=== PATIENT | male | born 1950 | race Caucasian/White ===

== ENCOUNTER 2018-08-08 18:09 | Inpatient (IN) | END 2018-08-13 16:00 | disposition home or self-care (01) | DRG 640 ==

== ENCOUNTER 2019-04-06 14:27 | Inpatient (IN) | payer MEDICAID, OTHER ==
[~2019-04-06] VITALS: Ht 162.6 cm; Wt 56.3 kg
[~2019-04-06 14:27] MED LIST: ALBU8.5H8 INH; AMLO-147 PO; ASPI-817 PO; ATOR-2 PO; BECL10.62 IH; OMEP20CA16 PO
--- NOTE | 2019-04-06 19:55 | ERD ---
ER Documentation Chief Complaint Chief Complaint sent alexys fr lab wk prior to resuming dialysis since out of country x2[place] HPI This is a 68-year-old man referred here by a dialysis center because he had not gone there for about 2 months, but patient states he was visiting [facility] and had his hemodialysis 5 days ago and [facility]. He states for the last few days he has been feeling weaker than usual and has had dyspnea on exertion. He denies fevers or chills, no cough, no calf or leg swelling, no complaints of chest pain. ROS All systems reviewed and are negative except as per history of present illness. Medications Home Meds Reported Medications Beclomethasone Dipropionate (Qvar Redihaler (80 MCG)) 10.6 Gm Hfa.aeroba, 10.6 GM IH BID, INH 08/08/18 Albuterol Sulfate* (Proair HFA*) 8.5 Gm Hfa.aer.ad, 2 PUFF INH Q4H PRN for WHEEZING AND SOB, #1 INHALER 08/08/18 Amlodipine Besylate* (Amlodipine Besylate*) 10 Mg Tablet, 10 MG PO DAILY, #30 TAB 08/08/18 Aspirin* (Aspirin* EC) 81 Mg Tablet.dr, 81 MG PO DAILY, TAB 08/08/18 Atorvastatin* (Atorvastatin*) 80 Mg Tablet, 80 MG PO QHS, #30 TAB 08/08/18 Omeprazole* (Omeprazole*) 20 Mg Capsule.dr, 20 MG PO DAILY, #30 CAP 08/08/18 Allergies Allergies: Coded Allergies: No Known Allergy (Unverified , 08/08/18) PMhx/Soc Hypertension, end-stage kidney disease, gastritis History of Surgery: Yes Anesthesia Reaction: No Hx Neurological Disorder: No Hx Respiratory Disorders: No Hx Cardiac Disorders: Yes Hx Psychiatric Problems: No Hx Miscellaneous Medical Probl: Yes (on HD) Hx Alcohol Use: Yes Hx Substance Use: No Hx Tobacco Use: No FmHx Family History: No diabetes Physical Exam Vitals Vital Signs Date Temp Pulse Resp B/P (MAP) Pulse Ox O2 O2 Flow FiO2 Time Delivery Rate 04/06/19 57 14 150/95 98 Room Air 21:19 (113) 04/06/19 57 20 161/78 99 Room Air 20:15 (105) 04/06/19 98.5 59 18 133/64 97 14:51 (87) Physical Exam GENERAL: Well-developed, well-nourished, well-hydrated, in no apparent distress, looks nontoxic in appearance HEENT: Moist mucous membranes, pale conjunctiva, no cervical spine tenderness or step-off deformities, no goiter, no jaundice or icterus, extraocular movements intact without pain. NEURO: Alert and oriented 3, cranial nerves II through XII intact bilaterally, pupils equal round reactive to light, no focal deficits or facial asymmetry, sensation intact distally Strength 5/5 in upper and lower extremities bilaterally CARDIAC: Regular rate and rhythm, no murmurs rubs or gallops LUNGS: Clear bilaterally no wheezing crackles or stridor ABDOMEN: Soft nontender, no guarding, no rigidity, no rebound, no psoas sign no obturator sign. SKIN: Warm and dry to touch, no abrasions, contusions, or hematomas, no lacerations, no ecchymosis, no target lesions, and without ulcers EXTREMITIES: No clubbing cyanosis or edema, calves are bilaterally symmetrical, no Homans sign, no popliteal cord sign. Distal pulses equal and bilateral PSYCH: Normal affect without agitation or irritability Result Diagram: 04/06/19200304/06/192003 Results 24 hrs Laboratory Tests Test 04/06/19 20:04 04/06/19 21:07 White Blood Count 7.2 10^3/ul Red Blood Count 2.22 10^6/ul Hemoglobin 7.0 g/dl Hematocrit 22.3 % Mean Corpuscular Volume 100.5 fl Mean Corpuscular Hemoglobin 31.5 pg Mean Corpuscular Hemoglobin Concent 31.4 g/dl Red Cell Distribution Width 14.8 % Platelet Count 149 10^3/UL Mean Platelet Volume 9.8 fl Immature Granulocytes % 0.600 % Neutrophils % 73.8 % Lymphocytes % 8.8 % Monocytes % 9.6 % Eosinophils % 6.6 % Basophils % 0.6 % Nucleated Red Blood Cells % 0.0 /100WBC Immature Granulocytes # 0.040 10^3/ul Neutrophils # 5.3 10^3/ul Lymphocytes # 0.6 10^3/ul Monocytes # 0.7 10^3/ul Eosinophils # 0.5 10^3/ul Basophils # 0.0 10^3/ul Nucleated Red Blood Cells # 0.0 10^3/ul Sodium Level 139 mmol/L Potassium Level 6.5 mmol/L Chloride Level 102 mmol/L Carbon Dioxide Level 17 mmol/L Anion Gap 20 Blood Urea Nitrogen 80 mg/dl Creatinine 15.40 mg/dl Est Glomerular Filtrat Rate mL/min 3 mL/min Glucose Level 100 mg/dl Calcium Level 8.5 mg/dl Total Bilirubin 0.1 mg/dl Direct Bilirubin 0.00 mg/dl Indirect Bilirubin 0.1 mg/dl Aspartate Amino Transf (AST/SGOT) 9 IU/L Alanine Aminotransferase (ALT/SGPT) 13 IU/L Alkaline Phosphatase 92 IU/L Troponin I < 0.012 ng/ml Total Protein 8.3 g/dl Albumin 4.5 g/dl Globulin 3.80 g/dl Albumin/Globulin Ratio 1.18 Lipase 384 U/L Bedside Glucose 96 mg/dL Current Medications Medications Dose Sig/Robin Start Time Status Last (Trade) Ordered Route PRN Stop Time Admin Dose Reason Admin Calcium 1,000 mg ONCE ONCE 04/06/19 04/06/19 Chloride IV 21:30 21:14 (Ca Chloride 04/06/19 21:31 10% Syg) Dextrose 50 ml ONCE STAT 04/06/19 DC 04/06/19 (D50w IV 21:04 21:14 Syringe) 04/06/19 21:08 Insulin 10 unit ONCE STAT 04/06/19 DC 04/06/19 Human IVP 21:04 21:15 Regular 04/06/19 21:08 (Humulin R) Dextrose ONCE PRN 04/06/19 (D50w IV DECREASED 21:30 Syringe) GLUCOSE 04/07/19 21:29 Albuterol 5 mg ONCE STAT 04/06/19 DC (Proventil INH 21:04 0.5% (Neb)) 04/06/19 21:08 IV Flush 3 ml PER 04/06/19 UNV (NS 3 ml) PROTOCOL IV 21:30 Ondansetron 4 mg Q6H PRN 04/06/19 UNV HCl (Zofran IV 21:30 Inj) NAUSEA/VOMITI NG 650 mg Q6H PRN 04/06/19 UNV Acetaminophen PO .PAIN 1-3 21:30 (Tylenol OR TEMP Tab) Docusate 100 mg Q12H PRN 04/06/19 UNV Sodium PO 21:30 (Colace) .CONSTIPATION Bisacodyl 5 mg DAILY PRN 04/06/19 UNV (Dulcolax) PO 21:30 .CONSTIPATION Heparin 5,000 unit Q8 SC 04/06/19 UNV Sodium 22:00 (Porcine) (Heparin (5000 Units/1ml)) Procedures/MDM IV line was established 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 Patient was afebrile 1 view chest x-ray performed, read by me reveals a large right pleural effusion, stable from prior chest x-ray, no acute infiltrates, no pneumothorax. EKG performed, read by me reveals a sinus bradycardia 56 bpm, normal axis, narrow QRS complex, peaked T waves in precordial leads, no concerning ST elevations or depressions CBC reveals anemia with a hemoglobin of 7, electrolytes revealed kidney failure with a BUN/creatinine 80/15, potassium elevated at 6.5, liver function tests normal I ordered transfusion 1 unit PRBC IV over 2 hours for symptomatic anemia. For acute hyperkalemia also administered IV dextrose and regular insulin, calcium gluconate 1 g IV, and albuterol 5 mg via nebulizer. Critical Care: Time: 39 minutes, this was time separate from other billable procedures. Treatments/Evaluations: Close monitoring and treatment of unstable vital signs, cardiorespiratory, and neurologic status, while maintaining tight balance of fluid, respiratory, and cardiac interventions. Patient admitted to telemetry setting. Departure Diagnosis: Primary Impression: End stage kidney disease Additional Impressions: Symptomatic anemia Acute hyperkalemia Pleural effusion Condition: Serious SANTOSH PLUMMER MD Apr 06, 2019 19:55
[2019-04-06] MEDS ORDERED: ALBUTEROL 0.5% (NEB) 2.5 MG/0.5 ML AMP INH STA (21:04)
[2019-04-06] MEDS ORDERED: DEXTROSE 50% 50 ML SYRINGE IV STA (21:04)
[2019-04-06] MEDS ORDERED: INSULIN REGULAR, HUMAN 100 UNIT/1 ML 3ML VIAL IVP STA (21:04)
--- NOTE | 2019-04-06 21:17 | HP ---
Date/Time of Note Date/Time of Note DATE: 04/06/19 TIME: 21:17 Assessment/Plan VTE Prophylaxis SCD applied (from Nsg): Yes Pharmacological prophylaxis: NA/contraindicated Pharm contraindication: low risk/ambulating Lines/Catheters IV Catheter Type (from Nrsg): Saline Lock Assessment/Plan Hospital Course This is a 68-year-old male being admitted to the telemetry floor for: 1 uremia: Secondary to missed dialysis. Patient presents with weakness and hyperkalemia. BUN of 80 with a creatinine of 15.8 which is significantly elevated from his previous renal function studies. Will obtain an urgent renal consultation for dialysis. Dr. Cardona has already been consulted. Patient did receive treatment for hyperkalemia in the emergency department, will repeat BMP twice in the a.m. 2. end-stage renal disease: Patient is on dialysis Saturday. Dr. Cardona is Camilo been consulted emergently for dialysis. Further treatment as per nephrology. 3. Right sided pleural effusion: similar to previous cxr in 07/2018. Will proceed with ct chest without contrast to further evaluate. 4. Hypertension. Continue Norvasc and hydralazine p.r.n. 5. Hyperkalemia. Received albuterol insulin dextrose in the emergency department, stat dialysis has been ordered. 6. Anemia, likely secondary to the end-stage renal disease. His hemoglobin is 7, he was ordered 1 units of PRBC in the emergency department. Further management as per nephro. 7. history of asthma. Continue home inhalers 8. DVT GI prophylaxis: SCDs, Protonix Further treatment strategy will be implemented as per the clinical course Result Diagram: 04/06/19200304/06/192003 Results 24hrs Laboratory Tests Test 04/06/19 20:04 04/06/19 21:07 White Blood Count 7.2 Red Blood Count 2.22 L Hemoglobin 7.0 L Hematocrit 22.3 L Mean Corpuscular Volume 100.5 Mean Corpuscular Hemoglobin 31.5 Mean Corpuscular Hemoglobin Concent 31.4 L Red Cell Distribution Width 14.8 H Platelet Count 149 # Mean Platelet Volume 9.8 Immature Granulocytes % 0.600 H Neutrophils % 73.8 Lymphocytes % 8.8 L Monocytes % 9.6 Eosinophils % 6.6 Basophils % 0.6 Nucleated Red Blood Cells % 0.0 Immature Granulocytes # 0.040 H Neutrophils # 5.3 Lymphocytes # 0.6 L Monocytes # 0.7 Eosinophils # 0.5 Basophils # 0.0 Nucleated Red Blood Cells # 0.0 Sodium Level 139 Potassium Level 6.5 *H Chloride Level 102 Carbon Dioxide Level 17 L Anion Gap 20 H Blood Urea Nitrogen 80 H Creatinine 15.40 H Est Glomerular Filtrat Rate mL/min 3 L Glucose Level 100 Calcium Level 8.5 Total Bilirubin 0.1 L Direct Bilirubin 0.00 Indirect Bilirubin 0.1 Aspartate Amino Transf (AST/SGOT) 9 L Alanine Aminotransferase (ALT/SGPT) 13 Alkaline Phosphatase 92 Troponin I < 0.012 Total Protein 8.3 H Albumin 4.5 Globulin 3.80 H Albumin/Globulin Ratio 1.18 Lipase 384 H Bedside Glucose 96 HPI/ROS Admit Date/Time Admit Date/Time Hx of Present Illness cc: missed dialysis, just returned from [facility]. Sob This is a 68-year-old man referred here by a dialysis center because he had not gone there for about 2 months, but patient states he was visiting [facility] and had his hemodialysis on April 01 in [facility]. He states for the last few days he has been feeling weaker than usual and has had dyspnea on exertion. He denies fevers or chills, no cough, no calf or leg swelling, no complaints of chest pain. He did present with a potassium of 6.5 in the emergency department which was treated with insulin and albuterol and dextrose in the emergency department. Allergies: NKDA Medications: See RAHEL RODRIGUEZ Const: As per HPI Eyes : No pain discharge or redness or change in visual acuity ENT: No pain, sore throat, congestion, congestion, dysphagia or discharge Respiratory: No shortness of breath, cough, sputum, wheezing, or pleuritic pain Cardiovascular: No chest pain, palpitation, PND, or edema GI : no change in appetite, abdominal pain, nausea, vomiting, diarrhea, constipation, or change in the color his stool Genitourinary: No dysuria, hematuria, flank pain , discharge or CVA tenderness Musculoskeletal: No joint pain, back pain, neck pain, restricted range of motion in neck or joints Skin: No rash, bruising or hives Neuro: No headache, dizziness, syncope, seizure, focal weakness Endocrine: No polyuria, polydipsia, temperature intolerance Psych: No hallucination, depression, anxiety or suicidal ideation PMH/Family/Social Past Medical History End-stage renal disease on HD Saturday, hypertension Medications Current Medications Calcium Chloride (Ca Chloride 10% Syg) 1,000 mg ONCE ONCE IV Last administered on 04/06/19at 21:14; Admin Dose 1,000 MG; Start 04/06/19 at 21:30; Stop 04/06/19 at 21:31 Dextrose (D50w Syringe) ONCE PRN IV DECREASED GLUCOSE; Start 04/06/19 at 21:30 ; Stop 04/07/19 at 21:29 Coded Allergies: No Known Allergy (Unverified , 08/08/18) Past Surgical History Left upper extremity AV fistula Past Surgical Hx: other Family History Significant Family History: no pertinent family hx Social History Alcohol Use: none Smoking Status: Never smoker Drug Use: none Exam/Review of Systems Vital Signs Vitals Vital Signs Date Temp Pulse Resp B/P (MAP) Pulse Ox O2 O2 Flow FiO2 Time Delivery Rate 04/06/19 57 20 161/78 99 Room Air 20:15 (105) 04/06/19 98.5 14:51 Exam Exam General: Patient is a pleasant male currently lying in bed in no acute distress HEENT: Atraumatic, normocephalic. The pupils are equal, round and reactive. E xtraocular motor are intact Neck: Supple with full range of motion. No rigidity or meningismus Chest: Nontender Lungs: Clear to auscultation bilaterally no crackles rales or wheezing Heart: Normal S1-S2, Regular rhythm and rate. No murmur, S3, or S4 Abdomen: Soft , nontender, nondistended , bowel sounds are present. No guarding no rebound tenderness , No masses or organomegaly. No costovertebral temporal angle mass Extremities: Left upper extremity AV fistula Neurologic: Normal mental status, speech normal, cranial nerves II through XII are intact, motor and sensory are intact, no focal weakness Additional Comments PROCEDURE: XR Chest. CLINICAL INDICATION: Abdominal Pain TECHNIQUE: Portable AP view of the chest was obtained. COMPARISON: DR ESTEBAN 08/08/2018 FINDINGS: Moderate size right pleural effusion with adjacent air space disease. Mild cardiomegaly. No pneumothorax. Calcified atherosclerosis of the thoracic aorta. No acute fractures. Prominent osteopenia. IMPRESSION: Moderate size right pleural effusion with adjacent air space disease. Correlate for aspiration or pneumonia. Findings appear similar from prior exam. Stable cardiomegaly. Calcified atherosclerosis of the thoracic aorta. RPTAT: HRGF Physician Es Date Time Electronically viewed and signed by Sravani Bui Physician on 04/06/2019 20:46 RF/ CC: SANTOSH PLUMMER MD [id number] DEVI ALFRED Apr 06, 2019 21:17
[2019-04-06] MEDS ORDERED: DOCUSATE SODIUM 100 MG CAP PO PRN (21:30)
[2019-04-06] MEDS ORDERED: CA CHLORIDE 10% 10 ML SYRINGE IV ONE (21:30)
[2019-04-06] MEDS ORDERED: BISACODYL (EC) 5 MG TAB PO PRN (21:30)
[2019-04-06] MEDS ORDERED: NACL 0.9% 3 ML SYG IV SCH (21:30)
[2019-04-06] MEDS ORDERED: DEXTROSE 50% 50 ML SYRINGE IV PRN (21:30)
[2019-04-06] MEDS ORDERED: ACETAMINOPHEN 325 MG TAB PO PRN (21:30)
[2019-04-06] MEDS ORDERED: ONDANSETRON 4 MG INJ IV PRN (21:30)
[2019-04-06] MEDS: HEPARIN 5,000 UNIT/1 ML VIAL SC SCH (22:00)
--- NOTE | 2019-04-06 22:00 | CONS ---
Assessment/Plan Assessment/Plan Assessment/Plan (Daily) 1. Acute fluid overload with acute Uremia due to missed HD 2. acute hyperkalemia due to Missed HD 3. Large Right sided pleural effusion due to fluid overload 4. ESRD on HD - has been stayed out of [place] for 3 months,was gettign HD once a week in [facility] 5. H/o HTN 6. H/o HL 7. H/o Hypothyroidism Plan: Seen iN ED< will paln for stat HD overnight, Conitnue Home BP meds Plan to keep pt on MWF schedule, Pt stayed out of [place] for more than 3 months, He lost his Dialysis chair time, will request New HD placement at renal [facility], renal [facility] continue current BP meds, IV hydralaine prn Thanks for consultation, I will continue to follow up Consultation Date/Type/Reason Admit Date/Time 04/06/19 Date of Consultation: Apr 06, 2019 Type of Consult NEPHROLOGY Reason for Consultation acute hyperkalemia, ESRD on HD missed HD, with severe uremia Requesting Provider: DEVI ALFRED Date/Time of Note DATE: 04/06/19 TIME: 22:00 Hx of Present Illness 68-year-old man referred here by a dialysis center because he had not gone there for about 2 months, but patient states he was visiting [facility] and had his hemodialysis on April 01 in [facility]. He states for the last few days he has been feeling weaker than usual and has had dyspnea on exertion. He denies fevers or chills, no cough, no calf or leg swelling, no complaints of chest pain. He did present with a potassium of 6.5 in the emergency department which was treated with insulin and albuterol and dextrose in the emergency department. pt is getting admitted to Tele floor for acute hyperkalemia, fluid overlaod and Renal has been consulted for emergent HD overnight Constitutional: poor po ENT: congestion Respiratory: pleuritic pain, shortness of breath Cardiovascular: no complaints Gastrointestinal: no complaints Genitourinary: no complaints Musculoskeletal: no complaints Skin: no complaints Neurologic: no complaints Endocrine: no complaints Lymphatic: no complaints Psychological: no complaints Immunologic: no complaints Past Medical History Medical History: high cholesterol, hypertension, other (ESRD on HD ) Home Meds Reported Medications Beclomethasone Dipropionate (Qvar Redihaler (80 MCG)) 10.6 Gm Hfa.aeroba, 10.6 GM IH BID, INH 08/08/18 Albuterol Sulfate* (Proair HFA*) 8.5 Gm Hfa.aer.ad, 2 PUFF INH Q4H PRN for WHEEZING AND SOB, #1 INHALER 08/08/18 Amlodipine Besylate* (Amlodipine Besylate*) 10 Mg Tablet, 10 MG PO DAILY, #30 TAB 08/08/18 Aspirin* (Aspirin* EC) 81 Mg Tablet.dr, 81 MG PO DAILY, TAB 08/08/18 Atorvastatin* (Atorvastatin*) 80 Mg Tablet, 80 MG PO QHS, #30 TAB 08/08/18 Omeprazole* (Omeprazole*) 20 Mg Capsule.dr, 20 MG PO DAILY, #30 CAP 08/08/18 Medications Current Medications Dextrose (D50w Syringe) ONCE PRN IV DECREASED GLUCOSE; Start 04/06/19 at 21:30; Stop 04/07/19 at 21:29 IV Flush (NS 3 ml) 3 ml PER PROTOCOL IV ; Start 04/06/19 at 21:30 Ondansetron HCl (Zofran Inj) 4 mg Q6H PRN IV NAUSEA/VOMITING; Start 04/06/19 at 21:30 Acetaminophen (Tylenol Tab) 650 mg Q6H PRN PO .PAIN 1-3 OR TEMP; Start 04/06/19 at 21:30 Docusate Sodium (Colace) 100 mg Q12H PRN PO .CONSTIPATION; Start 04/06/19 at 21:30 Bisacodyl (Dulcolax) 5 mg DAILY PRN PO .CONSTIPATION; Start 04/06/19 at 21:30 Heparin Sodium (Porcine) (Heparin (5000 Units/1ml)) 5,000 unit Q8 SC ; Start 04/06/19 at 22:00 Allergies: Coded Allergies: No Known Allergy (Unverified , 08/08/18) Past Surgical History Past Surgical Hx: no surgical history, other Family History Significant Family History: no pertinent family hx Social History Alcohol Use: none Smoking Status: Never smoker Drug Use: none Exam/Review of Systems Exam Vitals Vital Signs Date Temp Pulse Resp B/P (MAP) Pulse Ox O2 O2 Flow FiO2 Time Delivery Rate 04/06/19 57 14 150/95 98 Room Air 21:19 (113) 04/06/19 98.5 14:51 Constitutional: alert Psych: no complaints Head: normocephalic Eyes: nl conjunctiva ENMT: nl external ears & nose Neck: supple, non-tender Respiratory: clear to auscultation, normal air movement, congested cough Cardiovascular: regular rate and rhythm, nl pulses Gastrointestinal: soft, non-tender Musculoskeletal: nl extremities to inspection, nl gait and stance Neurological: EMERGENCY MEDCL EMT II-XII intact, nl mental status, nl speech, nl strength Lymph: nl lymph nodes Results Result Diagram: 04/06/19200304/06/192003 Results 24hrs Laboratory Tests Test 04/06/19 20:04 04/06/19 21:07 White Blood Count 7.2 Red Blood Count 2.22 L Hemoglobin 7.0 L Hematocrit 22.3 L Mean Corpuscular Volume 100.5 Mean Corpuscular Hemoglobin 31.5 Mean Corpuscular Hemoglobin Concent 31.4 L Red Cell Distribution Width 14.8 H Platelet Count 149 # Mean Platelet Volume 9.8 Immature Granulocytes % 0.600 H Neutrophils % 73.8 Lymphocytes % 8.8 L Monocytes % 9.6 Eosinophils % 6.6 Basophils % 0.6 Nucleated Red Blood Cells % 0.0 Immature Granulocytes # 0.040 H Neutrophils # 5.3 Lymphocytes # 0.6 L Monocytes # 0.7 Eosinophils # 0.5 Basophils # 0.0 Nucleated Red Blood Cells # 0.0 Sodium Level 139 Potassium Level 6.5 *H Chloride Level 102 Carbon Dioxide Level 17 L Anion Gap 20 H Blood Urea Nitrogen 80 H Creatinine 15.40 H Est Glomerular Filtrat Rate mL/min 3 L Glucose Level 100 Calcium Level 8.5 Total Bilirubin 0.1 L Direct Bilirubin 0.00 Indirect Bilirubin 0.1 Aspartate Amino Transf (AST/SGOT) 9 L Alanine Aminotransferase (ALT/SGPT) 13 Alkaline Phosphatase 92 Troponin I < 0.012 Total Protein 8.3 H Albumin 4.5 Globulin 3.80 H Albumin/Globulin Ratio 1.18 Lipase 384 H Bedside Glucose 96 Medications Medication Current Medications Dextrose (D50w Syringe) ONCE PRN IV DECREASED GLUCOSE; Start 04/06/19 at 21:30; Stop 04/07/19 at 21:29 IV Flush (NS 3 ml) 3 ml PER PROTOCOL IV ; Start 04/06/19 at 21:30 Ondansetron HCl (Zofran Inj) 4 mg Q6H PRN IV NAUSEA/VOMITING; Start 04/06/19 at 21:30 Acetaminophen (Tylenol Tab) 650 mg Q6H PRN PO .PAIN 1-3 OR TEMP; Start 04/06/19 at 21:30 Docusate Sodium (Colace) 100 mg Q12H PRN PO .CONSTIPATION; Start 04/06/19 at 21:30 Bisacodyl (Dulcolax) 5 mg DAILY PRN PO .CONSTIPATION; Start 04/06/19 at 21:30 Heparin Sodium (Porcine) (Heparin (5000 Units/1ml)) 5,000 unit Q8 SC ; Start 04/06/19 at 22:00 VAN DHALIWAL MD Apr 06, 2019 22:00
[2019-04-06] MEDS ORDERED: SODIUM CHLORIDE 0.9% 1L BAG IV PRN (22:30)
[2019-04-06] MEDS ORDERED: ALBUTEROL HFA 8 GM INHALER INH PRN (22:30)
[2019-04-06] MEDS ORDERED: ALBUMIN HUMAN 25% 100 ML IV PRN (22:30)
[2019-04-06 23:00] VITALS: Ht 162.6 cm; Wt 56.3 kg
[2019-04-06 23:56] VITALS: BP_SYST 142; BP_SYST 144; BP_DIAS 73; BP_DIAS 78; PULSE 56; PULSE 58; RESP 18
[2019-04-07] VITALS (26 sets, daily range): BP systolic 139–193; BP diastolic 60–90; PULSE 60–75; RESP 16–20
[2019-04-07] MEDS: HEPARIN 5,000 UNIT/1 ML VIAL SC SCH (06:00)
[2019-04-07] MEDS: PANTOPRAZOLE (EC) 40 MG TAB PO SCH (09:43)
[2019-04-07] MEDS: ASPIRIN (EC) 81 MG TAB PO SCH (09:43)
[2019-04-07] MEDS: AMLODIPINE 10 MG TAB PO SCH (09:43)
[2019-04-07] MEDS: hydrALAzine 20 MG INJ IV PRN (09:46)
--- NOTE | 2019-04-07 14:17 | PN ---
Date/Time of Note Date/Time of Note DATE: 04/07/19 TIME: 14:13 Assessment/Plan VTE Prophylaxis SCD applied (from Nsg): Yes Pharmacological prophylaxis: heparin Lines/Catheters IV Catheter Type (from Nrsg): Saline Lock Urinary Cath still in place: No Assessment/Plan Hospital Course S: states he feels better O : Constitutional: alert, oriented Head: atraumatic, normocephalic Neck: non-tender, supple Respiratory: clear to auscultation Cardiovascular: regular rate and rhythm Gastrointestinal: S/ NT / ND / +BS Extremities: no edema, AV fistula LUE assessment and plan: 68-year-old male sent from HD center for lethargy and COLON, had been visiting [facility] for the last 2 months and was getting dialysis there, regularity unclear. He's currently managed for the followin Uremia: Secondary to missed/ irregluar dialysis. -indices improving with HD, nephro following, planned for repeat HD tomorrow is my understanding . -Potassium improved 2. End-stage renal disease: -Patient's usual dialysis schedule is Saturday. -possible d/c tomorrow for continued HD o/p on ? 3. Hypertension. Continue Norvasc and hydralazine p.r.n. 4. Hyperkalemia. resolved 5. Anemia, likely secondary to the end-stage renal disease. -s/p 1 unit prbc 6. history of asthma. Continue home inhalers 7. SOB and COLON likely 2/2 Large right-sided pleural effusion with septations suggestive of loculation with compressive atelectasis in the right lower lobe -Patient had similar findings back in July 2018 and at that time had extensive infiltrates as well. Patient likely has chronic effusion due to end- stage renal disease -We will attempt thoracentesis [facility]ulate, PT Result Diagram: 04/07/19 0547 04/07/19 0547 Results 24hrs Laboratory Tests Test 04/06/19 20:04 04/06/19 21:07 04/06/19 22:26 04/07/19 05:39 White Blood Count 7.2 Red Blood Count 2.22 L Hemoglobin 7.0 L Hematocrit 22.3 L Mean Corpuscular 100.5 Volume Mean Corpuscular 31.5 Hemoglobin Mean Corpuscular 31.4 L Hemoglobin Concent Red Cell 14.8 H Distribution Width Platelet Count 149 # Mean Platelet Volume 9.8 Immature 0.600 H Granulocytes % Neutrophils % 73.8 Lymphocytes % 8.8 L Monocytes % 9.6 Eosinophils % 6.6 Basophils % 0.6 Nucleated Red Blood 0.0 Cells % Immature 0.040 H Granulocytes # Neutrophils # 5.3 Lymphocytes # 0.6 L Monocytes # 0.7 Eosinophils # 0.5 Basophils # 0.0 Nucleated Red Blood 0.0 Cells # Sodium Level 139 Potassium Level 6.5 *H Chloride Level 102 Carbon Dioxide Level 17 L Anion Gap 20 H Blood Urea Nitrogen 80 H Creatinine 15.40 H Est Glomerular 3 L Filtrat Rate mL/min Glucose Level 100 Calcium Level 8.5 Total Bilirubin 0.1 L Direct Bilirubin 0.00 Indirect Bilirubin 0.1 Aspartate Amino 9 L Transf (AST/SGOT) Alanine 13 Aminotransferase (AL T/SGPT) Alkaline Phosphatase 92 Troponin I < 0.012 Total Protein 8.3 H Albumin 4.5 Globulin 3.80 H Albumin/Globulin 1.18 Ratio Lipase 384 H Hepatitis B Surface NEGATIVE Antigen Bedside Glucose 96 127 Hemoglobin A1c 5.2 Test 04/07/19 05:47 White Blood Count 6.0 Red Blood Count 2.80 #L Hemoglobin 8.5 #L Hematocrit 26.1 L Mean Corpuscular 93.2 Volume Mean Corpuscular 30.4 Hemoglobin Mean Corpuscular 32.6 Hemoglobin Concent Red Cell 15.3 H Distribution Width Platelet Count 149 Mean Platelet Volume 10.8 H Immature 0.500 H Granulocytes % Neutrophils % 77.6 H Lymphocytes % 7.0 L Monocytes % 9.7 Eosinophils % 4.7 Basophils % 0.5 Nucleated Red Blood 0.0 Cells % Immature 0.030 Granulocytes # Neutrophils # 4.6 Lymphocytes # 0.4 L Monocytes # 0.6 Eosinophils # 0.3 Basophils # 0.0 Nucleated Red Blood 0.0 Cells # Absolute 0.058 Reticulocyte Count Percent Reticulocyte 2.2 H Count Sodium Level 141 Potassium Level 4.0 # Chloride Level 101 Carbon Dioxide Level 26 Anion Gap 14 H Blood Urea Nitrogen 28 #H Creatinine 7.25 #H Est Glomerular 8 L Filtrat Rate mL/min Glucose Level 73 Calcium Level 9.1 Magnesium Level 2.3 Iron Level 66 Total Iron Binding 232 L Capacity Percent Iron 28 Saturation Ferritin 942.0 H Total Bilirubin 0.9 Direct Bilirubin 0.00 Indirect Bilirubin 0.9 Aspartate Amino < 8 L Transf (AST/SGOT) Alanine 15 Aminotransferase (AL T/SGPT) Alkaline Phosphatase 89 Total Protein 7.2 # Albumin 4.0 Globulin 3.20 Albumin/Globulin 1.25 Ratio Triglycerides Level 83 Cholesterol Level 92 L LDL Cholesterol, 42 Calculated HDL Cholesterol 33 Cholesterol/HDL 2.7 Ratio Thyroid Stimulating 8.030 H Hormone (TSH) Exam/Review of Systems Exam Vitals Vital Signs Date Temp Pulse Resp B/P (MAP) Pulse Ox O2 O2 Flow FiO2 Time Delivery Rate 04/07/19 70 13:15 04/07/19 98.3 16 146/60 92 11:14 (88) 04/06/19 Room Air 23:56 04/06/19 21 21:28 Intake and Output 04/06/19 04/06/19 04/07/19 1515:00 23:00 07:00 IntakeIntake Total 0 ml OutputOutput Total 4300 ml BalanceBalance -4300 ml Results Results 24hrs Laboratory Tests Test 04/06/19 20:04 04/06/19 21:07 04/06/19 22:26 04/07/19 05:39 White Blood Count 7.2 Red Blood Count 2.22 L Hemoglobin 7.0 L Hematocrit 22.3 L Mean Corpuscular 100.5 Volume Mean Corpuscular 31.5 Hemoglobin Mean Corpuscular 31.4 L Hemoglobin Concent Red Cell 14.8 H Distribution Width Platelet Count 149 # Mean Platelet Volume 9.8 Immature 0.600 H Granulocytes % Neutrophils % 73.8 Lymphocytes % 8.8 L Monocytes % 9.6 Eosinophils % 6.6 Basophils % 0.6 Nucleated Red Blood 0.0 Cells % Immature 0.040 H Granulocytes # Neutrophils # 5.3 Lymphocytes # 0.6 L Monocytes # 0.7 Eosinophils # 0.5 Basophils # 0.0 Nucleated Red Blood 0.0 Cells # Sodium Level 139 Potassium Level 6.5 *H Chloride Level 102 Carbon Dioxide Level 17 L Anion Gap 20 H Blood Urea Nitrogen 80 H Creatinine 15.40 H Est Glomerular 3 L Filtrat Rate mL/min Glucose Level 100 Calcium Level 8.5 Total Bilirubin 0.1 L Direct Bilirubin 0.00 Indirect Bilirubin 0.1 Aspartate Amino 9 L Transf (AST/SGOT) Alanine 13 Aminotransferase (AL T/SGPT) Alkaline Phosphatase 92 Troponin I < 0.012 Total Protein 8.3 H Albumin 4.5 Globulin 3.80 H Albumin/Globulin 1.18 Ratio Lipase 384 H Hepatitis B Surface NEGATIVE Antigen Bedside Glucose 96 127 Hemoglobin A1c 5.2 Test 04/07/19 05:47 White Blood Count 6.0 Red Blood Count 2.80 #L Hemoglobin 8.5 #L Hematocrit 26.1 L Mean Corpuscular 93.2 Volume Mean Corpuscular 30.4 Hemoglobin Mean Corpuscular 32.6 Hemoglobin Concent Red Cell 15.3 H Distribution Width Platelet Count 149 Mean Platelet Volume 10.8 H Immature 0.500 H Granulocytes % Neutrophils % 77.6 H Lymphocytes % 7.0 L Monocytes % 9.7 Eosinophils % 4.7 Basophils % 0.5 Nucleated Red Blood 0.0 Cells % Immature 0.030 Granulocytes # Neutrophils # 4.6 Lymphocytes # 0.4 L Monocytes # 0.6 Eosinophils # 0.3 Basophils # 0.0 Nucleated Red Blood 0.0 Cells # Absolute 0.058 Reticulocyte Count Percent Reticulocyte 2.2 H Count Sodium Level 141 Potassium Level 4.0 # Chloride Level 101 Carbon Dioxide Level 26 Anion Gap 14 H Blood Urea Nitrogen 28 #H Creatinine 7.25 #H Est Glomerular 8 L Filtrat Rate mL/min Glucose Level 73 Calcium Level 9.1 Magnesium Level 2.3 Iron Level 66 Total Iron Binding 232 L Capacity Percent Iron 28 Saturation Ferritin 942.0 H Total Bilirubin 0.9 Direct Bilirubin 0.00 Indirect Bilirubin 0.9 Aspartate Amino < 8 L Transf (AST/SGOT) Alanine 15 Aminotransferase (AL T/SGPT) Alkaline Phosphatase 89 Total Protein 7.2 # Albumin 4.0 Globulin 3.20 Albumin/Globulin 1.25 Ratio Triglycerides Level 83 Cholesterol Level 92 L LDL Cholesterol, 42 Calculated HDL Cholesterol 33 Cholesterol/HDL 2.7 Ratio Thyroid Stimulating 8.030 H Hormone (TSH) Medications Medication Current Medications Dextrose (D50w Syringe) ONCE PRN IV DECREASED GLUCOSE; Start 04/06/19 at 21:30; Stop 04/07/19 at 21:29 IV Flush (NS 3 ml) 3 ml PER PROTOCOL IV ; Start 04/06/19 at 21:30 Ondansetron HCl (Zofran Inj) 4 mg Q6H PRN IV NAUSEA/VOMITING; Start 04/06/19 at 21:30 Acetaminophen (Tylenol Tab) 650 mg Q6H PRN PO .PAIN 1-3 OR TEMP; Start 04/06/19 at 21:30 Docusate Sodium (Colace) 100 mg Q12H PRN PO .CONSTIPATION; Start 04/06/19 at 21:30 Bisacodyl (Dulcolax) 5 mg DAILY PRN PO .CONSTIPATION; Start 04/06/19 at 21:30 Albumin Human 100 ml @ 100 mls/hr WITH DIALYSIS PRN IV SBP <90 DURING DIALYSIS ; Start 04/06/19 at 22:30 Sodium Chloride (NS) -To prime the dialy... DIRECTED FOR HD PRN IV HD; Start 04/06/19 at 22:30 Epoetin Andrew-epbx (Retacrit (Esrd)) 10,000 unit TuThSa@1700 SC ; Start 04/07/19 at 17:00 Hydralazine HCl (Apresoline) 10 mg Q4 PRN IV SBP more than 150 mm hg Last administered on 04/07/19at 09:46; Admin Dose 10 MG; Start 04/06/19 at 22:30 Albuterol (Ventolin Hfa) 2 puff Q4H RESP THERAPY PRN INH WHEEZING AND SOB; Start 04/06/19 at 22:30 Amlodipine Besylate (Norvasc) 10 mg DAILY PO Last administered on 04/07/19at 09:43; Admin Dose 10 MG; Start 04/07/19 at 09:00 Aspirin (Halfprin) 81 mg DAILY PO Last administered on 04/07/19at 09:43; Admin Dose 81 MG; Start 04/07/19 at 09:00 Atorvastatin Calcium (Lipitor) 80 mg QHS PO ; Start 04/07/19 at 21:00 Mometasone Furoate (Asmanex) 1 puff DAILY RESP THERAPY INH ; Start 04/07/19 at 12:00 Pantoprazole (Protonix Tab) 40 mg DAILY PO Last administered on 04/07/19at 09:43; Admin Dose 40 MG; Start 04/07/19 at 09:00 EMMY NAVA Apr 07, 2019 14:17
[2019-04-07] MEDS: MOMETASONE 0.24 GM INHALER INH SCH (14:48)
--- NOTE | 2019-04-07 18:10 | CONS ---
Assessment/Plan Assessment/Plan Assessment/Plan (Daily) 1. Acute fluid overload with acute Uremia due to missed HD 2. acute hyperkalemia due to Missed HD 3. Large Right sided pleural effusion due to fluid overload 4. ESRD on HD - [place] been stayed out of [place] for 3 [place],was gettign HD once a week in [facility] 5. H/o HTN 6. H/o HL 7. H/o Hypothyroidism Plan: s/p HD overnight, Now K normal today Plan to keep pt on MWF schedule, HD ordered for saturday Pt stayed out of [place] for more than 3 months, He lost his Dialysis chair time, will request New HD placement at renal [facility], renal [place] [facility] center - if requested to go back to same unit if they accept him back continue current BP meds amlodipine 10mg po daily , IV hydralaine prn HIV< hepatitis panel in AM labs to hel[p with HD placement will dorothea middleton Consultation Date/Type/Reason Admit Date/Time Apr 06, 2019 at 21:13 Initial Consult Date 04/06/19 Type of Consult NEPHROLOGY Reason for Consultation acute hyperkalemia, ESRD on HD, Missed HD Date/Time of Note DATE: 04/07/19 TIME: 18:10 24 HR Interval Summary Free Text/Dictation s/p HD overnight, Hb 8.7, BP stable Exam/Review of Systems Exam Vitals Vital Signs Date Temp Pulse Resp B/P (MAP) Pulse Ox O2 O2 Flow FiO2 Time Delivery Rate 04/07/19 64 17:04 04/07/19 98.8 16 150/70 92 15:34 (96) 04/06/19 Room Air 23:56 04/06/19 21 21:28 Intake and Output 04/06/19 04/06/19 04/07/19 1515:00 23:00 07:00 IntakeIntake Total 0 ml OutputOutput Total 4300 ml BalanceBalance -4300 ml Exam Constitutional: alert, awake, no acute distress Respiratory: clear to auscultation, normal air movement, congested cough Cardiovascular: regular rate and rhythm, nl pulses Gastrointestinal: soft, non-tender Musculoskeletal: nl extremities to inspection, nl gait and stance Neurological: FLOAT TENDER II-XII intact, nl mental status, nl speech, nl strength Lymph: nl lymph nodes Results Result Diagram: 04/07/19 0547 04/07/19 0547 Results 24hrs Laboratory Tests Test 04/06/19 20:04 04/06/19 21:07 04/06/19 22:26 04/07/19 05:39 White Blood Count 7.2 Red Blood Count 2.22 L Hemoglobin 7.0 L Hematocrit 22.3 L Mean Corpuscular 100.5 Volume Mean Corpuscular 31.5 Hemoglobin Mean Corpuscular 31.4 L Hemoglobin Concent Red Cell 14.8 H Distribution Width Platelet Count 149 # Mean Platelet Volume 9.8 Immature 0.600 H Granulocytes % Neutrophils % 73.8 Lymphocytes % 8.8 L Monocytes % 9.6 Eosinophils % 6.6 Basophils % 0.6 Nucleated Red Blood 0.0 Cells % Immature 0.040 H Granulocytes # Neutrophils # 5.3 Lymphocytes # 0.6 L Monocytes # 0.7 Eosinophils # 0.5 Basophils # 0.0 Nucleated Red Blood 0.0 Cells # Sodium Level 139 Potassium Level 6.5 *H Chloride Level 102 Carbon Dioxide Level 17 L Anion Gap 20 H Blood Urea Nitrogen 80 H Creatinine 15.40 H Est Glomerular 3 L Filtrat Rate mL/min Glucose Level 100 Calcium Level 8.5 Total Bilirubin 0.1 L Direct Bilirubin 0.00 Indirect Bilirubin 0.1 Aspartate Amino 9 L Transf (AST/SGOT) Alanine 13 Aminotransferase (AL T/SGPT) Alkaline Phosphatase 92 Troponin I < 0.012 Total Protein 8.3 H Albumin 4.5 Globulin 3.80 H Albumin/Globulin 1.18 Ratio Lipase 384 H Hepatitis B Surface NEGATIVE Antigen Bedside Glucose 96 127 Hemoglobin A1c 5.2 Test 04/07/19 05:47 White Blood Count 6.0 Red Blood Count 2.80 #L Hemoglobin 8.5 #L Hematocrit 26.1 L Mean Corpuscular 93.2 Volume Mean Corpuscular 30.4 Hemoglobin Mean Corpuscular 32.6 Hemoglobin Concent Red Cell 15.3 H Distribution Width Platelet Count 149 Mean Platelet Volume 10.8 H Immature 0.500 H Granulocytes % Neutrophils % 77.6 H Lymphocytes % 7.0 L Monocytes % 9.7 Eosinophils % 4.7 Basophils % 0.5 Nucleated Red Blood 0.0 Cells % Immature 0.030 Granulocytes # Neutrophils # 4.6 Lymphocytes # 0.4 L Monocytes # 0.6 Eosinophils # 0.3 Basophils # 0.0 Nucleated Red Blood 0.0 Cells # Absolute 0.058 Reticulocyte Count Percent Reticulocyte 2.2 H Count Sodium Level 141 Potassium Level 4.0 # Chloride Level 101 Carbon Dioxide Level 26 Anion Gap 14 H Blood Urea Nitrogen 28 #H Creatinine 7.25 #H Est Glomerular 8 L Filtrat Rate mL/min Glucose Level 73 Calcium Level 9.1 Magnesium Level 2.3 Iron Level 66 Total Iron Binding 232 L Capacity Percent Iron 28 Saturation Ferritin 942.0 H Total Bilirubin 0.9 Direct Bilirubin 0.00 Indirect Bilirubin 0.9 Aspartate Amino < 8 L Transf (AST/SGOT) Alanine 15 Aminotransferase (AL T/SGPT) Alkaline Phosphatase 89 Total Protein 7.2 # Albumin 4.0 Globulin 3.20 Albumin/Globulin 1.25 Ratio Triglycerides Level 83 Cholesterol Level 92 L LDL Cholesterol, 42 Calculated HDL Cholesterol 33 Cholesterol/HDL 2.7 Ratio Thyroid Stimulating 8.030 H Hormone (TSH) Medications Medication Current Medications Dextrose (D50w Syringe) ONCE PRN IV DECREASED GLUCOSE; Start 04/06/19 at 21:30; Stop 04/07/19 at 21:29 IV Flush (NS 3 ml) 3 ml PER PROTOCOL IV ; Start 04/06/19 at 21:30 Ondansetron HCl (Zofran Inj) 4 mg Q6H PRN IV NAUSEA/VOMITING; Start 04/06/19 at 21:30 Acetaminophen (Tylenol Tab) 650 mg Q6H PRN PO .PAIN 1-3 OR TEMP; Start 04/06/19 at 21:30 Docusate Sodium (Colace) 100 mg Q12H PRN PO .CONSTIPATION; Start 04/06/19 at 21:30 Bisacodyl (Dulcolax) 5 mg DAILY PRN PO .CONSTIPATION; Start 04/06/19 at 21:30 Albumin Human 100 ml @ 100 mls/hr WITH DIALYSIS PRN IV SBP <90 DURING DIALYSIS; Start 04/06/19 at 22:30 Sodium Chloride (NS) -To prime the dialy... DIRECTED FOR HD PRN IV HD; Start 04/06/19 at 22:30 Epoetin Andrew-epbx (Retacrit (Esrd)) 10,000 unit TuThSa@1700 SC ; Start 04/07/19 at 17:00 Hydralazine HCl (Apresoline) 10 mg Q4 PRN IV SBP more than 150 mm hg Last administered on 04/07/19 09:46; Admin Dose 10 MG; Start 04/06/19 at 22:30 Albuterol (Ventolin Hfa) 2 puff Q4H RESP THERAPY PRN INH WHEEZING AND SOB; Start 04/06/19 at 22:30 Amlodipine Besylate (Norvasc) 10 mg DAILY PO Last administered on 04/07/19 09:43; Admin Dose 10 MG; Start 04/07/19 at 09:00 Aspirin (Halfprin) 81 mg DAILY PO Last administered on 04/07/19 09:43; Admin Dose 81 MG; Start 04/07/19 at 09:00 Atorvastatin Calcium (Lipitor) 80 mg QHS PO ; Start 04/07/19 at 21:00 Mometasone Furoate (Asmanex) 1 puff DAILY RESP THERAPY INH Last administered on 04/07/19at 14:48; Admin Dose 1 PUFF; Start 04/07/19 at 12:00 Pantoprazole (Protonix Tab) 40 mg DAILY PO Last administered on 04/07/19 09:43; Admin Dose 40 MG; Start 04/07/19 at 09:00 VAN DHALIWAL MD Apr 07, 2019 18:10
[2019-04-07] MEDS: EPOETIN ALFA-EPBX (ESRD) 10,000 UNIT/ML VIAL SC SCH (18:21)
[2019-04-07] MEDS: ATORVASTATIN 80 MG TAB PO SCH (20:51)
[2019-04-08] VITALS (25 sets, daily range): BP systolic 125–161; BP diastolic 74–90; PULSE 57–91; RESP 16–20
[2019-04-08] MEDS: PANTOPRAZOLE (EC) 40 MG TAB PO SCH (08:42)
[2019-04-08] MEDS: ASPIRIN (EC) 81 MG TAB PO SCH (08:42)
[2019-04-08] MEDS: AMLODIPINE 10 MG TAB PO SCH (08:42)
--- NOTE | 2019-04-08 10:03 | CONS ---
Assessment/Plan Assessment/Plan Assessment/Plan (Daily) 1. Acute fluid overload with acute Uremia due to missed HD 2. acute hyperkalemia due to Missed HD 3. Large Right sided pleural effusion due to fluid overload 4. ESRD on HD - [place] been stayed out of [place] for [place],was gettign HD once a week in [facility] 5. H/o HTN 6. H/o HL 7. H/o Hypothyroidism Plan: s/p HD today 2.8 L removed, will keep pt on MWF schedule Pt stayed out of [place] for more than 3 months, He lost his Dialysis chair time, [facility] [place] [facility] - if requested to go back to same unit if they accept him back continue current BP meds amlodipine 10mg po daily , IV hydralaine prn HIV< hepatitis panel negative will follow up Consultation Date/Type/Reason Admit Date/Time Apr 06, 2019 at 21:13 Initial Consult Date 04/06/19 Type of Consult NEPHROLOGY Requesting Provider: DEIV ALFRED Date/Time of Note DATE: 04/08/19 TIME: 10:03 24 HR Interval Summary Free Text/Dictation plan for HD today , BP stable, Exam/Review of Systems Exam Vitals Vital Signs Date Temp Pulse Resp B/P (MAP) Pulse Ox O2 O2 Flow FiO2 Time Delivery Rate 04/08/19 98.4 59 17 155/81 93 08:26 (105) 04/08/19 Room Air 03:56 04/06/19 21 21:28 Intake and Output 04/07/19 04/07/19 04/08/19 1515:00 23:00 07:00 IntakeIntake Total 950 ml 420 ml OutputOutput Total 200 ml BalanceBalance 750 ml 420 ml Exam Constitutional: alert, awake, no acute distress Respiratory: clear to auscultation, normal air movement, congested cough Cardiovascular: regular rate and rhythm, nl pulses Gastrointestinal: soft, non-tender Musculoskeletal: nl extremities to inspection, nl gait and stance Neurological: COMPENSATION DIRECTOR II-XII intact, nl mental status, nl speech, nl strength Lymph: nl lymph nodes Results Result Diagram: 04/08/19 0753 04/08/19 0753 Results 24hrs Laboratory Tests Test 04/08/19 07:53 White Blood Count 5.9 Red Blood Count 2.80 L Hemoglobin 8.6 L Hematocrit 26.4 L Mean Corpuscular Volume 94.3 Mean Corpuscular Hemoglobin 30.7 Mean Corpuscular Hemoglobin Concent 32.6 Red Cell Distribution Width 15.2 H Platelet Count 142 Mean Platelet Volume 10.9 H Immature Granulocytes % 0.500 H Neutrophils % 72.6 Lymphocytes % 8.5 L Monocytes % 12.1 H Eosinophils % 6.0 Basophils % 0.3 Nucleated Red Blood Cells % 0.0 Immature Granulocytes # 0.030 Neutrophils # 4.3 Lymphocytes # 0.5 L Monocytes # 0.7 Eosinophils # 0.4 Basophils # 0.0 Nucleated Red Blood Cells # 0.0 Sodium Level 136 Potassium Level 4.9 Chloride Level 99 Carbon Dioxide Level 25 Anion Gap 12 Blood Urea Nitrogen 52 H Creatinine 10.18 #H Est Glomerular Filtrat Rate mL/min 5 L Glucose Level 83 Uric Acid 6.4 Calcium Level 8.5 Phosphorus Level 5.8 H Magnesium Level 2.4 Thyroid Stimulating Hormone (TSH) 11.200 H Free Thyroxine Index 2.33 Thyroxine (T4) 6.2 Triiodothyronine (T3) Uptake 37.6 Hepatitis B Surface Antigen NEGATIVE Hepatitis B Core Total Antibody NEGATIVE Hepatitis C Antibody NEGATIVE HIV (1&2) Antibody NEGATIVE Medications Medication Current Medications IV Flush (NS 3 ml) 3 ml PER PROTOCOL IV ; Start 04/06/19 at 21:30 Ondansetron HCl (Zofran Inj) 4 mg Q6H PRN IV NAUSEA/VOMITING; Start 04/06/19 at 21:30 Acetaminophen (Tylenol Tab) 650 mg Q6H PRN PO .PAIN 1-3 OR TEMP; Start 04/06/19 at 21:30 Docusate Sodium (Colace) 100 mg Q12H PRN PO .CONSTIPATION; Start 04/06/19 at 21:30 Bisacodyl (Dulcolax) 5 mg DAILY PRN PO .CONSTIPATION; Start 04/06/19 at 21:30 Albumin Human 100 ml @ 100 mls/hr WITH DIALYSIS PRN IV SBP <90 DURING DIALYSIS; Start 04/06/19 at 22:30 Sodium Chloride (NS) -To prime the dialy... DIRECTED FOR HD PRN IV HD; Start 04/06/19 at 22:30 Epoetin Andrew-epbx (Retacrit (Esrd)) 10,000 unit TuThSa@1700 SC Last administere d on 04/07/19 18:21; Admin Dose 10,000 UNIT; Start 04/07/19 at 17:00 Hydralazine HCl (Apresoline) 10 mg Q4 PRN IV SBP more than 150 mm hg Last administered on 04/07/19 09:46; Admin Dose 10 MG; Start 04/06/19 at 22:30 Albuterol (Ventolin Hfa) 2 puff Q4H RESP THERAPY PRN INH WHEEZING AND SOB; St art 04/06/19 at 22:30 Amlodipine Besylate (Norvasc) 10 mg DAILY PO Last administered on 04/08/19 08 :42; Admin Dose 10 MG; Start 04/07/19 at 09:00 Aspirin (Halfprin) 81 mg DAILY PO Last administered on 04/08/19 08:42; Admin Dose 81 MG; Start 04/07/19 at 09:00 Atorvastatin Calcium (Lipitor) 80 mg QHS PO Last administered on 04/07/19 20:51; Admin Dose 80 MG; Start 04/07/19 at 21:00 Mometasone Furoate (Asmanex) 1 puff DAILY RESP THERAPY INH Last administered on 04/07/19 14:48; Admin Dose 1 PUFF; Start 04/07/19 at 12:00 Pantoprazole (Protonix Tab) 40 mg DAILY PO Last administered on 04/08/19 08:42; Admin Dose 40 MG; Start 04/07/19 at 09:00 VAN DHALIWAL MD Apr 08, 2019 10:03
[2019-04-08] MEDS: MOMETASONE 0.24 GM INHALER INH SCH (12:45)
--- NOTE | 2019-04-08 12:58 | PN ---
Date/Time of Note Date/Time of Note DATE: 04/08/19 TIME: 12:57 Assessment/Plan VTE Prophylaxis Risk score (from Nsg)>0 risk: 4 SCD applied (from Nsg): Yes Pharmacological prophylaxis: heparin Lines/Catheters IV Catheter Type (from Nrsg): Saline Lock Urinary Cath still in place: No Assessment/Plan Hospital Course 68 yo male with ESRD who presents with COLON, found to have large R pleural effusion Pleural effusion: - Awaiting diagnostic and therapeutic thoracentesis ESRD: - Continue HD per renal Anemia of CKD - iron and EPO Hypertension: - Continue amlodipine Result Diagram: 04/08/19 0753 04/08/19 0753 Results 24hrs Laboratory Tests Test 04/08/19 07:53 04/08/19 11:24 White Blood Count 5.9 Red Blood Count 2.80 L Hemoglobin 8.6 L Hematocrit 26.4 L Mean Corpuscular Volume 94.3 Mean Corpuscular Hemoglobin 30.7 Mean Corpuscular Hemoglobin Concent 32.6 Red Cell Distribution Width 15.2 H Platelet Count 142 Mean Platelet Volume 10.9 H Immature Granulocytes % 0.500 H Neutrophils % 72.6 Lymphocytes % 8.5 L Monocytes % 12.1 H Eosinophils % 6.0 Basophils % 0.3 Nucleated Red Blood Cells % 0.0 Immature Granulocytes # 0.030 Neutrophils # 4.3 Lymphocytes # 0.5 L Monocytes # 0.7 Eosinophils # 0.4 Basophils # 0.0 Nucleated Red Blood Cells # 0.0 Sodium Level 136 Potassium Level 4.9 Chloride Level 99 Carbon Dioxide Level 25 Anion Gap 12 Blood Urea Nitrogen 52 H Creatinine 10.18 #H Est Glomerular Filtrat Rate mL/min 5 L Glucose Level 83 Uric Acid 6.4 Calcium Level 8.5 Phosphorus Level 5.8 H Magnesium Level 2.4 Thyroid Stimulating Hormone (TSH) 11.200 H Free Thyroxine Index 2.33 Thyroxine (T4) 6.2 Triiodothyronine (T3) Uptake 37.6 Hepatitis B Surface Antigen NEGATIVE Hepatitis B Core Total Antibody NEGATIVE Hepatitis C Antibody NEGATIVE HIV (1&2) Antibody NEGATIVE Prothrombin Time 14.0 Prothrombin Time Ratio 1.1 INR International Normalized Ratio 1.07 Activated Partial Thromboplast Time 42.7 H Subjective 24 Hr Interval Summary Free Text/Dictation HD received Feels a bit better but still gets winded when walking, awaiting thoracentesis Exam/Review of Systems Exam Vitals Vital Signs Date Temp Pulse Resp B/P (MAP) Pulse Ox O2 O2 Flow FiO2 Time Delivery Rate 04/08/19 98.2 57 16 141/75 97 11:44 (97) 04/08/19 Room Air 03:56 04/06/19 21 21:28 Intake and Output 04/07/19 04/07/19 04/08/19 1515:00 23:00 07:00 IntakeIntake Total 950 ml 420 ml OutputOutput Total 200 ml BalanceBalance 750 ml 420 ml Constitutional: alert, oriented, well developed Psych: no complaints, nl mood/affect Head: normocephalic, atraumatic Eyes: nl conjunctiva, EOMI, nl lids, nl sclera, PERRL ENMT: nl external ears & nose, nl lips & teeth, nl nasal mucosa & septum Neck: supple, non-tender Respiratory: clear to auscultation, normal air movement Cardiovascular: regular rate and rhythm, nl pulses Gastrointestinal: soft, nl liver, spleen, non-tender Musculoskeletal: nl extremities to inspection, nl gait and stance Extremities: normal pulses Neurological: [employer] II-XII intact, nl mental status, nl speech, nl strength Skin: nl turgor; No rash or lesions Lymph: nl lymph nodes Results Results 24hrs Laboratory Tests Test 04/08/19 07:53 04/08/19 11:24 White Blood Count 5.9 Red Blood Count 2.80 L Hemoglobin 8.6 L Hematocrit 26.4 L Mean Corpuscular Volume 94.3 Mean Corpuscular Hemoglobin 30.7 Mean Corpuscular Hemoglobin Concent 32.6 Red Cell Distribution Width 15.2 H Platelet Count 142 Mean Platelet Volume 10.9 H Immature Granulocytes % 0.500 H Neutrophils % 72.6 Lymphocytes % 8.5 L Monocytes % 12.1 H Eosinophils % 6.0 Basophils % 0.3 Nucleated Red Blood Cells % 0.0 Immature Granulocytes # 0.030 Neutrophils # 4.3 Lymphocytes # 0.5 L Monocytes # 0.7 Eosinophils # 0.4 Basophils # 0.0 Nucleated Red Blood Cells # 0.0 Sodium Level 136 Potassium Level 4.9 Chloride Level 99 Carbon Dioxide Level 25 Anion Gap 12 Blood Urea Nitrogen 52 H Creatinine 10.18 #H Est Glomerular Filtrat Rate mL/min 5 L Glucose Level 83 Uric Acid 6.4 Calcium Level 8.5 Phosphorus Level 5.8 H Magnesium Level 2.4 Thyroid Stimulating Hormone (TSH) 11.200 H Free Thyroxine Index 2.33 Thyroxine (T4) 6.2 Triiodothyronine (T3) Uptake 37.6 Hepatitis B Surface Antigen NEGATIVE Hepatitis B Core Total Antibody NEGATIVE Hepatitis C Antibody NEGATIVE HIV (1&2) Antibody NEGATIVE Prothrombin Time 14.0 Prothrombin Time Ratio 1.1 INR International Normalized Ratio 1.07 Activated Partial Thromboplast Time 42.7 H Medications Medication Current Medications IV Flush (NS 3 ml) 3 ml PER PROTOCOL IV ; Start 04/06/19 at 21:30 Ondansetron HCl (Zofran Inj) 4 mg Q6H PRN IV NAUSEA/VOMITING; Start 04/06/19 at 21:30 Acetaminophen (Tylenol Tab) 650 mg Q6H PRN PO .PAIN 1-3 OR TEMP; Start 04/06/19 at 21:30 Docusate Sodium (Colace) 100 mg Q12H PRN PO .CONSTIPATION; Start 04/06/19 at 21:30 Bisacodyl (Dulcolax) 5 mg DAILY PRN PO .CONSTIPATION; Start 04/06/19 at 21:30 Albumin Human 100 ml @ 100 mls/hr WITH DIALYSIS PRN IV SBP <90 DURING DIALYSIS; Start 04/06/19 at 22:30 Sodium Chloride (NS) -To prime the dialy... DIRECTED FOR HD PRN IV HD; Start 04/06/19 at 22:30 Epoetin Andrew-epbx (Retacrit (Esrd)) 10,000 unit TuThSa@1700 SC Last administered on 04/07/19at 18:21; Admin Dose 10,000 UNIT; Start 04/07/19 at 17:00 Hydralazine HCl (Apresoline) 10 mg Q4 PRN IV SBP more than 150 mm hg Last administered on 04/07/19at 09:46; Admin Dose 10 MG; Start 04/06/19 at 22:30 Albuterol (Ventolin Hfa) 2 puff Q4H RESP THERAPY PRN INH WHEEZING AND SOB; Start 04/06/19 at 22:30 Amlodipine Besylate (Norvasc) 10 mg DAILY PO Last administered on 04/08/19at 08:42; Admin Dose 10 MG; Start 04/07/19 at 09:00 Aspirin (Halfprin) 81 mg DAILY PO Last administered on 04/08/19 08:42; Admin Dose 81 MG; Start 04/07/19 at 09:00 Atorvastatin Calcium (Lipitor) 80 mg QHS PO Last administered on 04/07/19 20:51; Admin Dose 80 MG; Start 04/07/19 at 21:00 Mometasone Furoate (Asmanex) 1 puff DAILY RESP THERAPY INH Last administered on 04/08/19 12:45; Admin Dose 1 PUFF; Start 04/07/19 at 12:00 Pantoprazole (Protonix Tab) 40 mg DAILY PO Last administered on 04/08/19 08:42; Admin Dose 40 MG; Start 04/07/19 at 09:00 MARIE MCCLAIN MD Apr 08, 2019 12:58
[2019-04-08] MEDS: ATORVASTATIN 80 MG TAB PO SCH (20:13)
[2019-04-09] VITALS (16 sets, daily range): BP systolic 140–158; BP diastolic 73–84; PULSE 64–69; RESP 16–22
[2019-04-09] MEDS: hydrALAzine 20 MG INJ IV PRN ×2 (06:06→21:44)
[2019-04-09] MEDS: PANTOPRAZOLE (EC) 40 MG TAB PO SCH (09:03)
[2019-04-09] MEDS: ASPIRIN (EC) 81 MG TAB PO SCH (09:03)
[2019-04-09] MEDS: AMLODIPINE 10 MG TAB PO SCH (09:05)
[2019-04-09] MEDS ORDERED: LIDOCAINE 1% (MPF) 5 ML VIAL ONE (10:51)
--- NOTE | 2019-04-09 12:22 | PN ---
Date/Time of Note Date/Time of Note DATE: 04/09/19 TIME: 12:19 Assessment/Plan VTE Prophylaxis Risk score (from Nsg)>0 risk: 2 SCD applied (from Nsg): Yes Pharmacological prophylaxis: heparin Lines/Catheters IV Catheter Type (from Nrsg): Saline Lock Urinary Cath still in place: No Assessment/Plan Hospital Course 68 yo male with ESRD who presents with COLON, found to have large R pleural effusion Pleural effusion: - 600 cc drained by thoracentesis. Suggestive of exudative process - Consult pulmonary and CV surgery ESRD: - Continue HD per renal Anemia of CKD - iron and EPO Hypertension: - Continue amlodipine Result Diagram: 04/09/1952704/09/19527 Results 24hrs Laboratory Tests Test 04/09/19 05:28 04/09/19 10:22 White Blood Count 6.4 Red Blood Count 2.92 L Hemoglobin 8.9 L Hematocrit 27.7 L Mean Corpuscular Volume 94.9 Mean Corpuscular Hemoglobin 30.5 Mean Corpuscular Hemoglobin Concent 32.1 Red Cell Distribution Width 14.9 H Platelet Count 146 Mean Platelet Volume 10.6 H Immature Granulocytes % 0.500 H Neutrophils % 70.3 Lymphocytes % 8.5 L Monocytes % 13.8 H Eosinophils % 6.4 Basophils % 0.5 Nucleated Red Blood Cells % 0.0 Immature Granulocytes # 0.030 Neutrophils # 4.5 Lymphocytes # 0.5 L Monocytes # 0.9 Eosinophils # 0.4 Basophils # 0.0 Nucleated Red Blood Cells # 0.0 Sodium Level 139 Potassium Level 4.4 Chloride Level 101 Carbon Dioxide Level 28 Anion Gap 10 Blood Urea Nitrogen 34 #H Creatinine 6.57 #H Est Glomerular Filtrat Rate mL/min 8 L Glucose Level 82 Calcium Level 8.3 L Body Fluid Type PLEURAL FLUID Body Fluid Total Protein 4.7 Body Fluid Lactate Dehydrogenase 785 Subjective 24 Hr Interval Summary Free Text/Dictation Thoracentesis performed today, suggests exudative process Exam/Review of Systems Exam Vitals Vital Signs Date Temp Pulse Resp B/P (MAP) Pulse Ox O2 O2 Flow FiO2 Time Delivery Rate 04/09/19 97.6 67 18 149/80 98 11:44 (103) 04/09/19 Room Air 10:45 04/06/19 21 21:28 Intake and Output 04/08/19 04/08/19 04/09/19 1515:00 23:00 07:00 IntakeIntake Total 950 ml 120 ml OutputOutput Total 200 ml 3400 ml BalanceBalance -200 ml -2450 ml 120 ml Constitutional: alert, oriented, well developed Psych: no complaints, nl mood/affect Head: normocephalic, atraumatic Eyes: nl conjunctiva, EOMI, nl lids, nl sclera, PERRL ENMT: nl external ears & nose, nl lips & teeth, nl nasal mucosa & septum Neck: supple, non-tender Respiratory: clear to auscultation, normal air movement Cardiovascular: regular rate and rhythm, nl pulses Gastrointestinal: soft, nl liver, spleen, non-tender Musculoskeletal: nl extremities to inspection, nl gait and stance Extremities: normal pulses Neurological: [employer] II-XII intact, nl mental status, nl speech, nl strength Skin: nl turgor; No rash or lesions Lymph: nl lymph nodes Results Results 24hrs Laboratory Tests Test 04/09/19 05:28 04/09/19 10:22 White Blood Count 6.4 Red Blood Count 2.92 L Hemoglobin 8.9 L Hematocrit 27.7 L Mean Corpuscular Volume 94.9 Mean Corpuscular Hemoglobin 30.5 Mean Corpuscular Hemoglobin Concent 32.1 Red Cell Distribution Width 14.9 H Platelet Count 146 Mean Platelet Volume 10.6 H Immature Granulocytes % 0.500 H Neutrophils % 70.3 Lymphocytes % 8.5 L Monocytes % 13.8 H Eosinophils % 6.4 Basophils % 0.5 Nucleated Red Blood Cells % 0.0 Immature Granulocytes # 0.030 Neutrophils # 4.5 Lymphocytes # 0.5 L Monocytes # 0.9 Eosinophils # 0.4 Basophils # 0.0 Nucleated Red Blood Cells # 0.0 Sodium Level 139 Potassium Level 4.4 Chloride Level 101 Carbon Dioxide Level 28 Anion Gap 10 Blood Urea Nitrogen 34 #H Creatinine 6.57 #H Est Glomerular Filtrat Rate mL/min 8 L Glucose Level 82 Calcium Level 8.3 L Body Fluid Type PLEURAL FLUID Body Fluid Total Protein 4.7 Body Fluid Lactate Dehydrogenase 785 Medications Medication Current Medications IV Flush (NS 3 ml) 3 ml PER PROTOCOL IV ; Start 04/06/19 at 21:30 Ondansetron HCl (Zofran Inj) 4 mg Q6H PRN IV NAUSEA/VOMITING; Start 04/06/19 at 21:30 Acetaminophen (Tylenol Tab) 650 mg Q6H PRN PO .PAIN 1-3 OR TEMP; Start 04/06/19 at 21:30 Docusate Sodium (Colace) 100 mg Q12H PRN PO .CONSTIPATION; Start 04/06/19 at 21:30 Bisacodyl (Dulcolax) 5 mg DAILY PRN PO .CONSTIPATION; Start 04/06/19 at 21:30 Albumin Human 100 ml @ 100 mls/hr WITH DIALYSIS PRN IV SBP <90 DURING DIALYSIS; Start 04/06/19 at 22:30 Sodium Chloride (NS) -To prime the dialy... DIRECTED FOR HD PRN IV HD; Start 04/06/19 at 22:30 Epoetin Andrew-epbx (Retacrit (Esrd)) 10,000 unit TuThSa@1700 SC Last administered on 04/07/19at 18:21; Admin Dose 10,000 UNIT; Start 04/07/19 at 17:00 Hydralazine HCl (Apresoline) 10 mg Q4 PRN IV SBP more than 150 mm hg Last administered on 04/09/19at 06:06; Admin Dose 10 MG; Start 04/06/19 at 22:30 Albuterol (Ventolin Hfa) 2 puff Q4H RESP THERAPY PRN INH WHEEZING AND SOB; Start 04/06/19 at 22:30 Amlodipine Besylate (Norvasc) 10 mg DAILY PO Last administered on 04/09/19at 09:05; Admin Dose 10 MG; Start 04/07/19 at 09:00 Aspirin (Halfprin) 81 mg DAILY PO Last administered on 04/09/19 09:03; Admin Dose 81 MG; Start 04/07/19 at 09:00 Atorvastatin Calcium (Lipitor) 80 mg QHS PO Last administered on 04/08/19 20:13; Admin Dose 80 MG; Start 04/07/19 at 21:00 Mometasone Furoate (Asmanex) 1 puff DAILY RESP THERAPY INH Last administered on 04/08/19at 12:45; Admin Dose 1 PUFF; Start 04/07/19 at 12:00 Pantoprazole (Protonix Tab) 40 mg DAILY PO Last administered on 04/09/19 09:03; Admin Dose 40 MG; Start 04/07/19 at 09:00 MARIE MCCLAIN MD Apr 09, 2019 12:22
[2019-04-09] MEDS: MOMETASONE 0.24 GM INHALER INH SCH (13:50)
--- NOTE | 2019-04-09 14:02 | CONS ---
Assessment/Plan Assessment/Plan Assessment/Plan (Daily) 1. Acute fluid overload with acute Uremia due to missed HD 2. acute hyperkalemia due to Missed HD 3. Large Right sided pleural effusion due to fluid overload 4. ESRD on HD - [place] been stayed out of [place] for [place],was gettign HD once a week in [facility] 5. H/o HTN 6. H/o HL 7. H/o Hypothyroidism Plan: s/p HD today will keep pt on MWF schedule Pt stayed out of [place] for more than 3 months, He lost his Dialysis chair time, will request New HD placement at renal [facility], renal [place] [facility] - if requested to go back to same unit if they accept him back continue current BP meds amlodipine 10mg po daily , IV hydralaine prn HIV< hepatitis panel negative will follow up Patient seen in collaboration with Dr Celsa Cardona. dw staff Consultation Date/Type/Reason Admit Date/Time Apr 06, 2019 at 21:13 Initial Consult Date 04/06/19 Type of Consult NEPHROLOGY Reason for Consultation Fluid Overload Uremia Requesting Provider: DEVI ALFRED Date/Time of Note DATE: 04/09/19 TIME: 14:01 24 HR Interval Summary Free Text/Dictation NAD afebrile seems comfortable HD today dw staff Constitutional: improved Detailed Summary Eyes: no complaints ENT: no complaints Respiratory: no complaints Cardiovascular: no complaints Gastrointestinal: no complaints Genitourinary: no complaints Musculoskeletal: no complaints Skin: no complaints Neurologic: no complaints Endocrine: no complaints Lymphatic: no complaints Psychological: nl mood/affect Immunologic: no complaints Exam/Review of Systems Exam Vitals Vital Signs Date Temp Pulse Resp B/P (MAP) Pulse Ox O2 O2 Flow FiO2 Time Delivery Rate 04/09/19 67 12:01 04/09/19 97.6 18 149/80 98 11:44 (103) 04/09/19 Room Air 10:45 04/06/19 21 21:28 Intake and Output 04/08/19 04/08/19 04/09/19 1515:00 23:00 07:00 IntakeIntake Total 950 ml 120 ml OutputOutput Total 200 ml 3400 ml BalanceBalance -200 ml -2450 ml 120 ml Constitutional: alert, oriented, well developed Psych: nl mood/affect Head: normocephalic Eyes: nl lids, nl sclera ENMT: nl external ears & nose Neck: non-tender Respiratory: clear to auscultation Cardiovascular: nl pulses, other (S1S2) Gastrointestinal: soft, non-tender Musculoskeletal: nl extremities to inspection Extremities: normal pulses Neurological: nl mental status, nl speech Skin: nl turgor Lymph: nontender Results Result Diagram: 04/09/19 0528 04/09/19 0528 Results 24hrs Laboratory Tests Test 04/09/19 05:28 04/09/19 10:22 White Blood Count 6.4 Red Blood Count 2.92 L Hemoglobin 8.9 L Hematocrit 27.7 L Mean Corpuscular Volume 94.9 Mean Corpuscular Hemoglobin 30.5 Mean Corpuscular Hemoglobin Concent 32.1 Red Cell Distribution Width 14.9 H Platelet Count 146 Mean Platelet Volume 10.6 H Immature Granulocytes % 0.500 H Neutrophils % 70.3 Lymphocytes % 8.5 L Monocytes % 13.8 H Eosinophils % 6.4 Basophils % 0.5 Nucleated Red Blood Cells % 0.0 Immature Granulocytes # 0.030 Neutrophils # 4.5 Lymphocytes # 0.5 L Monocytes # 0.9 Eosinophils # 0.4 Basophils # 0.0 Nucleated Red Blood Cells # 0.0 Sodium Level 139 Potassium Level 4.4 Chloride Level 101 Carbon Dioxide Level 28 Anion Gap 10 Blood Urea Nitrogen 34 #H Creatinine 6.57 #H Est Glomerular Filtrat Rate mL/min 8 L Glucose Level 82 Calcium Level 8.3 L Pathologist Review (Hematology) YES Body Fluid Type PLEURAL FLUID Body Fluid Volume 600.0 Body Fluid Color BROWN Body Fluid Appearance CLOUDY Body Fluid WBC 160 Body Fluid RBC (Auto) 13922 Body Fluid Polynuclear WBCs (%) 39.3 Body Fluid Mononuclear Cells % Auto 60.7 Body Fluid Total Protein 4.7 Body Fluid Lactate Dehydrogenase 785 Medications Medication Current Medications IV Flush (NS 3 ml) 3 ml PER PROTOCOL IV ; Start 04/06/19 at 21:30 Ondansetron HCl (Zofran Inj) 4 mg Q6H PRN IV NAUSEA/VOMITING; Start 04/06/19 at 21:30 Acetaminophen (Tylenol Tab) 650 mg Q6H PRN PO .PAIN 1-3 OR TEMP; Start 04/06/19 at 21:30 Docusate Sodium (Colace) 100 mg Q12H PRN PO .CONSTIPATION; Start 04/06/19 at 21:30 Bisacodyl (Dulcolax) 5 mg DAILY PRN PO .CONSTIPATION; Start 04/06/19 at 21:30 Albumin Human 100 ml @ 100 mls/hr WITH DIALYSIS PRN IV SBP <90 DURING DIALYSIS; Start 04/06/19 at 22:30 Sodium Chloride (NS) -To prime the dialy... DIRECTED FOR HD PRN IV HD; Start 04/06/19 at 22:30 Epoetin Andrew-epbx (Retacrit (Esrd)) 10,000 unit TuThSa@1700 SC Last administered on 04/07/19 18:21; Admin Dose 10,000 UNIT; Start 04/07/19 at 17:00 Hydralazine HCl (Apresoline) 10 mg Q4 PRN IV SBP more than 150 mm hg Last a dministered on 04/09/19 06:06; Admin Dose 10 MG; Start 04/06/19 at 22:30 Albuterol (Ventolin Hfa) 2 puff Q4H RESP THERAPY PRN INH WHEEZING AND SOB; Start 04/06/19 at 22:30 Amlodipine Besylate (Norvasc) 10 mg DAILY PO Last administered on 04/09/19 09:05; Admin Dose 10 MG; Start 04/07/19 at 09:00 Aspirin (Halfprin) 81 mg DAILY PO Last administered on 04/09/19 09:03; Admin Dose 81 MG; Start 04/07/19 at 09:00 Atorvastatin Calcium (Lipitor) 80 mg QHS PO Last administered on 04/08/19 20:13; Admin Dose 80 MG; Start 04/07/19 at 21:00 Mometasone Furoate (Asmanex) 1 puff DAILY RESP THERAPY INH Last administered on 04/09/19 13:50; Admin Dose 1 PUFF; Start 04/07/19 at 12:00 Pantoprazole (Protonix Tab) 40 mg DAILY PO Last administered on 04/09/19 09:03; Admin Dose 40 MG; Start 04/07/19 at 09:00 PRADEEP MILNER Apr 09, 2019 14:02
[2019-04-09] MEDS: EPOETIN ALFA-EPBX (ESRD) 10,000 UNIT/ML VIAL SC SCH (17:04)
[2019-04-09] MEDS: ATORVASTATIN 80 MG TAB PO SCH (21:44)
[2019-04-10] VITALS (25 sets, daily range): BP systolic 126–166; BP diastolic 74–91; PULSE 61–88; RESP 18–19
--- NOTE | 2019-04-10 03:57 | CONS ---
Assessment/Plan Assessment/Plan Assessment/Plan (Daily) 1. Acute fluid overload with acute Uremia due to missed HD 2. acute hyperkalemia due to Missed HD 3. Large Right sided pleural effusion due to fluid overload 4. ESRD on HD - has been stayed out of [place] for [place],was gettign HD once a week in [facility] 5. H/o HTN 6. H/o HL 7. H/o Hypothyroidism Plan: HD will keep pt on MWF schedule Pt stayed out of [place] for more than 3 months, He lost his Dialysis chair time, will [facility] [place] [facility] - if requested to go back to same unit if they accept him back continue current BP meds amlodipine 10mg po daily , IV hydralaine prn HIV< hepatitis panel negative will follow up Patient seen in collaboration with Dr Cardona. Consultation Date/Type/Reason Admit Date/Time Apr 06, 2019 at 21:13 Initial Consult Date 04/06/19 Type of Consult NEPHROLOGY Reason for Consultation ESRD ON HD Requesting Provider: DEVI ALFRED Date/Time of Note DATE: 04/10/19 TIME: 03:57 24 HR Interval Summary Free Text/Dictation nad; stable; no events reported dw staff Constitutional: improved Detailed Summary Eyes: no complaints ENT: no complaints Respiratory: no complaints Cardiovascular: no complaints Gastrointestinal: no complaints Genitourinary: no complaints Musculoskeletal: no complaints Skin: no complaints Neurologic: no complaints Endocrine: no complaints Lymphatic: no complaints Psychological: no complaints Immunologic: no complaints Exam/Review of Systems Exam Vitals Vital Signs Date Temp Pulse Resp B/P (MAP) Pulse Ox O2 O2 Flow FiO2 Time Delivery Rate 04/10/19 98.9 69 18 150/76 96 03:48 (100) 04/09/19 Room Air 10:45 04/06/19 21 21:28 Intake and Output 04/09/19 04/09/19 04/10/19 1515:00 23:00 07:00 IntakeIntake Total 540 ml OutputOutput Total 600 ml BalanceBalance -60 ml Constitutional: alert, well developed Psych: nl mood/affect Head: atraumatic Eyes: nl lids, nl sclera ENMT: nl external ears & nose Neck: supple Respiratory: clear to auscultation Cardiovascular: nl pulses, other (S1S2) Gastrointestinal: soft, non-tender Musculoskeletal: nl extremities to inspection Extremities: normal pulses Neurological: nl speech, other (alert/reponsive) Results Result Diagram: 04/09/1952704/09/19527 Results 24hrs Laboratory Tests Test 04/09/19 05:28 04/09/19 10:22 White Blood Count 6.4 Red Blood Count 2.92 L Hemoglobin 8.9 L Hematocrit 27.7 L Mean Corpuscular Volume 94.9 Mean Corpuscular Hemoglobin 30.5 Mean Corpuscular Hemoglobin Concent 32.1 Red Cell Distribution Width 14.9 H Platelet Count 146 Mean Platelet Volume 10.6 H Immature Granulocytes % 0.500 H Neutrophils % 70.3 Lymphocytes % 8.5 L Monocytes % 13.8 H Eosinophils % 6.4 Basophils % 0.5 Nucleated Red Blood Cells % 0.0 Immature Granulocytes # 0.030 Neutrophils # 4.5 Lymphocytes # 0.5 L Monocytes # 0.9 Eosinophils # 0.4 Basophils # 0.0 Nucleated Red Blood Cells # 0.0 Sodium Level 139 Potassium Level 4.4 Chloride Level 101 Carbon Dioxide Level 28 Anion Gap 10 Blood Urea Nitrogen 34 #H Creatinine 6.57 #H Est Glomerular Filtrat Rate mL/min 8 L Glucose Level 82 Calcium Level 8.3 L Pathologist Review (Hematology) YES Body Fluid Type PLEURAL FLUID Body Fluid Volume 600.0 Body Fluid Color BROWN Body Fluid Appearance CLOUDY Body Fluid WBC 160 Body Fluid RBC (Auto) 88716 Body Fluid Polynuclear WBCs (%) 39.3 Body Fluid Mononuclear Cells % Auto 60.7 Body Fluid Total Protein 4.7 Body Fluid Lactate Dehydrogenase 785 Medications Medication Current Medications IV Flush (NS 3 ml) 3 ml PER PROTOCOL IV ; Start 04/06/19 at 21:30 Ondansetron HCl (Zofran Inj) 4 mg Q6H PRN IV NAUSEA/VOMITING; Start 04/06/19 at 21:30 Acetaminophen (Tylenol Tab) 650 mg Q6H PRN PO .PAIN 1-3 OR TEMP; Start 04/06/19 at 21:30 Docusate Sodium (Colace) 100 mg Q12H PRN PO .CONSTIPATION; Start 04/06/19 at 21:30 Bisacodyl (Dulcolax) 5 mg DAILY PRN PO .CONSTIPATION; Start 04/06/19 at 21:30 Albumin Human 100 ml @ 100 mls/hr WITH DIALYSIS PRN IV SBP <90 DURING DIALYSIS; Start 04/06/19 at 22:30 Epoetin Andrew-epbx (Retacrit (Esrd)) 10,000 unit TuThSa@1700 SC Last administered on 04/09/19 17:04; Admin Dose 10,000 UNIT; Start 04/07/19 at 17:00 Hydralazine HCl (Apresoline) 10 mg Q4 PRN IV SBP more than 150 mm hg Last administered on 04/09/19 21:44; Admin Dose 10 MG; Start 04/06/19 at 22:30 Albuterol (Ventolin Hfa) 2 puff Q4H RESP THERAPY PRN INH WHEEZING AND SOB; Start 04/06/19 at 22:30 Amlodipine Besylate (Norvasc) 10 mg DAILY PO Last administered on 04/09/19 09:05; Admin Dose 10 MG; Start 04/07/19 at 09:00 Aspirin (Halfprin) 81 mg DAILY PO Last administered on 04/09/19 09:03; Admin Dose 81 MG; Start 04/07/19 at 09:00 Atorvastatin Calcium (Lipitor) 80 mg QHS PO Last administered on 04/09/19 21:44; Admin Dose 80 MG; Start 04/07/19 at 21:00 Mometasone Furoate (Asmanex) 1 puff DAILY RESP THERAPY INH Last administered on 04/09/19 13:50; Admin Dose 1 PUFF; Start 04/07/19 at 12:00 Pantoprazole (Protonix Tab) 40 mg DAILY PO Last administered on 04/09/19 09:03; Admin Dose 40 MG; Start 04/07/19 at 09:00 PRADEEP MILNER Apr 10, 2019 03:57
[2019-04-10] MEDS: PANTOPRAZOLE (EC) 40 MG TAB PO SCH (08:40)
[2019-04-10] MEDS: AMLODIPINE 10 MG TAB PO SCH (08:41)
[2019-04-10] MEDS: ASPIRIN (EC) 81 MG TAB PO SCH (08:41)
--- NOTE | 2019-04-10 12:14 | CONS ---
Assessment/Plan Assessment/Plan Assessment/Plan (Daily) Assessment and recommendations; 1. Patient admitted with shortness of breath due to complicated left pleural effusion which is partly loculated. Possibly underlying endobronchial lesion. 2. End-stage renal disease, on hemodialysis. Patient had significant elevation in serum creatinine, possibly may have missed dialysis as outpatient. 3. Hypertension. 4. Anemia and thrombocytopenia. Continue current supportive care. Add Zosyn 2.25 g every 8 hours. Continue hemodialysis for couple of more sessions until serum creatinine has improved. Patient will need to have bronchoscopy performed which will be scheduled early next week. Consultation Date/Type/Reason Admit Date/Time Apr 06, 2019 at 21:13 Date of Consultation: Apr 10, 2019 Type of Consult Pulmonary Patient is a 68-year-old gentleman who came into the hospital on the of this month with a few days history of shortness of breath. Upon evaluation a chest x-ray was done which showed a large right pleural effusion, patient has undergone thoracentesis however only 600 mL of fluid was withdrawn. The fluid is exudative in character. Patient is feeling better. Denies any further shortness of breath, denies any chest pain, wheezing, sputum production or hemoptysis. Past medical history; 1. End-stage renal disease on hemodialysis. 2. Anemia and thrombocytopenia. 3. History of hypertension. Medications; reviewed. Allergies; none. Social history; noncontributory. Patient has never smoked. Occupational history; noncontributory. Family history; no show any malignancy in the family. Review of systems; denies any headache, seizures, chest pain, angina, wheezing, cough, sputum production or hemoptysis. Shortness of breath has improved. Denies any weight loss. Any abdominal pain, nausea vomiting. Any melena hematochezia. Any edema. Any arthritis symptoms. Any weight loss. Any fever or chills. General exam; elderly male, awake alert, getting hemodialysis at bedside. Currently in no distress. Date/Time of Note DATE: 04/10/19 TIME: 12:10 Past Medical History Medical History: high cholesterol, hypertension, other (ESRD on HD ) Home Meds Reported Medications Beclomethasone Dipropionate (Qvar Redihaler (80 MCG)) 10.6 Gm Hfa.aeroba, 10.6 GM IH BID, INH 08/08/18 Albuterol Sulfate* (Proair HFA*) 8.5 Gm Hfa.aer.ad, 2 PUFF INH Q4H PRN for WHEEZING AND SOB, #1 INHALER 08/08/18 Amlodipine Besylate* (Amlodipine Besylate*) 10 Mg Tablet, 10 MG PO DAILY, #30 TAB 08/08/18 Aspirin* (Aspirin* EC) 81 Mg Tablet.dr, 81 MG PO DAILY, TAB 08/08/18 Atorvastatin* (Atorvastatin*) 80 Mg Tablet, 80 MG PO QHS, #30 TAB 08/08/18 Omeprazole* (Omeprazole*) 20 Mg Capsule.dr, 20 MG PO DAILY, #30 CAP 08/08/18 Medications Current Medications IV Flush (NS 3 ml) 3 ml PER PROTOCOL IV ; Start 04/06/19 at 21:30 Ondansetron HCl (Zofran Inj) 4 mg Q6H PRN IV NAUSEA/VOMITING; Start 04/06/19 at 21:30 Acetaminophen (Tylenol Tab) 650 mg Q6H PRN PO .PAIN 1-3 OR TEMP; Start 04/06/19 at 21:30 Docusate Sodium (Colace) 100 mg Q12H PRN PO .CONSTIPATION; Start 04/06/19 at 21:30 Bisacodyl (Dulcolax) 5 mg DAILY PRN PO .CONSTIPATION; Start 04/06/19 at 21:30 Albumin Human 100 ml @ 100 mls/hr WITH DIALYSIS PRN IV SBP <90 DURING DIALYSIS; Start 04/06/19 at 22:30 Epoetin Andrew-epbx (Retacrit (Esrd)) 10,000 unit TuThSa@1700 SC Last administered on 04/09/19at 17:04; Admin Dose 10,000 UNIT; Start 04/07/19 at 17:00 Hydralazine HCl (Apresoline) 10 mg Q4 PRN IV SBP more than 150 mm hg Last administered on 04/09/19at 21:44; Admin Dose 10 MG; Start 04/06/19 at 22:30 Albuterol (Ventolin Hfa) 2 puff Q4H RESP THERAPY PRN INH WHEEZING AND SOB; Start 04/06/19 at 22:30 Amlodipine Besylate (Norvasc) 10 mg DAILY PO Last administered on 04/10/19at 08:41; Admin Dose 10 MG; Start 04/07/19 at 09:00 Aspirin (Halfprin) 81 mg DAILY PO Last administered on 04/10/19at 08:41; Admin Dose 81 MG; Start 04/07/19 at 09:00 Atorvastatin Calcium (Lipitor) 80 mg QHS PO Last administered on 04/09/19at 21:44; Admin Dose 80 MG; Start 04/07/19 at 21:00 Mometasone Furoate (Asmanex) 1 puff DAILY RESP THERAPY INH Last administered on 04/09/19at 13:50; Admin Dose 1 PUFF; Start 04/07/19 at 12:00 Pantoprazole (Protonix Tab) 40 mg DAILY PO Last administered on 04/10/19at 08:40; Admin Dose 40 MG; Start 04/07/19 at 09:00 Allergies: Coded Allergies: No Known Allergy (Unverified , 08/08/18) Past Surgical History Past Surgical Hx: no surgical history, other Social History Alcohol Use: none Smoking Status: Former smoker Drug Use: none Exam/Review of Systems Exam Vitals Vital Signs Date Temp Pulse Resp B/P (MAP) Pulse Ox O2 O2 Flow FiO2 Time Delivery Rate 04/10/19 64 12:03 04/10/19 97.9 19 146/83 96 11:34 (104) 04/10/19 Room Air 11:25 04/06/19 21 21:28 Intake and Output 04/09/19 04/09/19 04/10/19 1515:00 23:00 07:00 IntakeIntake Total 540 ml 120 ml OutputOutput Total 600 ml BalanceBalance -60 ml 120 ml Exam H EENT exam; supple neck, no JVD. No lymphadenopathy. Midline trachea. No thyromegaly. Patient has a multiple carious teeth. No neck masses. Chest exam; diminished breath sounds right lower lobe. Rest of the lung patrick are clear. S1-S2 audible, no murmurs. Regular rhythm. Abdomen exam; soft, no organomegaly. Bowel sounds audible. Nontender. Extremity exam; no peripheral edema. AV shunt in left arm. No clubbing. 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 Results Result Diagram: 04/10/19 0648 04/10/19 0648 Results 24hrs Laboratory Tests Test 04/10/19 06:48 White Blood Count 7.6 Red Blood Count 2.74 L Hemoglobin 8.4 L Hematocrit 26.0 L Mean Corpuscular Volume 94.9 Mean Corpuscular Hemoglobin 30.7 Mean Corpuscular Hemoglobin Concent 32.3 Red Cell Distribution Width 14.7 H Platelet Count 144 Mean Platelet Volume 9.7 Immature Granulocytes % 0.400 Neutrophils % 74.4 Lymphocytes % 6.5 L Monocytes % 12.6 H Eosinophils % 5.8 Basophils % 0.3 Nucleated Red Blood Cells % 0.0 Immature Granulocytes # 0.030 Neutrophils # 5.6 Lymphocytes # 0.5 L Monocytes # 1.0 H Eosinophils # 0.4 Basophils # 0.0 Nucleated Red Blood Cells # 0.0 Sodium Level 135 Potassium Level 4.7 Chloride Level 97 Carbon Dioxide Level 26 Anion Gap 12 Blood Urea Nitrogen 53 H Creatinine 9.25 #H Est Glomerular Filtrat Rate mL/min 6 L Glucose Level 90 Calcium Level 8.7 Medications Medication Current Medications IV Flush (NS 3 ml) 3 ml PER PROTOCOL IV ; Start 04/06/19 at 21:30 Ondansetron HCl (Zofran Inj) 4 mg Q6H PRN IV NAUSEA/VOMITING; Start 04/06/19 at 21:30 Acetaminophen (Tylenol Tab) 650 mg Q6H PRN PO .PAIN 1-3 OR TEMP; Start 04/06/19 at 21:30 Docusate Sodium (Colace) 100 mg Q12H PRN PO .CONSTIPATION; Start 04/06/19 at 21 :30 Bisacodyl (Dulcolax) 5 mg DAILY PRN PO .CONSTIPATION; Start 04/06/19 at 21:30 Albumin Human 100 ml @ 100 mls/hr WITH DIALYSIS PRN IV SBP <90 DURING DIALYSIS; Start 04/06/19 at 22:30 Epoetin Andrew-epbx (Retacrit (Esrd)) 10,000 unit TuThSa@1700 SC Last administered on 04/09/19at 17:04; Admin Dose 10,000 UNIT; Start 04/07/19 at 17:00 Hydralazine HCl (Apresoline) 10 mg Q4 PRN IV SBP more than 150 mm hg Last administered on 04/09/19at 21:44; Admin Dose 10 MG; Start 04/06/19 at 22:30 Albuterol (Ventolin Hfa) 2 puff Q4H RESP THERAPY PRN INH WHEEZING AND SOB; Start 04/06/19 at 22:30 Amlodipine Besylate (Norvasc) 10 mg DAILY PO Last administered on 04/10/19 08:41; Admin Dose 10 MG; Start 04/07/19 at 09:00 Aspirin (Halfprin) 81 mg DAILY PO Last administered on 04/10/19 08:41; Admin Dose 81 MG; Start 04/07/19 at 09:00 Atorvastatin Calcium (Lipitor) 80 mg QHS PO Last administered on 04/09/19 21:44; Admin Dose 80 MG; Start 04/07/19 at 21:00 Mometasone Furoate (Asmanex) 1 puff DAILY RESP THERAPY INH Last administered on 04/09/19 13:50; Admin Dose 1 PUFF; Start 04/07/19 at 12:00 Pantoprazole (Protonix Tab) 40 mg DAILY PO Last administered on 04/10/19 08:40; Admin Dose 40 MG; Start 04/07/19 at 09:00 SHAHANA LOPEZ Apr 10, 2019 12:14
[2019-04-10] MEDS: MOMETASONE 0.24 GM INHALER INH SCH (12:45)
--- NOTE | 2019-04-10 13:51 | PN ---
Date/Time of Note Date/Time of Note DATE: 04/10/19 TIME: 13:49 Assessment/Plan VTE Prophylaxis Risk score (from Nsg)>0 risk: 2 SCD applied (from Nsg): Yes Pharmacological prophylaxis: heparin Lines/Catheters IV Catheter Type (from Nrsg): Saline Lock Urinary Cath still in place: No Assessment/Plan Hospital Course 68 yo male with ESRD who presents with COLON, found to have large R pleural effusion Pleural effusion: - 600 cc drained by thoracentesis. Suggestive of exudative process. Have started him on empiric antibiotics - Concern for endobronchial lesion, plan to perform bronchoscopy next week - Consult pulmonary and CV surgery ESRD: - Continue HD per renal Anemia of CKD - iron and EPO Hypertension: - Continue amlodipine Result Diagram: 04/10/19 0648 04/10/19 0648 Results 24hrs Laboratory Tests Test 04/10/19 06:48 White Blood Count 7.6 Red Blood Count 2.74 L Hemoglobin 8.4 L Hematocrit 26.0 L Mean Corpuscular Volume 94.9 Mean Corpuscular Hemoglobin 30.7 Mean Corpuscular Hemoglobin Concent 32.3 Red Cell Distribution Width 14.7 H Platelet Count 144 Mean Platelet Volume 9.7 Immature Granulocytes % 0.400 Neutrophils % 74.4 Lymphocytes % 6.5 L Monocytes % 12.6 H Eosinophils % 5.8 Basophils % 0.3 Nucleated Red Blood Cells % 0.0 Immature Granulocytes # 0.030 Neutrophils # 5.6 Lymphocytes # 0.5 L Monocytes # 1.0 H Eosinophils # 0.4 Basophils # 0.0 Nucleated Red Blood Cells # 0.0 Sodium Level 135 Potassium Level 4.7 Chloride Level 97 Carbon Dioxide Level 26 Anion Gap 12 Blood Urea Nitrogen 53 H Creatinine 9.25 #H Est Glomerular Filtrat Rate mL/min 6 L Glucose Level 90 Calcium Level 8.7 Subjective 24 Hr Interval Summary Free Text/Dictation Breathing improved Started on zosyn for possible pneumoina Exam/Review of Systems Exam Vitals Vital Signs Date Temp Pulse Resp B/P (MAP) Pulse Ox O2 O2 Flow FiO2 Time Delivery Rate 04/10/19 68 13:25 04/10/19 97.9 19 146/83 96 11:34 (104) 04/10/19 Room Air 11:25 04/06/19 21 21:28 Intake and Output 04/09/19 04/09/19 04/10/19 1515:00 23:00 07:00 IntakeIntake Total 540 ml 120 ml OutputOutput Total 600 ml BalanceBalance -60 ml 120 ml Constitutional: alert, oriented, well developed Psych: no complaints, nl mood/affect Head: normocephalic, atraumatic Eyes: nl conjunctiva, EOMI, nl lids, nl sclera, PERRL ENMT: nl external ears & nose, nl lips & teeth, nl nasal mucosa & septum Neck: supple, non-tender Respiratory: clear to auscultation, normal air movement Cardiovascular: regular rate and rhythm, nl pulses Gastrointestinal: soft, nl liver, spleen, non-tender Musculoskeletal: nl extremities to inspection, nl gait and stance Extremities: normal pulses Neurological: 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 intact, nl mental status, nl speech, nl strength Skin: nl turgor; No rash or lesions Lymph: nl lymph nodes Results Results 24hrs Laboratory Tests Test 04/10/19 06:48 White Blood Count 7.6 Red Blood Count 2.74 L Hemoglobin 8.4 L Hematocrit 26.0 L Mean Corpuscular Volume 94.9 Mean Corpuscular Hemoglobin 30.7 Mean Corpuscular Hemoglobin Concent 32.3 Red Cell Distribution Width 14.7 H Platelet Count 144 Mean Platelet Volume 9.7 Immature Granulocytes % 0.400 Neutrophils % 74.4 Lymphocytes % 6.5 L Monocytes % 12.6 H Eosinophils % 5.8 Basophils % 0.3 Nucleated Red Blood Cells % 0.0 Immature Granulocytes # 0.030 Neutrophils # 5.6 Lymphocytes # 0.5 L Monocytes # 1.0 H Eosinophils # 0.4 Basophils # 0.0 Nucleated Red Blood Cells # 0.0 Sodium Level 135 Potassium Level 4.7 Chloride Level 97 Carbon Dioxide Level 26 Anion Gap 12 Blood Urea Nitrogen 53 H Creatinine 9.25 #H Est Glomerular Filtrat Rate mL/min 6 L Glucose Level 90 Calcium Level 8.7 Medications Medication Current Medications IV Flush (NS 3 ml) 3 ml PER PROTOCOL IV ; Start 04/06/19 at 21:30 Ondansetron HCl (Zofran Inj) 4 mg Q6H PRN IV NAUSEA/VOMITING; Start 04/06/19 at 21:30 Acetaminophen (Tylenol Tab) 650 mg Q6H PRN PO .PAIN 1-3 OR TEMP; Start 04/06/19 at 21:30 Docusate Sodium (Colace) 100 mg Q12H PRN PO .CONSTIPATION; Start 04/06/19 at 21:30 Bisacodyl (Dulcolax) 5 mg DAILY PRN PO .CONSTIPATION; Start 04/06/19 at 21:30 Albumin Human 100 ml @ 100 mls/hr WITH DIALYSIS PRN IV SBP <90 DURING DIALYSIS; Start 04/06/19 at 22:30 Epoetin Andrew-epbx (Retacrit (Esrd)) 10,000 unit TuThSa@1700 SC Last administered on 04/09/19 17:04; Admin Dose 10,000 UNIT; Start 04/07/19 at 17:00 Hydralazine HCl (Apresoline) 10 mg Q4 PRN IV SBP more than 150 mm hg Last administered on 04/09/19 21:44; Admin Dose 10 MG; Start 04/06/19 at 22:30 Albuterol (Ventolin Hfa) 2 puff Q4H RESP THERAPY PRN INH WHEEZING AND SOB; Start 04/06/19 at 22:30 Amlodipine Besylate (Norvasc) 10 mg DAILY PO Last administered on 04/10/19 08:41; Admin Dose 10 MG; Start 04/07/19 at 09:00 Aspirin (Halfprin) 81 mg DAILY PO Last administered on 04/10/19 08:41; Admin Dose 81 MG; Start 04/07/19 at 09:00 Atorvastatin Calcium (Lipitor) 80 mg QHS PO Last administered on 04/09/19 21:44; Admin Dose 80 MG; Start 04/07/19 at 21:00 Mometasone Furoate (Asmanex) 1 puff DAILY RESP THERAPY INH Last administered on 04/10/19 12:45; Admin Dose 1 PUFF; Start 04/07/19 at 12:00 Pantoprazole (Protonix Tab) 40 mg DAILY PO Last administered on 04/10/19 08:40; Admin Dose 40 MG; Start 04/07/19 at 09:00 Piperacillin Sod/ Tazobactam Sod 50 ml @ 100 mls/hr Q8 IVPB ; Start 04/10/19 at 14:00 MARIE MCCLAIN MD Apr 10, 2019 13:51
[2019-04-10] MEDS: PIPER-TAZO 2.25 GM (PMX) 50 ML IVPB SCH ×2 (14:54→22:59)
[2019-04-10] MEDS: hydrALAzine 20 MG INJ IV PRN (18:00)
[2019-04-10] MEDS: ATORVASTATIN 80 MG TAB PO SCH (21:48)
[2019-04-11 01:45] VITALS: BP 139/74; PULSE 68; RESP 18
[2019-04-11] MEDS: PIPER-TAZO 2.25 GM (PMX) 50 ML IVPB SCH ×3 (06:18→22:34)
[2019-04-11 07:59] VITALS: BP 160/82; PULSE 67; RESP 18
[2019-04-11] MEDS: ASPIRIN (EC) 81 MG TAB PO SCH (08:52)
[2019-04-11] MEDS: AMLODIPINE 10 MG TAB PO SCH (08:52)
[2019-04-11] MEDS: PANTOPRAZOLE (EC) 40 MG TAB PO SCH (08:52)
--- NOTE | 2019-04-11 09:24 | CONS ---
Assessment/Plan Assessment/Plan Assessment/Plan (Daily) 1. Acute fluid overload with acute Uremia due to missed HD 2. acute hyperkalemia due to Missed HD 3. Large Right sided pleural effusion due to fluid overload 4. ESRD on HD - has been stayed out of [place] for 3 months,was gettign HD once a week in [facility] 5. H/o HTN 6. H/o HL 7. H/o Hypothyroidism 8. Anemia Plan: HD will keep pt on MWF schedule Pt stayed out of [place] for more than 3 months, He lost his Dialysis chair time, [facility] [place] [facility] - if requested to go back to same unit if they accept him back continue current BP meds amlodipine 10mg po daily , IV hydralazine prn HIV< hepatitis panel negative will follow up Patient seen in collaboration with Dr Cardona Consultation Date/Type/Reason Admit Date/Time Apr 06, 2019 at 21:13 Initial Consult Date 04/06/19 Type of Consult NEPHROLOGY Reason for Consultation Fluid overload Uremia Requesting Provider: DEVI ALFRED Date/Time of Note DATE: 04/11/19 TIME: 09:24 24 HR Interval Summary Free Text/Dictation no events reported last night dw staff Constitutional: improved Detailed Summary Eyes: no complaints ENT: no complaints Respiratory: no complaints Cardiovascular: no complaints Gastrointestinal: no complaints Genitourinary: no complaints Musculoskeletal: no complaints Skin: no complaints Neurologic: no complaints Endocrine: no complaints Psychological: nl mood/affect Exam/Review of Systems Exam Vitals Vital Signs Date Temp Pulse Resp B/P (MAP) Pulse Ox O2 O2 Flow FiO2 Time Delivery Rate 04/11/19 97.9 67 18 160/82 97 Room Air 07:59 (108) Intake and Output 04/10/19 04/10/19 04/11/19 1515:00 23:00 07:00 IntakeIntake Total 480 ml 50 ml 100 ml OutputOutput Total 5500 ml BalanceBalance -5020 ml 50 ml 100 ml Constitutional: alert, well developed Psych: nl mood/affect Head: normocephalic Eyes: nl lids, nl sclera ENMT: nl external ears & nose Neck: non-tender Respiratory: clear to auscultation Cardiovascular: nl pulses, other (s1s2) Gastrointestinal: soft, non-tender Musculoskeletal: muscle weakness Extremities: normal pulses Neurological: nl speech Skin: nl turgor Lymph: nontender Results Result Diagram: 04/10/1964704/10/19647 Medications Medication Current Medications IV Flush (NS 3 ml) 3 ml PER PROTOCOL IV ; Start 04/06/19 at 21:30 Ondansetron HCl (Zofran Inj) 4 mg Q6H PRN IV NAUSEA/VOMITING; Start 04/06/19 at 21:30 Acetaminophen (Tylenol Tab) 650 mg Q6H PRN PO .PAIN 1-3 OR TEMP; Start 04/06/19 at 21:30 Docusate Sodium (Colace) 100 mg Q12H PRN PO .CONSTIPATION; Start 04/06/19 at 21:30 Bisacodyl (Dulcolax) 5 mg DAILY PRN PO .CONSTIPATION; Start 04/06/19 at 21:30 Albumin Human 100 ml @ 100 mls/hr WITH DIALYSIS PRN IV SBP <90 DURING DIALYSIS; Start 04/06/19 at 22:30 Epoetin Andrew-epbx (Retacrit (Esrd)) 10,000 unit TuThSa@1700 SC Last administered on 04/09/19at 17:04; Admin Dose 10,000 UNIT; Start 04/07/19 at 17:00 Hydralazine HCl (Apresoline) 10 mg Q4 PRN IV SBP more than 150 mm hg Last administered on 04/10/19at 18:00; Admin Dose 10 MG; Start 04/06/19 at 22:30 Albuterol (Ventolin Hfa) 2 puff Q4H RESP THERAPY PRN INH WHEEZING AND SOB; Start 04/06/19 at 22:30 Amlodipine Besylate (Norvasc) 10 mg DAILY PO Last administered on 04/11/19at 08:52; Admin Dose 10 MG; Start 04/07/19 at 09:00 Aspirin (Halfprin) 81 mg DAILY PO Last administered on 04/11/19at 08:52; Admin Dose 81 MG; Start 04/07/19 at 09:00 Atorvastatin Calcium (Lipitor) 80 mg QHS PO Last administered on 04/10/19at 21:48; Admin Dose 80 MG; Start 04/07/19 at 21:00 Mometasone Furoate (Asmanex) 1 puff DAILY RESP THERAPY INH Last administered on 04/10/19at 12:45; Admin Dose 1 PUFF; Start 04/07/19 at 12:00 Pantoprazole (Protonix Tab) 40 mg DAILY PO Last administered on 04/11/19 08:52; Admin Dose 40 MG; Start 04/07/19 at 09:00 Piperacillin Sod/ Tazobactam Sod 50 ml @ 100 mls/hr Q8 IVPB Last administered on 04/11/19 06:18; Admin Dose 100 MLS/HR; Start 04/10/19 at 14:00 PRADEEP MILNER Apr 11, 2019 09:24
[2019-04-11] MEDS: MOMETASONE 0.24 GM INHALER INH SCH (12:51)
[2019-04-11 14:00] VITALS: BP 130/71; PULSE 67; RESP 18
--- NOTE | 2019-04-11 15:06 | CONS ---
Consult Date/Type/Reason Admit Date/Time Apr 06, 2019 at 21:13 Initial Consult Date 04/10/19 Type of Consultation: Pulm Requesting Provider: DEVI ALFRED Date/Time of Note DATE: 04/11/19 TIME: 14:[address] chest reviewed in detail. Objective Vitals Vital Signs Date Temp Pulse Resp B/P (MAP) Pulse Ox O2 O2 Flow FiO2 Time Delivery Rate 04/11/19 98.0 67 18 130/71 100 Room Air 14:00 (90) Intake and Output 04/10/19 04/10/19 04/11/19 1515:00 23:00 07:00 IntakeIntake Total 480 ml 50 ml 100 ml OutputOutput Total 5500 ml BalanceBalance -5020 ml 50 ml 100 ml Exam HEENT: Neck supple; no JVD; no LAD CVS: RRR, S1 and S2 CHEST: Decreased BS right base ABD: Soft, NT, + BS EXT: No c/c/e Results/Medications Result Diagram: 04/10/1948 04/10/19 0648 Home Meds Reported Medications Beclomethasone Dipropionate (Qvar Redihaler (80 MCG)) 10.6 Gm Hfa.aeroba, 10.6 GM IH BID, INH 08/08/18 Albuterol Sulfate* (Proair HFA*) 8.5 Gm Hfa.aer.ad, 2 PUFF INH Q4H PRN for WHEEZING AND SOB, #1 INHALER 08/08/18 Amlodipine Besylate* (Amlodipine Besylate*) 10 Mg Tablet, 10 MG PO DAILY, #30 TAB 08/08/18 Aspirin* (Aspirin* EC) 81 Mg Tablet.dr, 81 MG PO DAILY, TAB 08/08/18 Atorvastatin* (Atorvastatin*) 80 Mg Tablet, 80 MG PO QHS, #30 TAB 08/08/18 Omeprazole* (Omeprazole*) 20 Mg Capsule.dr, 20 MG PO DAILY, #30 CAP 08/08/18 Medications Current Medications IV Flush (NS 3 ml) 3 ml PER PROTOCOL IV ; Start 04/06/19 at 21:30 Ondansetron HCl (Zofran Inj) 4 mg Q6H PRN IV NAUSEA/VOMITING; Start 04/06/19 at 21:30 Acetaminophen (Tylenol Tab) 650 mg Q6H PRN PO .PAIN 1-3 OR TEMP; Start 04/06/19 at 21:30 Docusate Sodium (Colace) 100 mg Q12H PRN PO .CONSTIPATION; Start 04/06/19 at 21:30 Bisacodyl (Dulcolax) 5 mg DAILY PRN PO .CONSTIPATION; Start 04/06/19 at 21:30 Albumin Human 100 ml @ 100 mls/hr WITH DIALYSIS PRN IV SBP <90 DURING DIALYSIS; Start 04/06/19 at 22:30 Epoetin Andrew-epbx (Retacrit (Esrd)) 10,000 unit TuThSa@1700 SC Last administered on 04/09/19 17:04; Admin Dose 10,000 UNIT; Start 04/07/19 at 17:00 Hydralazine HCl (Apresoline) 10 mg Q4 PRN IV SBP more than 150 mm hg Last administered on 04/10/19at 18:00; Admin Dose 10 MG; Start 04/06/19 at 22:30 Albuterol (Ventolin Hfa) 2 puff Q4H RESP THERAPY PRN INH WHEEZING AND SOB; Start 04/06/19 at 22:30 Amlodipine Besylate (Norvasc) 10 mg DAILY PO Last administered on 04/11/19 08:52; Admin Dose 10 MG; Start 04/07/19 at 09:00 Aspirin (Halfprin) 81 mg DAILY PO Last administered on 04/11/19 08:52; Admin Dose 81 MG; Start 04/07/19 at 09:00 Atorvastatin Calcium (Lipitor) 80 mg QHS PO Last administered on 04/10/19 21:48; Admin Dose 80 MG; Start 04/07/19 at 21:00 Mometasone Furoate (Asmanex) 1 puff DAILY RESP THERAPY INH Last administered on 04/11/19 12:51; Admin Dose 1 PUFF; Start 04/07/19 at 12:00 Pantoprazole (Protonix Tab) 40 mg DAILY PO Last administered on 04/11/19 08:52; Admin Dose 40 MG; Start 04/07/19 at 09:00 Piperacillin Sod/ Tazobactam Sod 50 ml @ 100 mls/hr Q8 IVPB Last administered on 04/11/19at 13:08; Admin Dose 100 MLS/HR; Start 04/10/19 at 14:00 Assessment/Plan Assessment/Plan (Daily) IMP: 1. Loculated right pleural effusion--with split pleura sign and pleural thickening. Etiology unclear and may have represented an old hemothorax admixed with a transudative etiology 2/2 renal failure. Would benefit from CTS eval for decortication. RECS: 1. CTS evaluation for decortication. OBED NICHOLSON MD Apr 11, 2019 15:06
--- NOTE | 2019-04-11 15:09 | PN ---
Date/Time of Note Date/Time of Note DATE: 04/11/19 TIME: 15:09 Assessment/Plan VTE Prophylaxis Risk score (from Nsg)>0 risk: 5 SCD applied (from Nsg): Yes Pharmacological prophylaxis: heparin Lines/Catheters IV Catheter Type (from Nrsg): Saline Lock Urinary Cath still in place: No Assessment/Plan Hospital Course 68 yo male with ESRD who presents with COLON, found to have large R pleural effusion Pleural effusion: - 600 cc drained by thoracentesis. Suggestive of exudative process. Have started him on empiric antibiotics - Concern for endobronchial lesion, plan to perform bronchoscopy next week - Consult pulmonary and CV surgery ESRD: - Continue HD per renal Anemia of CKD - iron and EPO Hypertension: - Continue amlodipine Result Diagram: 04/10/1948 04/10/19 0648 Subjective 24 Hr Interval Summary Free Text/Dictation Stable Comfortable at rest Exam/Review of Systems Exam Vitals Vital Signs Date Temp Pulse Resp B/P (MAP) Pulse Ox O2 O2 Flow FiO2 Time Delivery Rate 04/11/19 98.0 67 18 130/71 100 Room Air 14:00 (90) Intake and Output 04/10/19 04/10/19 04/11/19 1515:00 23:00 07:00 IntakeIntake Total 480 ml 50 ml 100 ml OutputOutput Total 5500 ml BalanceBalance -5020 ml 50 ml 100 ml Constitutional: alert, oriented, well developed Psych: no complaints, nl mood/affect Head: normocephalic, atraumatic Eyes: nl conjunctiva, EOMI, nl lids, nl sclera, PERRL ENMT: nl external ears & nose, nl lips & teeth, nl nasal mucosa & septum Neck: supple, non-tender Respiratory: clear to auscultation, normal air movement Cardiovascular: regular rate and rhythm, nl pulses Gastrointestinal: soft, nl liver, spleen, non-tender Musculoskeletal: nl extremities to inspection, nl gait and stance Extremities: normal pulses Neurological: SHIELD CLEANER II-XII intact, nl mental status, nl speech, nl strength Skin: nl turgor; No rash or lesions Lymph: nl lymph nodes Medications Medication Current Medications IV Flush (NS 3 ml) 3 ml PER PROTOCOL IV ; Start 04/06/19 at 21:30 Ondansetron HCl (Zofran Inj) 4 mg Q6H PRN IV NAUSEA/VOMITING; Start 04/06/19 at 21:30 Acetaminophen (Tylenol Tab) 650 mg Q6H PRN PO .PAIN 1-3 OR TEMP; Start 04/06/19 at 21:30 Docusate Sodium (Colace) 100 mg Q12H PRN PO .CONSTIPATION; Start 04/06/19 at 21:30 Bisacodyl (Dulcolax) 5 mg DAILY PRN PO .CONSTIPATION; Start 04/06/19 at 21:30 Albumin Human 100 ml @ 100 mls/hr WITH DIALYSIS PRN IV SBP <90 DURING DIALYSIS; Start 04/06/19 at 22:30 Epoetin Andrew-epbx (Retacrit (Esrd)) 10,000 unit TuThSa@1700 SC Last administered on 04/09/19at 17:04; Admin Dose 10,000 UNIT; Start 04/07/19 at 17:00 Hydralazine HCl (Apresoline) 10 mg Q4 PRN IV SBP more than 150 mm hg Last administered on 04/10/19at 18:00; Admin Dose 10 MG; Start 04/06/19 at 22:30 Albuterol (Ventolin Hfa) 2 puff Q4H RESP THERAPY PRN INH WHEEZING AND SOB; Start 04/06/19 at 22:30 Amlodipine Besylate (Norvasc) 10 mg DAILY PO Last administered on 04/11/19 08:52; Admin Dose 10 MG; Start 04/07/19 at 09:00 Aspirin (Halfprin) 81 mg DAILY PO Last administered on 04/11/19 08:52; Admin Dose 81 MG; Start 04/07/19 at 09:00 Atorvastatin Calcium (Lipitor) 80 mg QHS PO Last administered on 04/10/19 21:48; Admin Dose 80 MG; Start 04/07/19 at 21:00 Mometasone Furoate (Asmanex) 1 puff DAILY RESP THERAPY INH Last administered on 04/11/19 12:51; Admin Dose 1 PUFF; Start 04/07/19 at 12:00 Pantoprazole (Protonix Tab) 40 mg DAILY PO Last administered on 04/11/19 08:52; Admin Dose 40 MG; Start 04/07/19 at 09:00 Piperacillin Sod/ Tazobactam Sod 50 ml @ 100 mls/hr Q8 IVPB Last administered on 04/11/19at 13:08; Admin Dose 100 MLS/HR; Start 04/10/19 at 14:00 MARIE MCCLAIN MD Apr 11, 2019 15:09
[2019-04-11] MEDS: EPOETIN ALFA-EPBX (ESRD) 10,000 UNIT/ML VIAL SC SCH (17:21)
[2019-04-11] MEDS: ATORVASTATIN 80 MG TAB PO SCH (20:14)
[2019-04-11 20:19] VITALS: BP 140/72; PULSE 63; RESP 20
[2019-04-12 02:22] VITALS: BP 145/68; PULSE 66; RESP 17
[2019-04-12] MEDS: PIPER-TAZO 2.25 GM (PMX) 50 ML IVPB SCH ×3 (05:27→21:03)
[2019-04-12 07:52] VITALS: BP 151/80; PULSE 66; RESP 14
[2019-04-12] MEDS: AMLODIPINE 10 MG TAB PO SCH (08:23)
[2019-04-12] MEDS: PANTOPRAZOLE (EC) 40 MG TAB PO SCH (08:23)
[2019-04-12] MEDS: ASPIRIN (EC) 81 MG TAB PO SCH (08:23)
[2019-04-12] MEDS: MOMETASONE 0.24 GM INHALER INH SCH (12:46)
[2019-04-12 14:12] VITALS: BP 133/78; PULSE 14; RESP 14
--- NOTE | 2019-04-12 14:25 | CONS ---
Assessment/Plan Assessment/Plan Assessment/Plan (Daily) 1. Acute fluid overload with acute Uremia due to missed HD 2. acute hyperkalemia due to Missed HD 3. Large Right sided pleural effusion due to fluid overload 4. ESRD on HD - has been stayed out of [place] for 3 months,was gettign HD once a week in [facility] 5. H/o HTN 6. H/o HL 7. H/o Hypothyroidism 8. Anemia Plan: HD will keep pt on MWF schedule Pt stayed out of [place] for more than 3 months, He lost his Dialysis chair time, [facility] [place] [facility] - if requested to go back to same unit if they accept him back continue current BP meds amlodipine 10mg po daily , IV hydralaine prn HIV< hepatitis panel negative will follow up Patient seen in collaboration with Dr Cardona Consultation Date/Type/Reason Admit Date/Time Apr 06, 2019 at 21:13 Initial Consult Date 04/06/19 Type of Consult NEPHROLOGY Reason for Consultation fluid overload/ uremia Requesting Provider: DEVI ALFRED Date/Time of Note DATE: 04/12/19 TIME: 14:22 Detailed Summary Eyes: no complaints Respiratory: no complaints Cardiovascular: no complaints Gastrointestinal: no complaints Genitourinary: no complaints Musculoskeletal: no complaints, back pain Skin: no complaints Neurologic: no complaints Endocrine: no complaints Lymphatic: no complaints Psychological: nl mood/affect Exam/Review of Systems Exam Vitals Vital Signs Date Temp Pulse Resp B/P (MAP) Pulse Ox O2 O2 Flow FiO2 Time Delivery Rate 04/12/19 97.8 14 14 133/78 96 Room Air 14:12 (96) Intake and Output 04/11/19 04/11/19 04/12/19 1515:00 23:00 07:00 IntakeIntake Total 700 ml 300 ml 100 ml BalanceBalance 700 ml 300 ml 100 ml Constitutional: alert, well developed Psych: nl mood/affect Head: normocephalic Eyes: nl lids, nl sclera ENMT: nl external ears & nose Neck: non-tender Respiratory: clear to auscultation Cardiovascular: nl pulses Gastrointestinal: soft, non-tender Musculoskeletal: muscle weakness Extremities: normal pulses Neurological: nl speech, other (alert/reponsive) Results Result Diagram: 04/10/19 0648 04/10/19 0648 Medications Medication Current Medications IV Flush (NS 3 ml) 3 ml PER PROTOCOL IV ; Start 04/06/19 at 21:30 Ondansetron HCl (Zofran Inj) 4 mg Q6H PRN IV NAUSEA/VOMITING; Start 04/06/19 at 21:30 Acetaminophen (Tylenol Tab) 650 mg Q6H PRN PO .PAIN 1-3 OR TEMP; Start 04/06/19 at 21:30 Docusate Sodium (Colace) 100 mg Q12H PRN PO .CONSTIPATION; Start 04/06/19 at 21:30 Bisacodyl (Dulcolax) 5 mg DAILY PRN PO .CONSTIPATION; Start 04/06/19 at 21:30 Albumin Human 100 ml @ 100 mls/hr WITH DIALYSIS PRN IV SBP <90 DURING DIALYSIS; Start 04/06/19 at 22:30 Epoetin Andrew-epbx (Retacrit (Esrd)) 10,000 unit TuThSa@1700 SC Last administered on 04/11/19at 17:21; Admin Dose 10,000 UNIT; Start 04/07/19 at 17:00 Hydralazine HCl (Apresoline) 10 mg Q4 PRN IV SBP more than 150 mm hg Last administered on 04/10/19at 18:00; Admin Dose 10 MG; Start 04/06/19 at 22:30 Albuterol (Ventolin Hfa) 2 puff Q4H RESP THERAPY PRN INH WHEEZING AND SOB; Start 04/06/19 at 22:30 Amlodipine Besylate (Norvasc) 10 mg DAILY PO Last administered on 04/12/19at 08:23; Admin Dose 10 MG; Start 04/07/19 at 09:00 Aspirin (Halfprin) 81 mg DAILY PO Last administered on 04/12/19 08:23; Admin Dose 81 MG; Start 04/07/19 at 09:00 Atorvastatin Calcium (Lipitor) 80 mg QHS PO Last administered on 04/11/19at 20:14; Admin Dose 80 MG; Start 04/07/19 at 21:00 Mometasone Furoate (Asmanex) 1 puff DAILY RESP THERAPY INH Last administered on 04/12/19at 12:46; Admin Dose 1 PUFF; Start 04/07/19 at 12:00 Pantoprazole (Protonix Tab) 40 mg DAILY PO Last administered on 04/12/19at 08:23; Admin Dose 40 MG; Start 04/07/19 at 09:00 Piperacillin Sod/ Tazobactam Sod 50 ml @ 100 mls/hr Q8 IVPB Last administered on 04/12/19at 05:27; Admin Dose 100 MLS/HR; Start 04/10/19 at 14:00 PRADEEP MILNER Apr 12, 2019 14:25
--- NOTE | 2019-04-12 15:03 | PN ---
Date/Time of Note Date/Time of Note DATE: 04/12/19 TIME: 15:02 Assessment/Plan VTE Prophylaxis Risk score (from Nsg)>0 risk: 5 SCD applied (from Nsg): Yes Pharmacological prophylaxis: heparin Lines/Catheters IV Catheter Type (from Nrsg): Saline Lock Urinary Cath still in place: No Assessment/Plan Hospital Course 68 yo male with ESRD who presents with COLON, found to have large R pleural effusion Pleural effusion: - Will require decortication by CT surgeon. Dr Cates texted he may be able to operate Saturday or Saturday this week. Incoming hospitalist will need to f ollow up with him tomorrow - 600 cc drained by thoracentesis. Suggestive of exudative process. Have started him on empiric antibiotics - Concern for endobronchial lesion, possible plan to perform bronchoscopy this week - Consult pulmonary and CV surgery ESRD: - Continue HD per renal Anemia of CKD - iron and EPO Hypertension: - Continue amlodipine Result Diagram: 04/10/1948 04/10/19 0648 Subjective 24 Hr Interval Summary Free Text/Dictation No change to clinical status Exam/Review of Systems Exam Vitals Vital Signs Date Temp Pulse Resp B/P (MAP) Pulse Ox O2 O2 Flow FiO2 Time Delivery Rate 04/12/19 97.8 14 14 133/78 96 Room Air 14:12 (96) Intake and Output 04/11/19 04/11/19 04/12/19 1515:00 23:00 07:00 IntakeIntake Total 700 ml 300 ml 100 ml BalanceBalance 700 ml 300 ml 100 ml Medications Medication Current Medications IV Flush (NS 3 ml) 3 ml PER PROTOCOL IV ; Start 04/06/19 at 21:30 Ondansetron HCl (Zofran Inj) 4 mg Q6H PRN IV NAUSEA/VOMITING; Start 04/06/19 at 21:30 Acetaminophen (Tylenol Tab) 650 mg Q6H PRN PO .PAIN 1-3 OR TEMP; Start 04/06/19 at 21:30 Docusate Sodium (Colace) 100 mg Q12H PRN PO .CONSTIPATION; Start 04/06/19 at 21:30 Bisacodyl (Dulcolax) 5 mg DAILY PRN PO .CONSTIPATION; Start 04/06/19 at 21:30 Albumin Human 100 ml @ 100 mls/hr WITH DIALYSIS PRN IV SBP <90 DURING DIALYSIS; Start 04/06/19 at 22:30 Epoetin Andrew-epbx (Retacrit (Esrd)) 10,000 unit TuThSa@1700 SC Last administered on 04/11/19 17:21; Admin Dose 10,000 UNIT; Start 04/07/19 at 17:00 Hydralazine HCl (Apresoline) 10 mg Q4 PRN IV SBP more than 150 mm hg Last administered on 04/10/19 18:00; Admin Dose 10 MG; Start 04/06/19 at 22:30 Albuterol (Ventolin Hfa) 2 puff Q4H RESP THERAPY PRN INH WHEEZING AND SOB; Start 04/06/19 at 22:30 Amlodipine Besylate (Norvasc) 10 mg DAILY PO Last administered on 04/12/19 08:23; Admin Dose 10 MG; Start 04/07/19 at 09:00 Aspirin (Halfprin) 81 mg DAILY PO Last administered on 04/12/19 08:23; Admin Dose 81 MG; Start 04/07/19 at 09:00 Atorvastatin Calcium (Lipitor) 80 mg QHS PO Last administered on 04/11/19 20:14; Admin Dose 80 MG; Start 04/07/19 at 21:00 Mometasone Furoate (Asmanex) 1 puff DAILY RESP THERAPY INH Last administered on 04/12/19 12:46; Admin Dose 1 PUFF; Start 04/07/19 at 12:00 Pantoprazole (Protonix Tab) 40 mg DAILY PO Last administered on 04/12/19 08:23; Admin Dose 40 MG; Start 04/07/19 at 09:00 Piperacillin Sod/ Tazobactam Sod 50 ml @ 100 mls/hr Q8 IVPB Last administered on 04/12/19 14:26; Admin Dose 100 MLS/HR; Start 04/10/19 at 14:00 MARIE MCCLAIN MD Apr 12, 2019 15:03
--- NOTE | 2019-04-12 15:26 | CONS ---
Consult Date/Type/Reason Admit Date/Time Apr 06, 2019 at 21:13 Initial Consult Date 04/10/19 Type of Consultation: Pulm Requesting Provider: DEVI ALFRED Date/Time of Note DATE: 04/12/19 TIME: 15:25 Subjective No events. Objective Vitals Vital Signs Date Temp Pulse Resp B/P (MAP) Pulse Ox O2 O2 Flow FiO2 Time Delivery Rate 04/12/19 97.8 14 14 133/78 96 Room Air 14:12 (96) Intake and Output 04/11/19 04/11/19 04/12/19 1515:00 23:00 07:00 IntakeIntake Total 700 ml 300 ml 100 ml BalanceBalance 700 ml 300 ml 100 ml Exam HEENT: Neck supple; no JVD; no LAD CVS: RRR, S1 and S2 CHEST: Decreased BS right base ABD: Soft, NT, + BS EXT: No c/c/e Results/Medications Result Diagram: 04/10/1948 04/10/19 0648 Home Meds Reported Medications Beclomethasone Dipropionate (Qvar Redihaler (80 MCG)) 10.6 Gm Hfa.aeroba, 10.6 GM IH BID, INH 08/08/18 Albuterol Sulfate* (Proair HFA*) 8.5 Gm Hfa.aer.ad, 2 PUFF INH Q4H PRN for WHEEZING AND SOB, #1 INHALER 08/08/18 Amlodipine Besylate* (Amlodipine Besylate*) 10 Mg Tablet, 10 MG PO DAILY, #30 TAB 08/08/18 Aspirin* (Aspirin* EC) 81 Mg Tablet.dr, 81 MG PO DAILY, TAB 08/08/18 Atorvastatin* (Atorvastatin*) 80 Mg Tablet, 80 MG PO QHS, #30 TAB 08/08/18 Omeprazole* (Omeprazole*) 20 Mg Capsule.dr, 20 MG PO DAILY, #30 CAP 08/08/18 Medications Current Medications IV Flush (NS 3 ml) 3 ml PER PROTOCOL IV ; Start 04/06/19 at 21:30 Ondansetron HCl (Zofran Inj) 4 mg Q6H PRN IV NAUSEA/VOMITING; Start 04/06/19 at 21:30 Acetaminophen (Tylenol Tab) 650 mg Q6H PRN PO .PAIN 1-3 OR TEMP; Start 04/06/19 at 21:30 Docusate Sodium (Colace) 100 mg Q12H PRN PO .CONSTIPATION; Start 04/06/19 at 21:30 Bisacodyl (Dulcolax) 5 mg DAILY PRN PO .CONSTIPATION; Start 04/06/19 at 21:30 Albumin Human 100 ml @ 100 mls/hr WITH DIALYSIS PRN IV SBP <90 DURING DIALYSIS; Start 04/06/19 at 22:30 Epoetin Andrew-epbx (Retacrit (Esrd)) 10,000 unit TuThSa@1700 SC Last administered on 04/11/19 17:21; Admin Dose 10,000 UNIT; Start 04/07/19 at 17:00 Hydralazine HCl (Apresoline) 10 mg Q4 PRN IV SBP more than 150 mm hg Last administered on 04/10/19at 18:00; Admin Dose 10 MG; Start 04/06/19 at 22:30 Albuterol (Ventolin Hfa) 2 puff Q4H RESP THERAPY PRN INH WHEEZING AND SOB; Start 04/06/19 at 22:30 Amlodipine Besylate (Norvasc) 10 mg DAILY PO Last administered on 04/12/19 08:23; Admin Dose 10 MG; Start 04/07/19 at 09:00 Aspirin (Halfprin) 81 mg DAILY PO Last administered on 04/12/19 08:23; Admin Dose 81 MG; Start 04/07/19 at 09:00 Atorvastatin Calcium (Lipitor) 80 mg QHS PO Last administered on 04/11/19 20:14; Admin Dose 80 MG; Start 04/07/19 at 21:00 Mometasone Furoate (Asmanex) 1 puff DAILY RESP THERAPY INH Last administered on 04/12/19at 12:46; Admin Dose 1 PUFF; Start 04/07/19 at 12:00 Pantoprazole (Protonix Tab) 40 mg DAILY PO Last administered on 04/12/19 08:23; Admin Dose 40 MG; Start 04/07/19 at 09:00 Piperacillin Sod/ Tazobactam Sod 50 ml @ 100 mls/hr Q8 IVPB Last administered on 04/12/19 14:26; Admin Dose 100 MLS/HR; Start 04/10/19 at 14:00 Assessment/Plan Assessment/Plan (Daily) IMP: 1. Loculated right pleural effusion--with split pleura sign and pleural thickening. Etiology unclear and may have represented an old hemothorax admixed with a transudative etiology 2/2 renal failure. Would benefit from CTS evaluation for possible decortication. RECS: 1. CTS evaluation for decortication. OBED NICHOLSON MD Apr 12, 2019 15:26
[2019-04-12 20:25] VITALS: BP_SYST 149; BP_SYST 158; BP_DIAS 77; BP_DIAS 86; PULSE 68; PULSE 86; RESP 16
[2019-04-12] MEDS: ATORVASTATIN 80 MG TAB PO SCH (21:03)
[2019-04-13] VITALS (17 sets, daily range): BP systolic 136–159; BP diastolic 77–95; PULSE 66–84; RESP 16–18
[2019-04-13] MEDS: PIPER-TAZO 2.25 GM (PMX) 50 ML IVPB SCH ×3 (05:43→21:16)
[2019-04-13] MEDS: AMLODIPINE 10 MG TAB PO SCH (09:20)
[2019-04-13] MEDS: ASPIRIN (EC) 81 MG TAB PO SCH (09:20)
[2019-04-13] MEDS: PANTOPRAZOLE (EC) 40 MG TAB PO SCH (09:20)
--- NOTE | 2019-04-13 09:48 | CONS ---
Assessment/Plan Assessment/Plan Assessment/Plan (Daily) 1. Acute fluid overload with acute Uremia due to missed HD 2. acute hyperkalemia due to Missed HD 3. Large Right sided pleural effusion due to fluid overload 4. ESRD on HD - has been stayed out of [place] for [place],was gettign HD once a week in [facility] 5. H/o HTN 6. H/o HL 7. H/o Hypothyroidism 8. Anemia Plan: HD will keep pt on MWF schedule Pt stayed out of [place] for more than 3 months, He lost his Dialysis chair time, will request New HD placement at renal [facility], renal [place] [facility] - if requested to go back to same unit if they accept him back continue current BP meds amlodipine 10mg po daily , IV hydralaine prn HIV< hepatitis panel negative will follow up Patient seen in collaboration with Dr Cardona Consultation Date/Type/Reason Admit Date/Time Apr 06, 2019 at 21:13 Initial Consult Date 04/06/19 Type of Consult NEPHROLOGY Reason for Consultation Fluid overload/Uremia Requesting Provider: DEVI ALFRED Date/Time of Note DATE: 04/13/19 TIME: 09:47 24 HR Interval Summary Free Text/Dictation NAD Seems comfortable afebrile no events reported last night dw staff Detailed Summary Eyes: no complaints ENT: no complaints Respiratory: no complaints Gastrointestinal: no complaints Genitourinary: no complaints Musculoskeletal: no complaints Skin: no complaints Neurologic: no complaints Endocrine: no complaints Exam/Review of Systems Exam Vitals Vital Signs Date Temp Pulse Resp B/P (MAP) Pulse Ox O2 O2 Flow FiO2 Time Delivery Rate 04/13/19 98.0 71 18 159/80 94 07:24 (106) 04/12/19 Room Air 14:12 Intake and Output 04/12/19 04/12/19 04/13/19 1515:00 23:00 07:00 IntakeIntake Total 50 ml 510 ml 50 ml BalanceBalance 50 ml 510 ml 50 ml Constitutional: alert, well developed Psych: nl mood/affect Head: atraumatic Eyes: nl lids, nl sclera ENMT: nl external ears & nose Neck: non-tender Respiratory: clear to auscultation Cardiovascular: nl pulses, other (s1s2) Gastrointestinal: soft, non-tender Musculoskeletal: muscle weakness Extremities: normal pulses Neurological: nl speech, other (alert/reponsive) Lymph: nontender Results Result Diagram: 04/13/19 0532 04/13/19 0532 Results 24hrs Laboratory Tests Test 04/13/19 05:32 White Blood Count 6.0 # Red Blood Count 2.78 L Hemoglobin 8.6 L Hematocrit 26.2 L Mean Corpuscular Volume 94.2 Mean Corpuscular Hemoglobin 30.9 Mean Corpuscular Hemoglobin Concent 32.8 Red Cell Distribution Width 14.0 Platelet Count 186 # Mean Platelet Volume 10.0 Immature Granulocytes % 0.500 H Neutrophils % 67.1 Lymphocytes % 8.9 L Monocytes % 15.4 H Eosinophils % 7.6 H Basophils % 0.5 Nucleated Red Blood Cells % 0.0 Immature Granulocytes # 0.030 Neutrophils # 4.1 Lymphocytes # 0.5 L Monocytes # 0.9 Eosinophils # 0.5 Basophils # 0.0 Nucleated Red Blood Cells # 0.0 Sodium Level 133 L Potassium Level 5.2 H Chloride Level 95 L Carbon Dioxide Level 23 Anion Gap 15 H Blood Urea Nitrogen 63 H Creatinine 10.46 H Est Glomerular Filtrat Rate mL/min 5 L Glucose Level 84 Calcium Level 8.5 Medications Medication Current Medications IV Flush (NS 3 ml) 3 ml PER PROTOCOL IV ; Start 04/06/19 at 21:30 Ondansetron HCl (Zofran Inj) 4 mg Q6H PRN IV NAUSEA/VOMITING; Start 04/06/19 at 21:30 Acetaminophen (Tylenol Tab) 650 mg Q6H PRN PO .PAIN 1-3 OR TEMP; Start 04/06/19 at 21:30 Docusate Sodium (Colace) 100 mg Q12H PRN PO .CONSTIPATION; Start 04/06/19 at 21:30 Bisacodyl (Dulcolax) 5 mg DAILY PRN PO .CONSTIPATION; Start 04/06/19 at 21:30 Albumin Human 100 ml @ 100 mls/hr WITH DIALYSIS PRN IV SBP <90 DURING DIALYSIS; Start 04/06/19 at 22:30 Epoetin Andrew-epbx (Retacrit (Esrd)) 10,000 unit TuThSa@1700 SC Last administered on 04/11/19at 17:21; Admin Dose 10,000 UNIT; Start 04/07/19 at 17:00 Hydralazine HCl (Apresoline) 10 mg Q4 PRN IV SBP more than 150 mm hg Last administered on 04/10/19 18:00; Admin Dose 10 MG; Start 04/06/19 at 22:30 Albuterol (Ventolin Hfa) 2 puff Q4H RESP THERAPY PRN INH WHEEZING AND SOB; Start 04/06/19 at 22:30 Amlodipine Besylate (Norvasc) 10 mg DAILY PO Last administered on 04/13/19 09:20; Admin Dose 10 MG; Start 04/07/19 at 09:00 Aspirin (Halfprin) 81 mg DAILY PO Last administered on 04/13/19 09:20; Admin Dose 81 MG; Start 04/07/19 at 09:00 Atorvastatin Calcium (Lipitor) 80 mg QHS PO Last administered on 04/12/19 21:03; Admin Dose 80 MG; Start 04/07/19 at 21:00 Mometasone Furoate (Asmanex) 1 puff DAILY RESP THERAPY INH Last administered on 04/12/19 12:46; Admin Dose 1 PUFF; Start 04/07/19 at 12:00 Pantoprazole (Protonix Tab) 40 mg DAILY PO Last administered on 04/13/19 09:20; Admin Dose 40 MG; Start 04/07/19 at 09:00 Piperacillin Sod/ Tazobactam Sod 50 ml @ 100 mls/hr Q8 IVPB Last administered on 04/13/19 05:43; Admin Dose 100 MLS/HR; Start 04/10/19 at 14:00 PRADEEP MILNER Apr 13, 2019 09:48
--- NOTE | 2019-04-13 11:41 | CONS ---
Consultation Date/Type/Reason Admit Date/Time Apr 06, 2019 at 21:13 Initial Consult Date 04/10/19 Type of Consult Pulmonary Patient is a 68-year-old gentleman who came into the hospital on the of this month with a few days history of shortness of breath. Upon evaluation a chest x-ray was done which showed a large right pleural effusion, patient has undergone thoracentesis however only 600 mL of fluid was withdrawn. The fluid is exudative in character. Patient is feeling better. Denies any further shortness of breath, denies any chest pain, wheezing, sputum production or hemoptysis. Past medical history; 1. End-stage renal disease on hemodialysis. 2. Anemia and thrombocytopenia. 3. History of hypertension. Medications; reviewed. Allergies; none. Social history; noncontributory. Patient has never smoked. Occupational history; noncontributory. Family history; no show any malignancy in the family. Review of systems; denies any headache, seizures, chest pain, angina, wheezing, cough, sputum production or hemoptysis. Shortness of breath has improved. Denies any weight loss. Any abdominal pain, nausea vomiting. Any melena hematochezia. Any edema. Any arthritis symptoms. Any weight loss. Any fever or chills. General exam; elderly male, awake alert, getting hemodialysis at bedside. Currently in no distress. Requesting Provider: DEVI ALFRED Date/Time of Note DATE: 04/13/19 TIME: 11:40 24 HR Interval Summary Free Text/Dictation Patient's condition is stable. Remains awake and alert. Denies any shortness of breath, coughing, chest pain. Any fever or chills. General exam; elderly male, currently no distress. HEENT exam; supple neck, no JVD. No lymphadenopathy. Midline trachea. No thyromegaly. Pharynx is clear. No neck masses. Chest exam; diminished breath sounds right lower lobe. Rest of the lung patrick are clear. S1-S2 audible, no murmurs. Regular rhythm. Abdomen exam; soft, no organomegaly. Bowel sounds audible. Nontender. Extremity exam; no peripheral edema clubbing. METAPHYSICIAN exam; no focal deficit. Assessment and recommendations; 1. Patient with history of chronic renal failure on hemodialysis admitted for shortness of breath due to complicated right pleural effusion likely a sequela from prior pneumonia. 2. History of hypertension. Continue current supportive care. Patient will need VATS procedure with intraoperative bronchoscopy. Will consult cardiothoracic surgeon. Exam/Review of Systems Exam Vitals Vital Signs Date Temp Pulse Resp B/P (MAP) Pulse Ox O2 O2 Flow FiO2 Time Delivery Rate 04/13/19 98.0 71 18 159/80 94 07:24 (106) 04/12/19 Room Air 14:12 Intake and Output 04/12/19 04/12/19 04/13/19 1515:00 23:00 07:00 IntakeIntake Total 50 ml 510 ml 50 ml BalanceBalance 50 ml 510 ml 50 ml Results Result Diagram: 04/13/19 0532 04/13/19 0532 Results 24hrs Laboratory Tests Test 04/13/19 05:32 White Blood Count 6.0 # Red Blood Count 2.78 L Hemoglobin 8.6 L Hematocrit 26.2 L Mean Corpuscular Volume 94.2 Mean Corpuscular Hemoglobin 30.9 Mean Corpuscular Hemoglobin Concent 32.8 Red Cell Distribution Width 14.0 Platelet Count 186 # Mean Platelet Volume 10.0 Immature Granulocytes % 0.500 H Neutrophils % 67.1 Lymphocytes % 8.9 L Monocytes % 15.4 H Eosinophils % 7.6 H Basophils % 0.5 Nucleated Red Blood Cells % 0.0 Immature Granulocytes # 0.030 Neutrophils # 4.1 Lymphocytes # 0.5 L Monocytes # 0.9 Eosinophils # 0.5 Basophils # 0.0 Nucleated Red Blood Cells # 0.0 Sodium Level 133 L Potassium Level 5.2 H Chloride Level 95 L Carbon Dioxide Level 23 Anion Gap 15 H Blood Urea Nitrogen 63 H Creatinine 10.46 H Est Glomerular Filtrat Rate mL/min 5 L Glucose Level 84 Calcium Level 8.5 Medications Medication Current Medications IV Flush (NS 3 ml) 3 ml PER PROTOCOL IV ; Start 04/06/19 at 21:30 Ondansetron HCl (Zofran Inj) 4 mg Q6H PRN IV NAUSEA/VOMITING; Start 04/06/19 at 21:30 Acetaminophen (Tylenol Tab) 650 mg Q6H PRN PO .PAIN 1-3 OR TEMP; Start 04/06/19 at 21:30 Docusate Sodium (Colace) 100 mg Q12H PRN PO .CONSTIPATION; Start 04/06/19 at 21:30 Bisacodyl (Dulcolax) 5 mg DAILY PRN PO .CONSTIPATION; Start 04/06/19 at 21:30 Albumin Human 100 ml @ 100 mls/hr WITH DIALYSIS PRN IV SBP <90 DURING DIALYSIS; Start 04/06/19 at 22:30 Epoetin Andrew-epbx (Retacrit (Esrd)) 10,000 unit TuThSa@1700 SC Last administer ed on 04/11/19at 17:21; Admin Dose 10,000 UNIT; Start 04/07/19 at 17:00 Hydralazine HCl (Apresoline) 10 mg Q4 PRN IV SBP more than 150 mm hg Last administered on 04/10/19 18:00; Admin Dose 10 MG; Start 04/06/19 at 22:30 Albuterol (Ventolin Hfa) 2 puff Q4H RESP THERAPY PRN INH WHEEZING AND SOB; S tart 04/06/19 at 22:30 Amlodipine Besylate (Norvasc) 10 mg DAILY PO Last administered on 04/13/19at 0 9:20; Admin Dose 10 MG; Start 04/07/19 at 09:00 Aspirin (Halfprin) 81 mg DAILY PO Last administered on 04/13/19 09:20; Admin Dose 81 MG; Start 04/07/19 at 09:00 Atorvastatin Calcium (Lipitor) 80 mg QHS PO Last administered on 04/12/19at 21:03; Admin Dose 80 MG; Start 04/07/19 at 21:00 Mometasone Furoate (Asmanex) 1 puff DAILY RESP THERAPY INH Last administered on 04/12/19at 12:46; Admin Dose 1 PUFF; Start 04/07/19 at 12:00 Pantoprazole (Protonix Tab) 40 mg DAILY PO Last administered on 04/13/19 09:20; Admin Dose 40 MG; Start 04/07/19 at 09:00 Piperacillin Sod/ Tazobactam Sod 50 ml @ 100 mls/hr Q8 IVPB Last administered on 04/13/19at 05:43; Admin Dose 100 MLS/HR; Start 04/10/19 at 14:00 SHAHANA LOPEZ Apr 13, 2019 11:41
--- NOTE | 2019-04-13 15:28 | PN ---
Date/Time of Note Date/Time of Note DATE: 04/13/19 TIME: 15:26 Assessment/Plan VTE Prophylaxis Risk score (from Nsg)>0 risk: 2 Pharmacological prophylaxis: NA/contraindicated Pharm contraindication: surgical contra Lines/Catheters IV Catheter Type (from Nrsg): Saline Lock Urinary Cath still in place: No Assessment/Plan Hospital Course 68 yo male with ESRD who presents with COLON, found to have large R pleural effusion Pleural effusion: - Will require decortication by CT surgeon. Dr Cates likely to operate Saturday or Saturday - 600 cc drained by thoracentesis. Suggestive of exudative process. Have started him on empiric antibiotics - Concern for endobronchial lesion, possible plan to perform bronchoscopy this week ESRD: - Continue HD per renal Anemia of CKD - iron and EPO Hypertension: - Continue amlodipine Result Diagram: 04/13/19 0532 04/13/19 0532 Results 24hrs Laboratory Tests Test 04/13/19 05:32 White Blood Count 6.0 # Red Blood Count 2.78 L Hemoglobin 8.6 L Hematocrit 26.2 L Mean Corpuscular Volume 94.2 Mean Corpuscular Hemoglobin 30.9 Mean Corpuscular Hemoglobin Concent 32.8 Red Cell Distribution Width 14.0 Platelet Count 186 # Mean Platelet Volume 10.0 Immature Granulocytes % 0.500 H Neutrophils % 67.1 Lymphocytes % 8.9 L Monocytes % 15.4 H Eosinophils % 7.6 H Basophils % 0.5 Nucleated Red Blood Cells % 0.0 Immature Granulocytes # 0.030 Neutrophils # 4.1 Lymphocytes # 0.5 L Monocytes # 0.9 Eosinophils # 0.5 Basophils # 0.0 Nucleated Red Blood Cells # 0.0 Sodium Level 133 L Potassium Level 5.2 H Chloride Level 95 L Carbon Dioxide Level 23 Anion Gap 15 H Blood Urea Nitrogen 63 H Creatinine 10.46 H Est Glomerular Filtrat Rate mL/min 5 L Glucose Level 84 Calcium Level 8.5 Subjective 24 Hr Interval Summary Constitutional: no complaints Exam/Review of Systems Exam Vitals Vital Signs Date Temp Pulse Resp B/P (MAP) Pulse Ox O2 O2 Flow FiO2 Time Delivery Rate 04/13/19 98.1 69 18 146/77 99 13:41 (100) 04/12/19 Room Air 14:12 Intake and Output 04/12/19 04/12/19 04/13/19 1515:00 23:00 07:00 IntakeIntake Total 50 ml 510 ml 50 ml BalanceBalance 50 ml 510 ml 50 ml Constitutional: alert, oriented Respiratory: clear to auscultation Cardiovascular: regular rate and rhythm Gastrointestinal: soft; No distended Musculoskeletal: nl extremities to inspection Results Results 24hrs Laboratory Tests Test 04/13/19 05:32 White Blood Count 6.0 # Red Blood Count 2.78 L Hemoglobin 8.6 L Hematocrit 26.2 L Mean Corpuscular Volume 94.2 Mean Corpuscular Hemoglobin 30.9 Mean Corpuscular Hemoglobin Concent 32.8 Red Cell Distribution Width 14.0 Platelet Count 186 # Mean Platelet Volume 10.0 Immature Granulocytes % 0.500 H Neutrophils % 67.1 Lymphocytes % 8.9 L Monocytes % 15.4 H Eosinophils % 7.6 H Basophils % 0.5 Nucleated Red Blood Cells % 0.0 Immature Granulocytes # 0.030 Neutrophils # 4.1 Lymphocytes # 0.5 L Monocytes # 0.9 Eosinophils # 0.5 Basophils # 0.0 Nucleated Red Blood Cells # 0.0 Sodium Level 133 L Potassium Level 5.2 H Chloride Level 95 L Carbon Dioxide Level 23 Anion Gap 15 H Blood Urea Nitrogen 63 H Creatinine 10.46 H Est Glomerular Filtrat Rate mL/min 5 L Glucose Level 84 Calcium Level 8.5 Medications Medication Current Medications IV Flush (NS 3 ml) 3 ml PER PROTOCOL IV ; Start 04/06/19 at 21:30 Ondansetron HCl (Zofran Inj) 4 mg Q6H PRN IV NAUSEA/VOMITING; Start 04/06/19 at 21:30 Acetaminophen (Tylenol Tab) 650 mg Q6H PRN PO .PAIN 1-3 OR TEMP; Start 04/06/19 at 21:30 Docusate Sodium (Colace) 100 mg Q12H PRN PO .CONSTIPATION; Start 04/06/19 at 21:30 Bisacodyl (Dulcolax) 5 mg DAILY PRN PO .CONSTIPATION; Start 04/06/19 at 21:30 Albumin Human 100 ml @ 100 mls/hr WITH DIALYSIS PRN IV SBP <90 DURING DIALYSIS; Start 04/06/19 at 22:30 Epoetin Andrew-epbx (Retacrit (Esrd)) 10,000 unit TuThSa@1700 SC Last administered on 6/15/19at 17:21; Admin Dose 10,000 UNIT; Start 04/07/19 at 17:00 Hydralazine HCl (Apresoline) 10 mg Q4 PRN IV SBP more than 150 mm hg Last administered on 04/10/19 18:00; Admin Dose 10 MG; Start 04/06/19 at 22:30 Albuterol (Ventolin Hfa) 2 puff Q4H RESP THERAPY PRN INH WHEEZING AND SOB; Start 04/06/19 at 22:30 Amlodipine Besylate (Norvasc) 10 mg DAILY PO Last administered on 04/13/19 09:20; Admin Dose 10 MG; Start 04/07/19 at 09:00 Aspirin (Halfprin) 81 mg DAILY PO Last administered on 04/13/19 09:20; Admin Dose 81 MG; Start 04/07/19 at 09:00 Atorvastatin Calcium (Lipitor) 80 mg QHS PO Last administered on 04/12/19 21:03; Admin Dose 80 MG; Start 04/07/19 at 21:00 Mometasone Furoate (Asmanex) 1 puff DAILY RESP THERAPY INH Last administered on 04/12/19 12:46; Admin Dose 1 PUFF; Start 04/07/19 at 12:00 Pantoprazole (Protonix Tab) 40 mg DAILY PO Last administered on 04/13/19 09:20; Admin Dose 40 MG; Start 04/07/19 at 09:00 Piperacillin Sod/ Tazobactam Sod 50 ml @ 100 mls/hr Q8 IVPB Last administered on 04/13/19 14:52; Admin Dose 100 MLS/HR; Start 04/10/19 at 14:00 ELVIA HANLEY Apr 13, 2019 15:28
[2019-04-13] MEDS: ATORVASTATIN 80 MG TAB PO SCH (21:16)
[2019-04-14 02:30] VITALS: BP 135/70; PULSE 89; RESP 17
[2019-04-14 02:44] VITALS: BP 135/70; PULSE 89; RESP 18
[2019-04-14] MEDS: PIPER-TAZO 2.25 GM (PMX) 50 ML IVPB SCH ×3 (05:48→23:06)
[2019-04-14 07:44] VITALS: BP 174/92; PULSE 78; RESP 15
[2019-04-14] MEDS: ASPIRIN (EC) 81 MG TAB PO SCH (09:01)
[2019-04-14] MEDS: AMLODIPINE 10 MG TAB PO SCH (09:01)
[2019-04-14] MEDS: PANTOPRAZOLE (EC) 40 MG TAB PO SCH (09:01)
[2019-04-14] MEDS: hydrALAzine 20 MG INJ IV PRN (09:07)
[2019-04-14] MEDS: MOMETASONE 0.24 GM INHALER INH SCH (12:00)
--- NOTE | 2019-04-14 12:00 | CONS ---
Assessment/Plan Assessment/Plan Assessment/Plan (Daily) 1. Acute fluid overload with acute Uremia due to missed HD 2. acute hyperkalemia due to Missed HD 3. Large Right sided pleural effusion due to fluid overload - pulmonary follows 4. ESRD on HD - [place] been stayed out of [place] for 3 [place],was gettign HD once a week in [facility] 5. H/o HTN 6. H/o HL 7. H/o Hypothyroidism 8. Anemia Plan: HD on MWF schedule Pt stayed out of [place] for more than 3 months, He lost his Dialysis chair time, will request New HD placement at renal [facility], renal [place] [facility] - if requested to go back to same unit if they accept him back continue current BP meds amlodipine 10mg po daily , IV hydralaine prn HIV< hepatitis panel negative will follow up Patient seen in collaboration with Dr Cardona Consultation Date/Type/Reason Admit Date/Time Apr 06, 2019 at 21:13 Initial Consult Date 04/06/19 Type of Consult NEPHROLOGY Reason for Consultation ESRD Requesting Provider: DEVI ALFRED Date/Time of Note DATE: 04/14/19 TIME: 11:59 24 HR Interval Summary Free Text/Dictation Denies any complaints CXR showed right pleural effusion HD as scheduled dw staff Detailed Summary Eyes: no complaints ENT: no complaints Respiratory: pain (right chest ) Cardiovascular: no complaints Gastrointestinal: no complaints Genitourinary: no complaints Musculoskeletal: no complaints Skin: no complaints Neurologic: no complaints Endocrine: no complaints Lymphatic: no complaints Psychological: nl mood/affect Immunologic: no complaints Exam/Review of Systems Exam Vitals Vital Signs Date Temp Pulse Resp B/P (MAP) Pulse Ox O2 O2 Flow FiO2 Time Delivery Rate 04/14/19 98.8 78 15 174/92 97 Room Air 07:44 (119) Intake and Output 04/13/19 04/13/19 04/14/19 1515:00 23:00 07:00 IntakeIntake Total 320 ml 300 ml 50 ml OutputOutput Total 3400 ml BalanceBalance 320 ml -3100 ml 50 ml Constitutional: alert, well developed Psych: nl mood/affect Head: normocephalic Eyes: nl lids, nl sclera ENMT: nl external ears & nose Neck: non-tender Respiratory: diminished breath sounds (right sided ore diminshed than left side ) Cardiovascular: nl pulses, other (s1s2) Gastrointestinal: soft, non-tender Musculoskeletal: nl extremities to inspection Extremities: normal pulses Neurological: nl speech, other (alert/responsive ) Skin: nl turgor Results Result Diagram: 04/14/19 0705 04/14/19 0705 Results 24hrs Laboratory Tests Test 04/14/19 07:05 White Blood Count 6.2 Red Blood Count 2.83 L Hemoglobin 8.7 L Hematocrit 26.9 L Mean Corpuscular Volume 95.1 Mean Corpuscular Hemoglobin 30.7 Mean Corpuscular Hemoglobin Concent 32.3 Red Cell Distribution Width 14.4 Platelet Count 180 Mean Platelet Volume 9.7 Immature Granulocytes % 0.500 H Neutrophils % 69.5 Lymphocytes % 7.0 L Monocytes % 15.3 H Eosinophils % 7.0 Basophils % 0.7 Nucleated Red Blood Cells % 0.0 Immature Granulocytes # 0.030 Neutrophils # 4.3 Lymphocytes # 0.4 L Monocytes # 0.9 Eosinophils # 0.4 Basophils # 0.0 Nucleated Red Blood Cells # 0.0 Sodium Level 137 Potassium Level 4.6 Chloride Level 97 Carbon Dioxide Level 28 Anion Gap 12 Blood Urea Nitrogen 31 #H Creatinine 7.58 #H Est Glomerular Filtrat Rate mL/min 7 L Glucose Level 86 Calcium Level 8.7 Medications Medication Current Medications IV Flush (NS 3 ml) 3 ml PER PROTOCOL IV ; Start 04/06/19 at 21:30 Ondansetron HCl (Zofran Inj) 4 mg Q6H PRN IV NAUSEA/VOMITING; Start 04/06/19 at 21:30 Acetaminophen (Tylenol Tab) 650 mg Q6H PRN PO .PAIN 1-3 OR TEMP; Start 04/06/19 at 21:30 Docusate Sodium (Colace) 100 mg Q12H PRN PO .CONSTIPATION; Start 04/06/19 at 21:30 Bisacodyl (Dulcolax) 5 mg DAILY PRN PO .CONSTIPATION; Start 04/06/19 at 21:30 Albumin Human 100 ml @ 100 mls/hr WITH DIALYSIS PRN IV SBP <90 DURING DIALYSIS; Start 04/06/19 at 22:30 Epoetin Andrew-epbx (Retacrit (Esrd)) 10,000 unit TuThSa@1700 SC Last administered on 04/11/19at 17:21; Admin Dose 10,000 UNIT; Start 04/07/19 at 17:00 Hydralazine HCl (Apresoline) 10 mg Q4 PRN IV SBP more than 150 mm hg Last administered on 04/14/19 09:07; Admin Dose 10 MG; Start 04/06/19 at 22:30 Albuterol (Ventolin Hfa) 2 puff Q4H RESP THERAPY PRN INH WHEEZING AND SOB; Start 04/06/19 at 22:30 Amlodipine Besylate (Norvasc) 10 mg DAILY PO Last administered on 04/14/19 09:01; Admin Dose 10 MG; Start 04/07/19 at 09:00 Aspirin (Halfprin) 81 mg DAILY PO Last administered on 04/14/19 09:01; Admin Dose 81 MG; Start 04/07/19 at 09:00 Atorvastatin Calcium (Lipitor) 80 mg QHS PO Last administered on 04/13/19 21:16; Admin Dose 80 MG; Start 04/07/19 at 21:00 Mometasone Furoate (Asmanex) 1 puff DAILY RESP THERAPY INH Last administered on 04/12/19 12:46; Admin Dose 1 PUFF; Start 04/07/19 at 12:00 Pantoprazole (Protonix Tab) 40 mg DAILY PO Last administered on 04/14/19 09:01; Admin Dose 40 MG; Start 04/07/19 at 09:00 Piperacillin Sod/ Tazobactam Sod 50 ml @ 100 mls/hr Q8 IVPB Last administered on 04/14/19 05:48; Admin Dose 100 MLS/HR; Start 04/10/19 at 14:00 PRADEEP MILNER Apr 14, 2019 12:00
--- NOTE | 2019-04-14 12:00 | CONS ---
Consultation Date/Type/Reason Admit Date/Time Apr 06, 2019 at 21:13 Initial Consult Date 04/10/19 Type of Consult Pulmonary Patient is a 68-year-old gentleman who came into the hospital on the of this month with a few days history of shortness of breath. Upon evaluation a chest x-ray was done which showed a large right pleural effusion, patient has undergone thoracentesis however only 600 mL of fluid was withdrawn. The fluid is exudative in character. Patient is feeling better. Denies any further shortness of breath, denies any chest pain, wheezing, sputum production or hemoptysis. Past medical history; 1. End-stage renal disease on hemodialysis. 2. Anemia and thrombocytopenia. 3. History of hypertension. Medications; reviewed. Allergies; none. Social history; noncontributory. Patient has never smoked. Occupational history; noncontributory. Family history; no show any malignancy in the family. Review of systems; denies any headache, seizures, chest pain, angina, wheezing, cough, sputum production or hemoptysis. Shortness of breath has improved. Denies any weight loss. Any abdominal pain, nausea vomiting. Any melena hematochezia. Any edema. Any arthritis symptoms. Any weight loss. Any fever or chills. General exam; elderly male, awake alert, getting hemodialysis at bedside. Currently in no distress. Requesting Provider: DEVI ALFRED Date/Time of Note DATE: 04/14/19 TIME: 11:58 24 HR Interval Summary Free Text/Dictation Patient's condition is stable. Remains awake and alert. Denies any shortness of breath, coughing, wheezing, any sputum production. General exam; elderly male, currently no distress. Laying comfortably in bed. H EENT exam; supple neck, no JVD. No lymphadenopathy. Midline trachea. No thyromegaly. Patient has a multiple carious teeth. Chest exam; diminished breath sounds right lower lobe. Rest of the lung patrick are clear. S1-S2 audible, no murmurs. Regular rhythm. Abdomen exam; soft, nontender. No organomegaly. Bowel sounds audible. Extremity exam; no peripheral edema clubbing. DOOR CLOSER exam; no focal deficit. Assessment and recommendations; 1. Patient with history of chronic renal failure on hemodialysis admitted with shortness of breath, chest x-ray and CT chest showing complex right pleural effusion likely chronic in etiology. 2. History of hypertension. Continue with supportive care. Patient will need to have a VATS decortication performed. Will consult cardiothoracic surgeon. Exam/Review of Systems Exam Vitals Vital Signs Date Temp Pulse Resp B/P (MAP) Pulse Ox O2 O2 Flow FiO2 Time Delivery Rate 04/14/19 98.8 78 15 174/92 97 Room Air 07:44 (119) Intake and Output 04/13/19 04/13/19 04/14/19 1515:00 23:00 07:00 IntakeIntake Total 320 ml 300 ml 50 ml OutputOutput Total 3400 ml BalanceBalance 320 ml -3100 ml 50 ml Results Result Diagram: 04/14/19 0704/14/19 0705 Results 24hrs Laboratory Tests Test 04/14/19 07:05 White Blood Count 6.2 Red Blood Count 2.83 L Hemoglobin 8.7 L Hematocrit 26.9 L Mean Corpuscular Volume 95.1 Mean Corpuscular Hemoglobin 30.7 Mean Corpuscular Hemoglobin Concent 32.3 Red Cell Distribution Width 14.4 Platelet Count 180 Mean Platelet Volume 9.7 Immature Granulocytes % 0.500 H Neutrophils % 69.5 Lymphocytes % 7.0 L Monocytes % 15.3 H Eosinophils % 7.0 Basophils % 0.7 Nucleated Red Blood Cells % 0.0 Immature Granulocytes # 0.030 Neutrophils # 4.3 Lymphocytes # 0.4 L Monocytes # 0.9 Eosinophils # 0.4 Basophils # 0.0 Nucleated Red Blood Cells # 0.0 Sodium Level 137 Potassium Level 4.6 Chloride Level 97 Carbon Dioxide Level 28 Anion Gap 12 Blood Urea Nitrogen 31 #H Creatinine 7.58 #H Est Glomerular Filtrat Rate mL/min 7 L Glucose Level 86 Calcium Level 8.7 Medications Medication Current Medications IV Flush (NS 3 ml) 3 ml PER PROTOCOL IV ; Start 04/06/19 at 21:30 Ondansetron HCl (Zofran Inj) 4 mg Q6H PRN IV NAUSEA/VOMITING; Start 04/06/19 at 21:30 Acetaminophen (Tylenol Tab) 650 mg Q6H PRN PO .PAIN 1-3 OR TEMP; Start 04/06/19 at 21:30 Docusate Sodium (Colace) 100 mg Q12H PRN PO .CONSTIPATION; Start 04/06/19 at 21:30 Bisacodyl (Dulcolax) 5 mg DAILY PRN PO .CONSTIPATION; Start 04/06/19 at 21:30 Albumin Human 100 ml @ 100 mls/hr WITH DIALYSIS PRN IV SBP <90 DURING DIALYSIS; Start 04/06/19 at 22:30 Epoetin Andrew-epbx (Retacrit (Esrd)) 10,000 unit TuThSa@1700 SC Last administered on 04/11/19 17:21; Admin Dose 10,000 UNIT; Start 04/07/19 at 17:00 Hydralazine HCl (Apresoline) 10 mg Q4 PRN IV SBP more than 150 mm hg Last administered on 04/14/19 09:07; Admin Dose 10 MG; Start 04/06/19 at 22:30 Albuterol (Ventolin Hfa) 2 puff Q4H RESP THERAPY PRN INH WHEEZING AND SOB; Start 04/06/19 at 22:30 Amlodipine Besylate (Norvasc) 10 mg DAILY PO Last administered on 04/14/19 09:01; Admin Dose 10 MG; Start 04/07/19 at 09:00 Aspirin (Halfprin) 81 mg DAILY PO Last administered on 04/14/19 09:01; Admin Dose 81 MG; Start 04/07/19 at 09:00 Atorvastatin Calcium (Lipitor) 80 mg QHS PO Last administered on 04/13/19 21:16; Admin Dose 80 MG; Start 04/07/19 at 21:00 Mometasone Furoate (Asmanex) 1 puff DAILY RESP THERAPY INH Last administered on 04/12/19 12:46; Admin Dose 1 PUFF; Start 04/07/19 at 12:00 Pantoprazole (Protonix Tab) 40 mg DAILY PO Last administered on 04/14/19 09:01; Admin Dose 40 MG; Start 04/07/19 at 09:00 Piperacillin Sod/ Tazobactam Sod 50 ml @ 100 mls/hr Q8 IVPB Last administered on 04/14/19 05:48; Admin Dose 100 MLS/HR; Start 04/10/19 at 14:00 SHAHANA LOPEZ 18, 2019 12:00
[2019-04-14 14:11] VITALS: BP 142/81; PULSE 68; RESP 15
[2019-04-14] MEDS: EPOETIN ALFA-EPBX (ESRD) 10,000 UNIT/ML VIAL SC SCH (16:13)
--- NOTE | 2019-04-14 16:44 | PN ---
Date/Time of Note Date/Time of Note DATE: 04/14/19 TIME: 16:43 Assessment/Plan VTE Prophylaxis Risk score (from Nsg)>0 risk: 2 Pharmacological prophylaxis: NA/contraindicated Pharm contraindication: low risk/ambulating Lines/Catheters IV Catheter Type (from Nrsg): Saline Lock Urinary Cath still in place: No Assessment/Plan Hospital Course 68 yo male with ESRD who presents with COLON, found to have large R pleural effusion Pleural effusion: - Will require decortication by CT surgeon. Dr Cates likely to operate Saturday or Saturday - 600 cc drained by thoracentesis. Suggestive of exudative process. Have started him on empiric antibiotics - Concern for endobronchial lesion, possible plan to perform bronchoscopy this week ESRD: - Continue HD per renal Anemia of CKD - iron and EPO Hypertension: - Continue amlodipine Result Diagram: 04/14/1970404/14/1905 Results 24hrs Laboratory Tests Test 04/14/19 07:05 White Blood Count 6.2 Red Blood Count 2.83 L Hemoglobin 8.7 L Hematocrit 26.9 L Mean Corpuscular Volume 95.1 Mean Corpuscular Hemoglobin 30.7 Mean Corpuscular Hemoglobin Concent 32.3 Red Cell Distribution Width 14.4 Platelet Count 180 Mean Platelet Volume 9.7 Immature Granulocytes % 0.500 H Neutrophils % 69.5 Lymphocytes % 7.0 L Monocytes % 15.3 H Eosinophils % 7.0 Basophils % 0.7 Nucleated Red Blood Cells % 0.0 Immature Granulocytes # 0.030 Neutrophils # 4.3 Lymphocytes # 0.4 L Monocytes # 0.9 Eosinophils # 0.4 Basophils # 0.0 Nucleated Red Blood Cells # 0.0 Sodium Level 137 Potassium Level 4.6 Chloride Level 97 Carbon Dioxide Level 28 Anion Gap 12 Blood Urea Nitrogen 31 #H Creatinine 7.58 #H Est Glomerular Filtrat Rate mL/min 7 L Glucose Level 86 Calcium Level 8.7 Subjective 24 Hr Interval Summary Constitutional: no complaints Exam/Review of Systems Exam Vitals Vital Signs Date Temp Pulse Resp B/P (MAP) Pulse Ox O2 O2 Flow FiO2 Time Delivery Rate 04/14/19 98.3 68 15 142/81 99 Room Air 14:11 (101) Intake and Output 04/13/19 04/13/19 04/14/19 1515:00 23:00 07:00 IntakeIntake Total 320 ml 300 ml 50 ml OutputOutput Total 3400 ml BalanceBalance 320 ml -3100 ml 50 ml Constitutional: alert, oriented Respiratory: clear to auscultation Cardiovascular: regular rate and rhythm Gastrointestinal: soft; No distended Musculoskeletal: nl extremities to inspection Results Results 24hrs Laboratory Tests Test 04/14/19 07:05 White Blood Count 6.2 Red Blood Count 2.83 L Hemoglobin 8.7 L Hematocrit 26.9 L Mean Corpuscular Volume 95.1 Mean Corpuscular Hemoglobin 30.7 Mean Corpuscular Hemoglobin Concent 32.3 Red Cell Distribution Width 14.4 Platelet Count 180 Mean Platelet Volume 9.7 Immature Granulocytes % 0.500 H Neutrophils % 69.5 Lymphocytes % 7.0 L Monocytes % 15.3 H Eosinophils % 7.0 Basophils % 0.7 Nucleated Red Blood Cells % 0.0 Immature Granulocytes # 0.030 Neutrophils # 4.3 Lymphocytes # 0.4 L Monocytes # 0.9 Eosinophils # 0.4 Basophils # 0.0 Nucleated Red Blood Cells # 0.0 Sodium Level 137 Potassium Level 4.6 Chloride Level 97 Carbon Dioxide Level 28 Anion Gap 12 Blood Urea Nitrogen 31 #H Creatinine 7.58 #H Est Glomerular Filtrat Rate mL/min 7 L Glucose Level 86 Calcium Level 8.7 Medications Medication Current Medications IV Flush (NS 3 ml) 3 ml PER PROTOCOL IV ; Start 04/06/19 at 21:30 Ondansetron HCl (Zofran Inj) 4 mg Q6H PRN IV NAUSEA/VOMITING; Start 04/06/19 at 21:30 Acetaminophen (Tylenol Tab) 650 mg Q6H PRN PO .PAIN 1-3 OR TEMP; Start 04/06/19 at 21:30 Docusate Sodium (Colace) 100 mg Q12H PRN PO .CONSTIPATION; Start 04/06/19 at 21:30 Bisacodyl (Dulcolax) 5 mg DAILY PRN PO .CONSTIPATION; Start 04/06/19 at 21:30 Albumin Human 100 ml @ 100 mls/hr WITH DIALYSIS PRN IV SBP <90 DURING DIALYSIS; Start 04/06/19 at 22:30 Epoetin Andrew-epbx (Retacrit (Esrd)) 10,000 unit TuThSa@1700 SC Last administered on 04/14/19at 16:13; Admin Dose 10,000 UNIT; Start 04/07/19 at 17:00 Hydralazine HCl (Apresoline) 10 mg Q4 PRN IV SBP more than 150 mm hg Last administered on 04/14/19 09:07; Admin Dose 10 MG; Start 04/06/19 at 22:30 Albuterol (Ventolin Hfa) 2 puff Q4H RESP THERAPY PRN INH WHEEZING AND SOB; Start 04/06/19 at 22:30 Amlodipine Besylate (Norvasc) 10 mg DAILY PO Last administered on 04/14/19 09:01; Admin Dose 10 MG; Start 04/07/19 at 09:00 Aspirin (Halfprin) 81 mg DAILY PO Last administered on 04/14/19 09:01; Admin Dose 81 MG; Start 04/07/19 at 09:00 Atorvastatin Calcium (Lipitor) 80 mg QHS PO Last administered on 04/13/19 21:16; Admin Dose 80 MG; Start 04/07/19 at 21:00 Mometasone Furoate (Asmanex) 1 puff DAILY RESP THERAPY INH Last administered on 04/12/19 12:46; Admin Dose 1 PUFF; Start 04/07/19 at 12:00 Pantoprazole (Protonix Tab) 40 mg DAILY PO Last administered on 04/14/19 09:01; Admin Dose 40 MG; Start 04/07/19 at 09:00 Piperacillin Sod/ Tazobactam Sod 50 ml @ 100 mls/hr Q8 IVPB Last administered on 04/14/19 16:12; Admin Dose 100 MLS/HR; Start 04/10/19 at 14:00 ELVIA HANLEY Apr 14, 2019 16:44
[2019-04-14 19:44] VITALS: BP 142/80; PULSE 79; RESP 18
[2019-04-14] MEDS: ATORVASTATIN 80 MG TAB PO SCH (20:29)
[2019-04-15] VITALS (19 sets, daily range): BP systolic 133–169; BP diastolic 77–99; PULSE 70–87; RESP 16–18
[2019-04-15] MEDS: PIPER-TAZO 2.25 GM (PMX) 50 ML IVPB SCH ×3 (05:41→21:38)
[2019-04-15] MEDS: ASPIRIN (EC) 81 MG TAB PO SCH (08:42)
[2019-04-15] MEDS: PANTOPRAZOLE (EC) 40 MG TAB PO SCH (08:42)
[2019-04-15] MEDS: AMLODIPINE 10 MG TAB PO SCH (08:46)
--- NOTE | 2019-04-15 11:04 | CONS ---
Assessment/Plan Assessment/Plan Assessment/Plan (Daily) Assessment and recommendations; next 1. Patient with history of chronic renal failure, dialysis dependent admitted with shortness of breath due to right upper lobe complicated pleural effusion. 2. History of right lower lobe pneumonia 3. History of hypertension. 4. Mild anemia and thrombocytopenia. Continue with supportive care. Patient will be evaluated by cardiothoracic surgeon for possible right VATS procedure, because of scheduling issues, surgery likely will not be done until next week. Meanwhile will obtain a follow-up chest x-ray to see if there is any resolution in the right pleural effusion. Consultation Date/Type/Reason Admit Date/Time Apr 06, 2019 at 21:13 Initial Consult Date 04/10/19 Type of Consult Pulmonary Patient is a 68-year-old gentleman who came into the hospital on the of this month with a few days history of shortness of breath. Upon evaluation a chest x-ray was done which showed a large right pleural effusion, patient has undergone thoracentesis however only 600 mL of fluid was withdrawn. The fluid is exudative in character. Patient is feeling better. Denies any further shortness of breath, denies any chest pain, wheezing, sputum production or hemoptysis. Past medical history; 1. End-stage renal disease on hemodialysis. 2. Anemia and thrombocytopenia. 3. History of hypertension. Medications; reviewed. Allergies; none. Social history; noncontributory. Patient has never smoked. Occupational history; noncontributory. Family history; no show any malignancy in the family. Review of systems; denies any headache, seizures, chest pain, angina, wheezing, cough, sputum production or hemoptysis. Shortness of breath has improved. Denies any weight loss. Any abdominal pain, nausea vomiting. Any melena hematochezia. Any edema. Any arthritis symptoms. Any weight loss. Any fever or chills. General exam; elderly male, awake alert, getting hemodialysis at bedside. Currently in no distress. Requesting Provider: DEVI ALFRED Date/Time of Note DATE: 04/15/19 TIME: 10:57 24 HR Interval Summary Free Text/Dictation Patient's condition is stable. Denies any shortness of breath, chest pain, coughing or wheezing. General exam; elderly male, currently in no distress. H EENT exam; supple neck, no JVD. No lymphadenopathy. Midline trachea. No thyromegaly. Pharynx is clear. Patient has carious teeth. Chest exam; diminished breath sounds left lower lobe. S1-S2 audible, no murmurs. Abdomen exam; soft, no organomegaly. Bowel sounds audible. Extremity exam; no peripheral edema clubbing. [employer] exam; no focal deficit. Exam/Review of Systems Exam Vitals Vital Signs Date Temp Pulse Resp B/P (MAP) Pulse Ox O2 O2 Flow FiO2 Time Delivery Rate 04/15/19 98.0 76 18 160/89 98 07:38 (112) 04/14/19 Room Air 14:11 Intake and Output 04/14/19 04/14/19 04/15/19 1515:00 23:00 07:00 IntakeIntake Total 390 ml 100 ml BalanceBalance 390 ml 100 ml Results Result Diagram: 04/14/1970404/14/19704 Medications Medication Current Medications IV Flush (NS 3 ml) 3 ml PER PROTOCOL IV ; Start 04/06/19 at 21:30 Ondansetron HCl (Zofran Inj) 4 mg Q6H PRN IV NAUSEA/VOMITING; Start 04/06/19 at 21:30 Acetaminophen (Tylenol Tab) 650 mg Q6H PRN PO .PAIN 1-3 OR TEMP; Start 04/06/19 at 21:30 Docusate Sodium (Colace) 100 mg Q12H PRN PO .CONSTIPATION; Start 04/06/19 at 21:30 Bisacodyl (Dulcolax) 5 mg DAILY PRN PO .CONSTIPATION; Start 04/06/19 at 21:30 Albumin Human 100 ml @ 100 mls/hr WITH DIALYSIS PRN IV SBP <90 DURING DIALYSIS; Start 04/06/19 at 22:30 Epoetin Andrew-epbx (Retacrit (Esrd)) 10,000 unit TuThSa@1700 SC Last administered on 04/14/19at 16:13; Admin Dose 10,000 UNIT; Start 04/07/19 at 17:00 Hydralazine HCl (Apresoline) 10 mg Q4 PRN IV SBP more than 150 mm hg Last administered on 04/14/19at 09:07; Admin Dose 10 MG; Start 04/06/19 at 22:30 Albuterol (Ventolin Hfa) 2 puff Q4H RESP THERAPY PRN INH WHEEZING AND SOB; Start 04/06/19 at 22:30 Amlodipine Besylate (Norvasc) 10 mg DAILY PO Last administered on 04/15/19 08:46; Admin Dose 10 MG; Start 04/07/19 at 09:00 Aspirin (Halfprin) 81 mg DAILY PO Last administered on 04/15/19 08:42; Admin Dose 81 MG; Start 04/07/19 at 09:00 Atorvastatin Calcium (Lipitor) 80 mg QHS PO Last administered on 04/14/19 20:29; Admin Dose 80 MG; Start 04/07/19 at 21:00 Mometasone Furoate (Asmanex) 1 puff DAILY RESP THERAPY INH Last administered on 04/12/19 12:46; Admin Dose 1 PUFF; Start 04/07/19 at 12:00 Pantoprazole (Protonix Tab) 40 mg DAILY PO Last administered on 04/15/19 08:42; Admin Dose 40 MG; Start 04/07/19 at 09:00 Piperacillin Sod/ Tazobactam Sod 50 ml @ 100 mls/hr Q8 IVPB Last administered on 04/15/19 05:41; Admin Dose 100 MLS/HR; Start 04/10/19 at 14:00 SHAHANA LOPEZ Apr 15, 2019 11:04
--- NOTE | 2019-04-15 14:29 | PN ---
Date/Time of Note Date/Time of Note DATE: 04/15/19 TIME: 14:27 Assessment/Plan VTE Prophylaxis Risk score (from Nsg)>0 risk: 2 Pharmacological prophylaxis: NA/contraindicated Pharm contraindication: low risk/ambulating Lines/Catheters IV Catheter Type (from Nrsg): Saline Lock Urinary Cath still in place: No Assessment/Plan Hospital Course 68 yo male with ESRD who presents with COLON, found to have large R pleural effusion Pleural effusion: - Will require VATS with CT surgeon. Dr Cates to operate next week due to scheduling issues - 600 cc drained by thoracentesis. Suggestive of exudative process. Continue empiric antibiotics - Concern for endobronchial lesion, possible plan to perform bronchoscopy this week -Follow-up on repeat chest x-ray ESRD: - Continue HD per renal Anemia of CKD - iron and EPO Hypertension: - Continue amlodipine Result Diagram: 04/14/1970404/14/19704 Subjective 24 Hr Interval Summary Constitutional: no complaints Exam/Review of Systems Exam Vitals Vital Signs Date Temp Pulse Resp B/P (MAP) Pulse Ox O2 O2 Flow FiO2 Time Delivery Rate 04/15/19 98.0 76 18 160/89 98 07:38 (112) 04/14/19 Room Air 14:11 Intake and Output 04/14/19 04/14/19 04/15/19 1515:00 23:00 07:00 IntakeIntake Total 390 ml 100 ml BalanceBalance 390 ml 100 ml Constitutional: alert, oriented Respiratory: clear to auscultation Cardiovascular: regular rate and rhythm Gastrointestinal: soft; No distended Musculoskeletal: nl extremities to inspection Medications Medication Current Medications IV Flush (NS 3 ml) 3 ml PER PROTOCOL IV ; Start 04/06/19 at 21:30 Ondansetron HCl (Zofran Inj) 4 mg Q6H PRN IV NAUSEA/VOMITING; Start 04/06/19 at 21:30 Acetaminophen (Tylenol Tab) 650 mg Q6H PRN PO .PAIN 1-3 OR TEMP; Start 04/06/19 at 21:30 Docusate Sodium (Colace) 100 mg Q12H PRN PO .CONSTIPATION; Start 04/06/19 at 21:30 Bisacodyl (Dulcolax) 5 mg DAILY PRN PO .CONSTIPATION; Start 04/06/19 at 21:30 Albumin Human 100 ml @ 100 mls/hr WITH DIALYSIS PRN IV SBP <90 DURING DIALYSIS; Start 04/06/19 at 22:30 Epoetin Andrew-epbx (Retacrit (Esrd)) 10,000 unit TuThSa@1700 SC Last administered on 04/14/19 16:13; Admin Dose 10,000 UNIT; Start 04/07/19 at 17:00 Hydralazine HCl (Apresoline) 10 mg Q4 PRN IV SBP more than 150 mm hg Last administered on 04/14/19 09:07; Admin Dose 10 MG; Start 04/06/19 at 22:30 Albuterol (Ventolin Hfa) 2 puff Q4H RESP THERAPY PRN INH WHEEZING AND SOB; Start 04/06/19 at 22:30 Amlodipine Besylate (Norvasc) 10 mg DAILY PO Last administered on 04/15/19 08:46; Admin Dose 10 MG; Start 04/07/19 at 09:00 Aspirin (Halfprin) 81 mg DAILY PO Last administered on 04/15/19 08:42; Admin Dose 81 MG; Start 04/07/19 at 09:00 Atorvastatin Calcium (Lipitor) 80 mg QHS PO Last administered on 04/14/19 20:29; Admin Dose 80 MG; Start 04/07/19 at 21:00 Mometasone Furoate (Asmanex) 1 puff DAILY RESP THERAPY INH Last administered on 04/12/19 12:46; Admin Dose 1 PUFF; Start 04/07/19 at 12:00 Pantoprazole (Protonix Tab) 40 mg DAILY PO Last administered on 04/15/19 08:42; Admin Dose 40 MG; Start 04/07/19 at 09:00 Piperacillin Sod/ Tazobactam Sod 50 ml @ 100 mls/hr Q8 IVPB Last administered on 04/15/19 14:18; Admin Dose 100 MLS/HR; Start 04/10/19 at 14:00 ELVIA HANLEY Apr 15, 2019 14:29
--- NOTE | 2019-04-15 15:30 | CONS ---
Assessment/Plan Assessment/Plan Assessment/Plan (Daily) 1. Acute fluid overload with acute Uremia due to missed HD 2. acute hyperkalemia due to Missed HD 3. Large Right sided pleural effusion due to fluid overload - plan for VATS with CT surgeon- Dr Cates , possibly next week - 600 cc drained by thoracentesis. Suggestive of exudative process. On empiric antibiotics - Concern for endobronchial lesion, possible plan to perform bronchoscopy t his week 4. ESRD on HD - has been stayed out of [place] for [place],was gettign HD once a week in [facility] 5. H/o HTN 6. H/o HL 7. H/o Hypothyroidism 8. Anemia Plan: HD on MWF schedule Pt stayed out of for more than 3 months, He lost his Dialysis chair time, will request New HD placement at renal [facility], renal [facility] - if requested to go back to same unit if they accept him back continue current BP meds amlodipine 10mg po daily , IV hydralaine prn HIV< hepatitis panel negative will follow up Patient seen in collaboration with Dr Cardona Consultation Date/Type/Reason Admit Date/Time Apr 06, 2019 at 21:13 Initial Consult Date 04/06/19 Type of Consult NEPHROLOGY Reason for Consultation ESRD/MISSED HD Requesting Provider: DEVI ALFRED Date/Time of Note DATE: 04/15/19 TIME: 15:28 24 HR Interval Summary Free Text/Dictation - nad -afebrile - Right Pleural effusion: plan for VATS with Dr Cates - possibly next week - SP thoracentesis- 600 cc drained Suggestive of exudative process. On empiric antibiotics - Concern for endobronchial lesion, possible plan to perform bronchoscopy this week - staff Detailed Summary Eyes: no complaints ENT: no complaints Respiratory: no complaints Cardiovascular: no complaints Gastrointestinal: no complaints Genitourinary: no complaints Skin: no complaints Neurologic: no complaints Endocrine: no complaints Lymphatic: no complaints Psychological: nl mood/affect Immunologic: no complaints Exam/Review of Systems Exam Vitals Vital Signs Date Temp Pulse Resp B/P (MAP) Pulse Ox O2 O2 Flow FiO2 Time Delivery Rate 04/15/19 98.2 76 18 154/81 99 14:00 (105) 04/14/19 Room Air 14:11 Intake and Output 604/14/19 04/15/19 1515:00 23:00 07:00 IntakeIntake Total 390 ml 100 ml BalanceBalance 390 ml 100 ml Constitutional: alert, well developed Psych: nl mood/affect Head: normocephalic Eyes: nl lids, nl sclera ENMT: nl external ears & nose Neck: non-tender Respiratory: diminished breath sounds (Right >left ) Cardiovascular: nl pulses, other (s1s2) Gastrointestinal: soft, non-tender Musculoskeletal: nl extremities to inspection Extremities: normal pulses Neurological: nl speech, other (alert/reponsive) Skin: nl turgor Lymph: nontender Results Result Diagram: 04/14/1970404/14/19704 Medications Medication Current Medications IV Flush (NS 3 ml) 3 ml PER PROTOCOL IV ; Start 04/06/19 at 21:30 Ondansetron HCl (Zofran Inj) 4 mg Q6H PRN IV NAUSEA/VOMITING; Start 04/06/19 at 21:30 Acetaminophen (Tylenol Tab) 650 mg Q6H PRN PO .PAIN 1-3 OR TEMP; Start 04/06/19 at 21:30 Docusate Sodium (Colace) 100 mg Q12H PRN PO .CONSTIPATION; Start 04/06/19 at 21:30 Bisacodyl (Dulcolax) 5 mg DAILY PRN PO .CONSTIPATION; Start 04/06/19 at 21:30 Albumin Human 100 ml @ 100 mls/hr WITH DIALYSIS PRN IV SBP <90 DURING DIALYSIS; Start 04/06/19 at 22:30 Epoetin Andrew-epbx (Retacrit (Esrd)) 10,000 unit TuThSa@1700 SC Last administered on 04/14/19at 16:13; Admin Dose 10,000 UNIT; Start 04/07/19 at 17:00 Hydralazine HCl (Apresoline) 10 mg Q4 PRN IV SBP more than 150 mm hg Last administered on 04/14/19at 09:07; Admin Dose 10 MG; Start 04/06/19 at 22:30 Albuterol (Ventolin Hfa) 2 puff Q4H RESP THERAPY PRN INH WHEEZING AND SOB; Start 04/06/19 at 22:30 Amlodipine Besylate (Norvasc) 10 mg DAILY PO Last administered on 6/19/19at 08:46; Admin Dose 10 MG; Start 04/07/19 at 09:00 Aspirin (Halfprin) 81 mg DAILY PO Last administered on 04/15/19 08:42; Admin Dose 81 MG; Start 04/07/19 at 09:00 Atorvastatin Calcium (Lipitor) 80 mg QHS PO Last administered on 04/14/19 20:2 9; Admin Dose 80 MG; Start 04/07/19 at 21:00 Mometasone Furoate (Asmanex) 1 puff DAILY RESP THERAPY INH Last administered on 04/12/19 12:46; Admin Dose 1 PUFF; Start 04/07/19 at 12:00 Pantoprazole (Protonix Tab) 40 mg DAILY PO Last administered on 04/15/19 08:42; Admin Dose 40 MG; Start 04/07/19 at 09:00 Piperacillin Sod/ Tazobactam Sod 50 ml @ 100 mls/hr Q8 IVPB Last administered on 04/15/19 14:18; Admin Dose 100 MLS/HR; Start 04/10/19 at 14:00 PRADEEP MILNER Apr 15, 2019 15:30
[2019-04-15] MEDS: hydrALAzine 20 MG INJ IV PRN (20:06)
[2019-04-15] MEDS: ATORVASTATIN 80 MG TAB PO SCH (20:06)
[2019-04-16 02:00] VITALS: BP 153/84; PULSE 79; RESP 17
[2019-04-16] MEDS: hydrALAzine 20 MG INJ IV PRN (02:22)
[2019-04-16 03:04] VITALS: BP 149/76; PULSE 83
[2019-04-16] MEDS: PIPER-TAZO 2.25 GM (PMX) 50 ML IVPB SCH (05:47)
[2019-04-16 07:25] VITALS: BP 156/88; PULSE 82; RESP 18
[2019-04-16] MEDS: AMLODIPINE 10 MG TAB PO SCH (07:55)
[2019-04-16] MEDS: ASPIRIN (EC) 81 MG TAB PO SCH (07:55)
[2019-04-16] MEDS: PANTOPRAZOLE (EC) 40 MG TAB PO SCH (07:55)
--- NOTE | 2019-04-16 10:41 | CONS ---
Assessment/Plan Assessment/Plan Assessment/Plan (Daily) 1. Acute fluid overload with acute Uremia due to missed HD 2. acute hyperkalemia due to Missed HD 3. Large Right sided pleural effusion due to fluid overload - plan for VATS with CT surgeon- Dr Cates , possibly next week - 600 cc drained by thoracentesis. Suggestive of exudative process. On empiric antibiotics - Concern for endobronchial lesion, possible plan to perform bronchoscopy t his week 4. ESRD on HD - [place] been stayed out of [place] for [place],was gettign HD once a week in [facility] 5. H/o HTN 6. H/o HL 7. H/o Hypothyroidism 8. Anemia Plan: HD on MWF schedule Pt stayed out of [place] for more than 3 months, He lost his Dialysis chair time, will request New HD placement at renal [facility], renal [place] [facility] - if requested to go back to same unit if they accept him back continue current BP meds amlodipine 10mg po daily , IV hydralaine prn HIV< hepatitis panel negative will follow up Patient seen in collaboration with Dr Cardona Consultation Date/Type/Reason Admit Date/Time Apr 06, 2019 at 21:13 Initial Consult Date 04/06/19 Type of Consult NEPHROLOGY Reason for Consultation ESRD Requesting Provider: DEVI ALFRED Date/Time of Note DATE: 04/16/19 TIME: 10:40 24 HR Interval Summary Free Text/Dictation no new events reported last night Denies any acute complaints dw staff Detailed Summary Eyes: no complaints ENT: no complaints Respiratory: no complaints Cardiovascular: no complaints Gastrointestinal: no complaints Genitourinary: no complaints Musculoskeletal: no complaints Skin: no complaints Neurologic: no complaints Endocrine: no complaints Psychological: nl mood/affect Exam/Review of Systems Exam Vitals Vital Signs Date Temp Pulse Resp B/P (MAP) Pulse Ox O2 O2 Flow FiO2 Time Delivery Rate 04/16/19 98.4 82 18 156/88 98 07:25 (110) 04/15/19 Room Air 22:10 Intake and Output 04/15/19 04/15/19 04/16/19 1515:00 23:00 07:00 IntakeIntake Total 690 ml 370 ml 50 ml BalanceBalance 690 ml 370 ml 50 ml Constitutional: alert, well developed Psych: nl mood/affect Head: atraumatic Eyes: nl lids, nl sclera ENMT: nl external ears & nose Neck: non-tender Respiratory: diminished breath sounds (at bases bilaterallyy) Cardiovascular: nl pulses, other (s1s2) Gastrointestinal: soft, non-tender Musculoskeletal: nl extremities to inspection Extremities: normal pulses Neurological: nl speech, other (alert/responsive) Lymph: nontender Results Result Diagram: 04/14/1970404/14/19704 Medications Medication Current Medications IV Flush (NS 3 ml) 3 ml PER PROTOCOL IV ; Start 04/06/19 at 21:30 Ondansetron HCl (Zofran Inj) 4 mg Q6H PRN IV NAUSEA/VOMITING; Start 04/06/19 at 21:30 Acetaminophen (Tylenol Tab) 650 mg Q6H PRN PO .PAIN 1-3 OR TEMP; Start 04/06/19 at 21:30 Docusate Sodium (Colace) 100 mg Q12H PRN PO .CONSTIPATION; Start 04/06/19 at 21:30 Bisacodyl (Dulcolax) 5 mg DAILY PRN PO .CONSTIPATION; Start 04/06/19 at 21:30 Albumin Human 100 ml @ 100 mls/hr WITH DIALYSIS PRN IV SBP <90 DURING DIALYSIS; Start 04/06/19 at 22:30 Epoetin Andrew-epbx (Retacrit (Esrd)) 10,000 unit TuThSa@1700 SC Last administered on 04/14/19at 16:13; Admin Dose 10,000 UNIT; Start 04/07/19 at 17:00 Hydralazine HCl (Apresoline) 10 mg Q4 PRN IV SBP more than 150 mm hg Last administered on 04/16/19at 02:22; Admin Dose 10 MG; Start 04/06/19 at 22:30 Albuterol (Ventolin Hfa) 2 puff Q4H RESP THERAPY PRN INH WHEEZING AND SOB; Start 04/06/19 at 22:30 Amlodipine Besylate (Norvasc) 10 mg DAILY PO Last administered on 04/16/19at 07:55; Admin Dose 10 MG; Start 04/07/19 at 09:00 Aspirin (Halfprin) 81 mg DAILY PO Last administered on 04/16/19at 07:55; Admin Dose 81 MG; Start 04/07/19 at 09:00 Atorvastatin Calcium (Lipitor) 80 mg QHS PO Last administered on 04/15/19at 20:06; Admin Dose 80 MG; Start 04/07/19 at 21:00 Mometasone Furoate (Asmanex) 1 puff DAILY RESP THERAPY INH Last administered on 04/12/19at 12:46; Admin Dose 1 PUFF; Start 04/07/19 at 12:00 Pantoprazole (Protonix Tab) 40 mg DAILY PO Last administered on 04/16/19at 07:55; Admin Dose 40 MG; Start 04/07/19 at 09:00 Piperacillin Sod/ Tazobactam Sod 50 ml @ 100 mls/hr Q8 IVPB Last administered on 04/16/19at 05:47; Admin Dose 100 MLS/HR; Start 04/10/19 at 14:00 PRADEEP MILENR Apr 16, 2019 10:41
--- NOTE | 2019-04-16 12:53 | CONS ---
Consultation Date/Type/Reason Admit Date/Time Apr 06, 2019 at 21:13 Initial Consult Date 04/10/19 Type of Consult Pulmonary Patient is a 68-year-old gentleman who came into the hospital on the of this month with a few days history of shortness of breath. Upon evaluation a chest x-ray was done which showed a large right pleural effusion, patient has undergone thoracentesis however only 600 mL of fluid was withdrawn. The fluid is exudative in character. Patient is feeling better. Denies any further shortness of breath, denies any chest pain, wheezing, sputum production or hemoptysis. Past medical history; 1. End-stage renal disease on hemodialysis. 2. Anemia and thrombocytopenia. 3. History of hypertension. Medications; reviewed. Allergies; none. Social history; noncontributory. Patient has never smoked. Occupational history; noncontributory. Family history; no show any malignancy in the family. Review of systems; denies any headache, seizures, chest pain, angina, wheezing, cough, sputum production or hemoptysis. Shortness of breath has improved. Denies any weight loss. Any abdominal pain, nausea vomiting. Any melena hematochezia. Any edema. Any arthritis symptoms. Any weight loss. Any fever or chills. General exam; elderly male, awake alert, getting hemodialysis at bedside. Currently in no distress. Requesting Provider: DEVI ALFRED Date/Time of Note DATE: 04/16/19 TIME: 12:50 24 HR Interval Summary Free Text/Dictation Patient's condition is stable. Denies any chest pain, shortness breath, coughi ng, wheezing, sputum production. General exam; elderly male, awake, currently no distress. H EENT exam; supple neck, no JVD. No lymphadenopathy. Midline trachea. No thyromegaly. No neck masses. Patient has fair dentition. Chest exam; diminished breath sounds right lower lobe. Rest of the lung patrick are clear. S1-S2 audible, no murmurs. Regular rhythm. Abdomen exam; soft, no organomegaly. Bowel sounds audible. Extremity exam; no peripheral edema clubbing. BIOMEDICAL INSTRUMENT TECHNICIAN exam; no focal deficit. Chest x-ray was reviewed from yesterday which is again showing complicated right pleural effusion. Assessment and recommendations; 1. Patient admitted with shortness of breath due to right upper lobe pneumonia which likely is chronic with complicated right parapneumonic effusion. 2. Chronic renal failure, on hemodialysis. 3. History of pneumonia several months ago, findings likely are sequela of that. 4. Mild anemia and thrombocytopenia. 5. History of hypertension. Continue current supportive care. Patient awaiting right VATS procedure which will be performed sometime next week. Exam/Review of Systems Exam Vitals Vital Signs Date Temp Pulse Resp B/P (MAP) Pulse Ox O2 O2 Flow FiO2 Time Delivery Rate 04/16/19 98.4 82 18 156/88 98 07:25 (110) 04/15/19 Room Air 22:10 Intake and Output 04/15/19 04/15/19 04/16/19 1515:00 23:00 07:00 IntakeIntake Total 690 ml 370 ml 50 ml BalanceBalance 690 ml 370 ml 50 ml Results Result Diagram: 04/14/1970404/14/19704 Medications Medication Current Medications IV Flush (NS 3 ml) 3 ml PER PROTOCOL IV ; Start 04/06/19 at 21:30 Ondansetron HCl (Zofran Inj) 4 mg Q6H PRN IV NAUSEA/VOMITING; Start 04/06/19 at 21:30 Acetaminophen (Tylenol Tab) 650 mg Q6H PRN PO .PAIN 1-3 OR TEMP; Start 04/06/19 at 21:30 Docusate Sodium (Colace) 100 mg Q12H PRN PO .CONSTIPATION; Start 04/06/19 at 21:30 Bisacodyl (Dulcolax) 5 mg DAILY PRN PO .CONSTIPATION; Start 04/06/19 at 21:30 Albumin Human 100 ml @ 100 mls/hr WITH DIALYSIS PRN IV SBP <90 DURING DIALYSIS; Start 04/06/19 at 22:30 Epoetin Andrew-epbx (Retacrit (Esrd)) 10,000 unit TuThSa@1700 SC Last administered on 04/14/19at 16:13; Admin Dose 10,000 UNIT; Start 04/07/19 at 17:00 Hydralazine HCl (Apresoline) 10 mg Q4 PRN IV SBP more than 150 mm hg Last administered on 04/16/19at 02:22; Admin Dose 10 MG; Start 04/06/19 at 22:30 Albuterol (Ventolin Hfa) 2 puff Q4H RESP THERAPY PRN INH WHEEZING AND SOB; Start 04/06/19 at 22:30 Amlodipine Besylate (Norvasc) 10 mg DAILY PO Last administered on 04/16/19 07:55; Admin Dose 10 MG; Start 04/07/19 at 09:00 Aspirin (Halfprin) 81 mg DAILY PO Last administered on 04/16/19 07:55; Admin Dose 81 MG; Start 04/07/19 at 09:00 Atorvastatin Calcium (Lipitor) 80 mg QHS PO Last administered on 04/15/19 20:06; Admin Dose 80 MG; Start 04/07/19 at 21:00 Mometasone Furoate (Asmanex) 1 puff DAILY RESP THERAPY INH Last administered on 04/12/19 12:46; Admin Dose 1 PUFF; Start 04/07/19 at 12:00 Pantoprazole (Protonix Tab) 40 mg DAILY PO Last administered on 04/16/19at 07:55; Admin Dose 40 MG; Start 04/07/19 at 09:00 Piperacillin Sod/ Tazobactam Sod 50 ml @ 100 mls/hr Q8 IVPB Last administered on 04/16/19 05:47; Admin Dose 100 MLS/HR; Start 04/10/19 at 14:00 SHAHANA LOPEZ Apr 16, 2019 12:53
[2019-04-16] MEDS: MOMETASONE 0.24 GM INHALER INH SCH (13:55)
[2019-04-16 14:00] VITALS: BP 148/79; PULSE 76; RESP 18
--- NOTE | 2019-04-16 14:08 | PN ---
Date/Time of Note Date/Time of Note DATE: 04/16/19 TIME: 14:08 Assessment/Plan VTE Prophylaxis Risk score (from Nsg)>0 risk: 2 Pharmacological prophylaxis: NA/contraindicated Pharm contraindication: low risk/ambulating Lines/Catheters IV Catheter Type (from Nrsg): Saline Lock Urinary Cath still in place: No Assessment/Plan Hospital Course 68 yo male with ESRD who presents with COLON, found to have large R pleural effusion Pleural effusion: - Will require VATS with CT surgeon. Dr Cates to operate next week due to scheduling issues - 600 cc drained by thoracentesis. Suggestive of exudative process. Continue empiric antibiotics - Concern for endobronchial lesion, possible plan to perform bronchoscopy this week -Follow-up on repeat chest x-ray ESRD: - Continue HD per renal Anemia of CKD - iron and EPO Hypertension: - Continue amlodipine Result Diagram: 04/14/1970404/14/19704 Subjective 24 Hr Interval Summary Constitutional: no complaints Exam/Review of Systems Exam Vitals Vital Signs Date Temp Pulse Resp B/P (MAP) Pulse Ox O2 O2 Flow FiO2 Time Delivery Rate 04/16/19 98.2 76 18 148/79 99 14:00 (102) 04/15/19 Room Air 22:10 Intake and Output 04/15/19 04/15/19 04/16/19 1515:00 23:00 07:00 IntakeIntake Total 690 ml 370 ml 50 ml BalanceBalance 690 ml 370 ml 50 ml Constitutional: alert, oriented Respiratory: clear to auscultation Cardiovascular: regular rate and rhythm Gastrointestinal: soft; No distended Musculoskeletal: nl extremities to inspection Medications Medication Current Medications IV Flush (NS 3 ml) 3 ml PER PROTOCOL IV ; Start 04/06/19 at 21:30 Ondansetron HCl (Zofran Inj) 4 mg Q6H PRN IV NAUSEA/VOMITING; Start 04/06/19 at 21:30 Acetaminophen (Tylenol Tab) 650 mg Q6H PRN PO .PAIN 1-3 OR TEMP; Start 04/06/19 at 21:30 Docusate Sodium (Colace) 100 mg Q12H PRN PO .CONSTIPATION; Start 04/06/19 at 21:30 Bisacodyl (Dulcolax) 5 mg DAILY PRN PO .CONSTIPATION; Start 04/06/19 at 21:30 Albumin Human 100 ml @ 100 mls/hr WITH DIALYSIS PRN IV SBP <90 DURING DIALYSIS; Start 04/06/19 at 22:30 Epoetin Andrew-epbx (Retacrit (Esrd)) 10,000 unit TuThSa@1700 SC Last administered on 04/14/19at 16:13; Admin Dose 10,000 UNIT; Start 04/07/19 at 17:00 Hydralazine HCl (Apresoline) 10 mg Q4 PRN IV SBP more than 150 mm hg Last administered on 04/16/19at 02:22; Admin Dose 10 MG; Start 04/06/19 at 22:30 Albuterol (Ventolin Hfa) 2 puff Q4H RESP THERAPY PRN INH WHEEZING AND SOB; Start 04/06/19 at 22:30 Amlodipine Besylate (Norvasc) 10 mg DAILY PO Last administered on 04/16/19at 07:55; Admin Dose 10 MG; Start 04/07/19 at 09:00 Aspirin (Halfprin) 81 mg DAILY PO Last administered on 04/16/19 07:55; Admin Dose 81 MG; Start 04/07/19 at 09:00 Atorvastatin Calcium (Lipitor) 80 mg QHS PO Last administered on 04/15/19 20:06; Admin Dose 80 MG; Start 04/07/19 at 21:00 Mometasone Furoate (Asmanex) 1 puff DAILY RESP THERAPY INH Last administered on 04/16/19at 13:55; Admin Dose 1 PUFF; Start 04/07/19 at 12:00 Pantoprazole (Protonix Tab) 40 mg DAILY PO Last administered on 04/16/19 07:55; Admin Dose 40 MG; Start 04/07/19 at 09:00 ELVAI HANLEY Apr 16, 2019 14:08
[2019-04-16 16:44] VITALS: BP 167/89; PULSE 82; RESP 18
[2019-04-16 20:00] VITALS: BP 145/82; PULSE 77; RESP 18
--- NOTE | 2019-04-16 20:18 | CONS ---
DATE OF ADMISSION: 04/06/2019 DATE OF CONSULTATION: 04/16/2019 TYPE OF CONSULTATION: Infectious disease. REASON FOR CONSULTATION: Antibiotic management. HISTORY OF PRESENT ILLNESS: Rafa Barber is a 68-year-old male with numerous problems who co mes into resume dialysis since [place]. The patient states he was visi ting [facility] and had his hemodialysis 5 days ago in [facility]. For the last few days, he has b een feeling weaker than usual, has had dyspnea on exertion. He denies fever or chills. He has no ca lf or leg swelling. No complaints of chest pain. His past problems include hypertension, end-stage renal disease and gastritis. FAMILY HISTORY: Noncontributory. SOCIAL HISTORY: He does not smoke. He does drink alcohol. He does not abuse drugs. ALLERGIES: NONE TO PENICILLIN, SULFA OR FOODS. MEDICATIONS: Per chart. REVIEW OF SYSTEMS: As per HPI. HOSPITAL COURSE: The patient comes in as well nourished, well hydrated male. His white count was 7. 2, H and H of 7.0 and 22.3, platelet count 149,000. BUN and creatinine is 80/15.4. The patient felt to have end-stage renal disease, symptomatic anemia, hyperkalemia and pleural effusion. The patient is uremic, right-sided pleural effusion. He was seen by numerous consultants. He was seen by Dr. Ricardo cannon for pulmonary, admitted with shortness of breath due to complicated left pleural effusion which is partially loculated, possibly underlying endobronchial lesion, end-stage renal disease on hemodial ysis. The patient with significant elevated creatinine as noted. He was placed on Zosyn on 04/10/20. He was seen by Dr. Lopez. CT scan was reviewed in detail. He had a thoracentesis on 019, uncomplicated ultrasound-guided thoracentesis with 600 mL of maroon-colored fluid drained at the end of the procedure. Chest x-ray on 04/15/2019 shows no change from 04/09/2019 that shows moderate size loculated right pleural effusion with adjacent pulmonary airspace disease. Left lung is clear. There is no left pleural effusion. Heart is enlarged. There is calcification of the aorta consist ent with atherosclerosis. There is no pneumothorax. The patient is afebrile. White count is 6.2. There is a history of right lower lobe pneumonia, hypertension, mild anemia and thrombocytopenia. Th e patient will be evaluated by cardiothoracic surgery for possible right VATS procedure. Dr. Carlos brandon will schedule this. PAST MEDICAL HISTORY: As outlined. PHYSICAL EXAMINATION: GENERAL: The patient is a well-developed, well-nourished male. VITAL SIGNS: Stable. He is afebrile. SKIN: Without generalized rash. HEENT: Within normal limits. NECK: Supple. LYMPH NODES: None palpable. CHEST: Decreased breath sounds at the bases, right greater than left. HEART: Without murmur or gallop. ABDOMEN: Soft, nontender without organosplenomegaly or masses. EXTREMITIES: Without cyanosis, clubbing or edema. RECTAL AND GENITAL: Deferred. NEUROLOGIC: No focal neurological abnormalities. At this point, it is unclear whether there is pneumonia behind the loculated effusion. The cultures are negative. I think we will do a procalcitonin level and if that is low, we will stop the antibiot ics. I will dictate my findings to the hospitalist and to the aforementioned physicians. Dictated By: WANDER COE MD, JD/NTS Conf#: [id number] DID#: [id number] CC: DEVI ALFRED MD; VAN DHALIWAL MD; ELVIA HANLEY MD;*End*
[2019-04-16] MEDS: ATORVASTATIN 80 MG TAB PO SCH (21:41)
[2019-04-17] VITALS (17 sets, daily range): BP systolic 152–174; BP diastolic 78–108; PULSE 73–88; RESP 17–19
--- NOTE | 2019-04-17 06:38 | CONS ---
Assessment/Plan Assessment/Plan Assessment/Plan (Daily) 1. Acute fluid overload with acute Uremia due to missed HD 2. acute hyperkalemia due to Missed HD 3. Large Right sided pleural effusion due to fluid overload - plan for VATS with CT surgeon- Dr Cates , possibly next week - 600 cc drained by thoracentesis. Suggestive of exudative process. On empiric antibiotics - Concern for endobronchial lesion, possible plan to perform bronchoscopy t his week 4. ESRD on HD - has been stayed out of [place] for 3 [place],was gettign HD once a week in [facility] 5. H/o HTN 6. H/o HL 7. H/o Hypothyroidism 8. Anemia Plan: HD on MWF schedule Pt stayed out of [place] for more than 3 months, He lost his Dialysis chair time, will request New HD placement at renal [facility], renal [facility] - if requested to go back to same unit if they accept him back continue current BP meds amlodipine 10mg po daily , IV hydralaine prn HIV< hepatitis panel negative will follow up Patient seen in collaboration with Dr Cardona Consultation Date/Type/Reason Admit Date/Time Apr 06, 2019 at 21:13 Initial Consult Date 04/06/19 Type of Consult NEPHROLOGY Requesting Provider: DEVI ALFRED Date/Time of Note DATE: 04/17/19 TIME: 06:38 Exam/Review of Systems Exam Vitals Vital Signs Date Temp Pulse Resp B/P (MAP) Pulse Ox O2 O2 Flow FiO2 Time Delivery Rate 04/17/19 98.1 83 18 153/85 98 Room Air 02:00 (107) Intake and Output 04/16/19 04/16/19 04/17/19 1515:00 23:00 07:00 IntakeIntake Total 1240 ml 840 ml 240 ml BalanceBalance 1240 ml 840 ml 240 ml Constitutional: alert, well developed Psych: nl mood/affect Eyes: nl lids, nl sclera ENMT: nl external ears & nose Neck: non-tender Respiratory: diminished breath sounds Cardiovascular: nl pulses, other (s1s2) Gastrointestinal: soft, non-tender Musculoskeletal: nl extremities to inspection Extremities: normal pulses Results Result Diagram: 04/14/19 0705 04/14/19 0705 Results 24hrs Laboratory Tests Test 04/16/19 18:44 04/17/19 06:12 Procalcitonin 0.38 H Lab Scanned Report BLOOD TRANSFUSION Medications Medication Current Medications IV Flush (NS 3 ml) 3 ml PER PROTOCOL IV ; Start 04/06/19 at 21:30 Ondansetron HCl (Zofran Inj) 4 mg Q6H PRN IV NAUSEA/VOMITING; Start 04/06/19 at 21:30 Acetaminophen (Tylenol Tab) 650 mg Q6H PRN PO .PAIN 1-3 OR TEMP; Start 04/06/19 at 21:30 Docusate Sodium (Colace) 100 mg Q12H PRN PO .CONSTIPATION; Start 04/06/19 at 21:30 Bisacodyl (Dulcolax) 5 mg DAILY PRN PO .CONSTIPATION; Start 04/06/19 at 21:30 Albumin Human 100 ml @ 100 mls/hr WITH DIALYSIS PRN IV SBP <90 DURING DIALYSIS; Start 04/06/19 at 22:30 Hydralazine HCl (Apresoline) 10 mg Q4 PRN IV SBP more than 150 mm hg Last administered on 04/16/19at 02:22; Admin Dose 10 MG; Start 04/06/19 at 22:30 Albuterol (Ventolin Hfa) 2 puff Q4H RESP THERAPY PRN INH WHEEZING AND SOB; Start 04/06/19 at 22:30 Amlodipine Besylate (Norvasc) 10 mg DAILY PO Last administered on 04/16/19at 07:55; Admin Dose 10 MG; Start 04/07/19 at 09:00 Aspirin (Halfprin) 81 mg DAILY PO Last administered on 04/16/19at 07:55; Admin Dose 81 MG; Start 04/07/19 at 09:00 Atorvastatin Calcium (Lipitor) 80 mg QHS PO Last administered on 04/16/19at 21:41; Admin Dose 80 MG; Start 04/07/19 at 21:00 Mometasone Furoate (Asmanex) 1 puff DAILY RESP THERAPY INH Last administered on 04/16/19at 13:55; Admin Dose 1 PUFF; Start 04/07/19 at 12:00 Pantoprazole (Protonix Tab) 40 mg DAILY PO Last administered on 04/16/19at 07:55; Admin Dose 40 MG; Start 04/07/19 at 09:00 Epoetin Andrew-epbx (Retacrit (Esrd)) 10,000 unit CAROLA@1700 SD ; Start 04/17/19 at 17:00 PRADEEP MILNER Apr 17, 2019 06:38
[2019-04-17] MEDS: AMLODIPINE 10 MG TAB PO SCH (08:44)
[2019-04-17] MEDS: PANTOPRAZOLE (EC) 40 MG TAB PO SCH (08:44)
[2019-04-17] MEDS: ASPIRIN (EC) 81 MG TAB PO SCH (08:44)
--- NOTE | 2019-04-17 11:52 | CONS ---
Consultation Date/Type/Reason Admit Date/Time Apr 06, 2019 at 21:13 Initial Consult Date 04/10/19 Type of Consult Pulmonary Patient is a 68-year-old gentleman who came into the hospital on the of this month with a few days history of shortness of breath. Upon evaluation a chest x-ray was done which showed a large right pleural effusion, patient has undergone thoracentesis however only 600 mL of fluid was withdrawn. The fluid is exudative in character. Patient is feeling better. Denies any further shortness of breath, denies any chest pain, wheezing, sputum production or hemoptysis. Past medical history; 1. End-stage renal disease on hemodialysis. 2. Anemia and thrombocytopenia. 3. History of hypertension. Medications; reviewed. Allergies; none. Social history; noncontributory. Patient has never smoked. Occupational history; noncontributory. Family history; no show any malignancy in the family. Review of systems; denies any headache, seizures, chest pain, angina, wheezing, cough, sputum production or hemoptysis. Shortness of breath has improved. Denies any weight loss. Any abdominal pain, nausea vomiting. Any melena hematochezia. Any edema. Any arthritis symptoms. Any weight loss. Any fever or chills. General exam; elderly male, awake alert, getting hemodialysis at bedside. Currently in no distress. Requesting Provider: DEVI ALFRED Date/Time of Note DATE: 04/17/19 TIME: 11:50 24 HR Interval Summary Free Text/Dictation Patient's condition is stable. Denies any shortness of breath, chest pain, cou ghing, wheezing. General exam; elderly male, currently in no distress. H EENT exam; supple neck, no JVD. No lymphadenopathy. Midline trachea. No thyromegaly. Patient has fair dentition. Chest exam; diminished breath sounds like regular. Rest of the lung patrick are clear. S1-S2 audible, no murmurs. Regular rhythm. Abdomen exam; soft, nondistended. No organomegaly. Bowel sounds are audible. Extremity exam; peripheral edema. REGIONAL TRUCK DRIVER exam; no focal deficit. Assessment and recommendations; 1. Patient admitted with shortness of breath due to complicated right parapneumonic effusion. Because of septations, thoracentesis could not be performed. Follow-up chest x-ray has not shown any interval improvement whatsoever. 2. History of end-stage renal disease, dialysis dependent. 3. History of hypertension. 4. Mild anemia and thrombocytopenia. Continue current supportive care. Patient awaiting VATS procedure early next week. Exam/Review of Systems Exam Vitals Vital Signs Date Temp Pulse Resp B/P (MAP) Pulse Ox O2 O2 Flow FiO2 Time Delivery Rate 04/17/19 97.9 79 17 155/88 99 08:11 (110) 04/17/19 Room Air 02:00 Intake and Output 04/16/19 04/16/19 04/17/19 1515:00 23:00 07:00 IntakeIntake Total 1240 ml 840 ml 240 ml BalanceBalance 1240 ml 840 ml 240 ml Results Result Diagram: 04/14/19 0705 04/14/19 0705 Results 24hrs Laboratory Tests Test 04/16/19 18:44 04/17/19 06:12 Procalcitonin 0.38 H Lab Scanned Report BLOOD TRANSFUSION Medications Medication Current Medications IV Flush (NS 3 ml) 3 ml PER PROTOCOL IV ; Start 04/06/19 at 21:30 Ondansetron HCl (Zofran Inj) 4 mg Q6H PRN IV NAUSEA/VOMITING; Start 04/06/19 at 21:30 Acetaminophen (Tylenol Tab) 650 mg Q6H PRN PO .PAIN 1-3 OR TEMP; Start 04/06/19 at 21:30 Docusate Sodium (Colace) 100 mg Q12H PRN PO .CONSTIPATION; Start 04/06/19 at 21:30 Bisacodyl (Dulcolax) 5 mg DAILY PRN PO .CONSTIPATION; Start 04/06/19 at 21:30 Albumin Human 100 ml @ 100 mls/hr WITH DIALYSIS PRN IV SBP <90 DURING DIALYSIS; Start 04/06/19 at 22:30 Hydralazine HCl (Apresoline) 10 mg Q4 PRN IV SBP more than 150 mm hg Last administered on 04/16/19at 02:22; Admin Dose 10 MG; Start 04/06/19 at 22:30 Albuterol (Ventolin Hfa) 2 puff Q4H RESP THERAPY PRN INH WHEEZING AND SOB; Start 04/06/19 at 22:30 Amlodipine Besylate (Norvasc) 10 mg DAILY PO Last administered on 04/16/19at 07:55; Admin Dose 10 MG; Start 04/07/19 at 09:00 Aspirin (Halfprin) 81 mg DAILY PO Last administered on 04/17/19 08:44; Admin Dose 81 MG; Start 04/07/19 at 09:00 Atorvastatin Calcium (Lipitor) 80 mg QHS PO Last administered on 04/16/19 21:41; Admin Dose 80 MG; Start 04/07/19 at 21:00 Mometasone Furoate (Asmanex) 1 puff DAILY RESP THERAPY INH Last administered on 04/16/19at 13:55; Admin Dose 1 PUFF; Start 04/07/19 at 12:00 Pantoprazole (Protonix Tab) 40 mg DAILY PO Last administered on 04/17/19 08:44; Admin Dose 40 MG; Start 04/07/19 at 09:00 Epoetin Andrew-epbx (Retacrit (Esrd)) 10,000 unit CAROLA@1700 SC ; Start at 17:00 SHAHANA LOPEZ Apr 17, 2019 11:52
[2019-04-17] MEDS: MOMETASONE 0.24 GM INHALER INH SCH (12:59)
--- NOTE | 2019-04-17 13:52 | CONS ---
Assessment/Plan Assessment/Plan Hospital Course (Demo Recall) No acute changes overnight patient is in HD, alert, looks comfortable no fevers. Procalcitonin level 0.38 Microbiology: Cultures have been negative Antimicrobials: PHYSICAL EXAMINATION: GENERAL: The patient is a well-developed, well-nourished male. VITAL SIGNS: Stable. He is afebrile. SKIN: Without generalized rash. HEENT: Within normal limits. NECK: Supple. LYMPH NODES: None palpable. CHEST: Decreased breath sounds at the bases, right greater than left. HEART: Without murmur or gallop. ABDOMEN: Soft, nontender without organosplenomegaly or masses. EXTREMITIES: Without cyanosis, clubbing or edema. RECTAL AND GENITAL: Deferred. NEUROLOGIC: No focal neurological abnormalities. Assessment: 1. Large loculated pleural effusion 2. End-stage renal disease 3. LUE AVF Plan: We are going to restart Zosyn given elevated procalcitonin level, await for VATS Discussed with Dr. Graham Consultation Date/Type/Reason Admit Date/Time Apr 06, 2019 at 21:13 Initial Consult Date 04/10/19 Type of Consult id Requesting Provider: DEVI ALFRED Date/Time of Note DATE: 04/17/19 TIME: 13:52 Exam/Review of Systems Exam Vitals Vital Signs Date Temp Pulse Resp B/P (MAP) Pulse Ox O2 O2 Flow FiO2 Time Delivery Rate 04/17/19 97.9 79 17 155/88 99 08:11 (110) 04/17/19 Room Air 02:00 Intake and Output 04/16/19 04/16/19 04/17/19 1515:00 23:00 07:00 IntakeIntake Total 1240 ml 840 ml 240 ml BalanceBalance 1240 ml 840 ml 240 ml Results Result Diagram: 04/14/19 0705 04/14/19 0705 Results 24hrs Laboratory Tests Test 04/16/19 18:44 04/17/19 06:12 Procalcitonin 0.38 H Lab Scanned Report BLOOD TRANSFUSION Medications Medication Current Medications IV Flush (NS 3 ml) 3 ml PER PROTOCOL IV ; Start 04/06/19 at 21:30 Ondansetron HCl (Zofran Inj) 4 mg Q6H PRN IV NAUSEA/VOMITING; Start 04/06/19 at 21:30 Acetaminophen (Tylenol Tab) 650 mg Q6H PRN PO .PAIN 1-3 OR TEMP; Start 04/06/19 at 21:30 Docusate Sodium (Colace) 100 mg Q12H PRN PO .CONSTIPATION; Start 04/06/19 at 21:30 Bisacodyl (Dulcolax) 5 mg DAILY PRN PO .CONSTIPATION; Start 04/06/19 at 21:30 Albumin Human 100 ml @ 100 mls/hr WITH DIALYSIS PRN IV SBP <90 DURING DIALYSIS; Start 04/06/19 at 22:30 Hydralazine HCl (Apresoline) 10 mg Q4 PRN IV SBP more than 150 mm hg Last administered on 04/16/19at 02:22; Admin Dose 10 MG; Start 04/06/19 at 22:30 Albuterol (Ventolin Hfa) 2 puff Q4H RESP THERAPY PRN INH WHEEZING AND SOB; Start 04/06/19 at 22:30 Amlodipine Besylate (Norvasc) 10 mg DAILY PO Last administered on 04/16/19at 07:55; Admin Dose 10 MG; Start 04/07/19 at 09:00 Aspirin (Halfprin) 81 mg DAILY PO Last administered on 04/17/19at 08:44; Admin Dose 81 MG; Start 04/07/19 at 09:00 Atorvastatin Calcium (Lipitor) 80 mg QHS PO Last administered on 04/16/19at 21:41; Admin Dose 80 MG; Start 04/07/19 at 21:00 Mometasone Furoate (Asmanex) 1 puff DAILY RESP THERAPY INH Last administered on 04/17/19at 12:59; Admin Dose 1 PUFF; Start 04/07/19 at 12:00 Pantoprazole (Protonix Tab) 40 mg DAILY PO Last administered on 04/17/19at 08:44; Admin Dose 40 MG; Start 04/07/19 at 09:00 Epoetin Andrew-epbx (Retacrit (Esrd)) 10,000 unit MONWEDFRI@1700 SC ; Start 04/17/19 at 17:00 DAT BENOIT NP Apr 17, 2019 13:52
[2019-04-17] MEDS: PIPER-TAZO 2.25 GM (PMX) 50 ML IVPB SCH ×2 (14:00→21:57)
--- NOTE | 2019-04-17 14:37 | PN ---
Date/Time of Note Date/Time of Note DATE: 04/17/19 TIME: 14:36 Assessment/Plan VTE Prophylaxis Risk score (from Nsg)>0 risk: 2 Pharmacological prophylaxis: NA/contraindicated Pharm contraindication: low risk/ambulating Lines/Catheters IV Catheter Type (from Nrsg): Saline Lock Urinary Cath still in place: No Assessment/Plan Hospital Course 68 yo male with ESRD who presents with COLON, found to have large R pleural effusion Pleural effusion: - Will require VATS with CT surgeon. Dr Cates to operate next week due to scheduling issues - 600 cc drained by thoracentesis. Suggestive of exudative process. Continue empiric antibiotics - Concern for endobronchial lesion, possible plan to perform bronchoscopy this week -Repeat chest x-ray is unchanged ESRD: - Continue HD per renal Anemia of CKD - iron and EPO Hypertension: - Continue amlodipine Result Diagram: 04/14/1970404/14/19 0705 Results 24hrs Laboratory Tests Test 04/16/19 18:44 04/17/19 06:12 Procalcitonin 0.38 H Lab Scanned Report BLOOD TRANSFUSION Subjective 24 Hr Interval Summary Constitutional: no complaints Exam/Review of Systems Exam Vitals Vital Signs Date Temp Pulse Resp B/P (MAP) Pulse Ox O2 O2 Flow FiO2 Time Delivery Rate 04/17/19 97.9 79 17 155/88 99 08:11 (110) 04/17/19 Room Air 02:00 Intake and Output 04/16/19 04/16/19 04/17/19 1515:00 23:00 07:00 IntakeIntake Total 1240 ml 840 ml 240 ml BalanceBalance 1240 ml 840 ml 240 ml Constitutional: alert, oriented Respiratory: clear to auscultation Cardiovascular: regular rate and rhythm Gastrointestinal: soft; No distended Musculoskeletal: nl extremities to inspection Results Results 24hrs Laboratory Tests Test 04/16/19 18:44 04/17/19 06:12 Procalcitonin 0.38 H Lab Scanned Report BLOOD TRANSFUSION Medications Medication Current Medications IV Flush (NS 3 ml) 3 ml PER PROTOCOL IV ; Start 04/06/19 at 21:30 Ondansetron HCl (Zofran Inj) 4 mg Q6H PRN IV NAUSEA/VOMITING; Start 04/06/19 at 21:30 Acetaminophen (Tylenol Tab) 650 mg Q6H PRN PO .PAIN 1-3 OR TEMP; Start 04/06/19 at 21:30 Docusate Sodium (Colace) 100 mg Q12H PRN PO .CONSTIPATION; Start 04/06/19 at 21:30 Bisacodyl (Dulcolax) 5 mg DAILY PRN PO .CONSTIPATION; Start 04/06/19 at 21:30 Albumin Human 100 ml @ 100 mls/hr WITH DIALYSIS PRN IV SBP <90 DURING DIALYSIS; Start 04/06/19 at 22:30 Hydralazine HCl (Apresoline) 10 mg Q4 PRN IV SBP more than 150 mm hg Last administered on 04/16/19at 02:22; Admin Dose 10 MG; Start 04/06/19 at 22:30 Albuterol (Ventolin Hfa) 2 puff Q4H RESP THERAPY PRN INH WHEEZING AND SOB; Start 04/06/19 at 22:30 Amlodipine Besylate (Norvasc) 10 mg DAILY PO Last administered on 04/16/19at 07:55; Admin Dose 10 MG; Start 04/07/19 at 09:00 Aspirin (Halfprin) 81 mg DAILY PO Last administered on 04/17/19at 08:44; Admin Dose 81 MG; Start 04/07/19 at 09:00 Atorvastatin Calcium (Lipitor) 80 mg QHS PO Last administered on 04/16/19at 21:41; Admin Dose 80 MG; Start 04/07/19 at 21:00 Mometasone Furoate (Asmanex) 1 puff DAILY RESP THERAPY INH Last administered on 04/17/19at 12:59; Admin Dose 1 PUFF; Start 04/07/19 at 12:00 Pantoprazole (Protonix Tab) 40 mg DAILY PO Last administered on 04/17/19at 08:44; Admin Dose 40 MG; Start 04/07/19 at 09:00 Epoetin Andrew-epbx (Retacrit (Esrd)) 10,000 unit MONWEDFRI@1700 SC ; Start 04/17/19 at 17:00 Piperacillin Sod/ Tazobactam Sod 50 ml @ 100 mls/hr Q8 IVPB ; Start 04/17/19 at 14:00 ELVIA HANLEY Apr 17, 2019 14:37
--- NOTE | 2019-04-17 16:29 | CONS ---
Assessment/Plan Assessment/Plan Assessment/Plan (Daily) 1. Acute fluid overload with acute Uremia due to missed HD 2. acute hyperkalemia due to Missed HD 3. Large Loculated Right sided pleural effusion s/p R thoracentesis on 04/09/19- 600 cc drained - s/p CT surgery consult, awaiting VATS surgery 4. ESRD on HD - [place] of [place]- [place]. 5. H/o HTN 6. H/o HL 7. H/o Hypothyroidism 8. Anemia of ESRD Plan: Large Loculated Right sided pleural effusion s/p R thoracentesis on 04/09/19- 600 cc drained - s/p CT surgery consult, awaiting VATS surgery continue current BP meds amlodipine 10mg po daily , IV hydralaine prn HIV< hepatitis panel negative will conitnue pt on MWF schedule for his hemodialysis- Epogen 44283 units SQ MWF for Anemia awaiting HD placement confirmation Will follow up Consultation Date/Type/Reason Admit Date/Time Apr 06, 2019 at 21:13 Initial Consult Date 04/06/19 Type of Consult NEPHROLOGY Requesting Provider: DEVI ALFRED Date/Time of Note DATE: 04/17/19 TIME: 16:29 Exam/Review of Systems Exam Vitals Vital Signs Date Temp Pulse Resp B/P (MAP) Pulse Ox O2 O2 Flow FiO2 Time Delivery Rate 04/17/19 80 16:10 04/17/19 98.6 19 152/78 99 15:35 (102) 04/17/19 Room Air 14:40 Intake and Output 04/16/19 04/16/19 04/17/19 1515:00 23:00 07:00 IntakeIntake Total 1240 ml 840 ml 240 ml BalanceBalance 1240 ml 840 ml 240 ml Results Result Diagram: 04/14/19 0705 04/14/19 0705 Results 24hrs Laboratory Tests Test 04/16/19 18:44 04/17/19 06:12 Procalcitonin 0.38 H Lab Scanned Report BLOOD TRANSFUSION Medications Medication Current Medications IV Flush (NS 3 ml) 3 ml PER PROTOCOL IV ; Start 04/06/19 at 21:30 Ondansetron HCl (Zofran Inj) 4 mg Q6H PRN IV NAUSEA/VOMITING; Start 04/06/19 at 21:30 Acetaminophen (Tylenol Tab) 650 mg Q6H PRN PO .PAIN 1-3 OR TEMP; Start 04/06/19 at 21:30 Docusate Sodium (Colace) 100 mg Q12H PRN PO .CONSTIPATION; Start 04/06/19 at 21:30 Bisacodyl (Dulcolax) 5 mg DAILY PRN PO .CONSTIPATION; Start 04/06/19 at 21:30 Albumin Human 100 ml @ 100 mls/hr WITH DIALYSIS PRN IV SBP <90 DURING DIALYSIS; Start 04/06/19 at 22:30 Hydralazine HCl (Apresoline) 10 mg Q4 PRN IV SBP more than 150 mm hg Last administered on 04/16/19at 02:22; Admin Dose 10 MG; Start 04/06/19 at 22:30 Albuterol (Ventolin Hfa) 2 puff Q4H RESP THERAPY PRN INH WHEEZING AND SOB; Start 04/06/19 at 22:30 Amlodipine Besylate (Norvasc) 10 mg DAILY PO Last administered on 04/16/19at 07:55; Admin Dose 10 MG; Start 04/07/19 at 09:00 Aspirin (Halfprin) 81 mg DAILY PO Last administered on 04/17/19at 08:44; Admin Dose 81 MG; Start 04/07/19 at 09:00 Atorvastatin Calcium (Lipitor) 80 mg QHS PO Last administered on 04/16/19at 21:41; Admin Dose 80 MG; Start 04/07/19 at 21:00 Mometasone Furoate (Asmanex) 1 puff DAILY RESP THERAPY INH Last administered on 04/17/19at 12:59; Admin Dose 1 PUFF; Start 04/07/19 at 12:00 Pantoprazole (Protonix Tab) 40 mg DAILY PO Last administered on 04/17/19at 08:44; Admin Dose 40 MG; Start 04/07/19 at 09:00 Epoetin Andrew-epbx (Retacrit (Esrd)) 10,000 unit MONWEDFRI@1700 SC ; Start 04/17/19 at 17:00 Piperacillin Sod/ Tazobactam Sod 50 ml @ 100 mls/hr Q8 IVPB ; Start 04/17/19 at 14:00 VAN DHALIWAL MD Apr 17, 2019 16:29
[2019-04-17] MEDS: EPOETIN ALFA-EPBX (ESRD) 10,000 UNIT/ML VIAL SC SCH (18:01)
[2019-04-17] MEDS: ATORVASTATIN 80 MG TAB PO SCH (20:36)
[2019-04-18 01:43] VITALS: BP 166/93; PULSE 73; RESP 17
[2019-04-18] MEDS: PIPER-TAZO 2.25 GM (PMX) 50 ML IVPB SCH ×2 (06:27→14:14)
[2019-04-18 08:40] VITALS: BP 157/93; PULSE 75; RESP 20
[2019-04-18] MEDS: ASPIRIN (EC) 81 MG TAB PO SCH (09:00)
[2019-04-18] MEDS: AMLODIPINE 10 MG TAB PO SCH (09:00)
[2019-04-18] MEDS: PANTOPRAZOLE (EC) 40 MG TAB PO SCH (09:00)
--- NOTE | 2019-04-18 14:06 | CONS ---
Assessment/Plan Assessment/Plan Hospital Course (Demo Recall) ID PROGRESS NOTE CURRENT ABX: DAY # =>OFF ABX s/p Zosyn 24H INTERVAL SUMMARY * VSS, NAD, no fevers * CHART REVIEWED * 04/08/19 Pleural Fluid micro (-) * ->Zosyn restarted for elevated Procalcitonin --> DC'd today PHYSICAL EXAMINATION: GENERAL: VSS, NAD HEENT: AT, NC, NECK: Supple, CHEST: Rise symmetrical HEART: Pulse RRR ABDOMEN: Benign EXTREMITIES: Warm, dry SKIN: No rash, no diaphoresis ID ASSESSMENT 68 yo M admit with: 1. Large loculated pleural effusion => pending VATS 2. End-stage renal disease 3. LUE AVF ABX ALLERGIES: KNDA INVASIVES: PIV CURRENT ABX: DAY # OFF ABX s/p Zosyn ID RECOMMENDATIONS/PLAN: 1. Continue to monitor off ABX 2. Pending VATS . Consultation Date/Type/Reason Admit Date/Time Apr 06, 2019 at 21:13 Initial Consult Date 04/10/19 Requesting Provider: DEVI ALFRED Date/Time of Note DATE: 04/18/19 TIME: 14:06 Exam/Review of Systems Exam Vitals Vital Signs Date Temp Pulse Resp B/P (MAP) Pulse Ox O2 O2 Flow FiO2 Time Delivery Rate 04/18/19 98.4 75 20 157/93 100 08:40 (114) 04/17/19 Room Air 14:40 Intake and Output 04/17/19 04/17/19 04/18/19 1515:00 23:00 07:00 IntakeIntake Total 1040 ml 340 ml OutputOutput Total 3600 ml BalanceBalance 1040 ml -3600 ml 340 ml Results Result Diagram: 04/14/19 0704/14/19 0705 Medications Medication Current Medications IV Flush (NS 3 ml) 3 ml PER PROTOCOL IV ; Start 04/06/19 at 21:30 Ondansetron HCl (Zofran Inj) 4 mg Q6H PRN IV NAUSEA/VOMITING; Start 04/06/19 at 21:30 Acetaminophen (Tylenol Tab) 650 mg Q6H PRN PO .PAIN 1-3 OR TEMP; Start 04/06/19 at 21:30 Docusate Sodium (Colace) 100 mg Q12H PRN PO .CONSTIPATION; Start 04/06/19 at 21:30 Bisacodyl (Dulcolax) 5 mg DAILY PRN PO .CONSTIPATION; Start 04/06/19 at 21:30 Albumin Human 100 ml @ 100 mls/hr WITH DIALYSIS PRN IV SBP <90 DURING DIALYSIS; Start 04/06/19 at 22:30 Hydralazine HCl (Apresoline) 10 mg Q4 PRN IV SBP more than 150 mm hg Last administered on 04/16/19 02:22; Admin Dose 10 MG; Start 04/06/19 at 22:30 Albuterol (Ventolin Hfa) 2 puff Q4H RESP THERAPY PRN INH WHEEZING AND SOB; Start 04/06/19 at 22:30 Amlodipine Besylate (Norvasc) 10 mg DAILY PO Last administered on 04/18/19 09:00; Admin Dose 10 MG; Start 04/07/19 at 09:00 Aspirin (Halfprin) 81 mg DAILY PO Last administered on 04/18/19 09:00; Admin Dose 81 MG; Start 04/07/19 at 09:00 Atorvastatin Calcium (Lipitor) 80 mg QHS PO Last administered on 04/17/19 20:36; Admin Dose 80 MG; Start 04/07/19 at 21:00 Mometasone Furoate (Asmanex) 1 puff DAILY RESP THERAPY INH Last administered on 04/17/19at 12:59; Admin Dose 1 PUFF; Start 04/07/19 at 12:00 Pantoprazole (Protonix Tab) 40 mg DAILY PO Last administered on 04/18/19 09:00; Admin Dose 40 MG; Start 04/07/19 at 09:00 Epoetin Andrew-epbx (Retacrit (Esrd)) 10,000 unit MONWEDFRI@1700 SC Last administered on 04/17/19 18:01; Admin Dose 10,000 UNIT; Start 04/17/19 at 17:00 Piperacillin Sod/ Tazobactam Sod 50 ml @ 100 mls/hr Q8 IVPB Last administered on 04/18/19 06:27; Admin Dose 100 MLS/HR; Start 04/17/19 at 14:00 FABIOLA FUNES NP Apr 18, 2019 14:06
[2019-04-18 14:25] VITALS: BP 169/90; PULSE 77; RESP 18
[2019-04-18] MEDS: hydrALAzine 20 MG INJ IV PRN (14:52)
--- NOTE | 2019-04-18 15:04 | CONS ---
Assessment/Plan Assessment/Plan Assessment/Plan (Daily) 1. Acute fluid overload with acute Uremia due to missed HD 2. acute hyperkalemia due to Missed HD 3. Large Loculated Right sided pleural effusion s/p R thoracentesis on 04/09/19- 600 cc drained - s/p CT surgery consult, awaiting VATS surgery 4. [place]D on HD - [place]- [place]. 5. H/o HTN 6. H/o HL 7. H/o Hypothyroidism 8. Anemia of ESRD Plan: Large Loculated Right sided pleural effusion s/p R thoracentesis on 04/09/19- 600 cc drained - s/p CT surgery consult, awaiting VATS surgery continue current BP meds amlodipine 10mg po daily , IV hydralaine prn HIV< hepatitis panel negative will conitnue pt on MWF schedule for his hemodialysis- Epogen 71633 units SQ MWF for Anemia awaiting HD placement confirmation Will follow up Consultation Date/Type/Reason Admit Date/Time Apr 06, 2019 at 21:13 Initial Consult Date 04/06/19 Type of Consult NEPHROLOGY Requesting Provider: DEVI ALFRED Date/Time of Note DATE: 04/18/19 TIME: 15:04 Exam/Review of Systems Exam Vitals Vital Signs Date Temp Pulse Resp B/P (MAP) Pulse Ox O2 O2 Flow FiO2 Time Delivery Rate 04/18/19 98.6 77 18 169/90 99 14:25 (116) 04/17/19 Room Air 14:40 Intake and Output 04/17/19 04/17/19 04/18/19 1515:00 23:00 07:00 IntakeIntake Total 1040 ml 340 ml OutputOutput Total 3600 ml BalanceBalance 1040 ml -3600 ml 340 ml Results Result Diagram: 04/14/19 0705 04/14/19 07 Medications Medication Current Medications IV Flush (NS 3 ml) 3 ml PER PROTOCOL IV ; Start 04/06/19 at 21:30 Ondansetron HCl (Zofran Inj) 4 mg Q6H PRN IV NAUSEA/VOMITING; Start 04/06/19 at 21:30 Acetaminophen (Tylenol Tab) 650 mg Q6H PRN PO .PAIN 1-3 OR TEMP; Start 04/06/19 at 21:30 Docusate Sodium (Colace) 100 mg Q12H PRN PO .CONSTIPATION; Start 04/06/19 at 21:30 Bisacodyl (Dulcolax) 5 mg DAILY PRN PO .CONSTIPATION; Start 04/06/19 at 21:30 Albumin Human 100 ml @ 100 mls/hr WITH DIALYSIS PRN IV SBP <90 DURING DIALYSIS; Start 04/06/19 at 22:30 Hydralazine HCl (Apresoline) 10 mg Q4 PRN IV SBP more than 150 mm hg Last administered on 04/18/19 14:52; Admin Dose 10 MG; Start 04/06/19 at 22:30 Albuterol (Ventolin Hfa) 2 puff Q4H RESP THERAPY PRN INH WHEEZING AND SOB; Start 04/06/19 at 22:30 Amlodipine Besylate (Norvasc) 10 mg DAILY PO Last administered on 04/18/19 09:00; Admin Dose 10 MG; Start 04/07/19 at 09:00 Aspirin (Halfprin) 81 mg DAILY PO Last administered on 04/18/19 09:00; Admin Dose 81 MG; Start 04/07/19 at 09:00 Atorvastatin Calcium (Lipitor) 80 mg QHS PO Last administered on 04/17/19 20:36; Admin Dose 80 MG; Start 04/07/19 at 21:00 Mometasone Furoate (Asmanex) 1 puff DAILY RESP THERAPY INH Last administered on 04/17/19 12:59; Admin Dose 1 PUFF; Start 04/07/19 at 12:00 Pantoprazole (Protonix Tab) 40 mg DAILY PO Last administered on 04/18/19 09:00; Admin Dose 40 MG; Start 04/07/19 at 09:00 Epoetin Andrew-epbx (Retacrit (Esrd)) 10,000 unit MONWEDFRI@1700 SC Last administered on 04/17/19 18:01; Admin Dose 10,000 UNIT; Start 04/17/19 at 17:00 Piperacillin Sod/ Tazobactam Sod 50 ml @ 100 mls/hr Q8 IVPB Last administered on 04/18/19 14:14; Admin Dose 100 MLS/HR; Start 04/17/19 at 14:00 VAN DHALIWAL MD Apr 18, 2019 15:04
--- NOTE | 2019-04-18 15:43 | PN ---
Date/Time of Note Date/Time of Note DATE: 04/18/19 TIME: 15:42 Assessment/Plan VTE Prophylaxis Risk score (from Nsg)>0 risk: 2 SCD applied (from Nsg): Yes Pharmacological prophylaxis: heparin Lines/Catheters IV Catheter Type (from Nrsg): Saline Lock Urinary Cath still in place: No Assessment/Plan Hospital Course 68 yo male with ESRD who presents with COLON, found to have large R pleural effusion Pleural effusion: - Will require decortication by CT surgeon. Dr Cates to operate next week - 600 cc drained by thoracentesis. Suggestive of exudative process. S/p empiric antibiotic - Consult pulmonary and CV surgery ESRD: - Continue HD per renal Anemia of CKD - iron and EPO Hypertension: - Continue amlodipine Result Diagram: 04/14/1970404/14/19704 Subjective 24 Hr Interval Summary Free Text/Dictation Breathing comfortably Awaiting VATS next week Exam/Review of Systems Exam Vitals Vital Signs Date Temp Pulse Resp B/P (MAP) Pulse Ox O2 O2 Flow FiO2 Time Delivery Rate 04/18/19 98.6 77 18 169/90 99 14:25 (116) 04/17/19 Room Air 14:40 Intake and Output 04/17/19 04/17/19 04/18/19 1515:00 23:00 07:00 IntakeIntake Total 1040 ml 340 ml OutputOutput Total 3600 ml BalanceBalance 1040 ml -3600 ml 340 ml Medications Medication Current Medications IV Flush (NS 3 ml) 3 ml PER PROTOCOL IV ; Start 04/06/19 at 21:30 Ondansetron HCl (Zofran Inj) 4 mg Q6H PRN IV NAUSEA/VOMITING; Start 04/06/19 at 21:30 Acetaminophen (Tylenol Tab) 650 mg Q6H PRN PO .PAIN 1-3 OR TEMP; Start 04/06/19 at 21:30 Docusate Sodium (Colace) 100 mg Q12H PRN PO .CONSTIPATION; Start 04/06/19 at 21:30 Bisacodyl (Dulcolax) 5 mg DAILY PRN PO .CONSTIPATION; Start 04/06/19 at 21:30 Albumin Human 100 ml @ 100 mls/hr WITH DIALYSIS PRN IV SBP <90 DURING DIALYSIS; Start 04/06/19 at 22:30 Hydralazine HCl (Apresoline) 10 mg Q4 PRN IV SBP more than 150 mm hg Last administered on 04/18/19 14:52; Admin Dose 10 MG; Start 04/06/19 at 22:30 Albuterol (Ventolin Hfa) 2 puff Q4H RESP THERAPY PRN INH WHEEZING AND SOB; Start 04/06/19 at 22:30 Amlodipine Besylate (Norvasc) 10 mg DAILY PO Last administered on 04/18/19 09:00; Admin Dose 10 MG; Start 04/07/19 at 09:00 Aspirin (Halfprin) 81 mg DAILY PO Last administered on 04/18/19 09:00; Admin Dose 81 MG; Start 04/07/19 at 09:00 Atorvastatin Calcium (Lipitor) 80 mg QHS PO Last administered on 04/17/19 20:36; Admin Dose 80 MG; Start 04/07/19 at 21:00 Mometasone Furoate (Asmanex) 1 puff DAILY RESP THERAPY INH Last administered on 04/17/19 12:59; Admin Dose 1 PUFF; Start 04/07/19 at 12:00 Pantoprazole (Protonix Tab) 40 mg DAILY PO Last administered on 04/18/19 09:00; Admin Dose 40 MG; Start 04/07/19 at 09:00 Epoetin Andrew-epbx (Retacrit (Esrd)) 10,000 unit MONWEDFRI@1700 SC Last administered on 04/17/19 18:01; Admin Dose 10,000 UNIT; Start 04/17/19 at 17:00 Piperacillin Sod/ Tazobactam Sod 50 ml @ 100 mls/hr Q8 IVPB Last administered on 04/18/19 14:14; Admin Dose 100 MLS/HR; Start 04/17/19 at 14:00 MARIE MCCLAIN MD Apr 18, 2019 15:43
[2019-04-18] MEDS: MOMETASONE 0.24 GM INHALER INH SCH (16:38)
[2019-04-18 20:15] VITALS: BP 135/83; PULSE 84; RESP 18
[2019-04-18] MEDS: ATORVASTATIN 80 MG TAB PO SCH (20:58)
[2019-04-19 01:56] VITALS: BP 159/85; PULSE 83; RESP 18
--- NOTE | 2019-04-19 05:01 | PN ---
DATE: 04/18/2019 SUBJECTIVE: Chart reviewed. The patient is saturating 100% and does not appear in acute distress. PHYSICAL EXAMINATION: VITAL SIGNS: Blood pressure 157/93, pulse 75, respirations 20, temperature 98.4. HEENT: Pupils are equal and react to light. NECK: Supple. No JVD noted, no cervical adenopathy noted. LUNGS: Decreased breath sounds on right. CARDIOVASCULAR: S1 and S2 normal. ABDOMEN: Soft, nontender. No organomegaly or masses noted. EXTREMITIES: No clubbing or cyanosis noted. NEUROLOGIC: No changes. IMPRESSION: 1. Complicated right parapneumonic effusion. 2. End-stage renal disease on hemodialysis. 3. History of hypertension. 4. Anemia. RECOMMENDATIONS: 1. The patient awaits VATS procedure. 2. Continue antibiotics. Dictated By: ERIKA MENDES MD, MA/KEKE Conf#: [id number] DID#: [id number] CC: DEVI ALFRED MD;*EndCC*
[2019-04-19 07:36] VITALS: BP 163/91; PULSE 83; RESP 18
[2019-04-19] MEDS: ASPIRIN (EC) 81 MG TAB PO SCH (08:28)
[2019-04-19] MEDS: hydrALAzine 20 MG INJ IV PRN ×3 (08:29→20:56)
[2019-04-19] MEDS: PANTOPRAZOLE (EC) 40 MG TAB PO SCH (08:29)
[2019-04-19] MEDS: AMLODIPINE 10 MG TAB PO SCH (08:29)
--- NOTE | 2019-04-19 09:57 | CONS ---
Assessment/Plan Assessment/Plan Assessment/Plan (Daily) 1. Acute fluid overload with acute Uremia due to missed HD 2. acute hyperkalemia due to Missed HD 3. Large Right sided pleural effusion due to fluid overload - decortication by CT surgeon,Dr Cates to operate Saturday - 600 cc drained by thoracentesis. Suggestive of exudative process. sp e mpiric antibiotics - Concern for endobronchial lesion, possible plan to perform bronchoscopy 4. ESRD on HD - [place] stayed out of [place] for [place],was gettign HD once a week in [facility] 5. H/o HTN 6. H/o HL 7. H/o Hypothyroidism 8. Anemia Plan: HD on MWF schedule Pt stayed out of [place] for more than 3 months, He lost his Dialysis chair time, will request New HD placement at renal [facility], renal [facility] - if requested to go back to same unit if they accept him back continue current BP meds amlodipine 10mg po daily , IV hydralaine prn HIV< hepatitis panel negative will follow up Patient seen in collaboration with Dr Cardona Consultation Date/Type/Reason Admit Date/Time Apr 06, 2019 at 21:13 Initial Consult Date 04/06/19 Type of Consult NEPHROLOGY Requesting Provider: DEVI ALFRED Date/Time of Note DATE: 04/19/19 TIME: 09:57 Exam/Review of Systems Exam Vitals Vital Signs Date Temp Pulse Resp B/P (MAP) Pulse Ox O2 O2 Flow FiO2 Time Delivery Rate 04/19/19 97.7 83 18 163/91 100 Room Air 07:36 (115) Intake and Output 04/18/19 04/18/19 04/19/19 1515:00 23:00 07:00 IntakeIntake Total 530 ml 1080 ml 100 ml BalanceBalance 530 ml 1080 ml 100 ml Results Result Diagram: 04/19/19 0553 04/19/19 0553 Results 24hrs Laboratory Tests Test 04/19/19 05:53 White Blood Count 7.0 Red Blood Count 3.36 L Hemoglobin 10.2 L Hematocrit 31.9 L Mean Corpuscular Volume 94.9 Mean Corpuscular Hemoglobin 30.4 Mean Corpuscular Hemoglobin Concent 32.0 Red Cell Distribution Width 14.4 Platelet Count 228 # Mean Platelet Volume 9.7 Immature Granulocytes % 0.600 H Neutrophils % 65.4 Lymphocytes % 10.4 L Monocytes % 14.5 H Eosinophils % 8.1 H Basophils % 1.0 Nucleated Red Blood Cells % 0.0 Immature Granulocytes # 0.040 H Neutrophils # 4.6 Lymphocytes # 0.7 L Monocytes # 1.0 H Eosinophils # 0.6 H Basophils # 0.1 Nucleated Red Blood Cells # 0.0 Sodium Level 137 Potassium Level 4.8 Chloride Level 94 L Carbon Dioxide Level 23 Anion Gap 20 H Blood Urea Nitrogen 59 H Creatinine 9.00 H Est Glomerular Filtrat Rate mL/min 6 L Glucose Level 88 Calcium Level 9.4 Medications Medication Current Medications IV Flush (NS 3 ml) 3 ml PER PROTOCOL IV ; Start 04/06/19 at 21:30 Ondansetron HCl (Zofran Inj) 4 mg Q6H PRN IV NAUSEA/VOMITING; Start 04/06/19 at 21:30 Acetaminophen (Tylenol Tab) 650 mg Q6H PRN PO .PAIN 1-3 OR TEMP; Start 04/06/19 at 21:30 Docusate Sodium (Colace) 100 mg Q12H PRN PO .CONSTIPATION; Start 04/06/19 at 21:30 Bisacodyl (Dulcolax) 5 mg DAILY PRN PO .CONSTIPATION; Start 04/06/19 at 21:30 Albumin Human 100 ml @ 100 mls/hr WITH DIALYSIS PRN IV SBP <90 DURING DIALYSIS; Start 04/06/19 at 22:30 Hydralazine HCl (Apresoline) 10 mg Q4 PRN IV SBP more than 150 mm hg Last administered on 04/19/19at 08:29; Admin Dose 10 MG; Start 04/06/19 at 22:30 Albuterol (Ventolin Hfa) 2 puff Q4H RESP THERAPY PRN INH WHEEZING AND SOB; Start 04/06/19 at 22:30 Amlodipine Besylate (Norvasc) 10 mg DAILY PO Last administered on 04/19/19at 08:29; Admin Dose 10 MG; Start 04/07/19 at 09:00 Aspirin (Halfprin) 81 mg DAILY PO Last administered on 04/19/19at 08:28; Admin Dose 81 MG; Start 04/07/19 at 09:00 Atorvastatin Calcium (Lipitor) 80 mg QHS PO Last administered on 04/18/19at 20:58; Admin Dose 80 MG; Start 04/07/19 at 21:00 Mometasone Furoate (Asmanex) 1 puff DAILY RESP THERAPY INH Last administered on 04/18/19at 16:38; Admin Dose 1 PUFF; Start 04/07/19 at 12:00 Pantoprazole (Protonix Tab) 40 mg DAILY PO Last administered on 04/19/19at 08:29; Admin Dose 40 MG; Start 04/07/19 at 09:00 Epoetin Andrew-epbx (Retacrit (Esrd)) 10,000 unit MONWEDFRI@1700 SC Last administered on 04/17/19at 18:01; Admin Dose 10,000 UNIT; Start 04/17/19 at 17:00 PRADEEP MILNER Apr 19, 2019 09:57
[2019-04-19] MEDS: MOMETASONE 0.24 GM INHALER INH SCH (12:01)
--- NOTE | 2019-04-19 13:25 | CONS ---
Assessment/Plan Assessment/Plan Hospital Course (Demo Recall) ID PROGRESS NOTE CURRENT ABX: DAY # =>OFF ABX s/p Zosyn-- DC'd yesterday 24H INTERVAL SUMMARY * Stable on room air with 100% SPO2% --VSS, NAD, no fevers-- no new issues, no complaints * Clinically does not appear septic despite elevated procalcitonin * CHART REVIEWED * 04/08/19 Pleural Fluid micro (-) * ->Zosyn restarted for elevated Procalcitonin --> DC'd yesterday by hospitalist PHYSICAL EXAMINATION: GENERAL: VSS, NAD HEENT: AT, NC, NECK: Supple, CHEST: Rise symmetrical HEART: Pulse RRR ABDOMEN: Benign EXTREMITIES: Warm, dry SKIN: No rash, no diaphoresis ID ASSESSMENT 68 yo M admit with: 1. Large loculated pleural effusion => pending VATS 2. End-stage renal disease 3. LUE AVF ABX ALLERGIES: KNDA INVASIVES: PIV CURRENT ABX: DAY # OFF ABX s/p Zosyn ID RECOMMENDATIONS/PLAN: 1. Continue to monitor off ABX 2. Pending VATS . Consultation Date/Type/Reason Admit Date/Time Apr 06, 2019 at 21:13 Initial Consult Date 04/10/19 Requesting Provider: DEVI ALFRED Date/Time of Note DATE: 04/19/19 TIME: 13:23 Exam/Review of Systems Exam Vitals Vital Signs Date Temp Pulse Resp B/P (MAP) Pulse Ox O2 O2 Flow FiO2 Time Delivery Rate 04/19/19 97.7 83 18 163/91 100 Room Air 07:36 (115) Intake and Output 04/18/19 04/18/19 04/19/19 1515:00 23:00 07:00 IntakeIntake Total 530 ml 1080 ml 100 ml BalanceBalance 530 ml 1080 ml 100 ml Results Result Diagram: 04/19/19 0553 04/19/19 0553 Results 24hrs Laboratory Tests Test 04/19/19 05:53 White Blood Count 7.0 Red Blood Count 3.36 L Hemoglobin 10.2 L Hematocrit 31.9 L Mean Corpuscular Volume 94.9 Mean Corpuscular Hemoglobin 30.4 Mean Corpuscular Hemoglobin Concent 32.0 Red Cell Distribution Width 14.4 Platelet Count 228 # Mean Platelet Volume 9.7 Immature Granulocytes % 0.600 H Neutrophils % 65.4 Lymphocytes % 10.4 L Monocytes % 14.5 H Eosinophils % 8.1 H Basophils % 1.0 Nucleated Red Blood Cells % 0.0 Immature Granulocytes # 0.040 H Neutrophils # 4.6 Lymphocytes # 0.7 L Monocytes # 1.0 H Eosinophils # 0.6 H Basophils # 0.1 Nucleated Red Blood Cells # 0.0 Sodium Level 137 Potassium Level 4.8 Chloride Level 94 L Carbon Dioxide Level 23 Anion Gap 20 H Blood Urea Nitrogen 59 H Creatinine 9.00 H Est Glomerular Filtrat Rate mL/min 6 L Glucose Level 88 Calcium Level 9.4 Medications Medication Current Medications IV Flush (NS 3 ml) 3 ml PER PROTOCOL IV ; Start 04/06/19 at 21:30 Ondansetron HCl (Zofran Inj) 4 mg Q6H PRN IV NAUSEA/VOMITING; Start 04/06/19 at 21:30 Acetaminophen (Tylenol Tab) 650 mg Q6H PRN PO .PAIN 1-3 OR TEMP; Start 04/06/19 at 21:30 Docusate Sodium (Colace) 100 mg Q12H PRN PO .CONSTIPATION; Start 04/06/19 at 21:30 Bisacodyl (Dulcolax) 5 mg DAILY PRN PO .CONSTIPATION; Start 04/06/19 at 21:30 Albumin Human 100 ml @ 100 mls/hr WITH DIALYSIS PRN IV SBP <90 DURING D IALYSIS; Start 04/06/19 at 22:30 Hydralazine HCl (Apresoline) 10 mg Q4 PRN IV SBP more than 150 mm hg Last administered on 04/19/19at 08:29; Admin Dose 10 MG; Start 04/06/19 at 22:30 Albuterol (Ventolin Hfa) 2 puff Q4H RESP THERAPY PRN INH WHEEZING AND SOB; Start 04/06/19 at 22:30 Amlodipine Besylate (Norvasc) 10 mg DAILY PO Last administered on 04/19/19at 08:29; Admin Dose 10 MG; Start 04/07/19 at 09:00 Aspirin (Halfprin) 81 mg DAILY PO Last administered on 04/19/19 08:28; Admin Dose 81 MG; Start 04/07/19 at 09:00 Atorvastatin Calcium (Lipitor) 80 mg QHS PO Last administered on 04/18/19at 20:58; Admin Dose 80 MG; Start 04/07/19 at 21:00 Mometasone Furoate (Asmanex) 1 puff DAILY RESP THERAPY INH Last administered on 04/19/19 12:01; Admin Dose 1 PUFF; Start 04/07/19 at 12:00 Pantoprazole (Protonix Tab) 40 mg DAILY PO Last administered on 04/19/19 08:29; Admin Dose 40 MG; Start 04/07/19 at 09:00 Epoetin Andrew-epbx (Retacrit (Esrd)) 10,000 unit MONSWAPNILRI@1700 SC Last administered on 04/17/19 18:01; Admin Dose 10,000 UNIT; Start 04/17/19 at 17:00 FABIOLA FUNES NP Apr 19, 2019 13:25
--- NOTE | 2019-04-19 15:12 | PN ---
Date/Time of Note Date/Time of Note DATE: 04/19/19 TIME: 15:11 Assessment/Plan VTE Prophylaxis Risk score (from Nsg)>0 risk: 2 SCD applied (from Nsg): Yes Pharmacological prophylaxis: heparin Lines/Catheters IV Catheter Type (from Nrsg): Saline Lock Urinary Cath still in place: No Assessment/Plan Hospital Course 68 yo male with ESRD who presents with COLON, found to have large R pleural effusion Pleural effusion: - Will require decortication by CT surgeon. Dr Cates to operate Saturday - 600 cc drained by thoracentesis. Suggestive of exudative process. S/p empiric antibiotic - Consult pulmonary and CV surgery ESRD: - Continue HD per renal Anemia of CKD - iron and EPO Hypertension: - Continue amlodipine Result Diagram: 04/19/1955204/19/19 0553 Results 24hrs Laboratory Tests Test 04/19/19 05:53 White Blood Count 7.0 Red Blood Count 3.36 L Hemoglobin 10.2 L Hematocrit 31.9 L Mean Corpuscular Volume 94.9 Mean Corpuscular Hemoglobin 30.4 Mean Corpuscular Hemoglobin Concent 32.0 Red Cell Distribution Width 14.4 Platelet Count 228 # Mean Platelet Volume 9.7 Immature Granulocytes % 0.600 H Neutrophils % 65.4 Lymphocytes % 10.4 L Monocytes % 14.5 H Eosinophils % 8.1 H Basophils % 1.0 Nucleated Red Blood Cells % 0.0 Immature Granulocytes # 0.040 H Neutrophils # 4.6 Lymphocytes # 0.7 L Monocytes # 1.0 H Eosinophils # 0.6 H Basophils # 0.1 Nucleated Red Blood Cells # 0.0 Sodium Level 137 Potassium Level 4.8 Chloride Level 94 L Carbon Dioxide Level 23 Anion Gap 20 H Blood Urea Nitrogen 59 H Creatinine 9.00 H Est Glomerular Filtrat Rate mL/min 6 L Glucose Level 88 Calcium Level 9.4 Subjective 24 Hr Interval Summary Free Text/Dictation No change to status Awiating VATS saturday Exam/Review of Systems Exam Vitals Vital Signs Date Temp Pulse Resp B/P (MAP) Pulse Ox O2 O2 Flow FiO2 Time Delivery Rate 04/19/19 97.7 83 18 163/91 100 Room Air 07:36 (115) Intake and Output 04/18/19 04/18/19 04/19/19 1515:00 23:00 07:00 IntakeIntake Total 530 ml 1080 ml 100 ml BalanceBalance 530 ml 1080 ml 100 ml Constitutional: alert, oriented, well developed Psych: no complaints, nl mood/affect Head: normocephalic, atraumatic Eyes: nl conjunctiva, EOMI, nl lids, nl sclera, PERRL ENMT: nl external ears & nose, nl lips & teeth, nl nasal mucosa & septum Neck: supple, non-tender Respiratory: clear to auscultation, normal air movement Cardiovascular: regular rate and rhythm, nl pulses Gastrointestinal: soft, nl liver, spleen, non-tender Musculoskeletal: nl extremities to inspection, nl gait and stance Extremities: normal pulses Neurological: STRAWHAT BLOCKING 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 II-XII intact, nl mental status, nl speech, nl strength Skin: nl turgor; No rash or lesions Lymph: nl lymph nodes Results Results 24hrs Laboratory Tests Test 04/19/19 05:53 White Blood Count 7.0 Red Blood Count 3.36 L Hemoglobin 10.2 L Hematocrit 31.9 L Mean Corpuscular Volume 94.9 Mean Corpuscular Hemoglobin 30.4 Mean Corpuscular Hemoglobin Concent 32.0 Red Cell Distribution Width 14.4 Platelet Count 228 # Mean Platelet Volume 9.7 Immature Granulocytes % 0.600 H Neutrophils % 65.4 Lymphocytes % 10.4 L Monocytes % 14.5 H Eosinophils % 8.1 H Basophils % 1.0 Nucleated Red Blood Cells % 0.0 Immature Granulocytes # 0.040 H Neutrophils # 4.6 Lymphocytes # 0.7 L Monocytes # 1.0 H Eosinophils # 0.6 H Basophils # 0.1 Nucleated Red Blood Cells # 0.0 Sodium Level 137 Potassium Level 4.8 Chloride Level 94 L Carbon Dioxide Level 23 Anion Gap 20 H Blood Urea Nitrogen 59 H Creatinine 9.00 H Est Glomerular Filtrat Rate mL/min 6 L Glucose Level 88 Calcium Level 9.4 Medications Medication Current Medications IV Flush (NS 3 ml) 3 ml PER PROTOCOL IV ; Start 04/06/19 at 21:30 Ondansetron HCl (Zofran Inj) 4 mg Q6H PRN IV NAUSEA/VOMITING; Start 04/06/19 at 21:30 Acetaminophen (Tylenol Tab) 650 mg Q6H PRN PO .PAIN 1-3 OR TEMP; Start 04/06/19 at 21:30 Docusate Sodium (Colace) 100 mg Q12H PRN PO .CONSTIPATION; Start 04/06/19 at 21:30 Bisacodyl (Dulcolax) 5 mg DAILY PRN PO .CONSTIPATION; Start 04/06/19 at 21:30 Albumin Human 100 ml @ 100 mls/hr WITH DIALYSIS PRN IV SBP <90 DURING DIALYSIS; Start 04/06/19 at 22:30 Hydralazine HCl (Apresoline) 10 mg Q4 PRN IV SBP more than 150 mm hg Last administered on 04/19/19 08:29; Admin Dose 10 MG; Start 04/06/19 at 22:30 Albuterol (Ventolin Hfa) 2 puff Q4H RESP THERAPY PRN INH WHEEZING AND SOB; Start 04/06/19 at 22:30 Amlodipine Besylate (Norvasc) 10 mg DAILY PO Last administered on 04/19/19 08:29; Admin Dose 10 MG; Start 04/07/19 at 09:00 Aspirin (Halfprin) 81 mg DAILY PO Last administered on 04/19/19 08:28; Admin Dose 81 MG; Start 04/07/19 at 09:00 Atorvastatin Calcium (Lipitor) 80 mg QHS PO Last administered on 04/18/19 20:58; Admin Dose 80 MG; Start 04/07/19 at 21:00 Mometasone Furoate (Asmanex) 1 puff DAILY RESP THERAPY INH Last administered on 04/19/19 12:01; Admin Dose 1 PUFF; Start 04/07/19 at 12:00 Pantoprazole (Protonix Tab) 40 mg DAILY PO Last administered on 04/19/19 08:29; Admin Dose 40 MG; Start 04/07/19 at 09:00 Epoetin Andrew-epbx (Retacrit (Esrd)) 10,000 unit MONWEDFRI@1700 SC Last administered on 04/17/19 18:01; Admin Dose 10,000 UNIT; Start 04/17/19 at 17:00 MARIE MCCLAIN MD Apr 19, 2019 15:11
[2019-04-19 15:24] VITALS: BP 154/89; PULSE 87; RESP 18
[2019-04-19 16:22] VITALS: BP 154/81; PULSE 89
--- NOTE | 2019-04-19 18:30 | PN ---
DATE: 04/19/2019 SUBJECTIVE: Chart reviewed. The patient on room air saturating 100% and does not appear in acute di stress. PHYSICAL EXAMINATION: VITAL SIGNS: Blood pressure 163/91, pulse 83, respirations 18, temperature 97.7. HEENT: Pupils are equal and reactive to light. NECK: Supple, no JVD noted. LUNGS: Decreased breath sounds at the right. CARDIOVASCULAR: S1, S2 normal. ABDOMEN: Soft, nontender. No organomegaly or masses noted. EXTREMITIES: No clubbing or cyanosis noted. NEUROLOGIC: No changes. IMPRESSION: 1. Complicated right parapneumonic effusion. 2. End-stage renal disease on hemodialysis. 3. History of hypertension. 4. Anemia. PLAN: 1. Continue antibiotics. 2. Continue oxygen as necessary. 3. The patient is scheduled for VATS as per thoracic surgery. Dictated By: ERIKA MENDES MD MA/KEKE Conf#: [id number] DID#: [id number] CC: MARIE MCCLAIN MD; DEVI ALFRED MD; VAN DHALIWAL MD;*EndCC*
[2019-04-19 19:13] VITALS: BP 154/88; PULSE 74; RESP 18
[2019-04-19] MEDS: ATORVASTATIN 80 MG TAB PO SCH (20:55)
[2019-04-20] VITALS (17 sets, daily range): BP systolic 145–169; BP diastolic 83–90; PULSE 78–99; RESP 18
[2019-04-20] MEDS: PANTOPRAZOLE (EC) 40 MG TAB PO SCH (08:28)
[2019-04-20] MEDS: ASPIRIN (EC) 81 MG TAB PO SCH (08:28)
[2019-04-20] MEDS: AMLODIPINE 10 MG TAB PO SCH (08:28)
[2019-04-20] MEDS: MOMETASONE 0.24 GM INHALER INH SCH (11:46)
--- NOTE | 2019-04-20 12:55 | CONS ---
Assessment/Plan Assessment/Plan Assessment/Plan (Daily) 1. Acute fluid overload with acute Uremia due to missed HD 2. acute hyperkalemia due to Missed HD 3. Large Right sided pleural effusion due to fluid overload - decortication by CT surgeon,Dr Cates to operate Saturday - 600 cc drained by thoracentesis. Suggestive of exudative process. sp e mpiric antibiotics - Concern for endobronchial lesion, possible plan to perform bronchoscopy 4. ESRD on HD - has been stayed out of [place] for 3 months,was gettign HD once a week in [facility] 5. H/o HTN 6. H/o HL 7. H/o Hypothyroidism 8. Anemia Plan: HD on MWF schedule Pt stayed out of [place] for more than 3 months, He lost his Dialysis chair time, will request New HD placement at renal [facility], renal [facility] - if requested to go back to same unit if they accept him back continue current BP meds amlodipine 10mg po daily , IV hydralaine prn HIV< hepatitis panel negative will follow up Patient seen in collaboration with Dr Cardona Consultation Date/Type/Reason Admit Date/Time Apr 06, 2019 at 21:13 Initial Consult Date 04/06/19 Type of Consult NEPHROLOGY Reason for Consultation Uremia Requesting Provider: DEVI ALFRED Date/Time of Note DATE: 04/20/19 TIME: 12:54 24 HR Interval Summary Free Text/Dictation NAD resting no acute issues reported last night Labs pending decortication by CT surgeon,Dr Cates to operate Saturday dw staff Detailed Summary Eyes: no complaints ENT: no complaints Respiratory: no complaints Cardiovascular: no complaints Gastrointestinal: no complaints Genitourinary: no complaints Musculoskeletal: no complaints Skin: no complaints Neurologic: no complaints Endocrine: no complaints Lymphatic: no complaints Psychological: nl mood/affect Exam/Review of Systems Exam Vitals Vital Signs Date Temp Pulse Resp B/P (MAP) Pulse Ox O2 O2 Flow FiO2 Time Delivery Rate 04/20/19 98.0 78 18 160/90 98 07:56 (113) 04/19/19 Room Air 15:24 Intake and Output 04/19/19 04/19/19 04/20/19 1515:00 23:00 07:00 IntakeIntake Total 720 ml 360 ml BalanceBalance 720 ml 360 ml Constitutional: alert, well developed Psych: nl mood/affect Head: normocephalic Eyes: nl lids, nl sclera ENMT: nl external ears & nose Neck: non-tender Respiratory: diminished breath sounds Cardiovascular: nl pulses, other (s1s2) Gastrointestinal: soft, non-tender Musculoskeletal: nl extremities to inspection Extremities: normal pulses Neurological: nl speech, other (alert/repsonsive) Skin: nl turgor Lymph: nontender Results Result Diagram: 04/19/1955204/19/19552 Medications Medication Current Medications IV Flush (NS 3 ml) 3 ml PER PROTOCOL IV ; Start 04/06/19 at 21:30 Ondansetron HCl (Zofran Inj) 4 mg Q6H PRN IV NAUSEA/VOMITING; Start 04/06/19 at 21:30 Acetaminophen (Tylenol Tab) 650 mg Q6H PRN PO .PAIN 1-3 OR TEMP; Start 04/06/19 at 21:30 Docusate Sodium (Colace) 100 mg Q12H PRN PO .CONSTIPATION; Start 04/06/19 at 21:30 Bisacodyl (Dulcolax) 5 mg DAILY PRN PO .CONSTIPATION; Start 04/06/19 at 21:30 Albumin Human 100 ml @ 100 mls/hr WITH DIALYSIS PRN IV SBP <90 DURING DIALYSIS; Start 04/06/19 at 22:30 Hydralazine HCl (Apresoline) 10 mg Q4 PRN IV SBP more than 150 mm hg Last administered on 04/19/19at 20:56; Admin Dose 10 MG; Start 04/06/19 at 22:30 Albuterol (Ventolin Hfa) 2 puff Q4H RESP THERAPY PRN INH WHEEZING AND SOB; Start 04/06/19 at 22:30 Amlodipine Besylate (Norvasc) 10 mg DAILY PO Last administered on 04/20/19at 08:28; Admin Dose 10 MG; Start 04/07/19 at 09:00 Aspirin (Halfprin) 81 mg DAILY PO Last administered on 04/20/19at 08:28; Admin Dose 81 MG; Start 04/07/19 at 09:00 Atorvastatin Calcium (Lipitor) 80 mg QHS PO Last administered on 04/19/19at 20:55; Admin Dose 80 MG; Start 04/07/19 at 21:00 Mometasone Furoate (Asmanex) 1 puff DAILY RESP THERAPY INH Last administered on 04/20/19at 11:46; Admin Dose 1 PUFF; Start 04/07/19 at 12:00 Pantoprazole (Protonix Tab) 40 mg DAILY PO Last administered on 04/20/19at 08:28; Admin Dose 40 MG; Start 04/07/19 at 09:00 Epoetin Andrew-epbx (Retacrit (Esrd)) 10,000 unit MONROMERO@1700 SC Last administered on 04/17/19at 18:01; Admin Dose 10,000 UNIT; Start 04/17/19 at 17:00 PRADEEP MILNER Apr 20, 2019 12:55
--- NOTE | 2019-04-20 13:48 | CONS ---
Assessment/Plan Assessment/Plan Hospital Course (Demo Recall) No acute changes overnight patient is alert, feels ok, no SOB, no fevers Microbiology: Fluid cx neg Antimicrobials: PHYSICAL EXAMINATION: GENERAL: The patient is a well-developed, well-nourished male. VITAL SIGNS: Stable. He is afebrile. SKIN: Without generalized rash. HEENT: Within normal limits. NECK: Supple. LYMPH NODES: None palpable. CHEST: Decreased breath sounds at the bases, right greater than left. HEART: Without murmur or gallop. ABDOMEN: Soft, nontender without organosplenomegaly or masses. EXTREMITIES: Without cyanosis, clubbing or edema. RECTAL AND GENITAL: Deferred. NEUROLOGIC: No focal neurological abnormalities. Assessment: 1. Large loculated pleural effusion 2. End-stage renal disease 3. LUE AVF Plan: Stable, pending VATS Consultation Date/Type/Reason Admit Date/Time Apr 06, 2019 at 21:13 Initial Consult Date 04/10/19 Type of Consult id Requesting Provider: DEVI ALFRED Date/Time of Note DATE: 04/20/19 TIME: 13:47 Exam/Review of Systems Exam Vitals Vital Signs Date Temp Pulse Resp B/P (MAP) Pulse Ox O2 O2 Flow FiO2 Time Delivery Rate 04/20/19 98.0 78 18 160/90 98 07:56 (113) 04/19/19 Room Air 15:24 Intake and Output 04/19/19 04/19/19 04/20/19 1515:00 23:00 07:00 IntakeIntake Total 720 ml 360 ml BalanceBalance 720 ml 360 ml Results Result Diagram: 04/19/19 0553 04/19/19 0553 Medications Medication Current Medications IV Flush (NS 3 ml) 3 ml PER PROTOCOL IV ; Start 04/06/19 at 21:30 Ondansetron HCl (Zofran Inj) 4 mg Q6H PRN IV NAUSEA/VOMITING; Start 04/06/19 at 21:30 Acetaminophen (Tylenol Tab) 650 mg Q6H PRN PO .PAIN 1-3 OR TEMP; Start 04/06/19 at 21:30 Docusate Sodium (Colace) 100 mg Q12H PRN PO .CONSTIPATION; Start 04/06/19 at 21:30 Bisacodyl (Dulcolax) 5 mg DAILY PRN PO .CONSTIPATION; Start 04/06/19 at 21:30 Albumin Human 100 ml @ 100 mls/hr WITH DIALYSIS PRN IV SBP <90 DURING DIALYSIS; Start 04/06/19 at 22:30 Hydralazine HCl (Apresoline) 10 mg Q4 PRN IV SBP more than 150 mm hg Last administered on 04/19/19 20:56; Admin Dose 10 MG; Start 04/06/19 at 22:30 Albuterol (Ventolin Hfa) 2 puff Q4H RESP THERAPY PRN INH WHEEZING AND SOB; Start 04/06/19 at 22:30 Amlodipine Besylate (Norvasc) 10 mg DAILY PO Last administered on 04/20/19 08:28; Admin Dose 10 MG; Start 04/07/19 at 09:00 Aspirin (Halfprin) 81 mg DAILY PO Last administered on 04/20/19 08:28; Admin Dose 81 MG; Start 04/07/19 at 09:00 Atorvastatin Calcium (Lipitor) 80 mg QHS PO Last administered on 04/19/19 20:55; Admin Dose 80 MG; Start 04/07/19 at 21:00 Mometasone Furoate (Asmanex) 1 puff DAILY RESP THERAPY INH Last administered on 04/20/19 11:46; Admin Dose 1 PUFF; Start 04/07/19 at 12:00 Pantoprazole (Protonix Tab) 40 mg DAILY PO Last administered on 04/20/19 08:28; Admin Dose 40 MG; Start 04/07/19 at 09:00 Epoetin Andrew-epbx (Retacrit (Esrd)) 10,000 unit MONWEDFRI@1700 SC Last administered on 04/17/19 18:01; Admin Dose 10,000 UNIT; Start 04/17/19 at 17:00 DAT BENOIT NP Apr 20, 2019 13:48
--- NOTE | 2019-04-20 15:49 | CONS ---
Consult Date/Type/Reason Admit Date/Time Apr 06, 2019 at 21:13 Initial Consult Date 04/10/19 Type of Consult Pulmonary Requesting Provider: DEVI ALFRED Date/Time of Note DATE: 04/20/19 TIME: 15:48 Subjective Patient is comfortable this morning no respiratory distress Objective Vital Signs Date Temp Pulse Resp B/P (MAP) Pulse Ox O2 O2 Flow FiO2 Time Delivery Rate 04/20/19 98.0 83 18 165/85 98 14:56 (111) 04/19/19 Room Air 15:24 Intake and Output 04/19/19 04/19/19 04/20/19 1515:00 23:00 07:00 IntakeIntake Total 720 ml 360 ml BalanceBalance 720 ml 360 ml Exam PHYSICAL EXAMINATION: VITAL SIGNS: HEENT: Pupils are equal and reactive to light. NECK: Supple, no JVD noted. LUNGS: Decreased breath sounds at the right. CARDIOVASCULAR: S1, S2 normal. ABDOMEN: Soft, nontender. No organomegaly or masses noted. EXTREMITIES: No clubbing or cyanosis noted. NEUROLOGIC: No changes. Vent Setting Fraction of Inspired Oxygen pe: 21 Results/Medications Result Diagram: 04/19/19 0553 04/19/19 0553 Medications Current Medications IV Flush (NS 3 ml) 3 ml PER PROTOCOL IV ; Start 04/06/19 at 21:30 Ondansetron HCl (Zofran Inj) 4 mg Q6H PRN IV NAUSEA/VOMITING; Start 04/06/19 at 21:30 Acetaminophen (Tylenol Tab) 650 mg Q6H PRN PO .PAIN 1-3 OR TEMP; Start 04/06/19 at 21:30 Docusate Sodium (Colace) 100 mg Q12H PRN PO .CONSTIPATION; Start 04/06/19 at 21:30 Bisacodyl (Dulcolax) 5 mg DAILY PRN PO .CONSTIPATION; Start 04/06/19 at 21:30 Albumin Human 100 ml @ 100 mls/hr WITH DIALYSIS PRN IV SBP <90 DURING DIALYSIS; Start 04/06/19 at 22:30 Hydralazine HCl (Apresoline) 10 mg Q4 PRN IV SBP more than 150 mm hg Last administered on 04/19/19at 20:56; Admin Dose 10 MG; Start 04/06/19 at 22:30 Albuterol (Ventolin Hfa) 2 puff Q4H RESP THERAPY PRN INH WHEEZING AND SOB; Start 04/06/19 at 22:30 Amlodipine Besylate (Norvasc) 10 mg DAILY PO Last administered on 04/20/19 08:28; Admin Dose 10 MG; Start 04/07/19 at 09:00 Aspirin (Halfprin) 81 mg DAILY PO Last administered on 04/20/19 08:28; Admin Dose 81 MG; Start 04/07/19 at 09:00 Atorvastatin Calcium (Lipitor) 80 mg QHS PO Last administered on 04/19/19at 20:55; Admin Dose 80 MG; Start 04/07/19 at 21:00 Mometasone Furoate (Asmanex) 1 puff DAILY RESP THERAPY INH Last administered on 04/20/19 11:46; Admin Dose 1 PUFF; Start 04/07/19 at 12:00 Pantoprazole (Protonix Tab) 40 mg DAILY PO Last administered on 04/20/19 08:28; Admin Dose 40 MG; Start 04/07/19 at 09:00 Epoetin Andrew-epbx (Retacrit (Esrd)) 10,000 unit MONWEDFRI@1700 SC Last administered on 04/17/19 18:01; Admin Dose 10,000 UNIT; Start 04/17/19 at 17:00 Assessment/Plan Hospital Course (Demo Recall) IMPRESSION: 1. Complicated right parapneumonic effusion. 2. End-stage renal disease on hemodialysis. 3. History of hypertension. 4. Anemia. PLAN: 1. Continue antibiotics. 2. Continue oxygen as necessary. 3. The patient is scheduled for VATS as per thoracic surgery. Tentatively scheduled for tomorrow. DAHLIA ROMERO MD, [facility] Apr 20, 2019 15:49
--- NOTE | 2019-04-20 16:20 | PN ---
Date/Time of Note Date/Time of Note DATE: 04/20/19 TIME: 16:19 Assessment/Plan VTE Prophylaxis Risk score (from Nsg)>0 risk: 2 SCD applied (from Nsg): Yes Pharmacological prophylaxis: heparin Lines/Catheters IV Catheter Type (from Nrsg): Saline Lock Urinary Cath still in place: No Assessment/Plan Hospital Course 68 yo male with ESRD who presents with COLON, found to have large R pleural effusion Pleural effusion: - Will require decortication by CT surgeon. Dr Cates to operate Saturday - 600 cc drained by thoracentesis. Suggestive of exudative process. S/p empiric antibiotic - Consult pulmonary and CV surgery ESRD: - Continue HD per renal Anemia of CKD - iron and EPO Hypertension: - Continue amlodipine Result Diagram: 04/19/19 0553 04/19/19 05 Subjective 24 Hr Interval Summary Free Text/Dictation comfortable no change to status Plan for VATS tomorrow Exam/Review of Systems Exam Vitals Vital Signs Date Temp Pulse Resp B/P (MAP) Pulse Ox O2 O2 Flow FiO2 Time Delivery Rate 04/20/19 78 18 148/86 99 Room Air 15:40 (106) 04/20/19 98.0 14:56 Intake and Output 04/19/19 04/19/19 04/20/19 1515:00 23:00 07:00 IntakeIntake Total 720 ml 360 ml BalanceBalance 720 ml 360 ml Constitutional: alert, oriented, well developed Psych: no complaints, nl mood/affect Head: normocephalic, atraumatic Eyes: nl conjunctiva, EOMI, nl lids, nl sclera, PERRL ENMT: nl external ears & nose, nl lips & teeth, nl nasal mucosa & septum Neck: supple, non-tender Respiratory: clear to auscultation, normal air movement Cardiovascular: regular rate and rhythm, nl pulses Gastrointestinal: soft, nl liver, spleen, non-tender Musculoskeletal: nl extremities to inspection, nl gait and stance Extremities: normal pulses Neurological: 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 ASSISTANT II-XII intact, nl mental status, nl speech, nl strength Skin: nl turgor; No rash or lesions Lymph: nl lymph nodes Medications Medication Current Medications IV Flush (NS 3 ml) 3 ml PER PROTOCOL IV ; Start 04/06/19 at 21:30 Ondansetron HCl (Zofran Inj) 4 mg Q6H PRN IV NAUSEA/VOMITING; Start 04/06/19 at 21:30 Acetaminophen (Tylenol Tab) 650 mg Q6H PRN PO .PAIN 1-3 OR TEMP; Start 04/06/19 at 21:30 Docusate Sodium (Colace) 100 mg Q12H PRN PO .CONSTIPATION; Start 04/06/19 at 21:30 Bisacodyl (Dulcolax) 5 mg DAILY PRN PO .CONSTIPATION; Start 04/06/19 at 21:30 Albumin Human 100 ml @ 100 mls/hr WITH DIALYSIS PRN IV SBP <90 DURING DIALYSIS; Start 04/06/19 at 22:30 Hydralazine HCl (Apresoline) 10 mg Q4 PRN IV SBP more than 150 mm hg Last administered on 04/19/19 20:56; Admin Dose 10 MG; Start 04/06/19 at 22:30 Albuterol (Ventolin Hfa) 2 puff Q4H RESP THERAPY PRN INH WHEEZING AND SOB; Start 04/06/19 at 22:30 Amlodipine Besylate (Norvasc) 10 mg DAILY PO Last administered on 04/20/19 08:28; Admin Dose 10 MG; Start 04/07/19 at 09:00 Aspirin (Halfprin) 81 mg DAILY PO Last administered on 04/20/19 08:28; Admin Dose 81 MG; Start 04/07/19 at 09:00 Atorvastatin Calcium (Lipitor) 80 mg QHS PO Last administered on 04/19/19 20:55; Admin Dose 80 MG; Start 04/07/19 at 21:00 Mometasone Furoate (Asmanex) 1 puff DAILY RESP THERAPY INH Last administered on 04/20/19 11:46; Admin Dose 1 PUFF; Start 04/07/19 at 12:00 Pantoprazole (Protonix Tab) 40 mg DAILY PO Last administered on 04/20/19 08:28; Admin Dose 40 MG; Start 04/07/19 at 09:00 Epoetin Andrew-epbx (Retacrit (Esrd)) 10,000 unit MONWEDFRI@1700 SC Last administered on 04/17/19 18:01; Admin Dose 10,000 UNIT; Start 04/17/19 at 17:00 MARIE MCCLAIN MD Apr 20, 2019 16:20
[2019-04-20] MEDS: ATORVASTATIN 80 MG TAB PO SCH (21:04)
[2019-04-20] MEDS: EPOETIN ALFA-EPBX (ESRD) 10,000 UNIT/ML VIAL SC SCH (21:05)
[2019-04-21 02:00] VITALS: BP_SYST 152; BP_SYST 163; BP_DIAS 85; BP_DIAS 86; PULSE 79; PULSE 81; RESP 18
[2019-04-21] MEDS: hydrALAzine 20 MG INJ IV PRN (06:11)
[2019-04-21 08:07] VITALS: BP 152/83; PULSE 84; RESP 18
[2019-04-21] MEDS: PANTOPRAZOLE (EC) 40 MG TAB PO SCH (09:00)
[2019-04-21] MEDS: AMLODIPINE 10 MG TAB PO SCH (09:00)
[2019-04-21] MEDS: ASPIRIN (EC) 81 MG TAB PO SCH (09:00)
[2019-04-21] MEDS ORDERED: GENTAMICIN IV PER PHARMACY XX SCH (11:00)
[2019-04-21] MEDS ORDERED: GENTAMICIN 120 MG/NS (PMX) 100 ML IVPB SCH (12:30)
[2019-04-21] MEDS: MOMETASONE 0.24 GM INHALER INH SCH (12:37)
--- NOTE | 2019-04-21 14:13 | CONS ---
Assessment/Plan Assessment/Plan Assessment/Plan (Daily) 1. Acute fluid overload with acute Uremia due to missed HD- Improved, pt stable on 2 L NC 2. acute hyperkalemia due to Missed HD- now resolved 3. Large Loculated Right sided pleural effusion s/p R thoracentesis on 04/09/19- 600 cc drained - s/p CT surgery consult, awaiting VATS surgery 4. ESRD on HD - [place] been stayed out of [place] for 3 [place]- lost [place]. 5. H/o HTN 6. H/o HL 7. H/o Hypothyroidism 8. Anemia of ESRD Plan: Large Loculated Right sided pleural effusion s/p R thoracentesis on 04/09/19- 600 cc drained - s/p CT surgery consult, awaiting VATS surgery continue current BP meds amlodipine 10mg po daily , IV hydralaine prn HIV< hepatitis panel negative- awaiting Outpatient HD placement confirmation will conitnue pt on MWF schedule for his hemodialysis- Epogen 24330 units SQ MWF for Anemia Will follow up Consultation Date/Type/Reason Admit Date/Time Apr 06, 2019 at 21:13 Initial Consult Date 04/06/19 Type of Consult NEPHROLOGY Requesting Provider: DEIV ALFRED Date/Time of Note DATE: 04/21/19 TIME: 14:13 24 HR Interval Summary Free Text/Dictation pt remained stable on 2 L NC, no SOB, on chest pain, Hb improved to 10.2, BP stable Exam/Review of Systems Exam Vitals Vital Signs Date Temp Pulse Resp B/P (MAP) Pulse Ox O2 O2 Flow FiO2 Time Delivery Rate 04/21/19 98.6 84 18 152/83 97 08:07 (106) 04/20/19 Room Air 15:40 Intake and Output 04/20/19 04/20/19 04/21/19 1515:00 23:00 07:00 IntakeIntake Total 480 ml 1030 ml OutputOutput Total 2900 ml BalanceBalance 480 ml -1870 ml Exam Constitutional: alert, awake, no acute distress Respiratory: decreased BS on Left lung, no wheezing, no crackles, Cardiovascular: regular rate and rhythm, nl pulses Gastrointestinal: soft, non-tender Musculoskeletal: LUE AVF in place, no Edema, on cyanosis 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, nl mental status, Non focal Results Result Diagram: 04/19/1953 04/19/19552 Medications Medication Current Medications IV Flush (NS 3 ml) 3 ml PER PROTOCOL IV ; Start 04/06/19 at 21:30 Ondansetron HCl (Zofran Inj) 4 mg Q6H PRN IV NAUSEA/VOMITING; Start 04/06/19 at 21:30 Acetaminophen (Tylenol Tab) 650 mg Q6H PRN PO .PAIN 1-3 OR TEMP; Start 04/06/19 at 21:30 Docusate Sodium (Colace) 100 mg Q12H PRN PO .CONSTIPATION; Start 04/06/19 at 21:30 Bisacodyl (Dulcolax) 5 mg DAILY PRN PO .CONSTIPATION; Start 04/06/19 at 21:30 Albumin Human 100 ml @ 100 mls/hr WITH DIALYSIS PRN IV SBP <90 DURING DIALYSIS; Start 04/06/19 at 22:30 Hydralazine HCl (Apresoline) 10 mg Q4 PRN IV SBP more than 150 mm hg Last administered on 04/21/19 06:11; Admin Dose 10 MG; Start 04/06/19 at 22:30 Albuterol (Ventolin Hfa) 2 puff Q4H RESP THERAPY PRN INH WHEEZING AND SOB; Start 04/06/19 at 22:30 Amlodipine Besylate (Norvasc) 10 mg DAILY PO Last administered on 04/20/19at 08:28; Admin Dose 10 MG; Start 04/07/19 at 09:00 Aspirin (Halfprin) 81 mg DAILY PO Last administered on 04/20/19 08:28; Admin Dose 81 MG; Start 04/07/19 at 09:00 Atorvastatin Calcium (Lipitor) 80 mg QHS PO Last administered on 04/20/19 21:04; Admin Dose 80 MG; Start 04/07/19 at 21:00 Mometasone Furoate (Asmanex) 1 puff DAILY RESP THERAPY INH Last administered on 04/21/19at 12:37; Admin Dose 1 PUFF; Start 04/07/19 at 12:00 Pantoprazole (Protonix Tab) 40 mg DAILY PO Last administered on 04/20/19 08:28; Admin Dose 40 MG; Start 04/07/19 at 09:00 Epoetin Andrew-epbx (Retacrit (Esrd)) 10,000 unit MONWEDFRI@1700 SC Last administered on 04/20/19at 21:05; Admin Dose 10,000 UNIT; Start 04/17/19 at 17:00 Gentamicin Sulfate (Gentamicin Iv Per Pharmacy) GENTAMICIN PER PHARMACY NOTE XX ; Start 04/21/19 at 11:00 Gentamicin Sulfate 100 ml @ 200 mls/hr ONCE IVPB Last administered on 04/21/19at 14:05; Admin Dose 200 MLS/HR; Start 04/21/19 at 12:30; Stop 04/21/19 at 19:00 Gentamicin Sulfate 50 ml @ 100 mls/hr AFTER DIALYSIS IVPB ; Start 04/22/19 at 06:00 VAN DHALIWAL MD Apr 21, 2019 14:13
[2019-04-21 14:27] VITALS: BP 167/85; PULSE 83; RESP 18
--- NOTE | 2019-04-21 15:02 | CONS ---
Consult Date/Type/Reason Admit Date/Time Apr 06, 2019 at 21:13 Initial Consult Date 04/10/19 Type of Consult Pulmonary Requesting Provider: DEVI ALFRED Date/Time of Note DATE: 04/21/19 TIME: 15:01 Subjective Patient stable this morning. Pending thoracic surgery. Objective Vital Signs Date Temp Pulse Resp B/P (MAP) Pulse Ox O2 O2 Flow FiO2 Time Delivery Rate 04/21/19 98.0 83 18 167/85 99 14:27 (112) 04/20/19 Room Air 15:40 Intake and Output 04/20/19 04/20/19 04/21/19 1515:00 23:00 07:00 IntakeIntake Total 480 ml 1030 ml OutputOutput Total 2900 ml BalanceBalance 480 ml -1870 ml Exam PHYSICAL EXAMINATION: VITAL SIGNS: HEENT: Pupils are equal and reactive to light. NECK: Supple, no JVD noted. LUNGS: Decreased breath sounds at the right. CARDIOVASCULAR: S1, S2 normal. ABDOMEN: Soft, nontender. No organomegaly or masses noted. EXTREMITIES: No clubbing or cyanosis noted. NEUROLOGIC: No changes. Vent Setting Fraction of Inspired Oxygen pe: 21 Results/Medications Result Diagram: 04/19/19 0553 04/19/19 0553 Medications Current Medications IV Flush (NS 3 ml) 3 ml PER PROTOCOL IV ; Start 04/06/19 at 21:30 Ondansetron HCl (Zofran Inj) 4 mg Q6H PRN IV NAUSEA/VOMITING; Start 04/06/19 at 21:30 Acetaminophen (Tylenol Tab) 650 mg Q6H PRN PO .PAIN 1-3 OR TEMP; Start 04/06/19 at 21:30 Docusate Sodium (Colace) 100 mg Q12H PRN PO .CONSTIPATION; Start 04/06/19 at 21:30 Bisacodyl (Dulcolax) 5 mg DAILY PRN PO .CONSTIPATION; Start 04/06/19 at 21:30 Albumin Human 100 ml @ 100 mls/hr WITH DIALYSIS PRN IV SBP <90 DURING DIALYSIS; Start 04/06/19 at 22:30 Hydralazine HCl (Apresoline) 10 mg Q4 PRN IV SBP more than 150 mm hg Last administered on 04/21/19at 06:11; Admin Dose 10 MG; Start 04/06/19 at 22:30 Albuterol (Ventolin Hfa) 2 puff Q4H RESP THERAPY PRN INH WHEEZING AND SOB; Start 04/06/19 at 22:30 Amlodipine Besylate (Norvasc) 10 mg DAILY PO Last administered on 04/20/19 08:28; Admin Dose 10 MG; Start 04/07/19 at 09:00 Aspirin (Halfprin) 81 mg DAILY PO Last administered on 04/20/19 08:28; Admin Dose 81 MG; Start 04/07/19 at 09:00 Atorvastatin Calcium (Lipitor) 80 mg QHS PO Last administered on 04/20/19 21:04; Admin Dose 80 MG; Start 04/07/19 at 21:00 Mometasone Furoate (Asmanex) 1 puff DAILY RESP THERAPY INH Last administered on 04/21/19 12:37; Admin Dose 1 PUFF; Start 04/07/19 at 12:00 Pantoprazole (Protonix Tab) 40 mg DAILY PO Last administered on 04/20/19 08:28; Admin Dose 40 MG; Start 04/07/19 at 09:00 Epoetin Andrew-epbx (Retacrit (Esrd)) 10,000 unit MONWEDFRI@1700 SC Last administered on 04/20/19 21:05; Admin Dose 10,000 UNIT; Start 04/17/19 at 17:00 Gentamicin Sulfate (Gentamicin Iv Per Pharmacy) GENTAMICIN PER PHARMACY NOTE XX ; Start 04/21/19 at 11:00 Gentamicin Sulfate 100 ml @ 200 mls/hr ONCE IVPB Last administered on 04/21/19at 14:05; Admin Dose 200 MLS/HR; Start 04/21/19 at 12:30; Stop 04/21/19 at 19:00 Gentamicin Sulfate 50 ml @ 100 mls/hr AFTER DIALYSIS IVPB ; Start 04/22/19 at 06:00 Assessment/Plan Hospital Course (Demo Recall) IMPRESSION: 1. Complicated right parapneumonic effusion. 2. End-stage renal disease on hemodialysis. 3. History of hypertension. 4. Anemia. PLAN: 1. Continue antibiotics. 2. Continue oxygen as necessary. Case was discussed with thoracic surgery has been tentatively rescheduled for Saturday. DAHLIA ROMERO MD, [facility] Apr 21, 2019 15:02
--- NOTE | 2019-04-21 16:17 | CONS ---
Assessment/Plan Assessment/Plan Hospital Course (Demo Recall) Awake, looks comfortable Microbiology: Fluid cx neg Abx: Gentamicin Antimicrobials: PHYSICAL EXAMINATION: GENERAL: The patient is a well-developed, well-nourished male. VITAL SIGNS: Stable. He is afebrile. SKIN: Without generalized rash. HEENT: Within normal limits. NECK: Supple. LYMPH NODES: None palpable. CHEST: Decreased breath sounds at the bases, right greater than left. HEART: Without murmur or gallop. ABDOMEN: Soft, nontender without organosplenomegaly or masses. EXTREMITIES: Without cyanosis, clubbing or edema. RECTAL AND GENITAL: Deferred. NEUROLOGIC: No focal neurological abnormalities. Assessment: 1. Large loculated pleural effusion 2. End-stage renal disease 3. LUE AVF Plan: Stable, pending VATS Consultation Date/Type/Reason Admit Date/Time Apr 06, 2019 at 21:13 Initial Consult Date 04/10/19 Type of Consult id Requesting Provider: DEVI ALFRED Date/Time of Note DATE: 04/21/19 TIME: 16:16 Exam/Review of Systems Exam Vitals Vital Signs Date Temp Pulse Resp B/P (MAP) Pulse Ox O2 O2 Flow FiO2 Time Delivery Rate 04/21/19 98.0 83 18 167/85 99 14:27 (112) 04/20/19 Room Air 15:40 Intake and Output 04/20/19 04/20/19 04/21/19 1515:00 23:00 07:00 IntakeIntake Total 480 ml 1030 ml OutputOutput Total 2900 ml BalanceBalance 480 ml -1870 ml Results Result Diagram: 04/19/19 0553 04/19/19 0553 Medications Medication Current Medications IV Flush (NS 3 ml) 3 ml PER PROTOCOL IV ; Start 04/06/19 at 21:30 Ondansetron HCl (Zofran Inj) 4 mg Q6H PRN IV NAUSEA/VOMITING; Start 04/06/19 at 21:30 Acetaminophen (Tylenol Tab) 650 mg Q6H PRN PO .PAIN 1-3 OR TEMP; Start 04/06/19 at 21:30 Docusate Sodium (Colace) 100 mg Q12H PRN PO .CONSTIPATION; Start 04/06/19 at 21:30 Bisacodyl (Dulcolax) 5 mg DAILY PRN PO .CONSTIPATION; Start 04/06/19 at 21:30 Albumin Human 100 ml @ 100 mls/hr WITH DIALYSIS PRN IV SBP <90 DURING DIALYSIS; Start 04/06/19 at 22:30 Hydralazine HCl (Apresoline) 10 mg Q4 PRN IV SBP more than 150 mm hg Last administered on 04/21/19 06:11; Admin Dose 10 MG; Start 04/06/19 at 22:30 Albuterol (Ventolin Hfa) 2 puff Q4H RESP THERAPY PRN INH WHEEZING AND SOB; Start 04/06/19 at 22:30 Amlodipine Besylate (Norvasc) 10 mg DAILY PO Last administered on 04/20/19 08:28; Admin Dose 10 MG; Start 04/07/19 at 09:00 Aspirin (Halfprin) 81 mg DAILY PO Last administered on 04/20/19 08:28; Admin Dose 81 MG; Start 04/07/19 at 09:00 Atorvastatin Calcium (Lipitor) 80 mg QHS PO Last administered on 04/20/19 21:04; Admin Dose 80 MG; Start 04/07/19 at 21:00 Mometasone Furoate (Asmanex) 1 puff DAILY RESP THERAPY INH Last administered on 04/21/19 12:37; Admin Dose 1 PUFF; Start 04/07/19 at 12:00 Pantoprazole (Protonix Tab) 40 mg DAILY PO Last administered on 04/20/19 08:28; Admin Dose 40 MG; Start 04/07/19 at 09:00 Epoetin Andrew-epbx (Retacrit (Esrd)) 10,000 unit MONWEDFRI@1700 SC Last administered on 04/20/19at 21:05; Admin Dose 10,000 UNIT; Start 04/17/19 at 17:00 Gentamicin Sulfate (Gentamicin Iv Per Pharmacy) GENTAMICIN PER PHARMACY NOTE XX ; Start 04/21/19 at 11:00 Gentamicin Sulfate 100 ml @ 200 mls/hr ONCE IVPB Last administered on 04/21/19at 14:05; Admin Dose 200 MLS/HR; Start 04/21/19 at 12:30; Stop 04/21/19 at 19:00 Gentamicin Sulfate 50 ml @ 100 mls/hr AFTER DIALYSIS IVPB ; Start 04/22/19 at 06:00 DAT BENOIT NP Apr 21, 2019 16:17
--- NOTE | 2019-04-21 18:06 | PN ---
Date/Time of Note Date/Time of Note DATE: 04/21/19 TIME: 18:05 Assessment/Plan VTE Prophylaxis Risk score (from Nsg)>0 risk: 2 SCD applied (from Nsg): Yes Pharmacological prophylaxis: heparin Lines/Catheters IV Catheter Type (from Nrsg): Saline Lock Urinary Cath still in place: No Assessment/Plan Hospital Course 68 yo male with ESRD who presents with COLON, found to have large R pleural effusion Pleural effusion: - Will require decortication by CT surgeon. Dr Cates to operate Saturday - 600 cc drained by thoracentesis. Suggestive of exudative process. S/p empiric antibiotic - Consult pulmonary and CV surgery ESRD: - Continue HD per renal Anemia of CKD - iron and EPO Hypertension: - Continue amlodipine Result Diagram: 04/19/1955204/19/19552 Subjective 24 Hr Interval Summary Free Text/Dictation Surgery postponed until Saturday Stable, no complaints Exam/Review of Systems Exam Vitals Vital Signs Date Temp Pulse Resp B/P (MAP) Pulse Ox O2 O2 Flow FiO2 Time Delivery Rate 04/21/19 98.0 83 18 167/85 99 14:27 (112) 04/20/19 Room Air 15:40 Intake and Output 04/20/19 04/20/19 04/21/19 1515:00 23:00 07:00 IntakeIntake Total 480 ml 1030 ml OutputOutput Total 2900 ml BalanceBalance 480 ml -1870 ml Constitutional: alert, oriented, well developed Psych: no complaints, nl mood/affect Head: normocephalic, atraumatic Eyes: nl conjunctiva, EOMI, nl lids, nl sclera, PERRL ENMT: nl external ears & nose, nl lips & teeth, nl nasal mucosa & septum Neck: supple, non-tender Respiratory: clear to auscultation, normal air movement Cardiovascular: regular rate and rhythm, nl pulses Gastrointestinal: soft, nl liver, spleen, non-tender Musculoskeletal: nl extremities to inspection, nl gait and stance Extremities: normal pulses 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, nl mental status, nl speech, nl strength Skin: nl turgor; No rash or lesions Lymph: nl lymph nodes Medications Medication Current Medications IV Flush (NS 3 ml) 3 ml PER PROTOCOL IV ; Start 04/06/19 at 21:30 Ondansetron HCl (Zofran Inj) 4 mg Q6H PRN IV NAUSEA/VOMITING; Start 04/06/19 at 21:30 Acetaminophen (Tylenol Tab) 650 mg Q6H PRN PO .PAIN 1-3 OR TEMP; Start 04/06/19 at 21:30 Docusate Sodium (Colace) 100 mg Q12H PRN PO .CONSTIPATION; Start 04/06/19 at 21:30 Bisacodyl (Dulcolax) 5 mg DAILY PRN PO .CONSTIPATION; Start 04/06/19 at 21:30 Albumin Human 100 ml @ 100 mls/hr WITH DIALYSIS PRN IV SBP <90 DURING DIALYSIS; Start 04/06/19 at 22:30 Hydralazine HCl (Apresoline) 10 mg Q4 PRN IV SBP more than 150 mm hg Last administered on 04/21/19 06:11; Admin Dose 10 MG; Start 04/06/19 at 22:30 Albuterol (Ventolin Hfa) 2 puff Q4H RESP THERAPY PRN INH WHEEZING AND SOB; Start 04/06/19 at 22:30 Amlodipine Besylate (Norvasc) 10 mg DAILY PO Last administered on 04/20/19 08:28; Admin Dose 10 MG; Start 04/07/19 at 09:00 Aspirin (Halfprin) 81 mg DAILY PO Last administered on 04/20/19 08:28; Admin Dose 81 MG; Start 04/07/19 at 09:00 Atorvastatin Calcium (Lipitor) 80 mg QHS PO Last administered on 04/20/19 21:04; Admin Dose 80 MG; Start 04/07/19 at 21:00 Mometasone Furoate (Asmanex) 1 puff DAILY RESP THERAPY INH Last administered on 04/21/19 12:37; Admin Dose 1 PUFF; Start 04/07/19 at 12:00 Pantoprazole (Protonix Tab) 40 mg DAILY PO Last administered on 04/20/19 08:28 ; Admin Dose 40 MG; Start 04/07/19 at 09:00 Epoetin Andrew-epbx (Retacrit (Esrd)) 10,000 unit MONWEDFRI@1700 SC Last administered on 04/20/19 21:05; Admin Dose 10,000 UNIT; Start 04/17/19 at 17:00 Gentamicin Sulfate (Gentamicin Iv Per Pharmacy) GENTAMICIN PER PHARMACY NOTE XX ; Start 04/21/19 at 11:00 Gentamicin Sulfate 100 ml @ 200 mls/hr ONCE IVPB Last administered on 04/21/19at 14:05; Admin Dose 200 MLS/HR; Start 04/21/19 at 12:30; Stop 04/21/19 at 19:00 Gentamicin Sulfate 50 ml @ 100 mls/hr AFTER DIALYSIS IVPB ; Start 04/22/19 at 06:00 MARIE MCCLAIN MD Apr 21, 2019 18:06
[2019-04-21 19:55] VITALS: BP 161/90; PULSE 84; RESP 18
[2019-04-21] MEDS: ATORVASTATIN 80 MG TAB PO SCH (20:26)
[2019-04-22] VITALS (18 sets, daily range): BP systolic 146–176; BP diastolic 83–108; PULSE 83–97; RESP 16–18
[2019-04-22] MEDS ORDERED: GENTAMICIN 80 MG/NS (PMX) 50 ML IVPB SCH (06:00)
[2019-04-22] MEDS: PANTOPRAZOLE (EC) 40 MG TAB PO SCH (09:23)
[2019-04-22] MEDS: ASPIRIN (EC) 81 MG TAB PO SCH (09:23)
[2019-04-22] MEDS: AMLODIPINE 10 MG TAB PO SCH (09:23)
--- NOTE | 2019-04-22 11:41 | CONS ---
Consult Date/Type/Reason Admit Date/Time Apr 06, 2019 at 21:13 Initial Consult Date 04/10/19 Type of Consult Pulmonary Requesting Provider: DEVI ALFRED Date/Time of Note DATE: 04/22/19 TIME: 11:40 Subjective No significant changes. Decortication rescheduled till . Objective Vital Signs Date Temp Pulse Resp B/P (MAP) Pulse Ox O2 O2 Flow FiO2 Time Delivery Rate 04/22/19 97.9 86 16 176/96 98 08:31 (122) 04/20/19 Room Air 15:40 Intake and Output 04/21/19 04/21/19 04/22/19 1515:00 23:00 07:00 IntakeIntake Total 600 ml BalanceBalance 600 ml Exam PHYSICAL EXAMINATION: VITAL SIGNS: HEENT: Pupils are equal and reactive to light. NECK: Supple, no JVD noted. LUNGS: Decreased breath sounds at the right. CARDIOVASCULAR: S1, S2 normal. ABDOMEN: Soft, nontender. No organomegaly or masses noted. EXTREMITIES: No clubbing or cyanosis noted. NEUROLOGIC: No changes. Vent Setting Fraction of Inspired Oxygen pe: 21 Results/Medications Result Diagram: 04/19/19 0553 04/19/19 0553 Medications Current Medications IV Flush (NS 3 ml) 3 ml PER PROTOCOL IV ; Start 04/06/19 at 21:30 Ondansetron HCl (Zofran Inj) 4 mg Q6H PRN IV NAUSEA/VOMITING; Start 04/06/19 at 21:30 Acetaminophen (Tylenol Tab) 650 mg Q6H PRN PO .PAIN 1-3 OR TEMP; Start 04/06/19 at 21:30 Docusate Sodium (Colace) 100 mg Q12H PRN PO .CONSTIPATION; Start 04/06/19 at 21:30 Bisacodyl (Dulcolax) 5 mg DAILY PRN PO .CONSTIPATION; Start 04/06/19 at 21:30 Albumin Human 100 ml @ 100 mls/hr WITH DIALYSIS PRN IV SBP <90 DURING DIALYSIS; Start 04/06/19 at 22:30 Hydralazine HCl (Apresoline) 10 mg Q4 PRN IV SBP more than 150 mm hg Last administered on 04/21/19at 06:11; Admin Dose 10 MG; Start 04/06/19 at 22:30 Albuterol (Ventolin Hfa) 2 puff Q4H RESP THERAPY PRN INH WHEEZING AND SOB; Start 04/06/19 at 22:30 Amlodipine Besylate (Norvasc) 10 mg DAILY PO Last administered on 04/22/19 09:23; Admin Dose 10 MG; Start 04/07/19 at 09:00 Aspirin (Halfprin) 81 mg DAILY PO Last administered on 04/22/19 09:23; Admin Dose 81 MG; Start 04/07/19 at 09:00 Atorvastatin Calcium (Lipitor) 80 mg QHS PO Last administered on 04/21/19 20:26; Admin Dose 80 MG; Start 04/07/19 at 21:00 Mometasone Furoate (Asmanex) 1 puff DAILY RESP THERAPY INH Last administered on 04/21/19at 12:37; Admin Dose 1 PUFF; Start 04/07/19 at 12:00 Pantoprazole (Protonix Tab) 40 mg DAILY PO Last administered on 04/22/19 09:23; Admin Dose 40 MG; Start 04/07/19 at 09:00 Epoetin Andrew-epbx (Retacrit (Esrd)) 10,000 unit MONWEDFRI@1700 SC Last administered on 04/20/19 21:05; Admin Dose 10,000 UNIT; Start 04/17/19 at 17:00 Gentamicin Sulfate (Gentamicin Iv Per Pharmacy) GENTAMICIN PER PHARMACY NOTE XX ; Start 04/21/19 at 11:00 Gentamicin Sulfate 50 ml @ 100 mls/hr AFTER DIALYSIS IVPB ; Start 04/22/19 at 06:00 Assessment/Plan Hospital Course (Demo Recall) IMPRESSION: 1. Complicated right parapneumonic effusion. 2. End-stage renal disease on hemodialysis. 3. History of hypertension. 4. Anemia. PLAN: 1. Continue antibiotics. 2. Continue oxygen as necessary. Case was discussed with thoracic surgery has been tentatively rescheduled for Saturday. DAHLIA ROMERO MD, [facility] Apr 22, 2019 11:41
--- NOTE | 2019-04-22 13:49 | CONS ---
Assessment/Plan Assessment/Plan Assessment/Plan (Daily) 1. Acute fluid overload with acute Uremia due to missed HD- Improved, pt stable on 2 L NC 2. acute hyperkalemia due to Missed HD- now resolved 3. Large Loculated Right sided pleural effusion s/p R thoracentesis on 04/09/19- 600 cc drained - s/p CT surgery consult, awaiting VATS surgery 4. ESRD on HD - [place] been stayed [place] of [place] for 3 [place]- lost [place]. 5. H/o HTN 6. H/o HL 7. H/o Hypothyroidism 8. Anemia of ESRD on Epogen Plan: Large Loculated Right sided pleural effusion s/p R thoracentesis on 04/09/19- 600 cc drained - s/p CT surgery consult, awaiting VATS surgery continue current BP meds amlodipine 10mg po daily , IV hydralaine prn HIV< hepatitis panel negative- awaiting Outpatient HD placement confirmation will conitnue pt on MWF schedule for his hemodialysis- Plan for HD today Epogen 42337 units SQ MWF for Anemia Will follow up Consultation Date/Type/Reason Admit Date/Time Apr 06, 2019 at 21:13 Initial Consult Date 04/06/19 Type of Consult NEPHROLOGY Requesting Provider: DEVI ALFRED Date/Time of Note DATE: 04/22/19 TIME: 13:49 24 HR Interval Summary Free Text/Dictation plan for HD today, pt is awaiting VATS for Loculated pleural effusion Exam/Review of Systems Exam Vitals Vital Signs Date Temp Pulse Resp B/P (MAP) Pulse Ox O2 O2 Flow FiO2 Time Delivery Rate 04/22/19 97.9 86 16 176/96 98 08:31 (122) 04/20/19 Room Air 15:40 Intake and Output 04/21/19 04/21/19 04/22/19 1515:00 23:00 07:00 IntakeIntake Total 600 ml BalanceBalance 600 ml Exam Constitutional: alert, awake, no acute distress Respiratory: decreased BS on Left lung, no wheezing, no crackles, Cardiovascular: regular rate and rhythm, nl pulses Gastrointestinal: soft, non-tender Musculoskeletal: LUE AVF in place, no Edema, on cyanosis 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, nl mental status, Non focal Results Result Diagram: 04/19/19 0553 04/19/19 0553 Medications Medication Current Medications IV Flush (NS 3 ml) 3 ml PER PROTOCOL IV ; Start 04/06/19 at 21:30 Ondansetron HCl (Zofran Inj) 4 mg Q6H PRN IV NAUSEA/VOMITING; Start 04/06/19 at 21:30 Acetaminophen (Tylenol Tab) 650 mg Q6H PRN PO .PAIN 1-3 OR TEMP; Start 04/06/19 at 21:30 Docusate Sodium (Colace) 100 mg Q12H PRN PO .CONSTIPATION; Start 04/06/19 at 21:30 Bisacodyl (Dulcolax) 5 mg DAILY PRN PO .CONSTIPATION; Start 04/06/19 at 21:30 Albumin Human 100 ml @ 100 mls/hr WITH DIALYSIS PRN IV SBP <90 DURING DIALYSIS; Start 04/06/19 at 22:30 Hydralazine HCl (Apresoline) 10 mg Q4 PRN IV SBP more than 150 mm hg Last a dministered on 04/21/19 06:11; Admin Dose 10 MG; Start 04/06/19 at 22:30 Albuterol (Ventolin Hfa) 2 puff Q4H RESP THERAPY PRN INH WHEEZING AND SOB; Start 04/06/19 at 22:30 Amlodipine Besylate (Norvasc) 10 mg DAILY PO Last administered on 04/22/19 09:23; Admin Dose 10 MG; Start 04/07/19 at 09:00 Aspirin (Halfprin) 81 mg DAILY PO Last administered on 04/22/19 09:23; Admin Dose 81 MG; Start 04/07/19 at 09:00 Atorvastatin Calcium (Lipitor) 80 mg QHS PO Last administered on 04/21/19 20:26; Admin Dose 80 MG; Start 04/07/19 at 21:00 Mometasone Furoate (Asmanex) 1 puff DAILY RESP THERAPY INH Last administered on 04/21/19 12:37; Admin Dose 1 PUFF; Start 04/07/19 at 12:00 Pantoprazole (Protonix Tab) 40 mg DAILY PO Last administered on 04/22/19 09:23; Admin Dose 40 MG; Start 04/07/19 at 09:00 Epoetin Andrew-epbx (Retacrit (Esrd)) 10,000 unit MONWEDFRI@1700 SC Last administered on 04/20/19at 21:05; Admin Dose 10,000 UNIT; Start 04/17/19 at 17:00 Gentamicin Sulfate (Gentamicin Iv Per Pharmacy) GENTAMICIN PER PHARMACY NOTE XX ; Start 04/21/19 at 11:00 Gentamicin Sulfate 50 ml @ 100 mls/hr AFTER DIALYSIS IVPB ; Start 04/22/19 at 06:00 VAN DHALIWAL MD Apr 22, 2019 13:49
--- NOTE | 2019-04-22 14:23 | CONS ---
Assessment/Plan Assessment/Plan Hospital Course (Demo Recall) Awake, looks comfortable no SOB Microbiology: Fluid cx neg Abx: s/p Gentamicin Antimicrobials: PHYSICAL EXAMINATION: GENERAL: The patient is a well-developed, well-nourished male. VITAL SIGNS: Stable. He is afebrile. SKIN: Without generalized rash. HEENT: Within normal limits. NECK: Supple. LYMPH NODES: None palpable. CHEST: Decreased breath sounds at the bases, right greater than left. HEART: Without murmur or gallop. ABDOMEN: Soft, nontender without organosplenomegaly or masses. EXTREMITIES: Without cyanosis, clubbing or edema. RECTAL AND GENITAL: Deferred. NEUROLOGIC: No focal neurological abnormalities. Assessment: 1. Large loculated pleural effusion 2. End-stage renal disease 3. LUE AVF Plan: Stable, pending VATS, will keep off abx DW Dr Milligan Consultation Date/Type/Reason Admit Date/Time Apr 06, 2019 at 21:13 Initial Consult Date 04/10/19 Type of Consult id Requesting Provider: DEVI ALFRED Date/Time of Note DATE: 04/22/19 TIME: 14:22 Exam/Review of Systems Exam Vitals Vital Signs Date Temp Pulse Resp B/P (MAP) Pulse Ox O2 O2 Flow FiO2 Time Delivery Rate 04/22/19 97.9 86 16 176/96 98 08:31 (122) 04/20/19 Room Air 15:40 Intake and Output 04/21/19 04/21/19 04/22/19 1515:00 23:00 07:00 IntakeIntake Total 600 ml BalanceBalance 600 ml Results Result Diagram: 04/19/19 0553 04/19/19 0553 Medications Medication Current Medications IV Flush (NS 3 ml) 3 ml PER PROTOCOL IV ; Start 04/06/19 at 21:30 Ondansetron HCl (Zofran Inj) 4 mg Q6H PRN IV NAUSEA/VOMITING; Start 04/06/19 at 21:30 Acetaminophen (Tylenol Tab) 650 mg Q6H PRN PO .PAIN 1-3 OR TEMP; Start 04/06/19 at 21:30 Docusate Sodium (Colace) 100 mg Q12H PRN PO .CONSTIPATION; Start 04/06/19 at 21:30 Bisacodyl (Dulcolax) 5 mg DAILY PRN PO .CONSTIPATION; Start 04/06/19 at 21:30 Albumin Human 100 ml @ 100 mls/hr WITH DIALYSIS PRN IV SBP <90 DURING DIALYSIS; Start 04/06/19 at 22:30 Hydralazine HCl (Apresoline) 10 mg Q4 PRN IV SBP more than 150 mm hg Last administered on 04/21/19 06:11; Admin Dose 10 MG; Start 04/06/19 at 22:30 Albuterol (Ventolin Hfa) 2 puff Q4H RESP THERAPY PRN INH WHEEZING AND SOB; Start 04/06/19 at 22:30 Amlodipine Besylate (Norvasc) 10 mg DAILY PO Last administered on 04/22/19 09:23; Admin Dose 10 MG; Start 04/07/19 at 09:00 Aspirin (Halfprin) 81 mg DAILY PO Last administered on 04/22/19 09:23; Admin Dose 81 MG; Start 04/07/19 at 09:00 Atorvastatin Calcium (Lipitor) 80 mg QHS PO Last administered on 04/21/19 20:26; Admin Dose 80 MG; Start 04/07/19 at 21:00 Mometasone Furoate (Asmanex) 1 puff DAILY RESP THERAPY INH Last administered on 04/21/19 12:37; Admin Dose 1 PUFF; Start 04/07/19 at 12:00 Pantoprazole (Protonix Tab) 40 mg DAILY PO Last administered on 04/22/19 09:23; Admin Dose 40 MG; Start 04/07/19 at 09:00 Epoetin Andrew-epbx (Retacrit (Esrd)) 10,000 unit MONWEDFRI@1700 SC Last administered on 04/20/19at 21:05; Admin Dose 10,000 UNIT; Start 04/17/19 at 17:00 Gentamicin Sulfate (Gentamicin Iv Per Pharmacy) GENTAMICIN PER PHARMACY NOTE XX ; Start 04/21/19 at 11:00 Gentamicin Sulfate 50 ml @ 100 mls/hr AFTER DIALYSIS IVPB ; Start 04/22/19 at 06:00 DAT BENOIT NP Apr 22, 2019 14:23
--- NOTE | 2019-04-22 15:04 | PN ---
Date/Time of Note Date/Time of Note DATE: 04/22/19 TIME: 14:55 Assessment/Plan VTE Prophylaxis Risk score (from Nsg)>0 risk: 2 SCD applied (from Nsg): Yes Pharmacological prophylaxis: heparin Lines/Catheters IV Catheter Type (from Nrsg): Saline Lock Urinary Cath still in place: No Assessment/Plan Hospital Course 68 yo male with ESRD who presents with COLON, found to have large R pleural effusion Pleural effusion: - Will require decortication by CT surgeon. Dr Cates to operate Saturday - 600 cc drained by thoracentesis. Suggestive of exudative process. S/p empiric antibiotic - Consult pulmonary and CV surgery ESRD: - Continue HD per renal Anemia of CKD - iron and EPO Hypertension: - Continue amlodipine Result Diagram: 04/19/19 0553 04/19/19 05 Subjective 24 Hr Interval Summary Free Text/Dictation No change to clinical status Awaiting surgery Exam/Review of Systems Exam Vitals Vital Signs Date Temp Pulse Resp B/P (MAP) Pulse Ox O2 O2 Flow FiO2 Time Delivery Rate 04/22/19 97.5 86 18 156/83 98 14:26 (107) 04/20/19 Room Air 15:40 Intake and Output 04/21/19 04/21/19 04/22/19 1515:00 23:00 07:00 IntakeIntake Total 600 ml BalanceBalance 600 ml Constitutional: alert, oriented, well developed Psych: no complaints, nl mood/affect Head: normocephalic, atraumatic Eyes: nl conjunctiva, EOMI, nl lids, nl sclera, PERRL ENMT: nl external ears & nose, nl lips & teeth, nl nasal mucosa & septum Neck: supple, non-tender Respiratory: clear to auscultation, normal air movement Cardiovascular: regular rate and rhythm, nl pulses Gastrointestinal: soft, nl liver, spleen, non-tender Musculoskeletal: nl extremities to inspection, nl gait and stance Extremities: normal pulses Neurological: RESEARCH MICROBIOLOGIST II-XII intact, nl mental status, nl speech, nl strength Skin: nl turgor; No rash or lesions Lymph: nl lymph nodes Medications Medication Current Medications IV Flush (NS 3 ml) 3 ml PER PROTOCOL IV ; Start 04/06/19 at 21:30 Ondansetron HCl (Zofran Inj) 4 mg Q6H PRN IV NAUSEA/VOMITING; Start 04/06/19 at 21:30 Acetaminophen (Tylenol Tab) 650 mg Q6H PRN PO .PAIN 1-3 OR TEMP; Start 04/06/19 at 21:30 Docusate Sodium (Colace) 100 mg Q12H PRN PO .CONSTIPATION; Start 04/06/19 at 21:30 Bisacodyl (Dulcolax) 5 mg DAILY PRN PO .CONSTIPATION; Start 04/06/19 at 21:30 Albumin Human 100 ml @ 100 mls/hr WITH DIALYSIS PRN IV SBP <90 DURING DIALYSIS; Start 04/06/19 at 22:30 Hydralazine HCl (Apresoline) 10 mg Q4 PRN IV SBP more than 150 mm hg Last administered on 04/21/19at 06:11; Admin Dose 10 MG; Start 04/06/19 at 22:30 Albuterol (Ventolin Hfa) 2 puff Q4H RESP THERAPY PRN INH WHEEZING AND SOB; Start 04/06/19 at 22:30 Amlodipine Besylate (Norvasc) 10 mg DAILY PO Last administered on 04/22/19 09:23; Admin Dose 10 MG; Start 04/07/19 at 09:00 Aspirin (Halfprin) 81 mg DAILY PO Last administered on 04/22/19 09:23; Admin Dose 81 MG; Start 04/07/19 at 09:00 Atorvastatin Calcium (Lipitor) 80 mg QHS PO Last administered on 04/21/19 20:26; Admin Dose 80 MG; Start 04/07/19 at 21:00 Mometasone Furoate (Asmanex) 1 puff DAILY RESP THERAPY INH Last administered on 04/21/19at 12:37; Admin Dose 1 PUFF; Start 04/07/19 at 12:00 Pantoprazole (Protonix Tab) 40 mg DAILY PO Last administered on 04/22/19 09:23; Admin Dose 40 MG; Start 04/07/19 at 09:00 Epoetin Andrew-epbx (Retacrit (Esrd)) 10,000 unit MONWEDFRI@1700 SC Last administered on 04/20/19 21:05; Admin Dose 10,000 UNIT; Start 04/17/19 at 17:00 Gentamicin Sulfate (Gentamicin Iv Per Pharmacy) GENTAMICIN PER PHARMACY NOTE XX ; Start 04/21/19 at 11:00 MARIE MCCLAIN MD Apr 22, 2019 15:04
[2019-04-22] MEDS: MOMETASONE 0.24 GM INHALER INH SCH (15:17)
[2019-04-22] MEDS: EPOETIN ALFA-EPBX (ESRD) 10,000 UNIT/ML VIAL SC SCH (21:10)
[2019-04-22] MEDS: ATORVASTATIN 80 MG TAB PO SCH (21:11)
[2019-04-23] VITALS (7 sets, daily range): BP systolic 140–156; BP diastolic 82–94; PULSE 79–86; RESP 17–19
[2019-04-23] MEDS: hydrALAzine 20 MG INJ IV PRN ×3 (03:23→21:37)
[2019-04-23] MEDS: ASPIRIN (EC) 81 MG TAB PO SCH (08:51)
[2019-04-23] MEDS: PANTOPRAZOLE (EC) 40 MG TAB PO SCH (08:51)
[2019-04-23] MEDS: AMLODIPINE 10 MG TAB PO SCH (08:51)
[2019-04-23] MEDS: MOMETASONE 0.24 GM INHALER INH SCH (11:20)
--- NOTE | 2019-04-23 11:24 | CONS ---
Consult Date/Type/Reason Admit Date/Time Apr 06, 2019 at 21:13 Initial Consult Date 04/10/19 Type of Consult Pulmonary Requesting Provider: DEVI ALFRED Date/Time of Note DATE: 04/23/19 TIME: 11:23 Subjective Patient comfortable this morning no respiratory distress. Objective Vital Signs Date Temp Pulse Resp B/P (MAP) Pulse Ox O2 O2 Flow FiO2 Time Delivery Rate 04/23/19 98.5 85 19 149/84 97 08:17 (105) 04/22/19 Room Air 17:04 Intake and Output 04/22/19 04/22/19 04/23/19 1515:00 23:00 07:00 IntakeIntake Total 1000 ml 480 ml OutputOutput Total 3400 ml BalanceBalance 1000 ml -2920 ml Exam PHYSICAL EXAMINATION: VITAL SIGNS: HEENT: Pupils are equal and reactive to light. NECK: Supple, no JVD noted. LUNGS: Decreased breath sounds at the right. CARDIOVASCULAR: S1, S2 normal. ABDOMEN: Soft, nontender. No organomegaly or masses noted. EXTREMITIES: No clubbing or cyanosis noted. NEUROLOGIC: No changes Vent Setting Fraction of Inspired Oxygen pe: 21 Results/Medications Result Diagram: 04/19/19 0553 04/19/19 0553 Medications Current Medications IV Flush (NS 3 ml) 3 ml PER PROTOCOL IV ; Start 04/06/19 at 21:30 Ondansetron HCl (Zofran Inj) 4 mg Q6H PRN IV NAUSEA/VOMITING; Start 04/06/19 at 21:30 Acetaminophen (Tylenol Tab) 650 mg Q6H PRN PO .PAIN 1-3 OR TEMP; Start 04/06/19 at 21:30 Docusate Sodium (Colace) 100 mg Q12H PRN PO .CONSTIPATION; Start 04/06/19 at 21:30 Bisacodyl (Dulcolax) 5 mg DAILY PRN PO .CONSTIPATION; Start 04/06/19 at 21:30 Albumin Human 100 ml @ 100 mls/hr WITH DIALYSIS PRN IV SBP <90 DURING DIALYSIS; Start 04/06/19 at 22:30 Hydralazine HCl (Apresoline) 10 mg Q4 PRN IV SBP more than 150 mm hg Last administered on 04/23/19at 03:23; Admin Dose 10 MG; Start 04/06/19 at 22:30 Albuterol (Ventolin Hfa) 2 puff Q4H RESP THERAPY PRN INH WHEEZING AND SOB; Start 04/06/19 at 22:30 Amlodipine Besylate (Norvasc) 10 mg DAILY PO Last administered on 04/23/19 08:51; Admin Dose 10 MG; Start 04/07/19 at 09:00 Aspirin (Halfprin) 81 mg DAILY PO Last administered on 04/23/19 08:51; Admin Dose 81 MG; Start 04/07/19 at 09:00 Atorvastatin Calcium (Lipitor) 80 mg QHS PO Last administered on 04/22/19 21:11; Admin Dose 80 MG; Start 04/07/19 at 21:00 Mometasone Furoate (Asmanex) 1 puff DAILY RESP THERAPY INH Last administered on 04/23/19 11:20; Admin Dose 1 PUFF; Start 04/07/19 at 12:00 Pantoprazole (Protonix Tab) 40 mg DAILY PO Last administered on 04/23/19 08:51; Admin Dose 40 MG; Start 04/07/19 at 09:00 Epoetin Andrew-epbx (Retacrit (Esrd)) 10,000 unit MONWEDFRI@1700 SC Last administered on 04/22/19 21:10; Admin Dose 10,000 UNIT; Start 04/17/19 at 17:00 Assessment/Plan Hospital Course (Demo Recall) IMPRESSION: 1. Complicated right parapneumonic effusion. 2. End-stage renal disease on hemodialysis. 3. History of hypertension. 4. Anemia. PLAN: 1. Continue antibiotics. 2. Continue oxygen as necessary. Case was discussed with thoracic surgery has been tentatively rescheduled for Saturday. DAHLIA ROMERO MD, [facility] Apr 23, 2019 11:23
--- NOTE | 2019-04-23 12:40 | CONS ---
Assessment/Plan Assessment/Plan Hospital Course (Demo Recall) No events over night, looks comfortable, no SOB Microbiology: Fluid cx neg Antimicrobials: PHYSICAL EXAMINATION: GENERAL: The patient is a well-developed, well-nourished male. VITAL SIGNS: Stable. He is afebrile. SKIN: Without generalized rash. HEENT: Within normal limits. NECK: Supple. LYMPH NODES: None palpable. CHEST: Decreased breath sounds at the bases, right greater than left. HEART: Without murmur or gallop. ABDOMEN: Soft, nontender without organosplenomegaly or masses. EXTREMITIES: Without cyanosis, clubbing or edema. RECTAL AND GENITAL: Deferred. NEUROLOGIC: No focal neurological abnormalities. Assessment: 1. Large loculated pleural effusion 2. End-stage renal disease 3. LUE AVF Plan: Stable, pending VATS Consultation Date/Type/Reason Admit Date/Time Apr 06, 2019 at 21:13 Initial Consult Date 04/10/19 Type of Consult id Requesting Provider: DEVI ALFRED Date/Time of Note DATE: 04/23/19 TIME: 12:39 Exam/Review of Systems Exam Vitals Vital Signs Date Temp Pulse Resp B/P (MAP) Pulse Ox O2 O2 Flow FiO2 Time Delivery Rate 04/23/19 98.5 85 19 149/84 97 08:17 (105) 04/22/19 Room Air 17:04 Intake and Output 04/22/19 04/22/19 04/23/19 1515:00 23:00 07:00 IntakeIntake Total 1000 ml 480 ml OutputOutput Total 3400 ml BalanceBalance 1000 ml -2920 ml Results Result Diagram: 04/19/19 0553 04/19/19 0553 Medications Medication Current Medications IV Flush (NS 3 ml) 3 ml PER PROTOCOL IV ; Start 04/06/19 at 21:30 Ondansetron HCl (Zofran Inj) 4 mg Q6H PRN IV NAUSEA/VOMITING; Start 04/06/19 at 21:30 Acetaminophen (Tylenol Tab) 650 mg Q6H PRN PO .PAIN 1-3 OR TEMP; Start 04/06/19 at 21:30 Docusate Sodium (Colace) 100 mg Q12H PRN PO .CONSTIPATION; Start 04/06/19 at 21:30 Bisacodyl (Dulcolax) 5 mg DAILY PRN PO .CONSTIPATION; Start 04/06/19 at 21:30 Albumin Human 100 ml @ 100 mls/hr WITH DIALYSIS PRN IV SBP <90 DURING DIALYSIS; Start 04/06/19 at 22:30 Hydralazine HCl (Apresoline) 10 mg Q4 PRN IV SBP more than 150 mm hg Last administered on 04/23/19 03:23; Admin Dose 10 MG; Start 04/06/19 at 22:30 Albuterol (Ventolin Hfa) 2 puff Q4H RESP THERAPY PRN INH WHEEZING AND SOB; Start 04/06/19 at 22:30 Amlodipine Besylate (Norvasc) 10 mg DAILY PO Last administered on 04/23/19 08:51; Admin Dose 10 MG; Start 04/07/19 at 09:00 Aspirin (Halfprin) 81 mg DAILY PO Last administered on 04/23/19 08:51; Admin Dose 81 MG; Start 04/07/19 at 09:00 Atorvastatin Calcium (Lipitor) 80 mg QHS PO Last administered on 04/22/19 21:11; Admin Dose 80 MG; Start 04/07/19 at 21:00 Mometasone Furoate (Asmanex) 1 puff DAILY RESP THERAPY INH Last administered on 04/23/19 11:20; Admin Dose 1 PUFF; Start 04/07/19 at 12:00 Pantoprazole (Protonix Tab) 40 mg DAILY PO Last administered on 04/23/19 08:51; Admin Dose 40 MG; Start 04/07/19 at 09:00 Epoetin Andrew-epbx (Retacrit (Esrd)) 10,000 unit MONWEDFRI@1700 SC Last administered on 04/22/19 21:10; Admin Dose 10,000 UNIT; Start 04/17/19 at 17:00 DAT BENOIT NP Apr 23, 2019 12:40
--- NOTE | 2019-04-23 15:37 | PN ---
Date/Time of Note Date/Time of Note DATE: 04/23/19 TIME: 15:37 Assessment/Plan VTE Prophylaxis Risk score (from Nsg)>0 risk: 2 SCD applied (from Nsg): Yes Pharmacological prophylaxis: heparin Lines/Catheters IV Catheter Type (from Nrsg): Peripheral IV Urinary Cath still in place: No Assessment/Plan Hospital Course 68 yo male with ESRD who presents with COLON, found to have large R pleural effusion Pleural effusion: - Will require decortication by CT surgeon. Dr Cates to operate Saturday - 600 cc drained by thoracentesis. Suggestive of exudative process. S/p empiric antibiotic - Consult pulmonary and CV surgery ESRD: - Continue HD per renal Anemia of CKD - iron and EPO Hypertension: - Continue amlodipine Result Diagram: 04/19/19 0553 04/19/19 05 Subjective 24 Hr Interval Summary Free Text/Dictation No change to clinical status Awaiting VATS Exam/Review of Systems Exam Vitals Vital Signs Date Temp Pulse Resp B/P (MAP) Pulse Ox O2 O2 Flow FiO2 Time Delivery Rate 04/23/19 98.1 84 17 153/90 98 15:29 (111) 04/22/19 Room Air 17:04 Intake and Output 04/22/19 04/22/19 04/23/19 1515:00 23:00 07:00 IntakeIntake Total 1000 ml 480 ml OutputOutput Total 3400 ml BalanceBalance 1000 ml -2920 ml Constitutional: alert, oriented, well developed Psych: no complaints, nl mood/affect Head: normocephalic, atraumatic Eyes: nl conjunctiva, EOMI, nl lids, nl sclera, PERRL ENMT: nl external ears & nose, nl lips & teeth, nl nasal mucosa & septum Neck: supple, non-tender Respiratory: clear to auscultation, normal air movement Cardiovascular: regular rate and rhythm, nl pulses Gastrointestinal: soft, nl liver, spleen, non-tender Musculoskeletal: nl extremities to inspection, nl gait and stance Extremities: normal pulses Neurological: PSYCHIATRIC CNS II-XII intact, nl mental status, nl speech, nl strength Skin: nl turgor; No rash or lesions Lymph: nl lymph nodes Medications Medication Current Medications IV Flush (NS 3 ml) 3 ml PER PROTOCOL IV ; Start 04/06/19 at 21:30 Ondansetron HCl (Zofran Inj) 4 mg Q6H PRN IV NAUSEA/VOMITING; Start 04/06/19 at 21:30 Acetaminophen (Tylenol Tab) 650 mg Q6H PRN PO .PAIN 1-3 OR TEMP; Start 04/06/19 at 21:30 Docusate Sodium (Colace) 100 mg Q12H PRN PO .CONSTIPATION; Start 04/06/19 at 21:30 Bisacodyl (Dulcolax) 5 mg DAILY PRN PO .CONSTIPATION; Start 04/06/19 at 21:30 Albumin Human 100 ml @ 100 mls/hr WITH DIALYSIS PRN IV SBP <90 DURING DIALYSIS; Start 04/06/19 at 22:30 Hydralazine HCl (Apresoline) 10 mg Q4 PRN IV SBP more than 150 mm hg Last administered on 04/23/19at 15:32; Admin Dose 10 MG; Start 04/06/19 at 22:30 Albuterol (Ventolin Hfa) 2 puff Q4H RESP THERAPY PRN INH WHEEZING AND SOB; Start 04/06/19 at 22:30 Amlodipine Besylate (Norvasc) 10 mg DAILY PO Last administered on 04/23/19 08:51; Admin Dose 10 MG; Start 04/07/19 at 09:00 Aspirin (Halfprin) 81 mg DAILY PO Last administered on 04/23/19 08:51; Admin Dose 81 MG; Start 04/07/19 at 09:00 Atorvastatin Calcium (Lipitor) 80 mg QHS PO Last administered on 04/22/19at 21:11; Admin Dose 80 MG; Start 04/07/19 at 21:00 Mometasone Furoate (Asmanex) 1 puff DAILY RESP THERAPY INH Last administered on 04/23/19 11:20; Admin Dose 1 PUFF; Start 04/07/19 at 12:00 Pantoprazole (Protonix Tab) 40 mg DAILY PO Last administered on 04/23/19 08:51; Admin Dose 40 MG; Start 04/07/19 at 09:00 Epoetin Andrew-epbx (Retacrit (Esrd)) 10,000 unit MONWEDFRI@1700 SC Last administered on 04/22/19at 21:10; Admin Dose 10,000 UNIT; Start 04/17/19 at 17:00 MARIE MCCLAIN MD Apr 23, 2019 15:37
--- NOTE | 2019-04-23 15:40 | CONS ---
Assessment/Plan Assessment/Plan Assessment/Plan (Daily) 1. Acute fluid overload with acute Uremia due to missed HD- Improved, pt stable on 2 L NC 2. acute hyperkalemia due to Missed HD- now resolved 3. Large Loculated Right sided pleural effusion s/p R thoracentesis on 04/09/19- 600 cc drained - s/p CT surgery consult, awaiting VATS surgery 4. ESRD on HD - has been stayed out of [place] for 3 months- lost his HD chair time in [place]. 5. H/o HTN 6. H/o HL 7. H/o Hypothyroidism 8. Anemia of ESRD on Epogen Plan: Large Loculated Right sided pleural effusion s/p R thoracentesis on 04/09/19- 600 cc drained - s/p CT surgery consult, Plan for VATS surgery on Saturday continue current BP meds amlodipine 10mg po daily , IV hydralaine prn HIV< hepatitis panel negative- awaiting Outpatient HD placement confirmation will conitnue pt on MWF schedule for his hemodialysis- Plan for HD tomorrow Epogen 52706 units SQ MWF for Anemia Will follow up Consultation Date/Type/Reason Admit Date/Time Apr 06, 2019 at 21:13 Initial Consult Date 04/06/19 Type of Consult NEPHROLOGY Requesting Provider: DEVI ALFRED Date/Time of Note DATE: 04/23/19 TIME: 15:40 Exam/Review of Systems Exam Vitals Vital Signs Date Temp Pulse Resp B/P (MAP) Pulse Ox O2 O2 Flow FiO2 Time Delivery Rate 04/23/19 98.1 84 17 153/90 98 15:29 (111) 04/22/19 Room Air 17:04 Intake and Output 04/22/19 04/22/19 04/23/19 1515:00 23:00 07:00 IntakeIntake Total 1000 ml 480 ml OutputOutput Total 3400 ml BalanceBalance 1000 ml -2920 ml Exam Constitutional: alert, awake, no acute distress Respiratory: decreased BS on Left lung, no wheezing, no crackles, Cardiovascular: regular rate and rhythm, nl pulses Gastrointestinal: soft, non-tender Musculoskeletal: LUE AVF in place, no Edema, on cyanosis Neurological: TECHNICAL FELLOW II-XII intact, nl mental status, Non focal Results Result Diagram: 04/19/19 0553 04/19/19 0553 Medications Medication Current Medications IV Flush (NS 3 ml) 3 ml PER PROTOCOL IV ; Start 04/06/19 at 21:30 Ondansetron HCl (Zofran Inj) 4 mg Q6H PRN IV NAUSEA/VOMITING; Start 04/06/19 at 21:30 Acetaminophen (Tylenol Tab) 650 mg Q6H PRN PO .PAIN 1-3 OR TEMP; Start 04/06/19 at 21:30 Docusate Sodium (Colace) 100 mg Q12H PRN PO .CONSTIPATION; Start 04/06/19 at 21:30 Bisacodyl (Dulcolax) 5 mg DAILY PRN PO .CONSTIPATION; Start 04/06/19 at 21:30 Albumin Human 100 ml @ 100 mls/hr WITH DIALYSIS PRN IV SBP <90 DURING DIAL YSIS; Start 04/06/19 at 22:30 Hydralazine HCl (Apresoline) 10 mg Q4 PRN IV SBP more than 150 mm hg Last administered on 04/23/19at 15:32; Admin Dose 10 MG; Start 04/06/19 at 22:30 Albuterol (Ventolin Hfa) 2 puff Q4H RESP THERAPY PRN INH WHEEZING AND SOB; Start 04/06/19 at 22:30 Amlodipine Besylate (Norvasc) 10 mg DAILY PO Last administered on 04/23/19at 08:51; Admin Dose 10 MG; Start 04/07/19 at 09:00 Aspirin (Halfprin) 81 mg DAILY PO Last administered on 04/23/19 08:51; Admin Dose 81 MG; Start 04/07/19 at 09:00 Atorvastatin Calcium (Lipitor) 80 mg QHS PO Last administered on 04/22/19at 21 :11; Admin Dose 80 MG; Start 04/07/19 at 21:00 Mometasone Furoate (Asmanex) 1 puff DAILY RESP THERAPY INH Last administered on 04/23/19at 11:20; Admin Dose 1 PUFF; Start 04/07/19 at 12:00 Pantoprazole (Protonix Tab) 40 mg DAILY PO Last administered on 04/23/19at 08:51; Admin Dose 40 MG; Start 04/07/19 at 09:00 Epoetin Andrew-epbx (Retacrit (Esrd)) 10,000 unit MONWEDFRI@1700 SC Last administered on 04/22/19at 21:10; Admin Dose 10,000 UNIT; Start 04/17/19 at 17:00 VAN DHALIWAL MD Apr 23, 2019 15:40
[2019-04-23] MEDS: ATORVASTATIN 80 MG TAB PO SCH (21:33)
[2019-04-24] VITALS (63 sets, daily range): BP systolic 124–179; BP diastolic 60–103; PULSE 80–108; RESP 12–23
[2019-04-24] MEDS: SOD CHLORIDE 0.9% 1,000 ML IV SCH ×2 (07:30→22:13)
--- NOTE | 2019-04-24 07:36 | CONS ---
Assessment/Plan Assessment/Plan Assessment/Plan (Daily) 1. Acute fluid overload with acute Uremia due to missed HD- Improved, pt stable on 2 L NC 2. acute hyperkalemia due to Missed HD- now resolved 3. Large Loculated Right sided pleural effusion s/p R thoracentesis on 04/09/19- 600 cc drained - s/p CT surgery consult, awaiting VATS surgery 4. ESRD on HD - has been stayed out of [place] for 3 months- lost his HD chair time in [place]. 5. H/o HTN 6. H/o HL 7. H/o Hypothyroidism 8. 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 Cates Epogen 77752 units SQ MWF for Anemia Will follow up Consultation Date/Type/Reason Admit Date/Time Apr 06, 2019 at 21:13 Initial Consult Date 04/06/19 Type of Consult NEPHROLOGY Requesting Provider: DEVI ALFRED Date/Time of Note DATE: 04/24/19 TIME: 07:36 Exam/Review of Systems Exam Vitals Vital Signs Date Temp Pulse Resp B/P (MAP) Pulse Ox O2 O2 Flow FiO2 Time Delivery Rate 04/24/19 98.3 87 18 136/83 99 02:02 (100) 04/22/19 Room Air 17:04 Intake and Output 04/23/19 04/23/19 04/24/19 1515:00 23:00 07:00 IntakeIntake Total 1000 ml 480 ml BalanceBalance 1000 ml 480 ml Exam Constitutional: alert, awake, no acute distress Respiratory: decreased BS on Left lung, no wheezing, no crackles, Cardiovascular: regular rate and rhythm, nl pulses Gastrointestinal: soft, non-tender Musculoskeletal: LUE AVF in place, no Edema, on cyanosis Neurological: MINER OPERATOR II-XII intact, nl mental status, Non focal Results Result Diagram: 04/24/19 0549 04/24/19 0549 Results 24hrs Laboratory Tests Test 04/24/19 05:49 White Blood Count 6.5 Red Blood Count 3.68 L Hemoglobin 11.0 L Hematocrit 33.6 L Mean Corpuscular Volume 91.3 Mean Corpuscular Hemoglobin 29.9 Mean Corpuscular Hemoglobin Concent 32.7 Red Cell Distribution Width 14.4 Platelet Count 271 Mean Platelet Volume 10.0 Immature Granulocytes % 0.600 H Neutrophils % 65.6 Lymphocytes % 11.2 L Monocytes % 16.0 H Eosinophils % 5.8 Basophils % 0.8 Nucleated Red Blood Cells % 0.0 Immature Granulocytes # 0.040 H Neutrophils # 4.3 Lymphocytes # 0.7 L Monocytes # 1.0 H Eosinophils # 0.4 Basophils # 0.1 Nucleated Red Blood Cells # 0.0 Sodium Level 134 L Potassium Level 4.8 Chloride Level 91 L Carbon Dioxide Level 25 Anion Gap 18 H Blood Urea Nitrogen 65 H Creatinine 10.04 H Est Glomerular Filtrat Rate mL/min 5 L Glucose Level 84 Calcium Level 9.4 Medications Medication Current Medications IV Flush (NS 3 ml) 3 ml PER PROTOCOL IV ; Start 04/06/19 at 21:30 Ondansetron HCl (Zofran Inj) 4 mg Q6H PRN IV NAUSEA/VOMITING; Start 04/06/19 at 21:30 Acetaminophen (Tylenol Tab) 650 mg Q6H PRN PO .PAIN 1-3 OR TEMP; Start 04/06/19 at 21:30 Docusate Sodium (Colace) 100 mg Q12H PRN PO .CONSTIPATION; Start 04/06/19 at 21:30 Bisacodyl (Dulcolax) 5 mg DAILY PRN PO .CONSTIPATION; Start 04/06/19 at 21:30 Albumin Human 100 ml @ 100 mls/hr WITH DIALYSIS PRN IV SBP <90 DURING DIALYSIS; Start 04/06/19 at 22:30 Hydralazine HCl (Apresoline) 10 mg Q4 PRN IV SBP more than 150 mm hg Last administered on 04/23/19at 21:37; Admin Dose 10 MG; Start 04/06/19 at 22:30 Albuterol (Ventolin Hfa) 2 puff Q4H RESP THERAPY PRN INH WHEEZING AND SOB; Start 04/06/19 at 22:30 Amlodipine Besylate (Norvasc) 10 mg DAILY PO Last administered on 04/23/19at 08:51; Admin Dose 10 MG; Start 04/07/19 at 09:00 Aspirin (Halfprin) 81 mg DAILY PO Last administered on 04/23/19 08:51; Admin Dose 81 MG; Start 04/07/19 at 09:00 Atorvastatin Calcium (Lipitor) 80 mg QHS PO Last administered on 04/23/19at 21:33; Admin Dose 80 MG; Start 04/07/19 at 21:00 Mometasone Furoate (Asmanex) 1 puff DAILY RESP THERAPY INH Last administered on 04/23/19at 11:20; Admin Dose 1 PUFF; Start 04/07/19 at 12:00 Pantoprazole (Protonix Tab) 40 mg DAILY PO Last administered on 04/23/19 08:51; Admin Dose 40 MG; Start 04/07/19 at 09:00 Epoetin Andrew-epbx (Retacrit (Esrd)) 10,000 unit MONWEDFRI@1700 SC Last administered on 04/22/19at 21:10; Admin Dose 10,000 UNIT; Start 04/17/19 at 17:00 Sodium Chloride 1,000 ml @ 40 mls/hr Q24H IV ; Start 04/24/19 at 07:30 VAN DHALIWAL MD Apr 24, 2019 07:36
[2019-04-24] MEDS: ASPIRIN (EC) 81 MG TAB PO SCH (08:17)
[2019-04-24] MEDS: AMLODIPINE 10 MG TAB PO SCH (08:18)
[2019-04-24] MEDS: PANTOPRAZOLE (EC) 40 MG TAB PO SCH (08:18)
--- NOTE | 2019-04-24 08:57 | PREAC ---
Date/Time of Note Date/Time of Note DATE: 04/24/19 TIME: 08:54 Anesthesia Eval and Record Evaluation Time Pre-Procedure Interview DATE: 04/24/19 TIME: 08:54 Age 68 Sex male NPO: 8 hrs Preoperative diagnosis Right Loculated Pleural Effusion Planned procedure Right VATS Past Medical History Past Medical History: Includes Cardio: HTN, Dyslipidemia Endo: Hyperthyroid Pulm: Other (Right Loculated Pleural Effusion) Renal: ESRD on dialysis Heme: Anemia, Other (Hyperkalemia) Surgery & Anesthesia Issues No known issue Meds Anticoagulation: No Beta Mariano within 24 hr: No Reason Beta Mariano not given: Pt. not on B-Mariano Reported Medications Beclomethasone Dipropionate (Qvar Redihaler (80 MCG)) 10.6 Gm Hfa.aeroba, 10.6 GM IH BID, INH 08/08/18 Albuterol Sulfate* (Proair HFA*) 8.5 Gm Hfa.aer.ad, 2 PUFF INH Q4H PRN for WHEEZING AND SOB, #1 INHALER 08/08/18 Amlodipine Besylate* (Amlodipine Besylate*) 10 Mg Tablet, 10 MG PO DAILY, #30 TAB 08/08/18 Aspirin* (Aspirin* EC) 81 Mg Tablet.dr, 81 MG PO DAILY, TAB 08/08/18 Atorvastatin* (Atorvastatin*) 80 Mg Tablet, 80 MG PO QHS, #30 TAB 08/08/18 Omeprazole* (Omeprazole*) 20 Mg Capsule.dr, 20 MG PO DAILY, #30 CAP 08/08/18 Current Medications IV Flush (NS 3 ml) 3 ml PER PROTOCOL IV ; Start 04/06/19 at 21:30 Ondansetron HCl (Zofran Inj) 4 mg Q6H PRN IV NAUSEA/VOMITING; Start 04/06/19 at 21:30 Acetaminophen (Tylenol Tab) 650 mg Q6H PRN PO .PAIN 1-3 OR TEMP; Start 04/06/19 at 21:30 Docusate Sodium (Colace) 100 mg Q12H PRN PO .CONSTIPATION; Start 04/06/19 at 21:30 Bisacodyl (Dulcolax) 5 mg DAILY PRN PO .CONSTIPATION; Start 04/06/19 at 21:30 Albumin Human 100 ml @ 100 mls/hr WITH DIALYSIS PRN IV SBP <90 DURING DIALYSIS; Start 04/06/19 at 22:30 Hydralazine HCl (Apresoline) 10 mg Q4 PRN IV SBP more than 150 mm hg Last administered on 04/23/19 21:37; Admin Dose 10 MG; Start 04/06/19 at 22:30 Albuterol (Ventolin Hfa) 2 puff Q4H RESP THERAPY PRN INH WHEEZING AND SOB; Start 04/06/19 at 22:30 Amlodipine Besylate (Norvasc) 10 mg DAILY PO Last administered on 04/23/19 08:51; Admin Dose 10 MG; Start 04/07/19 at 09:00 Aspirin (Halfprin) 81 mg DAILY PO Last administered on 04/23/19 08:51; Admin Dose 81 MG; Start 04/07/19 at 09:00 Atorvastatin Calcium (Lipitor) 80 mg QHS PO Last administered on 04/23/19 21:33; Admin Dose 80 MG; Start 04/07/19 at 21:00 Mometasone Furoate (Asmanex) 1 puff DAILY RESP THERAPY INH Last administered on 04/23/19 11:20; Admin Dose 1 PUFF; Start 04/07/19 at 12:00 Pantoprazole (Protonix Tab) 40 mg DAILY PO Last administered on 04/23/19 08:51; Admin Dose 40 MG; Start 04/07/19 at 09:00 Epoetin Andrew-epbx (Retacrit (Esrd)) 10,000 unit MONWEDFRI@1700 SC Last administered on 04/22/19 21:10; Admin Dose 10,000 UNIT; Start 04/17/19 at 17:00 Sodium Chloride 1,000 ml @ 40 mls/hr Q24H IV ; Start 04/24/19 at 07:30 Meds reviewed: Yes Allergies Coded Allergies: No Known Allergy (Unverified , 08/08/18) Allergies Reviewed: Yes Labs/Studies Labs Reviewed: Reviewed by anesthesiologist Result Diagram: 04/24/19 0549 04/24/19 0549 Laboratory Tests 04/24/19 05:49 Blood Bank Test 04/23/19 23:06 Antibody Screen NEGATIVE Blood Product Summary Counts Blood Type A POSITIVE Crossmatch Red Blood Cells test: N/A Studies: ECG (n/a), CXR (There is a moderate size loculated right pleural effusion with adjacent pulmonary airspace disease. The left lung is clear and there is no left pleural effusion. ) Pre-procedure Exam Last vitals Vital Signs Date Temp Pulse Resp B/P (MAP) Pulse Ox O2 O2 Flow FiO2 Time Delivery Rate 04/24/19 98.3 84 18 161/93 98 Room Air 07:51 (115) Airway: Adequate mouth opening, Adequate thyromental dist Mallampati: Mallampati II Teeth: Normal Lung: Abnormal (Diminished Right side Breath Sound) Heart: Normal ASA Physical Status ASA physical status: 3 Emergency: None Planned Anesthetic General/MAC: ETT Nerve block: Paravetebral (right) Planned Pain Management Parenteral pain med Pre-operative Attestations Prior to commencing anesthesia and surgery, the patient was re-evaluated, there was verification of: *The patient's identity *The results of appropriate recent lab work and preoperative vital signs *The above evaluation not changing prior to induction *Anesthetic plan, risk benefits, alternative and complications discussed with patient/family; questions answered; patient/family understands, accepts and wishes to proceed. EBONIE ALVARADO MD Apr 24, 2019 08:56
[2019-04-24] MEDS ORDERED: FENTAnyl 50 MCG/ML VIAL ONE (09:16)
[2019-04-24] MEDS ORDERED: MIDAZOLAM 1 MG/ML 2 ML INJ ONE (09:16)
[2019-04-24] MEDS ORDERED: CEFAZOLIN 1 GM INJ ONE (09:16)
[2019-04-24] MEDS ORDERED: PROPOFOL 20 ML ONE (09:16)
[2019-04-24] MEDS ORDERED: ROCURONIUM 50 MG INJ ONE (09:16)
[2019-04-24] MEDS ORDERED: ROPIVACAINE 0.2% 20 ML VIAL ONE ×2 (11:30→13:24)
[2019-04-24] MEDS: MOMETASONE 0.24 GM INHALER INH SCH (12:00)
[2019-04-24] MEDS ORDERED: morphine SULFATE/PF (10 MG/10 ML) INJ ONE (13:24)
--- NOTE | 2019-04-24 14:27 | CONS ---
Consult Date/Type/Reason Admit Date/Time Apr 06, 2019 at 21:13 Initial Consult Date 04/10/19 Type of Consult Pulmonary Requesting Provider: DEVI ALFRED Date/Time of Note DATE: 04/24/19 TIME: 14:26 Subjective No changes. Patient scheduled for thoracic surgery today. Objective Vital Signs Date Temp Pulse Resp B/P (MAP) Pulse Ox O2 O2 Flow FiO2 Time Delivery Rate 04/24/19 93 10:30 04/24/19 18 162/96 99 Room Air 09:30 (118) 04/24/19 98.3 07:51 Intake and Output 04/23/19 04/23/19 04/24/19 1515:00 23:00 07:00 IntakeIntake Total 1000 ml 480 ml BalanceBalance 1000 ml 480 ml Exam PHYSICAL EXAMINATION: VITAL SIGNS: HEENT: Pupils are equal and reactive to light. NECK: Supple, no JVD noted. LUNGS: Decreased breath sounds at the right. CARDIOVASCULAR: S1, S2 normal. ABDOMEN: Soft, nontender. No organomegaly or masses noted. EXTREMITIES: No clubbing or cyanosis noted. NEUROLOGIC: No changes Vent Setting Fraction of Inspired Oxygen pe: 21 Results/Medications Result Diagram: 04/24/19 0549 04/24/19 1009 Results 24 hrs Laboratory Tests Test 04/24/19 05:49 04/24/19 10:09 White Blood Count 6.5 Red Blood Count 3.68 L Hemoglobin 11.0 L Hematocrit 33.6 L Mean Corpuscular Volume 91.3 Mean Corpuscular Hemoglobin 29.9 Mean Corpuscular Hemoglobin Concent 32.7 Red Cell Distribution Width 14.4 Platelet Count 271 Mean Platelet Volume 10.0 Immature Granulocytes % 0.600 H Neutrophils % 65.6 Lymphocytes % 11.2 L Monocytes % 16.0 H Eosinophils % 5.8 Basophils % 0.8 Nucleated Red Blood Cells % 0.0 Immature Granulocytes # 0.040 H Neutrophils # 4.3 Lymphocytes # 0.7 L Monocytes # 1.0 H Eosinophils # 0.4 Basophils # 0.1 Nucleated Red Blood Cells # 0.0 Sodium Level 134 L Potassium Level 4.8 4.3 Chloride Level 91 L Carbon Dioxide Level 25 Anion Gap 18 H Blood Urea Nitrogen 65 H Creatinine 10.04 H Est Glomerular Filtrat Rate mL/min 5 L Glucose Level 84 Calcium Level 9.4 Medications Current Medications IV Flush (NS 3 ml) 3 ml PER PROTOCOL IV ; Start 04/06/19 at 21:30 Ondansetron HCl (Zofran Inj) 4 mg Q6H PRN IV NAUSEA/VOMITING; Start 04/06/19 at 21:30 Acetaminophen (Tylenol Tab) 650 mg Q6H PRN PO .PAIN 1-3 OR TEMP; Start 04/06/19 at 21:30 Docusate Sodium (Colace) 100 mg Q12H PRN PO .CONSTIPATION; Start 04/06/19 at 21:30 Bisacodyl (Dulcolax) 5 mg DAILY PRN PO .CONSTIPATION; Start 04/06/19 at 21:30 Albumin Human 100 ml @ 100 mls/hr WITH DIALYSIS PRN IV SBP <90 DURING DIALYSIS; Start 04/06/19 at 22:30 Hydralazine HCl (Apresoline) 10 mg Q4 PRN IV SBP more than 150 mm hg Last administered on 04/23/19at 21:37; Admin Dose 10 MG; Start 04/06/19 at 22:30 Albuterol (Ventolin Hfa) 2 puff Q4H RESP THERAPY PRN INH WHEEZING AND SOB; Start 04/06/19 at 22:30 Amlodipine Besylate (Norvasc) 10 mg DAILY PO Last administered on 04/23/19 08:51; Admin Dose 10 MG; Start 04/07/19 at 09:00 Aspirin (Halfprin) 81 mg DAILY PO Last administered on 04/23/19 08:51; Admin Dose 81 MG; Start 04/07/19 at 09:00 Atorvastatin Calcium (Lipitor) 80 mg QHS PO Last administered on 04/23/19 21:33; Admin Dose 80 MG; Start 04/07/19 at 21:00 Mometasone Furoate (Asmanex) 1 puff DAILY RESP THERAPY INH Last administered on 04/23/19 11:20; Admin Dose 1 PUFF; Start 04/07/19 at 12:00 Pantoprazole (Protonix Tab) 40 mg DAILY PO Last administered on 04/23/19 08:51; Admin Dose 40 MG; Start 04/07/19 at 09:00 Epoetin Andrew-epbx (Retacrit (Esrd)) 10,000 unit MONWEDFRI@1700 SC Last administered on 6/26/19at 21:10; Admin Dose 10,000 UNIT; Start 04/17/19 at 17:00 Sodium Chloride 1,000 ml @ 40 mls/hr Q24H IV ; Start 04/24/19 at 07:30 Hydromorphone HCl (Dilaudid) 0.2 mg Q2H PRN IV .PAIN 1-5; Start 04/24/19 at 14:30; Status UNV Hydromorphone HCl (Dilaudid) 0.4 mg Q2H PRN IV .PAIN 6-10; Start 04/24/19 at 14:30; Status UNV Morphine Sulfate (morphine) 2 mg Q2H PRN IV .PAIN 1-5; Start 04/24/19 at 14:30; Status UNV Morphine Sulfate (morphine) 4 mg Q2H PRN IV .PAIN 6-10; Start 04/24/19 at 14:30; Status UNV Acetaminophen (Tylenol Tab) 500 mg Q4H PRN PO .PAIN 1-3; Start 04/24/19 at 14:30; Status UNV Diphenhydramine HCl (Benadryl) 25 mg Q4H PRN IV .PRURITUS; Start 04/24/19 at 14:30; Status UNV Nalbuphine HCl (Nubain) 10 mg Q4H PRN IV .PRURITUS; Start 04/24/19 at 14:30; Status UNV Ondansetron HCl (Zofran Inj) 4 mg Q6H PRN IV .NAUSEA/VOMITING; Start 04/24/19 at 14:30; Status UNV Naloxone HCl (Narcan) 0.2 mg Q2M PRN IV .RESP RATE; Start 04/24/19 at 14:30; Status UNV Miscellaneous Information (* Miscellaneous Pharmacy Order) DURAMORPH: 3 MG EPIDU... GIVEN NEURAXIAL XX ; Start 04/24/19 at 14:30; Status UNV Fentanyl/ Ropivacaine 100 ml CONT EPIDURAL EPI ; Start 04/24/19 at 14:30; Status UNV Hydromorphone HCl (Dilaudid) 0.2 mg PACU PRN IV MILD PAIN 1-3; Start 04/24/19 at 14:30; Status UNV Hydromorphone HCl (Dilaudid) 0.4 mg PACU PRN IV MOD PAIN 4-6; Start 04/24/19 at 14:30; Status UNV Hydromorphone HCl (Dilaudid) 0.6 mg PACU PRN IV SEVERE PAIN 7-10; Start 04/24/19 at 14:30; Status UNV Fentanyl (Sublimaze) 25 mcg PACU ORDER PRN IV MILD PAIN 1-3; Start 04/24/19 at 14:30; Status UNV Fentanyl (Sublimaze) 50 mcg PACU ORDER PRN IV MOD PAIN 4-6; Start 04/24/19 at 14:30; Status UNV Ondansetron HCl (Zofran Inj) 4 mg PACU ORDER PRN IV NAUSEA/VOMITING; Start 04/24/19 at 14:30; Status UNV Labetalol HCl (Labetalol) 5 mg PACU ORDER PRN IV HIGH BLOOD PRESSURE; Start 04/24/19 at 14:30; Status UNV Hydralazine HCl (Apresoline) 5 mg PACU ORDER PRN IV HIGH BLOOD PRESSURE; Start 04/24/19 at 14:30; Status UNV Ephedrine Sulfate 5 mg PACU ORDER PRN IV BLOOD PRESSURE SUPPORT; Start 04/24/19 at 14:30; Status UNV Albumin Human 250 ml @ 750 mls/hr PACU ORDER PRN IV BP SUPPORT; Start 04/24/19 at 14:30; Status UNV Albuterol (Proventil 0.083% (Neb)) 2.5 mg PACU ORDER PRN HHN .WHEEZING; Start 04/24/19 at 14:30; Status UNV Ipratropium [place] (Atrovent 0.02% (Neb)) 0.5 mg PACU ORDER PRN HHN .WHEEZING; Start 04/24/19 at 14:30; Status UNV Meperidine HCl (Demerol) 25 mg PACU ORDER PRN IV .RIGORS; Start 04/24/19 at 14:30; Status UNV Diphenhydramine HCl (Benadryl) 25 mg PACU ORDER PRN IV .PRURITUS; Start 04/24/19 at 14:30; Status UNV Assessment/Plan Hospital Course (Demo Recall) IMPRESSION: 1. Complicated right parapneumonic effusion. 2. End-stage renal disease on hemodialysis. 3. History of hypertension. 4. Anemia. PLAN: 1. Continue antibiotics. 2. Continue oxygen as necessary. 3. Video-assisted thorascopic surgery scheduled for today. DAHLIA ROMERO MD, [facility] Apr 24, 2019 14:27
[2019-04-24] MEDS ORDERED: FENTAnyl 50 MCG/ML VIAL IV PRN ×3 (14:30→16:00)
[2019-04-24] MEDS ORDERED: NALOXONE (0.4 MG/ML) INJ IV PRN (14:30)
[2019-04-24] MEDS ORDERED: hydrALAzine 20 MG INJ IV PRN ×2 (14:30→16:00)
[2019-04-24] MEDS ORDERED: DIPHENHYDRAMINE 50 MG INJ IV PRN ×2 (14:30)
[2019-04-24] MEDS ORDERED: ALBUTEROL 0.083% (NEB) 2.5 MG/3 ML AMP HHN PRN ×2 (14:30→16:00)
[2019-04-24] MEDS ORDERED: HYDROmorphONE 0.5 MG/0.5 ML SYG IV PRN ×3 (14:30→16:00)
[2019-04-24] MEDS ORDERED: IPRATROPIUM (NEB) 0.5 MG/2.5 ML AMP HHN PRN ×2 (14:30→16:00)
[2019-04-24] MEDS ORDERED: HYDROmorphONE 1 MG/5 ML IV SYRINGE IV PRN ×3 (14:30)
[2019-04-24] MEDS ORDERED: ALBUMIN HUMAN 5% 250 ML IV PRN (14:30)
[2019-04-24] MEDS ORDERED: morphine 2 MG INJ IV PRN ×2 (14:30)
[2019-04-24] MEDS ORDERED: ACETAMINOPHEN 500 MG TAB PO PRN (14:30)
[2019-04-24] MEDS ORDERED: NALBUPHINE HCL (10 MG/1 ML) INJ IV PRN (14:30)
[2019-04-24] MEDS ORDERED: EPHEDrine 25 MG/5 ML SYG IV PRN ×2 (14:30→16:00)
[2019-04-24] MEDS ORDERED: ONDANSETRON 4 MG INJ IV PRN ×3 (14:30→16:00)
[2019-04-24] MEDS ORDERED: LABETALOL HCL 20MG INJ IV PRN ×2 (14:30→16:00)
[2019-04-24] MEDS ORDERED: MEPERIDINE 25 MG INJ IV PRN (14:30)
--- NOTE | 2019-04-24 14:30 | CONS ---
Assessment/Plan Assessment/Plan Hospital Course (Demo Recall) No events over night Microbiology: Fluid cx neg Antimicrobials: PHYSICAL EXAMINATION: GENERAL: The patient is a well-developed, well-nourished male. VITAL SIGNS: Stable. He is afebrile. SKIN: Without generalized rash. HEENT: Within normal limits. NECK: Supple. LYMPH NODES: None palpable. CHEST: Decreased breath sounds at the bases, right greater than left. HEART: Without murmur or gallop. ABDOMEN: Soft, nontender without organosplenomegaly or masses. EXTREMITIES: Without cyanosis, clubbing or edema. RECTAL AND GENITAL: Deferred. NEUROLOGIC: No focal neurological abnormalities. Assessment: 1. Large loculated pleural effusion 2. End-stage renal disease 3. LUE AVF Plan: Stable, pending VATS Consultation Date/Type/Reason Admit Date/Time Apr 06, 2019 at 21:13 Initial Consult Date 04/10/19 Type of Consult id Requesting Provider: DEVI ALFRED Date/Time of Note DATE: 04/24/19 TIME: 14:29 Exam/Review of Systems Exam Vitals Vital Signs Date Temp Pulse Resp B/P (MAP) Pulse Ox O2 O2 Flow FiO2 Time Delivery Rate 04/24/19 93 10:30 04/24/19 18 162/96 99 Room Air 09:30 (118) 04/24/19 98.3 07:51 Intake and Output 04/23/19 04/23/19 04/24/19 1515:00 23:00 07:00 IntakeIntake Total 1000 ml 480 ml BalanceBalance 1000 ml 480 ml Results Result Diagram: 04/24/19 0549 04/24/19 1009 Results 24hrs Laboratory Tests Test 04/24/19 05:49 04/24/19 10:09 04/24/19 14:07 White Blood Count 6.5 Red Blood Count 3.68 L Hemoglobin 11.0 L Hematocrit 33.6 L Mean Corpuscular Volume 91.3 Mean Corpuscular Hemoglobin 29.9 Mean Corpuscular 32.7 Hemoglobin Concent Red Cell Distribution Width 14.4 Platelet Count 271 Mean Platelet Volume 10.0 Immature Granulocytes % 0.600 H Neutrophils % 65.6 Lymphocytes % 11.2 L Monocytes % 16.0 H Eosinophils % 5.8 Basophils % 0.8 Nucleated Red Blood Cells % 0.0 Immature Granulocytes # 0.040 H Neutrophils # 4.3 Lymphocytes # 0.7 L Monocytes # 1.0 H Eosinophils # 0.4 Basophils # 0.1 Nucleated Red Blood Cells # 0.0 Sodium Level 134 L Potassium Level 4.8 4.3 Chloride Level 91 L Carbon Dioxide Level 25 Anion Gap 18 H Blood Urea Nitrogen 65 H Creatinine 10.04 H Est Glomerular Filtrat 5 L Rate mL/min Glucose Level 84 Calcium Level 9.4 Blood Gas Specimen Source Blood arterial Arterial Blood Date Drawn 04/24/2019 1:58:24 PM Arterial Blood pH 7.367 (Temp corrected) Arterial Blood pCO2 40.9 (Temp correct) Arterial Blood pO2 423.0 H (Temp corrected) Arterial Blood HCO3 23.0 Arterial Blood Base Excess -2.2 Arterial Blood 99.9 H Oxygen Saturation Fan Test ACCEPTAB Arterial Blood Gas Right Radial Puncture Site Arterial 0.7 Blood Carboxyhemoglobin Arterial Blood Methemoglobin 0.1 Blood Gas A-a O2 249.1 H Differential Oxyhemoglobin Percent 99.1 H Blood Gas Temperature 37.0 Blood Gas Respiration Rate 8.0 Blood Gas Actual 8 Respiration Rate Blood Gas Modality VENT - AC FiO2 100.0 Blood Gas Tidal Volume 500.0 Blood Gas Notified Whom TM Blood Gas Notified Time 04/24/2019 2:26:55 PM Medications Medication Current Medications IV Flush (NS 3 ml) 3 ml PER PROTOCOL IV ; Start 04/06/19 at 21:30 Ondansetron HCl (Zofran Inj) 4 mg Q6H PRN IV NAUSEA/VOMITING; Start 04/06/19 at 21:30 Acetaminophen (Tylenol Tab) 650 mg Q6H PRN PO .PAIN 1-3 OR TEMP; Start 04/06/19 at 21:30 Docusate Sodium (Colace) 100 mg Q12H PRN PO .CONSTIPATION; Start 04/06/19 at 21:30 Bisacodyl (Dulcolax) 5 mg DAILY PRN PO .CONSTIPATION; Start 04/06/19 at 21:30 Albumin Human 100 ml @ 100 mls/hr WITH DIALYSIS PRN IV SBP <90 DURING DIALYSIS; Start 04/06/19 at 22:30 Hydralazine HCl (Apresoline) 10 mg Q4 PRN IV SBP more than 150 mm hg Last administered on 04/23/19at 21:37; Admin Dose 10 MG; Start 04/06/19 at 22:30 Albuterol (Ventolin Hfa) 2 puff Q4H RESP THERAPY PRN INH WHEEZING AND SOB; Start 04/06/19 at 22:30 Amlodipine Besylate (Norvasc) 10 mg DAILY PO Last administered on 04/23/19at 08:51; Admin Dose 10 MG; Start 04/07/19 at 09:00 Aspirin (Halfprin) 81 mg DAILY PO Last administered on 04/23/19at 08:51; Admin Dose 81 MG; Start 04/07/19 at 09:00 Atorvastatin Calcium (Lipitor) 80 mg QHS PO Last administered on 04/23/19at 21:33; Admin Dose 80 MG; Start 04/07/19 at 21:00 Mometasone Furoate (Asmanex) 1 puff DAILY RESP THERAPY INH Last administered on 04/23/19at 11:20; Admin Dose 1 PUFF; Start 04/07/19 at 12:00 Pantoprazole (Protonix Tab) 40 mg DAILY PO Last administered on 04/23/19at 08:51; Admin Dose 40 MG; Start 04/07/19 at 09:00 Epoetin Andrew-epbx (Retacrit (Esrd)) 10,000 unit MONWEDFRI@1700 SC Last administered on 04/22/19at 21:10; Admin Dose 10,000 UNIT; Start 04/17/19 at 17:00 Sodium Chloride 1,000 ml @ 40 mls/hr Q24H IV ; Start 04/24/19 at 07:30 Hydromorphone HCl (Dilaudid) 0.2 mg Q2H PRN IV .PAIN 1-5; Start 04/24/19 at 14:30; Status UNV Hydromorphone HCl (Dilaudid) 0.4 mg Q2H PRN IV .PAIN 6-10; Start 04/24/19 at 14:30; Status UNV Morphine Sulfate (morphine) 2 mg Q2H PRN IV .PAIN 1-5; Start 04/24/19 at 14:30; Status UNV Morphine Sulfate (morphine) 4 mg Q2H PRN IV .PAIN 6-10; Start 04/24/19 at 14:30; Status UNV Acetaminophen (Tylenol Tab) 500 mg Q4H PRN PO .PAIN 1-3; Start 04/24/19 at 14:30; Status UNV Diphenhydramine HCl (Benadryl) 25 mg Q4H PRN IV .PRURITUS; Start 04/24/19 at 14:30; Status UNV Nalbuphine HCl (Nubain) 10 mg Q4H PRN IV .PRURITUS; Start 04/24/19 at 14:30; Status UNV Ondansetron HCl (Zofran Inj) 4 mg Q6H PRN IV .NAUSEA/VOMITING; Start 04/24/19 at 14:30; Status UNV Naloxone HCl (Narcan) 0.2 mg Q2M PRN IV .RESP RATE; Start 04/24/19 at 14:30; Status UNV Miscellaneous Information (* Miscellaneous Pharmacy Order) DURAMORPH: 3 MG EPIDU... GIVEN NEURAXIAL XX ; Start 04/24/19 at 14:30; Status UNV Fentanyl/ Ropivacaine 100 ml CONT EPIDURAL EPI ; Start 04/24/19 at 14:30; Status UNV Hydromorphone HCl (Dilaudid) 0.2 mg PACU PRN IV MILD PAIN 1-3; Start 04/24/19 at 14:30; Status UNV Hydromorphone HCl (Dilaudid) 0.4 mg PACU PRN IV MOD PAIN 4-6; Start 04/24/19 at 14:30; Status UNV Hydromorphone HCl (Dilaudid) 0.6 mg PACU PRN IV SEVERE PAIN 7-10; Start 04/24/19 at 14:30; Status UNV Fentanyl (Sublimaze) 25 mcg PACU ORDER PRN IV MILD PAIN 1-3; Start 04/24/19 at 14:30; Status UNV Fentanyl (Sublimaze) 50 mcg PACU ORDER PRN IV MOD PAIN 4-6; Start 04/24/19 at 14:30; Status UNV Ondansetron HCl (Zofran Inj) 4 mg PACU ORDER PRN IV NAUSEA/VOMITING; Start 04/24/19 at 14:30; Status UNV Labetalol HCl (Labetalol) 5 mg PACU ORDER PRN IV HIGH BLOOD PRESSURE; Start 04/24/19 at 14:30; Status UNV Hydralazine HCl (Apresoline) 5 mg PACU ORDER PRN IV HIGH BLOOD PRESSURE; Start 04/24/19 at 14:30; Status UNV Ephedrine Sulfate 5 mg PACU ORDER PRN IV BLOOD PRESSURE SUPPORT; Start 04/24/19 at 14:30; Status UNV Albumin Human 250 ml @ 750 mls/hr PACU ORDER PRN IV BP SUPPORT; Start 04/24/19 at 14:30; Status UNV Albuterol (Proventil 0.083% (Neb)) 2.5 mg PACU ORDER PRN HHN .WHEEZING; Start 04/24/19 at 14:30; Status UNV Ipratropium [place] (Atrovent 0.02% (Neb)) 0.5 mg PACU ORDER PRN HHN .WHEEZING; Start 04/24/19 at 14:30; Status UNV Meperidine HCl (Demerol) 25 mg PACU ORDER PRN IV .RIGORS; Start 04/24/19 at 14:30; Status UNV Diphenhydramine HCl (Benadryl) 25 mg PACU ORDER PRN IV .PRURITUS; Start 04/24/19 at 14:30; Status UNV DAT BENOIT NP Apr 24, 2019 14:30
[2019-04-24] MEDS ORDERED: METOCLOPRAMIDE 10 MG INJ ONE (14:36)
[2019-04-24] MEDS ORDERED: ONDANSETRON 4 MG INJ ONE (14:36)
[2019-04-24] MEDS ORDERED: DEXAMETHASONE 4 MG/ML 5 ML INJ ONE (14:36)
[2019-04-24] MEDS ORDERED: SUGAMMADEX SODIUM 200 MG/2 ML VIAL IV ONE (14:36)
[2019-04-24] MEDS ORDERED: hydrALAzine 20 MG INJ ONE (14:52)
--- NOTE | 2019-04-24 15:08 | PAC ---
Date/Time of Note Date/Time of Note DATE: 04/24/19 TIME: 15:07 Post-Anesthesia Notes Post-Anesthesia Note Last documented vital signs Vital Signs Date Temp Pulse Resp B/P (MAP) Pulse Ox O2 O2 Flow FiO2 Time Delivery Rate 04/24/19 93 10:30 04/24/19 97.8 87 18 162/96 99 Room Air 15:10 (118) 04/24/19 98.3 07:51 Activity: WNL Respiratory function: WNL Cardiovascular function: WNL Mental status: Baseline Pain reasonably controlled: Yes Hydration appropriate: Yes Nausea/Vomiting absent: Yes EBONIE ALVARADO MD Apr 24, 2019 15:08
--- NOTE | 2019-04-24 15:15 | OPR ---
Date/Time of Note Date/Time of Note DATE: 04/24/19 TIME: 15:10 Operative Report Procedure Date: Apr 24, 2019 Preoperative Diagnosis Right loculated pleural effusion Postoperative Diagnosis Same Operation/Procedure Performed Right thoracotomy total pulmonary decortication Diagnostic right video-assisted thoracic surgery Bronchoscopy Surgeon see signature line Cartridge Feeder Lien Castellon Anesthesia Type: general Estimated Blood Loss: 50 - 100 ml's Transfusion 1 unit Specimen Peel Grafts/Implants none Complications none Pt Condition Post Procedure: critical Indications This is a 68-year-old male with a history of hypertension hyperlipidemia currently on dialysis patient was found to have shortness of breath part of his work-up included a chest x-ray and a CAT scan which showed large loculated right-sided pleural effusion with a peel patient is not improving with medical management I had a long talk with the patient response comp occasions alternative therapies explained to the patient high risk nature of the operation including possibility of bleeding infection lung injury need for further surgeries fully explained to the patient and we proceeded Procedure Description Patient was placed in supine position intubated bronchoscopy was done no evidence of any endobronchial lesions were noted Patient was placed in left lateral decubitus position axillary roll placed all pressure points were padded prepped and draped in usual sterile fashion Timeout was called and I started Thoracoscopy was done using a 5 mm trocar at the tip of the scapula 1 cm incision fifth intercostal space anterior axillary line and a 1 cm incision mid axillary line ninth intercostal space Large amount of fluid was noted with a very very thick peel which was hard and unable to be dissected at this time I just decided to proceed with a formal thoracotomy and decortication A 12 cm incision was made seventh intercostal space anterolaterally incision was taken down to subcutaneous tissue serratus anterior muscle was latissimus dorsi muscle was retracted posteriorly seventh intercostal space was entered chest retractor was placed and the chest was opened large cavity was noted to be in place with a very thick peel surrounding the lung decortication was started inferiorly and posteriorly and superiorly the whole lung was decorticated and expanded multiple small air leaks were noted which were treated with Tisseel no evidence of any major bleeding was noted the lung expanded completely 2 chest tubes 36 straight and 36 right angle were placed brought out through the trocar incision secured to skin using 2-0 silk sutures the ribs were reapproximated using #2 Vicryl suture [id number] x4 serratus anterior muscle was reapproximated using #1 Vicryl suture in a running fashion subcu was closed using 2-0 Vicryl suture skin was closed using annie patient did have a's air leak at the end of the operation which was intermittent extubated w ithout any problems tolerated procedure well MALOU GAN MD Apr 24, 2019 15:15
--- NOTE | 2019-04-24 15:34 | PREAC ---
Date/Time of Note Date/Time of Note DATE: 04/24/19 TIME: 15:31 Anesthesia Eval and Record Evaluation Time Pre-Procedure Interview DATE: 04/24/19 TIME: 15:31 Age 68 Sex male NPO: 8 hrs Preoperative diagnosis Respiratory Failure Planned procedure Tracheostomy Past Medical History Past Medical History: Includes Cardio: HTN, Dyslipidemia Hepatic: Cirrhosis, Other (systemic Macrocytosis) Heme: Anemia Surgery & Anesthesia Issues No known issue Meds Anticoagulation: No Beta Mariano within 24 hr: No Reason Beta Mariano not given: Pt. not on B-Mariano Reported Medications Beclomethasone Dipropionate (Qvar Redihaler (80 MCG)) 10.6 Gm Hfa.aeroba, 10.6 GM IH BID, INH 08/08/18 Albuterol Sulfate* (Proair HFA*) 8.5 Gm Hfa.aer.ad, 2 PUFF INH Q4H PRN for WHEEZING AND SOB, #1 INHALER 08/08/18 Amlodipine Besylate* (Amlodipine Besylate*) 10 Mg Tablet, 10 MG PO DAILY, #30 TAB 08/08/18 Aspirin* (Aspirin* EC) 81 Mg Tablet.dr, 81 MG PO DAILY, TAB 08/08/18 Atorvastatin* (Atorvastatin*) 80 Mg Tablet, 80 MG PO QHS, #30 TAB 08/08/18 Omeprazole* (Omeprazole*) 20 Mg Capsule.dr, 20 MG PO DAILY, #30 CAP 08/08/18 Current Medications IV Flush (NS 3 ml) 3 ml PER PROTOCOL IV ; Start 04/06/19 at 21:30 Ondansetron HCl (Zofran Inj) 4 mg Q6H PRN IV NAUSEA/VOMITING; Start 04/06/19 at 21:30 Acetaminophen (Tylenol Tab) 650 mg Q6H PRN PO .PAIN 1-3 OR TEMP; Start 04/06/19 at 21:30 Docusate Sodium (Colace) 100 mg Q12H PRN PO .CONSTIPATION; Start 04/06/19 at 21:30 Bisacodyl (Dulcolax) 5 mg DAILY PRN PO .CONSTIPATION; Start 04/06/19 at 21:30 Albumin Human 100 ml @ 100 mls/hr WITH DIALYSIS PRN IV SBP <90 DURING DIALYSIS; Start 04/06/19 at 22:30 Hydralazine HCl (Apresoline) 10 mg Q4 PRN IV SBP more than 150 mm hg Last administered on 04/23/19at 21:37; Admin Dose 10 MG; Start 04/06/19 at 22:30 Albuterol (Ventolin Hfa) 2 puff Q4H RESP THERAPY PRN INH WHEEZING AND SOB; Start 04/06/19 at 22:30 Amlodipine Besylate (Norvasc) 10 mg DAILY PO Last administered on 04/23/19 08:51; Admin Dose 10 MG; Start 04/07/19 at 09:00 Aspirin (Halfprin) 81 mg DAILY PO Last administered on 04/23/19 08:51; Admin Dose 81 MG; Start 04/07/19 at 09:00 Atorvastatin Calcium (Lipitor) 80 mg QHS PO Last administered on 04/23/19 21:33; Admin Dose 80 MG; Start 04/07/19 at 21:00 Mometasone Furoate (Asmanex) 1 puff DAILY RESP THERAPY INH Last administered on 04/23/19 11:20; Admin Dose 1 PUFF; Start 04/07/19 at 12:00 Pantoprazole (Protonix Tab) 40 mg DAILY PO Last administered on 04/23/19 08:51; Admin Dose 40 MG; Start 04/07/19 at 09:00 Epoetin Andrew-epbx (Retacrit (Esrd)) 10,000 unit MONWEDFRI@1700 SC Last administered on 04/22/19at 21:10; Admin Dose 10,000 UNIT; Start 04/17/19 at 17:00 Sodium Chloride 1,000 ml @ 40 mls/hr Q24H IV ; Start 04/24/19 at 07:30 Hydromorphone HCl (Dilaudid) 0.2 mg Q2H PRN IV .PAIN 1-5; Start 04/24/19 at 14:30 Hydromorphone HCl (Dilaudid) 0.4 mg Q2H PRN IV .PAIN 6-10; Start 04/24/19 at 14:30 Morphine Sulfate (morphine) 2 mg Q2H PRN IV .PAIN 1-5; Start 04/24/19 at 14:30 Morphine Sulfate (morphine) 4 mg Q2H PRN IV .PAIN 6-10; Start 04/24/19 at 14:30 Acetaminophen (Tylenol Tab) 500 mg Q4H PRN PO .PAIN 1-3; Start 04/24/19 at 14:30 Diphenhydramine HCl (Benadryl) 25 mg Q4H PRN IV .PRURITUS; Start 04/24/19 at 14:30 Nalbuphine HCl (Nubain) 10 mg Q4H PRN IV .PRURITUS; Start 04/24/19 at 14:30 Ondansetron HCl (Zofran Inj) 4 mg Q6H PRN IV .NAUSEA/VOMITING; Start 04/24/19 at 14:30 Naloxone HCl (Narcan) 0.2 mg Q2M PRN IV .RESP RATE; Start 04/24/19 at 14:30 Miscellaneous Information (* Miscellaneous Pharmacy Order) DURAMORPH: 3 MG EPIDU ... GIVEN NEURAXIAL XX ; Start 04/24/19 at 14:30 Fentanyl/ Ropivacaine 100 ml CONT EPIDURAL EPI ; Start 04/24/19 at 14:30 Hydromorphone HCl (Dilaudid) 0.2 mg PACU PRN IV MILD PAIN 1-3; Start 04/24/19 at 14:30; Stop 04/24/19 at 19:00 Hydromorphone HCl (Dilaudid) 0.4 mg PACU PRN IV MOD PAIN 4-6; Start 04/24/19 at 14:30; Stop 04/24/19 at 19:00 Hydromorphone HCl (Dilaudid) 0.6 mg PACU PRN IV SEVERE PAIN 7-10; Start 04/24/19 at 14:30; Stop 04/24/19 at 19:00 Fentanyl (Sublimaze) 25 mcg PACU ORDER PRN IV MILD PAIN 1-3; Start 04/24/19 at 14:30; Stop 04/24/19 at 19:00 Fentanyl (Sublimaze) 50 mcg PACU ORDER PRN IV MOD PAIN 4-6; Start 04/24/19 at 14:30; Stop 04/24/19 at 19:00 Ondansetron HCl (Zofran Inj) 4 mg PACU ORDER PRN IV NAUSEA/VOMITING; Start 04/24/19 at 14:30; Stop 04/24/19 at 19:00 Labetalol HCl (Labetalol) 5 mg PACU ORDER PRN IV HIGH BLOOD PRESSURE; Start 04/24/19 at 14:30; Stop 04/24/19 at 19:00 Hydralazine HCl (Apresoline) 5 mg PACU ORDER PRN IV HIGH BLOOD PRESSURE; Start 04/24/19 at 14:30; Stop 04/24/19 at 19:00 Ephedrine Sulfate 5 mg PACU ORDER PRN IV BLOOD PRESSURE SUPPORT; Start 04/24/19 at 14:30; Stop 04/24/19 at 19:00 Albumin Human 250 ml @ 750 mls/hr PACU ORDER PRN IV BP SUPPORT; Start 04/24/19 at 14:30; Stop 04/24/19 at 19:00 Albuterol (Proventil 0.083% (Neb)) 2.5 mg PACU ORDER PRN HHN .WHEEZING; Start 04/24/19 at 14:30; Stop 04/24/19 at 19:00 Ipratropium [place] (Atrovent 0.02% (Neb)) 0.5 mg PACU ORDER PRN HHN .WHEEZING; Start 04/24/19 at 14:30; Stop 04/24/19 at 19:00 Meperidine HCl (Demerol) 25 mg PACU ORDER PRN IV .RIGORS; Start 04/24/19 at 14:30; Stop 04/24/19 at 19:00 Diphenhydramine HCl (Benadryl) 25 mg PACU ORDER PRN IV .PRURITUS; Start 04/24/19 at 14:30; Stop 04/24/19 at 19:00 Meds reviewed: Yes Allergies Coded Allergies: No Known Allergy (Unverified , 08/08/18) Allergies Reviewed: Yes Labs/Studies Labs Reviewed: Reviewed by anesthesiologist Result Diagram: 04/24/19 0549 04/24/19 1009 Laboratory Tests 04/24/19 05:49 04/24/19 10:09 Blood Bank Test 04/23/19 23:06 Antibody Screen NEGATIVE Blood Product Summary Counts Blood Type A POSITIVE Crossmatch Red Blood Cells test: N/A Studies: ECG (NSR with PVC's) Pre-procedure Exam Last vitals Vital Signs Date Temp Pulse Resp B/P (MAP) Pulse Ox O2 O2 Flow FiO2 Time Delivery Rate 04/24/19 93 10:30 04/24/19 18 162/96 99 Room Air 09:30 (118) 04/24/19 98.3 07:51 Airway: Adequate mouth opening, Adequate thyromental dist Mallampati: Mallampati II Teeth: Abnormal (missing) Lung: Abnormal (Intubated with respiratory Failure) Heart: Normal ASA Physical Status ASA physical status: 4 Emergency: None Planned Anesthetic General/MAC: ETT Planned Pain Management Parenteral pain med Pre-operative Attestations Prior to commencing anesthesia and surgery, the patient was re-evaluated, there was verification of: *The patient's identity *The results of appropriate recent lab work and preoperative vital signs *The above evaluation not changing prior to induction *Anesthetic plan, risk benefits, alternative and complications discussed with patient/family; questions answered; patient/family understands, accepts and wishes to proceed. EBONIE ALVARADO MD Apr 24, 2019 15:34
[2019-04-24] MEDS: HYDROmorphONE 0.5 MG/0.5 ML SYG IV PRN ×2 (15:50→15:55)
--- NOTE | 2019-04-24 16:33 | PN ---
Date/Time of Note Date/Time of Note DATE: 04/24/19 TIME: 16:32 Assessment/Plan VTE Prophylaxis Risk score (from Ns)>0 risk: 2 SCD applied (from Ns): Yes Pharmacological prophylaxis: heparin Lines/Catheters IV Catheter Type (from Nrs): Peripheral IV Urinary Cath still in place: No Assessment/Plan Hospital Course 68 yo male with ESRD who presents with COLON, found to have large R pleural effusion Pleural effusion: - VATS decortication performed today. Chest tube management per Dr Cates - 600 cc drained by thoracentesis. Suggestive of exudative process. S/p empiric antibiotic - Consult pulmonary and CV surgery ESRD: - Continue HD per renal Anemia of CKD - iron and EPO Hypertension: - Continue amlodipine Result Diagram: 04/24/19 0549 04/24/19 1009 Results 24hrs Laboratory Tests Test 04/24/19 05:49 04/24/19 10:09 04/24/19 14:07 White Blood Count 6.5 Red Blood Count 3.68 L Hemoglobin 11.0 L Hematocrit 33.6 L Mean Corpuscular Volume 91.3 Mean Corpuscular Hemoglobin 29.9 Mean Corpuscular 32.7 Hemoglobin Concent Red Cell Distribution Width 14.4 Platelet Count 271 Mean Platelet Volume 10.0 Immature Granulocytes % 0.600 H Neutrophils % 65.6 Lymphocytes % 11.2 L Monocytes % 16.0 H Eosinophils % 5.8 Basophils % 0.8 Nucleated Red Blood Cells % 0.0 Immature Granulocytes # 0.040 H Neutrophils # 4.3 Lymphocytes # 0.7 L Monocytes # 1.0 H Eosinophils # 0.4 Basophils # 0.1 Nucleated Red Blood Cells # 0.0 Sodium Level 134 L Potassium Level 4.8 4.3 Chloride Level 91 L Carbon Dioxide Level 25 Anion Gap 18 H Blood Urea Nitrogen 65 H Creatinine 10.04 H Est Glomerular Filtrat 5 L Rate mL/min Glucose Level 84 Calcium Level 9.4 Blood Gas Specimen Source Blood arterial Arterial Blood Date Drawn 04/24/2019 1:58:24 PM Arterial Blood pH 7.367 (Temp corrected) Arterial Blood pCO2 40.9 (Temp correct) Arterial Blood pO2 423.0 H (Temp corrected) Arterial Blood HCO3 23.0 Arterial Blood Base Excess -2.2 Arterial Blood 99.9 H Oxygen Saturation Fan Test ACCEPTAB Arterial Blood Gas Right Radial Puncture Site Arterial 0.7 Blood Carboxyhemoglobin Arterial Blood Methemoglobin 0.1 Blood Gas A-a O2 249.1 H Differential Oxyhemoglobin Percent 99.1 H Blood Gas Temperature 37.0 Blood Gas Respiration Rate 8.0 Blood Gas Actual 8 Respiration Rate Blood Gas Modality VENT - AC FiO2 100.0 Blood Gas Tidal Volume 500.0 Blood Gas Notified Whom TM Blood Gas Notified Time 04/24/2019 2:26:55 PM Subjective 24 Hr Interval Summary Free Text/Dictation VATS performed by Dr Cates today Exam/Review of Systems Exam Vitals Vital Signs Date Temp Pulse Resp B/P (MAP) Pulse Ox O2 O2 Flow FiO2 Time Delivery Rate 04/24/19 102 164/78 16:13 (106) 04/24/19 97.4 15:12 04/24/19 100 Mask 15:03 04/24/19 6.0 15:03 Intake and Output 04/23/19 04/23/19 04/24/19 1515:00 23:00 07:00 IntakeIntake Total 1000 ml 480 ml BalanceBalance 1000 ml 480 ml Constitutional: alert, oriented, well developed Psych: no complaints, nl mood/affect Head: normocephalic, atraumatic Eyes: nl conjunctiva, EOMI, nl lids, nl sclera, PERRL ENMT: nl external ears & nose, nl lips & teeth, nl nasal mucosa & septum Neck: supple, non-tender Respiratory: clear to auscultation, normal air movement Cardiovascular: regular rate and rhythm, nl pulses Gastrointestinal: soft, nl liver, spleen, non-tender Musculoskeletal: nl extremities to inspection, nl gait and stance Extremities: normal pulses Neurological: MEDICAL BILLER II-XII intact, nl mental status, nl speech, nl strength Skin: nl turgor; No rash or lesions Lymph: nl lymph nodes Results Results 24hrs Laboratory Tests Test 04/24/19 05:49 04/24/19 10:09 04/24/19 14:07 White Blood Count 6.5 Red Blood Count 3.68 L Hemoglobin 11.0 L Hematocrit 33.6 L Mean Corpuscular Volume 91.3 Mean Corpuscular Hemoglobin 29.9 Mean Corpuscular 32.7 Hemoglobin Concent Red Cell Distribution Width 14.4 Platelet Count 271 Mean Platelet Volume 10.0 Immature Granulocytes % 0.600 H Neutrophils % 65.6 Lymphocytes % 11.2 L Monocytes % 16.0 H Eosinophils % 5.8 Basophils % 0.8 Nucleated Red Blood Cells % 0.0 Immature Granulocytes # 0.040 H Neutrophils # 4.3 Lymphocytes # 0.7 L Monocytes # 1.0 H Eosinophils # 0.4 Basophils # 0.1 Nucleated Red Blood Cells # 0.0 Sodium Level 134 L Potassium Level 4.8 4.3 Chloride Level 91 L Carbon Dioxide Level 25 Anion Gap 18 H Blood Urea Nitrogen 65 H Creatinine 10.04 H Est Glomerular Filtrat 5 L Rate mL/min Glucose Level 84 Calcium Level 9.4 Blood Gas Specimen Source Blood arterial Arterial Blood Date Drawn 04/24/2019 1:58:24 PM Arterial Blood pH 7.367 (Temp corrected) Arterial Blood pCO2 40.9 (Temp correct) Arterial Blood pO2 423.0 H (Temp corrected) Arterial Blood HCO3 23.0 Arterial Blood Base Excess -2.2 Arterial Blood 99.9 H Oxygen Saturation Fan Test ACCEPTAB Arterial Blood Gas Right Radial Puncture Site Arterial 0.7 Blood Carboxyhemoglobin Arterial Blood Methemoglobin 0.1 Blood Gas A-a O2 249.1 H Differential Oxyhemoglobin Percent 99.1 H Blood Gas Temperature 37.0 Blood Gas Respiration Rate 8.0 Blood Gas Actual 8 Respiration Rate Blood Gas Modality VENT - AC FiO2 100.0 Blood Gas Tidal Volume 500.0 Blood Gas Notified Whom TM Blood Gas Notified Time 04/24/2019 2:26:55 PM Medications Medication Current Medications IV Flush (NS 3 ml) 3 ml PER PROTOCOL IV ; Start 04/06/19 at 21:30 Ondansetron HCl (Zofran Inj) 4 mg Q6H PRN IV NAUSEA/VOMITING; Start 04/06/19 at 21:30 Acetaminophen (Tylenol Tab) 650 mg Q6H PRN PO .PAIN 1-3 OR TEMP; Start 04/06/19 at 21:30 Docusate Sodium (Colace) 100 mg Q12H PRN PO .CONSTIPATION; Start 04/06/19 at 21:30 Bisacodyl (Dulcolax) 5 mg DAILY PRN PO .CONSTIPATION; Start 04/06/19 at 21:30 Albumin Human 100 ml @ 100 mls/hr WITH DIALYSIS PRN IV SBP <90 DURING DIALYSIS; Start 04/06/19 at 22:30 Hydralazine HCl (Apresoline) 10 mg Q4 PRN IV SBP more than 150 mm hg Last administered on 04/23/19at 21:37; Admin Dose 10 MG; Start 04/06/19 at 22:30 Albuterol (Ventolin Hfa) 2 puff Q4H RESP THERAPY PRN INH WHEEZING AND SOB; Start 04/06/19 at 22:30 Amlodipine Besylate (Norvasc) 10 mg DAILY PO Last administered on 04/23/19 08:51; Admin Dose 10 MG; Start 04/07/19 at 09:00 Aspirin (Halfprin) 81 mg DAILY PO Last administered on 04/23/19 08:51; Admin Dose 81 MG; Start 04/07/19 at 09:00 Atorvastatin Calcium (Lipitor) 80 mg QHS PO Last administered on 04/23/19 21:33; Admin Dose 80 MG; Start 04/07/19 at 21:00 Mometasone Furoate (Asmanex) 1 puff DAILY RESP THERAPY INH Last administered on 04/23/19 11:20; Admin Dose 1 PUFF; Start 04/07/19 at 12:00 Pantoprazole (Protonix Tab) 40 mg DAILY PO Last administered on 04/23/19 08:51; Admin Dose 40 MG; Start 04/07/19 at 09:00 Epoetin Andrew-epbx (Retacrit (Esrd)) 10,000 unit MONWEDFRI@1700 SC Last administered on 04/22/19 21:10; Admin Dose 10,000 UNIT; Start 04/17/19 at 17:00 Sodium Chloride 1,000 ml @ 40 mls/hr Q24H IV ; Start 04/24/19 at 07:30 Hydromorphone HCl (Dilaudid) 0.2 mg Q2H PRN IV .PAIN 1-5 Last administered on 04/24/19at 15:55; Admin Dose 0.2 MG; Start 04/24/19 at 14:30 Hydromorphone HCl (Dilaudid) 0.4 mg Q2H PRN IV .PAIN 6-10; Start 04/24/19 at 14:30 Morphine Sulfate (morphine) 2 mg Q2H PRN IV .PAIN 1-5; Start 04/24/19 at 14:30 Morphine Sulfate (morphine) 4 mg Q2H PRN IV .PAIN 6-10; Start 04/24/19 at 14:30 Acetaminophen (Tylenol Tab) 500 mg Q4H PRN PO .PAIN 1-3; Start 04/24/19 at 14:30 Diphenhydramine HCl (Benadryl) 25 mg Q4H PRN IV .PRURITUS; Start 04/24/19 at 14:30 Nalbuphine HCl (Nubain) 10 mg Q4H PRN IV .PRURITUS; Start 04/24/19 at 14:30 Ondansetron HCl (Zofran Inj) 4 mg Q6H PRN IV .NAUSEA/VOMITING; Start 04/24/19 at 14:30 Naloxone HCl (Narcan) 0.2 mg Q2M PRN IV .RESP RATE; Start 04/24/19 at 14:30 Miscellaneous Information (* Miscellaneous Pharmacy Order) DURAMORPH: 3 MG E PIDU... GIVEN NEURAXIAL XX ; Start 04/24/19 at 14:30 Fentanyl/ Ropivacaine 100 ml CONT EPIDURAL EPI ; Start 04/24/19 at 14:30 Hydromorphone HCl (Dilaudid) 0.2 mg PACU PRN IV MILD PAIN 1-3; Start 04/24/19 at 14:30; Stop 04/24/19 at 19:00 Hydromorphone HCl (Dilaudid) 0.4 mg PACU PRN IV MOD PAIN 4-6; Start 04/24/19 at 14:30; Stop 04/24/19 at 19:00 Hydromorphone HCl (Dilaudid) 0.6 mg PACU PRN IV SEVERE PAIN 7-10; Start 04/24/19 at 14:30; Stop 04/24/19 at 19:00 Fentanyl (Sublimaze) 25 mcg PACU ORDER PRN IV MILD PAIN 1-3; Start 04/24/19 at 14:30; Stop 04/24/19 at 19:00 Fentanyl (Sublimaze) 50 mcg PACU ORDER PRN IV MOD PAIN 4-6; Start 04/24/19 at 14:30; Stop 04/24/19 at 19:00 Ondansetron HCl (Zofran Inj) 4 mg PACU ORDER PRN IV NAUSEA/VOMITING; Start 04/24/19 at 14:30; Stop 04/24/19 at 19:00 Labetalol HCl (Labetalol) 5 mg PACU ORDER PRN IV HIGH BLOOD PRESSURE; Start 04/24/19 at 14:30; Stop 04/24/19 at 19:00 Hydralazine HCl (Apresoline) 5 mg PACU ORDER PRN IV HIGH BLOOD PRESSURE; Start 04/24/19 at 14:30; Stop 04/24/19 at 19:00 Ephedrine Sulfate 5 mg PACU ORDER PRN IV BLOOD PRESSURE SUPPORT; Start 04/24/19 at 14:30; Stop 04/24/19 at 19:00 Albumin Human 250 ml @ 750 mls/hr PACU ORDER PRN IV BP SUPPORT; Start 04/24/19 at 14:30; Stop 04/24/19 at 19:00 Albuterol (Proventil 0.083% (Neb)) 2.5 mg PACU ORDER PRN HHN .WHEEZING; Start 04/24/19 at 14:30; Stop 04/24/19 at 19:00 Ipratropium [place] (Atrovent 0.02% (Neb)) 0.5 mg PACU ORDER PRN HHN .WHEEZING; Start 04/24/19 at 14:30; Stop 04/24/19 at 19:00 Meperidine HCl (Demerol) 25 mg PACU ORDER PRN IV .RIGORS; Start 04/24/19 at 14:30; Stop 04/24/19 at 19:00 Diphenhydramine HCl (Benadryl) 25 mg PACU ORDER PRN IV .PRURITUS; Start 04/24/19 at 14:30; Stop 04/24/19 at 19:00 Hydromorphone HCl (Dilaudid) 0.2 mg ICU RECOVERY PRN IV MILD PAIN LEVEL 1-3; Start 04/24/19 at 16:00; Stop 04/24/19 at 17:00 Hydromorphone HCl (Dilaudid) 0.4 mg ICU RECOVERY PRN IV MODERATE PAIN LEVEL 4-6; Start 04/24/19 at 16:00; Stop 04/24/19 at 17:00 Fentanyl (Sublimaze) 25 mcg ICU RECOVERY PRN IV MILD PAIN LEVEL 1-3; Start 04/24/19 at 16:00; Stop 04/24/19 at 17:00 Ondansetron HCl (Zofran Inj) 4 mg ICU RECOVERY PRN IV NAUSEA/VOMITING; Start 04/24/19 at 16:00; Stop 04/24/19 at 17:00 Labetalol HCl (Labetalol) 5 mg ICU RECOVERY PRN IV HIGH BLOOD PRESSURE; Start 04/24/19 at 16:00; Stop 04/24/19 at 17:00 Hydralazine HCl (Apresoline) 5 mg ICU RECOVERY PRN IV HIGH BLOOD PRESSURE; Start 04/24/19 at 16:00; Stop 04/24/19 at 17:00 Ephedrine Sulfate 5 mg PACU ORDER PRN IV BLOOD PRESSURRE SUPPORT; Start 04/24/19 at 16:00; Stop 04/24/19 at 17:00 Albuterol (Proventil 0.083% (Neb)) 2.5 mg ICU RECOVERY PRN HHN .WHEEZING; Start 04/24/19 at 16:00; Stop 04/24/19 at 17:00 Ipratropium [place] (Atrovent 0.02% (Neb)) 0.5 mg ICU RECOVERY PRN HHN .WHEEZING; Start 04/24/19 at 16:00; Stop 04/24/19 at 17:00 MARIE MCCLAIN MD Apr 24, 2019 16:33
[2019-04-24] MEDS: METOPROLOL 5 MG INJ IV PRN (20:37)
[2019-04-24] MEDS: ATORVASTATIN 80 MG TAB PO SCH (22:10)
[2019-04-25] VITALS (70 sets, daily range): BP systolic 108–188; BP diastolic 60–92; PULSE 67–111; RESP 11–29
[2019-04-25] MEDS ORDERED: LABETALOL HCL 20MG INJ ONE (01:42)
[2019-04-25] MEDS ORDERED: LABETALOL HCL 20MG INJ IV ONE (02:00)
[2019-04-25] MEDS: METOPROLOL 5 MG INJ IV PRN (02:57)
[2019-04-25] MEDS: SOD CHLORIDE 0.9% 1,000 ML IV SCH (03:02)
[2019-04-25] MEDS ORDERED: niCARdipine-NS 0.1MG/ML DRIP 200 ML IV SCH (04:00)
[2019-04-25] MEDS ORDERED: niCARdipine 25 MG in SOD CHLORIDE 0.9% 240 ML IV SCH (06:00)
--- NOTE | 2019-04-25 08:48 | CONS ---
Assessment/Plan Assessment/Plan Assessment/Plan (Daily) 1. Acute fluid overload with acute Uremia due to missed HD- Improved, pt stable on 2 L NC 2. acute hyperkalemia due to Missed HD- now resolved 3. Large Loculated Right sided pleural effusion s/p R thoracentesis on 04/09/19- 600 cc drained - s/p Right sided VATS with Decortication by dr. corona on 04/24/19 4. ESRD on HD - has been stayed out of [place] for 3 months- lost his HD chair time in [place]. 5. H/o HTN 6. H/o HL 7. H/o Hypothyroidism 8. Anemia of ESRD on Epogen Plan: Large Loculated Right sided pleural effusion s/p R thoracentesis on 04/09/19- 600 cc drained-s/p Right sided VATS with Decortication by dr. corona on 04/24/19 continue current BP meds amlodipine 10mg po daily , IV hydralaine prn HIV< hepatitis panel negative- awaiting Outpatient HD placement confirmation will conitnue pt on MWF schedule for his hemodialysis- S/p HD today 2.5 L removed Epogen 12589 units SQ MWF for Anemia Will follow up Consultation Date/Type/Reason Admit Date/Time Apr 06, 2019 at 21:13 Initial Consult Date 04/06/19 Type of Consult NEPHROLOGY Requesting Provider: DEVI ALFRED Date/Time of Note DATE: 04/25/19 TIME: 08:48 24 HR Interval Summary Free Text/Dictation s/p Right VATS - No SOB, no Chest pain Exam/Review of Systems Exam Vitals Vital Signs Date Temp Pulse Resp B/P (MAP) Pulse Ox O2 O2 Flow FiO2 Time Delivery Rate 04/25/19 Nasal 2.0 08:00 Cannula 04/25/19 73 17 136/62 99 07:00 (86) 04/25/19 98.5 04:00 Intake and Output 04/24/19 04/24/19 04/25/19 1515:00 23:00 07:00 IntakeIntake Total 350 ml 840 ml 370 ml OutputOutput Total 1060 ml 640 ml 380 ml BalanceBalance -710 ml 200 ml -10 ml Exam Constitutional: alert, awake, no acute distress Respiratory: decreased BS on Left lung, no wheezing, no crackles, Cardiovascular: regular rate and rhythm, nl pulses Gastrointestinal: soft, non-tender Musculoskeletal: LUE AVF in place, no Edema, on cyanosis Neurological: OUTPATIENT PHYSICAL THERAPIST ASSISTANT II-XII intact, nl mental status, Non focal Results Result Diagram: 04/24/19 1652 04/24/19 1009 Results 24hrs Laboratory Tests Test 04/24/19 10:09 04/24/19 14:07 04/24/19 16:52 Potassium Level 4.3 Blood Gas Specimen Source Blood arterial Arterial Blood Date Drawn 04/24/2019 1:58:24 PM Arterial Blood pH 7.367 (Temp corrected) Arterial Blood pCO2 40.9 (Temp correct) Arterial Blood pO2 423.0 H (Temp corrected) Arterial Blood HCO3 23.0 Arterial Blood Base Excess -2.2 Arterial Blood 99.9 H Oxygen Saturation Fan Test ACCEPTAB Arterial Blood Gas Right Radial Puncture Site Arterial 0.7 Blood Carboxyhemoglobin Arterial Blood Methemoglobin 0.1 Blood Gas A-a O2 249.1 H Differential Oxyhemoglobin Percent 99.1 H Blood Gas Temperature 37.0 Blood Gas Respiration Rate 8.0 Blood Gas Actual 8 Respiration Rate Blood Gas Modality VENT - AC FiO2 100.0 Blood Gas Tidal Volume 500.0 Blood Gas Notified Whom TM Blood Gas Notified Time 04/24/2019 2:26:55 PM White Blood Count 14.6 #H Red Blood Count 3.90 L Hemoglobin 11.7 L Hematocrit 35.7 L Mean Corpuscular Volume 91.5 Mean Corpuscular Hemoglobin 30.0 Mean Corpuscular 32.8 Hemoglobin Concent Red Cell Distribution Width 14.5 Platelet Count 311 Mean Platelet Volume 9.6 Immature Granulocytes % 0.400 Neutrophils % 94.2 H Lymphocytes % 1.8 L Monocytes % 3.2 Eosinophils % 0.1 Basophils % 0.3 Nucleated Red Blood Cells % 0.0 Immature Granulocytes # 0.060 H Neutrophils # 13.7 H Lymphocytes # 0.3 L Monocytes # 0.5 Eosinophils # 0.0 Basophils # 0.1 Nucleated Red Blood Cells # 0.0 Medications Medication Current Medications IV Flush (NS 3 ml) 3 ml PER PROTOCOL IV ; Start 04/06/19 at 21:30 Ondansetron HCl (Zofran Inj) 4 mg Q6H PRN IV NAUSEA/VOMITING; Start 04/06/19 at 21:30 Acetaminophen (Tylenol Tab) 650 mg Q6H PRN PO .PAIN 1-3 OR TEMP; Start 04/06/19 at 21:30 Docusate Sodium (Colace) 100 mg Q12H PRN PO .CONSTIPATION; Start 04/06/19 at 21:30 Bisacodyl (Dulcolax) 5 mg DAILY PRN PO .CONSTIPATION; Start 04/06/19 at 21:30 Albumin Human 100 ml @ 100 mls/hr WITH DIALYSIS PRN IV SBP <90 DURING DIALYSIS; Start 04/06/19 at 22:30 Hydralazine HCl (Apresoline) 10 mg Q4 PRN IV SBP more than 150 mm hg Last administered on 04/23/19 21:37; Admin Dose 10 MG; Start 04/06/19 at 22:30 Albuterol (Ventolin Hfa) 2 puff Q4H RESP THERAPY PRN INH WHEEZING AND SOB; Start 04/06/19 at 22:30 Amlodipine Besylate (Norvasc) 10 mg DAILY PO Last administered on 04/23/19 08:51; Admin Dose 10 MG; Start 04/07/19 at 09:00 Aspirin (Halfprin) 81 mg DAILY PO Last administered on 04/23/19 08:51; Admin Dose 81 MG; Start 04/07/19 at 09:00 Atorvastatin Calcium (Lipitor) 80 mg QHS PO Last administered on 04/24/19 22:10; Admin Dose 80 MG; Start 04/07/19 at 21:00 Mometasone Furoate (Asmanex) 1 puff DAILY RESP THERAPY INH Last administered on 04/23/19 11:20; Admin Dose 1 PUFF; Start 04/07/19 at 12:00 Pantoprazole (Protonix Tab) 40 mg DAILY PO Last administered on 04/23/19 08:51; Admin Dose 40 MG; Start 04/07/19 at 09:00 Epoetin Andrew-epbx (Retacrit (Esrd)) 10,000 unit MONWEDFRI@1700 SC Last administered on 04/22/19 21:10; Admin Dose 10,000 UNIT; Start 04/17/19 at 17:00 Sodium Chloride 1,000 ml @ 40 mls/hr Q24H IV Last administered on 04/25/19 03:02; Admin Dose 40 MLS/HR; Start 04/24/19 at 07:30 Hydromorphone HCl (Dilaudid) 0.2 mg Q2H PRN IV .PAIN 1-5 Last administered on 04/24/19at 15:55; Admin Dose 0.2 MG; Start 04/24/19 at 14:30 Hydromorphone HCl (Dilaudid) 0.4 mg Q2H PRN IV .PAIN 6-10; Start 04/24/19 at 14:30 Morphine Sulfate (morphine) 2 mg Q2H PRN IV .PAIN 1-5; Start 04/24/19 at 14:30 Morphine Sulfate (morphine) 4 mg Q2H PRN IV .PAIN 6-10; Start 04/24/19 at 14:30 Acetaminophen (Tylenol Tab) 500 mg Q4H PRN PO .PAIN 1-3; Start 04/24/19 at 14:30 Diphenhydramine HCl (Benadryl) 25 mg Q4H PRN IV .PRURITUS; Start 04/24/19 at 14:30 Nalbuphine HCl (Nubain) 10 mg Q4H PRN IV .PRURITUS; Start 04/24/19 at 14:30 Ondansetron HCl (Zofran Inj) 4 mg Q6H PRN IV .NAUSEA/VOMITING; Start 04/24/19 at 14:30 Naloxone HCl (Narcan) 0.2 mg Q2M PRN IV .RESP RATE; Start 04/24/19 at 14:30 Miscellaneous Information (* Miscellaneous Pharmacy Order) DURAMORPH: 3 MG EPIDU... GIVEN NEURAXIAL XX ; Start 04/24/19 at 14:30 Fentanyl/ Ropivacaine 100 ml CONT EPIDURAL EPI ; Start 04/24/19 at 14:30 Metoprolol Tartrate (Lopressor) 5 mg Q6H PRN IV ELEVATED BLOOD PRESSURE Last administered on 04/25/19at 02:57; Admin Dose 5 MG; Start 04/24/19 at 20:30 Nicardipine HCl 25 mg/Sodium Chloride 250 ml @ 50 mls/hr TITRATE IV ; Start 04/25/19 at 06:00 VAN DHALIWAL MD Apr 25, 2019 08:48
--- NOTE | 2019-04-25 09:30 | CONS ---
Consult Date/Type/Reason Admit Date/Time Apr 06, 2019 at 21:13 Initial Consult Date 04/10/19 Type of Consult Pulmonary Requesting Provider: DEVI ALFRED Date/Time of Note DATE: 04/25/19 TIME: 09:28 Subjective Status post decortication yesterday chest tube in place. Lung appears trapped lung fully expanded postoperatively. We will repeat chest x-ray this morning. Procedure discussed with thoracic surgery. Patient had a thick pleural peel likely a very chronic process. Objective Vital Signs Date Temp Pulse Resp B/P (MAP) Pulse Ox O2 O2 Flow FiO2 Time Delivery Rate 04/25/19 73 08:00 04/25/19 Nasal 2.0 08:00 Cannula 04/25/19 17 136/62 99 07:00 (86) 04/25/19 98.5 04:00 Intake and Output 04/24/19 04/24/19 04/25/19 1515:00 23:00 07:00 IntakeIntake Total 350 ml 840 ml 370 ml OutputOutput Total 1060 ml 640 ml 380 ml BalanceBalance -710 ml 200 ml -10 ml Exam PHYSICAL EXAMINATION: VITAL SIGNS: HEENT: Pupils are equal and reactive to light. NECK: Supple, no JVD noted. LUNGS: Decreased breath sounds at the right. CARDIOVASCULAR: S1, S2 normal. ABDOMEN: Soft, nontender. No organomegaly or masses noted. EXTREMITIES: No clubbing or cyanosis noted. NEUROLOGIC: No changes Vent Setting Fraction of Inspired Oxygen pe: 21 Results/Medications Result Diagram: 04/24/19 1652 04/24/19 1009 Results 24 hrs Laboratory Tests Test 04/24/19 10:09 04/24/19 14:07 04/24/19 16:52 Potassium Level 4.3 Blood Gas Specimen Source Blood arterial Arterial Blood Date Drawn 04/24/2019 1:58:24 PM Arterial Blood pH 7.367 (Temp corrected) Arterial Blood pCO2 40.9 (Temp correct) Arterial Blood pO2 423.0 H (Temp corrected) Arterial Blood HCO3 23.0 Arterial Blood Base Excess -2.2 Arterial Blood 99.9 H Oxygen Saturation Fan Test ACCEPTAB Arterial Blood Gas Right Radial Puncture Site Arterial 0.7 Blood Carboxyhemoglobin Arterial Blood Methemoglobin 0.1 Blood Gas A-a O2 249.1 H Differential Oxyhemoglobin Percent 99.1 H Blood Gas Temperature 37.0 Blood Gas Respiration Rate 8.0 Blood Gas Actual 8 Respiration Rate Blood Gas Modality VENT - AC FiO2 100.0 Blood Gas Tidal Volume 500.0 Blood Gas Notified Whom TM Blood Gas Notified Time 04/24/2019 2:26:55 PM White Blood Count 14.6 #H Red Blood Count 3.90 L Hemoglobin 11.7 L Hematocrit 35.7 L Mean Corpuscular Volume 91.5 Mean Corpuscular Hemoglobin 30.0 Mean Corpuscular 32.8 Hemoglobin Concent Red Cell Distribution Width 14.5 Platelet Count 311 Mean Platelet Volume 9.6 Immature Granulocytes % 0.400 Neutrophils % 94.2 H Lymphocytes % 1.8 L Monocytes % 3.2 Eosinophils % 0.1 Basophils % 0.3 Nucleated Red Blood Cells % 0.0 Immature Granulocytes # 0.060 H Neutrophils # 13.7 H Lymphocytes # 0.3 L Monocytes # 0.5 Eosinophils # 0.0 Basophils # 0.1 Nucleated Red Blood Cells # 0.0 Medications Current Medications IV Flush (NS 3 ml) 3 ml PER PROTOCOL IV ; Start 04/06/19 at 21:30 Ondansetron HCl (Zofran Inj) 4 mg Q6H PRN IV NAUSEA/VOMITING; Start 04/06/19 at 21:30 Acetaminophen (Tylenol Tab) 650 mg Q6H PRN PO .PAIN 1-3 OR TEMP; Start 04/06/19 at 21:30 Docusate Sodium (Colace) 100 mg Q12H PRN PO .CONSTIPATION; Start 04/06/19 at 21:30 Bisacodyl (Dulcolax) 5 mg DAILY PRN PO .CONSTIPATION; Start 04/06/19 at 21:30 Albumin Human 100 ml @ 100 mls/hr WITH DIALYSIS PRN IV SBP <90 DURING DIALYSIS; Start 04/06/19 at 22:30 Hydralazine HCl (Apresoline) 10 mg Q4 PRN IV SBP more than 150 mm hg Last administered on 04/23/19at 21:37; Admin Dose 10 MG; Start 04/06/19 at 22:30 Albuterol (Ventolin Hfa) 2 puff Q4H RESP THERAPY PRN INH WHEEZING AND SOB; Start 04/06/19 at 22:30 Amlodipine Besylate (Norvasc) 10 mg DAILY PO Last administered on 04/23/19at 08:51; Admin Dose 10 MG; Start 04/07/19 at 09:00 Aspirin (Halfprin) 81 mg DAILY PO Last administered on 04/23/19 08:51; Admin Dose 81 MG; Start 04/07/19 at 09:00 Atorvastatin Calcium (Lipitor) 80 mg QHS PO Last administered on 04/24/19at 22:10; Admin Dose 80 MG; Start 04/07/19 at 21:00 Mometasone Furoate (Asmanex) 1 puff DAILY RESP THERAPY INH Last administered on 04/23/19at 11:20; Admin Dose 1 PUFF; Start 04/07/19 at 12:00 Pantoprazole (Protonix Tab) 40 mg DAILY PO Last administered on 04/23/19 08: 51; Admin Dose 40 MG; Start 04/07/19 at 09:00 Epoetin Andrew-epbx (Retacrit (Esrd)) 10,000 unit MONWEDFRI@1700 SC Last administered on 04/22/19at 21:10; Admin Dose 10,000 UNIT; Start 04/17/19 at 17:00 Sodium Chloride 1,000 ml @ 40 mls/hr Q24H IV Last administered on 04/25/19at 03:02; Admin Dose 40 MLS/HR; Start 04/24/19 at 07:30 Hydromorphone HCl (Dilaudid) 0.2 mg Q2H PRN IV .PAIN 1-5 Last administered on 04/24/19at 15:55; Admin Dose 0.2 MG; Start 04/24/19 at 14:30 Hydromorphone HCl (Dilaudid) 0.4 mg Q2H PRN IV .PAIN 6-10; Start 04/24/19 at 14:30 Morphine Sulfate (morphine) 2 mg Q2H PRN IV .PAIN 1-5; Start 04/24/19 at 14:30 Morphine Sulfate (morphine) 4 mg Q2H PRN IV .PAIN 6-10; Start 04/24/19 at 14:30 Acetaminophen (Tylenol Tab) 500 mg Q4H PRN PO .PAIN 1-3; Start 04/24/19 at 14:30 Diphenhydramine HCl (Benadryl) 25 mg Q4H PRN IV .PRURITUS; Start 04/24/19 at 14:30 Nalbuphine HCl (Nubain) 10 mg Q4H PRN IV .PRURITUS; Start 04/24/19 at 14:30 Ondansetron HCl (Zofran Inj) 4 mg Q6H PRN IV .NAUSEA/VOMITING; Start 04/24/19 at 14:30 Naloxone HCl (Narcan) 0.2 mg Q2M PRN IV .RESP RATE; Start 04/24/19 at 14:30 Miscellaneous Information (* Miscellaneous Pharmacy Order) DURAMORPH: 3 MG EPI DU... GIVEN NEURAXIAL XX ; Start 04/24/19 at 14:30 Fentanyl/ Ropivacaine 100 ml CONT EPIDURAL EPI ; Start 04/24/19 at 14:30 Metoprolol Tartrate (Lopressor) 5 mg Q6H PRN IV ELEVATED BLOOD PRESSURE Last administered on 04/25/19at 02:57; Admin Dose 5 MG; Start 04/24/19 at 20:30 Nicardipine HCl 25 mg/Sodium Chloride 250 ml @ 50 mls/hr TITRATE IV ; Start 04/25/19 at 06:00 Assessment/Plan Hospital Course (Demo Recall) IMPRESSION: 1. Complicated right parapneumonic effusion. Status post VATS decortication trapped lung not fully expanded 2. End-stage renal disease on hemodialysis. 3. History of hypertension. 4. Anemia. PLAN: 1. Continue antibiotics. 2. Continue oxygen as necessary. 3. Continue chest tube drainage 4. Repeat chest x-ray in a.m. 5. Renal recommendations Critical care time 40 minutes okay for transfer to telemetry DAHLIA ROMERO MD, [facility] Apr 25, 2019 09:29
[2019-04-25] MEDS: PANTOPRAZOLE (EC) 40 MG TAB PO SCH (09:31)
[2019-04-25] MEDS: ASPIRIN (EC) 81 MG TAB PO SCH (09:31)
[2019-04-25] MEDS: AMLODIPINE 10 MG TAB PO SCH (09:32)
[2019-04-25] MEDS: FENTAnyl 2MCG/ML-ROPIV 0.2% 100 ML BAG EPI SCH (11:27)
--- NOTE | 2019-04-25 13:59 | CONS ---
Assessment/Plan Assessment/Plan Hospital Course (Demo Recall) Patient is in hemodialysis looks comfortable no fevers overnight WBC 14.6 neutrophils 94.2 Microbiology: Fluid cx neg Antimicrobials: PHYSICAL EXAMINATION: GENERAL: The patient is a well-developed, well-nourished male. VITAL SIGNS: Stable. He is afebrile. SKIN: Without generalized rash. HEENT: Within normal limits. NECK: Supple. LYMPH NODES: None palpable. CHEST: Decreased breath sounds at the bases, right greater than left. HEART: Without murmur or gallop. ABDOMEN: Soft, nontender without organosplenomegaly or masses. EXTREMITIES: Without cyanosis, clubbing or edema. RECTAL AND GENITAL: Deferred. NEUROLOGIC: No focal neurological abnormalities. Assessment: 1. Large loculated pleural effusion, status post VATS with decortication 2. End-stage renal disease 3. LUE AVF Plan: Stable, continue present care Consultation Date/Type/Reason Admit Date/Time Apr 06, 2019 at 21:13 Initial Consult Date 04/10/19 Type of Consult id Requesting Provider: DEVI ALFRED Date/Time of Note DATE: 04/25/19 TIME: 13:59 Exam/Review of Systems Exam Vitals Vital Signs Date Temp Pulse Resp B/P (MAP) Pulse Ox O2 O2 Flow FiO2 Time Delivery Rate 04/25/19 107 13:35 04/25/19 18 147/84 96 Room Air 11:54 (105) 04/25/19 2.0 08:00 04/25/19 98.6 07:45 Intake and Output 04/24/19 04/24/19 04/25/19 1515:00 23:00 07:00 IntakeIntake Total 350 ml 840 ml 370 ml OutputOutput Total 1060 ml 640 ml 380 ml BalanceBalance -710 ml 200 ml -10 ml Results Result Diagram: 04/24/19 1652 04/24/19 1009 Results 24hrs Laboratory Tests Test 04/24/19 14:07 04/24/19 16:52 Blood Gas Specimen Source Blood arterial Arterial Blood Date Drawn 04/24/2019 1:58:24 PM Arterial Blood pH (Temp corrected) 7.367 Arterial Blood pCO2 (Temp correct) 40.9 Arterial Blood pO2 (Temp corrected) 423.0 H Arterial Blood HCO3 23.0 Arterial Blood Base Excess -2.2 Arterial Blood Oxygen Saturation 99.9 H Fan Test ACCEPTAB Arterial Blood Gas Puncture Site Right Radial Arterial Blood Carboxyhemoglobin 0.7 Arterial Blood Methemoglobin 0.1 Blood Gas A-a O2 Differential 249.1 H Oxyhemoglobin Percent 99.1 H Blood Gas Temperature 37.0 Blood Gas Respiration Rate 8.0 Blood Gas Actual Respiration Rate 8 Blood Gas Modality VENT - AC FiO2 100.0 Blood Gas Tidal Volume 500.0 Blood Gas Notified Whom TM Blood Gas Notified Time 04/24/2019 2:26:55 PM White Blood Count 14.6 #H Red Blood Count 3.90 L Hemoglobin 11.7 L Hematocrit 35.7 L Mean Corpuscular Volume 91.5 Mean Corpuscular Hemoglobin 30.0 Mean Corpuscular Hemoglobin Concent 32.8 Red Cell Distribution Width 14.5 Platelet Count 311 Mean Platelet Volume 9.6 Immature Granulocytes % 0.400 Neutrophils % 94.2 H Lymphocytes % 1.8 L Monocytes % 3.2 Eosinophils % 0.1 Basophils % 0.3 Nucleated Red Blood Cells % 0.0 Immature Granulocytes # 0.060 H Neutrophils # 13.7 H Lymphocytes # 0.3 L Monocytes # 0.5 Eosinophils # 0.0 Basophils # 0.1 Nucleated Red Blood Cells # 0.0 Medications Medication Current Medications IV Flush (NS 3 ml) 3 ml PER PROTOCOL IV ; Start 04/06/19 at 21:30 Ondansetron HCl (Zofran Inj) 4 mg Q6H PRN IV NAUSEA/VOMITING; Start 04/06/19 at 21:30 Acetaminophen (Tylenol Tab) 650 mg Q6H PRN PO .PAIN 1-3 OR TEMP; Start 04/06/19 at 21:30 Docusate Sodium (Colace) 100 mg Q12H PRN PO .CONSTIPATION; Start 04/06/19 at 21:30 Bisacodyl (Dulcolax) 5 mg DAILY PRN PO .CONSTIPATION; Start 04/06/19 at 21:30 Albumin Human 100 ml @ 100 mls/hr WITH DIALYSIS PRN IV SBP <90 DURING DIAL YSIS; Start 04/06/19 at 22:30 Hydralazine HCl (Apresoline) 10 mg Q4 PRN IV SBP more than 150 mm hg Last administered on 04/23/19at 21:37; Admin Dose 10 MG; Start 04/06/19 at 22:30 Albuterol (Ventolin Hfa) 2 puff Q4H RESP THERAPY PRN INH WHEEZING AND SOB; Start 04/06/19 at 22:30 Amlodipine Besylate (Norvasc) 10 mg DAILY PO Last administered on 04/25/19 09:32; Admin Dose 10 MG; Start 04/07/19 at 09:00 Aspirin (Halfprin) 81 mg DAILY PO Last administered on 04/25/19 09:31; Admin Dose 81 MG; Start 04/07/19 at 09:00 Atorvastatin Calcium (Lipitor) 80 mg QHS PO Last administered on 04/24/19 22 :10; Admin Dose 80 MG; Start 04/07/19 at 21:00 Mometasone Furoate (Asmanex) 1 puff DAILY RESP THERAPY INH Last administered on 04/23/19 11:20; Admin Dose 1 PUFF; Start 04/07/19 at 12:00 Pantoprazole (Protonix Tab) 40 mg DAILY PO Last administered on 04/25/19 09:31; Admin Dose 40 MG; Start 04/07/19 at 09:00 Epoetin Andrew-epbx (Retacrit (Esrd)) 10,000 unit MONWEDFRI@1700 SC Last administered on 04/22/19 21:10; Admin Dose 10,000 UNIT; Start 04/17/19 at 17:00 Sodium Chloride 1,000 ml @ 40 mls/hr Q24H IV Last administered on 04/25/19 03:02; Admin Dose 40 MLS/HR; Start 04/24/19 at 07:30 Hydromorphone HCl (Dilaudid) 0.2 mg Q2H PRN IV .PAIN 1-5 Last administered on 04/24/19at 15:55; Admin Dose 0.2 MG; Start 04/24/19 at 14:30 Hydromorphone HCl (Dilaudid) 0.4 mg Q2H PRN IV .PAIN 6-10; Start 04/24/19 at 14:30 Morphine Sulfate (morphine) 2 mg Q2H PRN IV .PAIN 1-5; Start 04/24/19 at 14:30 Morphine Sulfate (morphine) 4 mg Q2H PRN IV .PAIN 6-10; Start 04/24/19 at 14:30 Acetaminophen (Tylenol Tab) 500 mg Q4H PRN PO .PAIN 1-3; Start 04/24/19 at 14:30 Diphenhydramine HCl (Benadryl) 25 mg Q4H PRN IV .PRURITUS; Start 04/24/19 at 14:30 Nalbuphine HCl (Nubain) 10 mg Q4H PRN IV .PRURITUS; Start 04/24/19 at 14:30 Ondansetron HCl (Zofran Inj) 4 mg Q6H PRN IV .NAUSEA/VOMITING; Start 04/24/19 at 14:30 Naloxone HCl (Narcan) 0.2 mg Q2M PRN IV .RESP RATE; Start 04/24/19 at 14:30 Miscellaneous Information (* Miscellaneous Pharmacy Order) DURAMORPH: 3 MG EPIDU... GIVEN NEURAXIAL XX ; Start 04/24/19 at 14:30 Fentanyl/ Ropivacaine 100 ml CONT EPIDURAL EPI Last administered on 04/25/19at 11:27; Admin Dose 100 ML; Start 04/24/19 at 14:30 Metoprolol Tartrate (Lopressor) 5 mg Q6H PRN IV ELEVATED BLOOD PRESSURE Last administered on 04/25/19at 02:57; Admin Dose 5 MG; Start 04/24/19 at 20:30 Nicardipine HCl 25 mg/Sodium Chloride 250 ml @ 50 mls/hr TITRATE IV ; Start 04/25/19 at 06:00 DAT BENOIT NP Apr 25, 2019 13:59
--- NOTE | 2019-04-25 14:45 | PN ---
Date/Time of Note Date/Time of Note DATE: 04/25/19 TIME: 14:44 Assessment/Plan VTE Prophylaxis Risk score (from Nsg)>0 risk: 7 SCD applied (from Nsg): Yes Pharmacological prophylaxis: heparin Lines/Catheters IV Catheter Type (from Nrsg): A Line Urinary Cath still in place: Yes Reason Cath still needed: urinary retention Assessment/Plan Hospital Course Appeasr comfortable No distress RRR CTAB R sided chest tube Soft nt nd no edema 68 yo male with ESRD who presents with COLON, found to have large R pleural effusion. Chronic loculated effusion s/p VATS decortication Pleural effusion: - s/p VATS decortication 04/24. Chest tube management per Dr Cates ESRD: - Continue HD per renal Anemia of CKD - iron and EPO Hypertension: - Continue amlodipine Result Diagram: 04/24/19 1652 04/24/19 1009 Results 24hrs Laboratory Tests Test 04/24/19 16:52 White Blood Count 14.6 #H Red Blood Count 3.90 L Hemoglobin 11.7 L Hematocrit 35.7 L Mean Corpuscular Volume 91.5 Mean Corpuscular Hemoglobin 30.0 Mean Corpuscular Hemoglobin Concent 32.8 Red Cell Distribution Width 14.5 Platelet Count 311 Mean Platelet Volume 9.6 Immature Granulocytes % 0.400 Neutrophils % 94.2 H Lymphocytes % 1.8 L Monocytes % 3.2 Eosinophils % 0.1 Basophils % 0.3 Nucleated Red Blood Cells % 0.0 Immature Granulocytes # 0.060 H Neutrophils # 13.7 H Lymphocytes # 0.3 L Monocytes # 0.5 Eosinophils # 0.0 Basophils # 0.1 Nucleated Red Blood Cells # 0.0 Subjective 24 Hr Interval Summary Free Text/Dictation VATS performed yesterday Now in ICU with chest tube Complains of pain with breathing Exam/Review of Systems Exam Vitals Vital Signs Date Temp Pulse Resp B/P (MAP) Pulse Ox O2 O2 Flow FiO2 Time Delivery Rate 04/25/19 99 14:20 04/25/19 18 147/84 96 Room Air 11:54 (105) 04/25/19 2.0 08:00 04/25/19 98.6 07:45 Intake and Output 04/24/19 04/24/19 04/25/19 1515:00 23:00 07:00 IntakeIntake Total 350 ml 840 ml 370 ml OutputOutput Total 1060 ml 640 ml 380 ml BalanceBalance -710 ml 200 ml -10 ml Results Results 24hrs Laboratory Tests Test 04/24/19 16:52 White Blood Count 14.6 #H Red Blood Count 3.90 L Hemoglobin 11.7 L Hematocrit 35.7 L Mean Corpuscular Volume 91.5 Mean Corpuscular Hemoglobin 30.0 Mean Corpuscular Hemoglobin Concent 32.8 Red Cell Distribution Width 14.5 Platelet Count 311 Mean Platelet Volume 9.6 Immature Granulocytes % 0.400 Neutrophils % 94.2 H Lymphocytes % 1.8 L Monocytes % 3.2 Eosinophils % 0.1 Basophils % 0.3 Nucleated Red Blood Cells % 0.0 Immature Granulocytes # 0.060 H Neutrophils # 13.7 H Lymphocytes # 0.3 L Monocytes # 0.5 Eosinophils # 0.0 Basophils # 0.1 Nucleated Red Blood Cells # 0.0 Medications Medication Current Medications IV Flush (NS 3 ml) 3 ml PER PROTOCOL IV ; Start 04/06/19 at 21:30 Ondansetron HCl (Zofran Inj) 4 mg Q6H PRN IV NAUSEA/VOMITING; Start 04/06/19 at 21:30 Acetaminophen (Tylenol Tab) 650 mg Q6H PRN PO .PAIN 1-3 OR TEMP; Start 04/06/19 at 21:30 Docusate Sodium (Colace) 100 mg Q12H PRN PO .CONSTIPATION; Start 04/06/19 at 21:30 Bisacodyl (Dulcolax) 5 mg DAILY PRN PO .CONSTIPATION; Start 04/06/19 at 21:30 Albumin Human 100 ml @ 100 mls/hr WITH DIALYSIS PRN IV SBP <90 DURING DIALYSIS; Start 04/06/19 at 22:30 Hydralazine HCl (Apresoline) 10 mg Q4 PRN IV SBP more than 150 mm hg Last administered on 04/23/19at 21:37; Admin Dose 10 MG; Start 04/06/19 at 22:30 Albuterol (Ventolin Hfa) 2 puff Q4H RESP THERAPY PRN INH WHEEZING AND SOB; Start 04/06/19 at 22:30 Amlodipine Besylate (Norvasc) 10 mg DAILY PO Last administered on 04/25/19at 09:32; Admin Dose 10 MG; Start 04/07/19 at 09:00 Aspirin (Halfprin) 81 mg DAILY PO Last administered on 04/25/19at 09:31; Admin Dose 81 MG; Start 04/07/19 at 09:00 Atorvastatin Calcium (Lipitor) 80 mg QHS PO Last administered on 04/24/19at 22:10; Admin Dose 80 MG; Start 04/07/19 at 21:00 Mometasone Furoate (Asmanex) 1 puff DAILY RESP THERAPY INH Last administered o n 04/23/19at 11:20; Admin Dose 1 PUFF; Start 04/07/19 at 12:00 Pantoprazole (Protonix Tab) 40 mg DAILY PO Last administered on 04/25/19 09:31; Admin Dose 40 MG; Start 04/07/19 at 09:00 Epoetin Andrew-epbx (Retacrit (Esrd)) 10,000 unit MONWEDFRI@1700 SC Last administered on 04/22/19at 21:10; Admin Dose 10,000 UNIT; Start 04/17/19 at 17:00 Sodium Chloride 1,000 ml @ 40 mls/hr Q24H IV Last administered on 04/25/19at 03:02; Admin Dose 40 MLS/HR; Start 04/24/19 at 07:30 Hydromorphone HCl (Dilaudid) 0.2 mg Q2H PRN IV .PAIN 1-5 Last administered on 04/24/19at 15:55; Admin Dose 0.2 MG; Start 04/24/19 at 14:30 Hydromorphone HCl (Dilaudid) 0.4 mg Q2H PRN IV .PAIN 6-10; Start 04/24/19 at 14:30 Morphine Sulfate (morphine) 2 mg Q2H PRN IV .PAIN 1-5; Start 04/24/19 at 14:30 Morphine Sulfate (morphine) 4 mg Q2H PRN IV .PAIN 6-10; Start 04/24/19 at 14:30 Acetaminophen (Tylenol Tab) 500 mg Q4H PRN PO .PAIN 1-3; Start 04/24/19 at 14:30 Diphenhydramine HCl (Benadryl) 25 mg Q4H PRN IV .PRURITUS; Start 04/24/19 at 14:30 Nalbuphine HCl (Nubain) 10 mg Q4H PRN IV .PRURITUS; Start 04/24/19 at 14:30 Ondansetron HCl (Zofran Inj) 4 mg Q6H PRN IV .NAUSEA/VOMITING; Start 04/24/19 at 14:30 Naloxone HCl (Narcan) 0.2 mg Q2M PRN IV .RESP RATE; Start 04/24/19 at 14:30 Miscellaneous Information (* Miscellaneous Pharmacy Order) DURAMORPH: 3 MG EPIDU... GIVEN NEURAXIAL XX ; Start 04/24/19 at 14:30 Fentanyl/ Ropivacaine 100 ml CONT EPIDURAL EPI Last administered on 04/25/19at 11:27; Admin Dose 100 ML; Start 04/24/19 at 14:30 Metoprolol Tartrate (Lopressor) 5 mg Q6H PRN IV ELEVATED BLOOD PRESSURE Last ad ministered on 04/25/19at 02:57; Admin Dose 5 MG; Start 04/24/19 at 20:30 Nicardipine HCl 25 mg/Sodium Chloride 250 ml @ 50 mls/hr TITRATE IV ; Start 04/25/19 at 06:00 MARIE MCCLAIN MD Apr 25, 2019 14:45
[2019-04-25] MEDS: MOMETASONE 0.24 GM INHALER INH SCH (14:52)
--- NOTE | 2019-04-25 16:04 | PN ---
Date/Time of Note Date/Time of Note DATE: 04/25/19 TIME: 16:02 Assessment/Plan Lines/Catheters IV Catheter Type (from Nrsg): A Line Funk in Place (from Nrsg): Yes Assessment/Plan Assessment/Plan Status post pulmonary decortication and thoracotomy Chest tube with no air leak 200 cc of serosanguineous drainage Chest x-ray with lateral right-sided pneumothorax pneumothorax We will continue chest tube suction Pulmonary toilet Subjective 24 Hr Interval Summary Constitutional: improved Pain Control: mild Exam/Review of Systems Vital Signs Vitals Vital Signs Date Temp Pulse Resp B/P (MAP) Pulse Ox O2 O2 Flow FiO2 Time Delivery Rate 04/25/19 111 22 133/87 96 Room Air 15:00 (102) 04/25/19 98.4 12:00 04/25/19 2.0 08:00 Intake and Output 04/24/19 04/24/19 04/25/19 1515:00 23:00 07:00 IntakeIntake Total 350 ml 840 ml 370 ml OutputOutput Total 1060 ml 640 ml 380 ml BalanceBalance -710 ml 200 ml -10 ml Exam Eyes: nl conjunctiva, EOMI, nl lids, nl sclera ENMT: nl external ears & nose, nl lips & teeth, nl nasal mucosa & septum, muco sa pink and moist Neck: supple, non-tender Respiratory: clear to auscultation, normal air movement Gastrointestinal: soft, nl liver, spleen, non-tender Musculoskeletal: nl extremities to inspection, nl gait and stance Results Result Diagram: 04/24/19 1652 04/24/19 1009 MALOU GAN MD Apr 25, 2019 16:04
--- NOTE | 2019-04-25 16:51 | OPPN ---
Date/Time of Note Date/Time of Note DATE: 04/25/19 TIME: 16:48 Anesthesia Follow up Anesthesia Follow up Last documented vital signs Vital Signs Date Temp Pulse Resp B/P (MAP) Pulse Ox O2 O2 Flow FiO2 Time Delivery Rate 04/25/19 111 22 133/87 96 Room Air 15:00 (102) 04/25/19 98.4 12:00 04/25/19 2.0 08:00 Respiratory function: WNL Cardiovascular function: WNL Comments POD#! S/P Right Thoracotomy and Decortication, under GETA and Thoracic Epidural was placed and continous Epidural infusion was used to control post op pain. Patient is alert and oriented, afebrile, vital signs are stable, he is comfortably sitting and getting hemodialysis at bedside. Pain is very well controlled. Epidural Catheter site is clean and intact, Epidural Infusion of 7 ml/hr is continued and will be followed up. No paresthesia or weakness in extremities. EBONIE ALVARADO MD Apr 25, 2019 16:51
[2019-04-25] MEDS: ATORVASTATIN 80 MG TAB PO SCH (20:10)
[2019-04-26] VITALS (15 sets, daily range): BP systolic 131–159; BP diastolic 79–94; PULSE 86–109; RESP 12–22
[2019-04-26] MEDS: FENTAnyl 2MCG/ML-ROPIV 0.2% 100 ML BAG EPI SCH ×2 (02:02→18:04)
[2019-04-26] MEDS: hydrALAzine 20 MG INJ IV PRN ×2 (05:29→12:24)
--- NOTE | 2019-04-26 07:55 | CONS ---
Assessment/Plan Assessment/Plan Assessment/Plan (Daily) 1. Acute fluid overload with acute Uremia due to missed HD- Improved, pt stable on 2 L NC 2. acute hyperkalemia due to Missed HD- now resolved 3. Large Loculated Right sided pleural effusion s/p R thoracentesis on 04/09/19- 600 cc drained - s/p Right sided VATS with Decortication by dr. corona on 04/24/19 4. ESRD on HD - has been stayed out of [place] for more than 3 months- lost his HD chair time in [place]. 5. H/o HTN 6. H/o HL 7. H/o Hypothyroidism 8. Anemia of ESRD on Epogen Plan: Large Loculated Right sided pleural effusion s/p R thoracentesis on 04/09/19- 600 cc drained-s/p Right sided VATS with Decortication by dr. corona on 04/24/19 -stable on 2 L NC, Chest tube drainage output 140 ml, BP stable continue current BP meds amlodipine 10mg po daily , IV hydralaine prn HIV< hepatitis panel negative- awaiting Outpatient HD placement confirmation will conitnue pt on MWF schedule for his hemodialysis- HD ordered for Saturday Epogen 50141 units SQ MWF for Anemia Will follow up Consultation Date/Type/Reason Admit Date/Time Apr 06, 2019 at 21:13 Initial Consult Date 04/06/19 Type of Consult NEPHROLOGY Requesting Provider: DEVI ALFRED Date/Time of Note DATE: 04/26/19 TIME: 07:55 24 HR Interval Summary Free Text/Dictation stable on 2 L NC, Chest tube drainage output 140 ml, BP stable Exam/Review of Systems Exam Vitals Vital Signs Date Temp Pulse Resp B/P (MAP) Pulse Ox O2 O2 Flow FiO2 Time Delivery Rate 04/26/19 90 14 139/81 100 Nasal 07:00 (100) Cannula 04/26/19 98.7 04:00 04/25/19 2.0 08:00 Intake and Output 04/25/19 04/25/19 04/26/19 1515:00 23:00 07:00 IntakeIntake Total 694 ml 234 ml 0 ml OutputOutput Total 3006 ml 20 ml 20 ml BalanceBalance -2312 ml 214 ml -20 ml Exam Constitutional: alert, awake, no acute distress Respiratory: decreased BS on Left lung, Right chest tube on weater seal Cardiovascular: regular rate and rhythm, nl pulses Gastrointestinal: soft, non-tender Musculoskeletal: LUE AVF in place, no Edema, on cyanosis Neurological: CORRECTIONAL THERAPY DIRECTOR II-XII intact, nl mental status, Non focal Results Result Diagram: 04/26/19 0430 04/26/19 0430 Results 24hrs Laboratory Tests Test 04/26/19 04:30 White Blood Count 9.8 # Red Blood Count 2.79 #L Hemoglobin 8.5 #L Hematocrit 25.9 #L Mean Corpuscular Volume 92.8 Mean Corpuscular Hemoglobin 30.5 Mean Corpuscular Hemoglobin Concent 32.8 Red Cell Distribution Width 14.6 H Platelet Count 230 # Mean Platelet Volume 9.8 Immature Granulocytes % 0.500 H Neutrophils % 85.1 H Lymphocytes % 3.3 L Monocytes % 10.5 Eosinophils % 0.4 Basophils % 0.2 Nucleated Red Blood Cells % 0.0 Immature Granulocytes # 0.050 H Neutrophils # 8.4 H Lymphocytes # 0.3 L Monocytes # 1.0 H Eosinophils # 0.0 Basophils # 0.0 Nucleated Red Blood Cells # 0.0 Sodium Level 137 Potassium Level 4.6 Chloride Level 98 Carbon Dioxide Level 27 Anion Gap 12 Blood Urea Nitrogen 47 #H Creatinine 7.72 #H Est Glomerular Filtrat Rate mL/min 7 L Glucose Level 94 Calcium Level 8.4 Phosphorus Level 6.9 H Magnesium Level 2.1 Medications Medication Current Medications IV Flush (NS 3 ml) 3 ml PER PROTOCOL IV ; Start 04/06/19 at 21:30 Ondansetron HCl (Zofran Inj) 4 mg Q6H PRN IV NAUSEA/VOMITING; Start 04/06/19 at 21:30 Acetaminophen (Tylenol Tab) 650 mg Q6H PRN PO .PAIN 1-3 OR TEMP; Start 04/06/19 at 21:30 Docusate Sodium (Colace) 100 mg Q12H PRN PO .CONSTIPATION; Start 04/06/19 at 21:30 Bisacodyl (Dulcolax) 5 mg DAILY PRN PO .CONSTIPATION; Start 04/06/19 at 21:30 Albumin Human 100 ml @ 100 mls/hr WITH DIALYSIS PRN IV SBP <90 DURING DIALYSIS; Start 04/06/19 at 22:30 Hydralazine HCl (Apresoline) 10 mg Q4 PRN IV SBP more than 150 mm hg Last administered on 04/26/19at 05:29; Admin Dose 10 MG; Start 04/06/19 at 22:30 Albuterol (Ventolin Hfa) 2 puff Q4H RESP THERAPY PRN INH WHEEZING AND SOB; Start 04/06/19 at 22:30 Amlodipine Besylate (Norvasc) 10 mg DAILY PO Last administered on 04/25/19 09:32; Admin Dose 10 MG; Start 04/07/19 at 09:00 Aspirin (Halfprin) 81 mg DAILY PO Last administered on 04/25/19 09:31; Admin Dose 81 MG; Start 04/07/19 at 09:00 Atorvastatin Calcium (Lipitor) 80 mg QHS PO Last administered on 04/25/19 20:10; Admin Dose 80 MG; Start 04/07/19 at 21:00 Mometasone Furoate (Asmanex) 1 puff DAILY RESP THERAPY INH Last administered on 04/25/19at 14:52; Admin Dose 1 PUFF; Start 04/07/19 at 12:00 Pantoprazole (Protonix Tab) 40 mg DAILY PO Last administered on 04/25/19 09:31; Admin Dose 40 MG; Start 04/07/19 at 09:00 Epoetin Andrew-epbx (Retacrit (Esrd)) 10,000 unit MONWEDFRI@1700 SC Last administered on 04/22/19at 21:10; Admin Dose 10,000 UNIT; Start 04/17/19 at 17:00 Hydromorphone HCl (Dilaudid) 0.2 mg Q2H PRN IV .PAIN 1-5 Last administered on 04/24/19at 15:55; Admin Dose 0.2 MG; Start 04/24/19 at 14:30 Hydromorphone HCl (Dilaudid) 0.4 mg Q2H PRN IV .PAIN 6-10; Start 04/24/19 at 14:30 Morphine Sulfate (morphine) 2 mg Q2H PRN IV .PAIN 1-5; Start 04/24/19 at 14:30 Morphine Sulfate (morphine) 4 mg Q2H PRN IV .PAIN 6-10; Start 04/24/19 at 14:30 Acetaminophen (Tylenol Tab) 500 mg Q4H PRN PO .PAIN 1-3; Start 04/24/19 at 14:30 Diphenhydramine HCl (Benadryl) 25 mg Q4H PRN IV .PRURITUS; Start 04/24/19 at 14:30 Nalbuphine HCl (Nubain) 10 mg Q4H PRN IV .PRURITUS; Start 04/24/19 at 14:30 Ondansetron HCl (Zofran Inj) 4 mg Q6H PRN IV .NAUSEA/VOMITING; Start 04/24/19 at 14:30 Naloxone HCl (Narcan) 0.2 mg Q2M PRN IV .RESP RATE; Start 04/24/19 at 14:30 Miscellaneous Information (* Miscellaneous Pharmacy Order) DURAMORPH: 3 MG EP IDU... GIVEN NEURAXIAL XX ; Start 04/24/19 at 14:30 Fentanyl/ Ropivacaine 100 ml CONT EPIDURAL EPI Last administered on 04/26/19at 02:02; Admin Dose 100 ML; Start 04/24/19 at 14:30 Metoprolol Tartrate (Lopressor) 5 mg Q6H PRN IV ELEVATED BLOOD PRESSURE Last administered on 04/25/19at 02:57; Admin Dose 5 MG; Start 04/24/19 at 20:30 Nicardipine HCl 25 mg/Sodium Chloride 250 ml @ 50 mls/hr TITRATE IV ; Start 04/25/19 at 06:00 VAN DHALIWAL MD Apr 26, 2019 07:55
[2019-04-26] MEDS: ASPIRIN (EC) 81 MG TAB PO SCH (08:40)
[2019-04-26] MEDS: PANTOPRAZOLE (EC) 40 MG TAB PO SCH (08:40)
[2019-04-26] MEDS: AMLODIPINE 10 MG TAB PO SCH (08:41)
--- NOTE | 2019-04-26 08:41 | OPPN ---
Date/Time of Note Date/Time of Note DATE: 04/26/19 TIME: 08:40 Anesthesia Follow up Anesthesia Follow up Last documented vital signs Vital Signs Date Temp Pulse Resp B/P (MAP) Pulse Ox O2 O2 Flow FiO2 Time Delivery Rate 04/26/19 98.6 08:00 04/26/19 90 14 139/81 100 Nasal 07:00 (100) Cannula 04/25/19 2.0 08:00 Respiratory function: WNL Cardiovascular function: WNL Comments POD#2 S/P Right Thoracotomy and Decortication, under GETA and Thoracic Epidural was placed and continous Epidural infusion was used to control post op pain. Patient is alert and oriented, afebrile, vital signs are stable, he is comfortably sitting with no pain. Pain is very well controlled. Epidural Catheter site is clean and intact, Epidural Infusion of 7 ml/hr is continued and will be followed up. No paresthesia or weakness in extremities. EBONIE ALVARADO MD Apr 26, 2019 08:41
--- NOTE | 2019-04-26 10:22 | CONS ---
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 Awake alert oriented moderate drainage from right chest tube chest x-ray shows trapped lung with persistent pneumothorax. Objective Vital Signs Date Temp Pulse Resp B/P (MAP) Pulse Ox O2 O2 Flow FiO2 Time Delivery Rate 04/26/19 98.6 08:00 04/26/19 94 08:00 04/26/19 14 139/81 100 Nasal 07:00 (100) Cannula 04/25/19 2.0 08:00 Intake and Output 04/25/19 04/25/19 04/26/19 1515:00 23:00 07:00 IntakeIntake Total 694 ml 234 ml 0 ml OutputOutput Total 3006 ml 20 ml 20 ml BalanceBalance -2312 ml 214 ml -20 ml Exam PHYSICAL EXAMINATION: VITAL SIGNS: HEENT: Pupils are equal and reactive to light. NECK: Supple, no JVD noted. LUNGS: Decreased breath sounds at the right. chest tube in place CARDIOVASCULAR: S1, S2 normal. ABDOMEN: Soft, nontender. No organomegaly or masses noted. EXTREMITIES: No clubbing or cyanosis noted. NEUROLOGIC: No changes. Vent Setting Fraction of Inspired Oxygen pe: 21 Results/Medications Result Diagram: 04/26/19 0430 04/26/19 0430 Results 24 hrs Laboratory Tests Test 04/26/19 04:30 White Blood Count 9.8 # Red Blood Count 2.79 #L Hemoglobin 8.5 #L Hematocrit 25.9 #L Mean Corpuscular Volume 92.8 Mean Corpuscular Hemoglobin 30.5 Mean Corpuscular Hemoglobin Concent 32.8 Red Cell Distribution Width 14.6 H Platelet Count 230 # Mean Platelet Volume 9.8 Immature Granulocytes % 0.500 H Neutrophils % 85.1 H Lymphocytes % 3.3 L Monocytes % 10.5 Eosinophils % 0.4 Basophils % 0.2 Nucleated Red Blood Cells % 0.0 Immature Granulocytes # 0.050 H Neutrophils # 8.4 H Lymphocytes # 0.3 L Monocytes # 1.0 H Eosinophils # 0.0 Basophils # 0.0 Nucleated Red Blood Cells # 0.0 Sodium Level 137 Potassium Level 4.6 Chloride Level 98 Carbon Dioxide Level 27 Anion Gap 12 Blood Urea Nitrogen 47 #H Creatinine 7.72 #H Est Glomerular Filtrat Rate mL/min 7 L Glucose Level 94 Calcium Level 8.4 Phosphorus Level 6.9 H Magnesium Level 2.1 Medications Current Medications IV Flush (NS 3 ml) 3 ml PER PROTOCOL IV ; Start 04/06/19 at 21:30 Ondansetron HCl (Zofran Inj) 4 mg Q6H PRN IV NAUSEA/VOMITING; Start 04/06/19 at 21:30 Acetaminophen (Tylenol Tab) 650 mg Q6H PRN PO .PAIN 1-3 OR TEMP; Start 04/06/19 at 21:30 Docusate Sodium (Colace) 100 mg Q12H PRN PO .CONSTIPATION; Start 04/06/19 at 21:30 Bisacodyl (Dulcolax) 5 mg DAILY PRN PO .CONSTIPATION; Start 04/06/19 at 21:30 Albumin Human 100 ml @ 100 mls/hr WITH DIALYSIS PRN IV SBP <90 DURING DIALYSIS; Start 04/06/19 at 22:30 Hydralazine HCl (Apresoline) 10 mg Q4 PRN IV SBP more than 150 mm hg Last administered on 04/26/19at 05:29; Admin Dose 10 MG; Start 04/06/19 at 22:30 Albuterol (Ventolin Hfa) 2 puff Q4H RESP THERAPY PRN INH WHEEZING AND SOB; Start 04/06/19 at 22:30 Amlodipine Besylate (Norvasc) 10 mg DAILY PO Last administered on 04/26/19at 08:41; Admin Dose 10 MG; Start 04/07/19 at 09:00 Aspirin (Halfprin) 81 mg DAILY PO Last administered on 04/26/19at 08:40; Admin Dose 81 MG; Start 04/07/19 at 09:00 Atorvastatin Calcium (Lipitor) 80 mg QHS PO Last administered on 04/25/19at 20:10; Admin Dose 80 MG; Start 04/07/19 at 21:00 Mometasone Furoate (Asmanex) 1 puff DAILY RESP THERAPY INH Last administered on 04/25/19at 14:52; Admin Dose 1 PUFF; Start 04/07/19 at 12:00 Pantoprazole (Protonix Tab) 40 mg DAILY PO Last administered on 04/26/19at 08:40; Admin Dose 40 MG; Start 04/07/19 at 09:00 Epoetin Andrew-epbx (Retacrit (Esrd)) 10,000 unit BLANCARI@1700 SC Last administered on 04/22/19at 21:10; Admin Dose 10,000 UNIT; Start 04/17/19 at 17:00 Hydromorphone HCl (Dilaudid) 0.2 mg Q2H PRN IV .PAIN 1-5 Last administered on 04/24/19at 15:55; Admin Dose 0.2 MG; Start 04/24/19 at 14:30 Hydromorphone HCl (Dilaudid) 0.4 mg Q2H PRN IV .PAIN 6-10; Start 04/24/19 at 14:30 Morphine Sulfate (morphine) 2 mg Q2H PRN IV .PAIN 1-5; Start 04/24/19 at 14:30 Morphine Sulfate (morphine) 4 mg Q2H PRN IV .PAIN 6-10; Start 04/24/19 at 14:30 Acetaminophen (Tylenol Tab) 500 mg Q4H PRN PO .PAIN 1-3; Start 04/24/19 at 14:30 Diphenhydramine HCl (Benadryl) 25 mg Q4H PRN IV .PRURITUS; Start 04/24/19 at 14:30 Nalbuphine HCl (Nubain) 10 mg Q4H PRN IV .PRURITUS; Start 04/24/19 at 14:30 Ondansetron HCl (Zofran Inj) 4 mg Q6H PRN IV .NAUSEA/VOMITING; Start 04/24/19 at 14:30 Naloxone HCl (Narcan) 0.2 mg Q2M PRN IV .RESP RATE; Start 04/24/19 at 14:30 Miscellaneous Information (* Miscellaneous Pharmacy Order) DURAMORPH: 3 MG EPIDU... GIVEN NEURAXIAL XX ; Start 04/24/19 at 14:30 Fentanyl/ Ropivacaine 100 ml CONT EPIDURAL EPI Last administered on 04/26/19at 02:02; Admin Dose 100 ML; Start 04/24/19 at 14:30 Metoprolol Tartrate (Lopressor) 5 mg Q6H PRN IV ELEVATED BLOOD PRESSURE Last administered on 04/25/19at 02:57; Admin Dose 5 MG; Start 04/24/19 at 20:30 Nicardipine HCl 25 mg/Sodium Chloride 250 ml @ 50 mls/hr TITRATE IV ; Start 04/25/19 at 06:00 Assessment/Plan Hospital Course (Demo Recall) IMPRESSION: 1. Complicated right parapneumonic effusion. Status post VATS decortication trapped lung not fully expanded. Still evidence of pneumothorax today decreased air leak. 2. End-stage renal disease on hemodialysis. 3. History of hypertension. 4. Anemia. PLAN: 1. Continue antibiotics. 2. Continue oxygen as necessary. 3. Continue chest tube drainage, continue to waterseal. 4. Repeat chest x-ray in a.m. 5. Renal recommendations 6. Consider DC fentanyl SHIPPING SERVICES SALES REPRESENTATIVE Critical care time 40 minutes okay for transfer to telemetry DAHLIA ROMERO MD, [facility] Apr 26, 2019 10:22
[2019-04-26] MEDS: MOMETASONE 0.24 GM INHALER INH SCH (12:32)
--- NOTE | 2019-04-26 14:15 | PN ---
Date/Time of Note Date/Time of Note DATE: 04/26/19 TIME: 14:14 Assessment/Plan VTE Prophylaxis Risk score (from Nsg)>0 risk: 8 SCD applied (from Nsg): Yes Pharmacological prophylaxis: heparin Lines/Catheters IV Catheter Type (from Nrsg): Central Line Central line still needed: Yes Urinary Cath still in place: No Assessment/Plan Hospital Course Appeasr comfortable No distress RRR CTAB R sided chest tube Soft nt nd no edema 68 yo male with ESRD who presents with COLON, found to have large R pleural effusion. Chronic loculated effusion s/p VATS decortication Pleural effusion: - s/p VATS decortication 04/24. Chest tube management per Dr Cates - Epidural infusion for pain control ESRD: - Continue HD per renal Anemia of CKD - iron and EPO Hypertension: - Continue amlodipine Discharge: to self care vs SNF when chest tube removed and stable Result Diagram: 04/26/19 0430 04/26/19 0430 Results 24hrs Laboratory Tests Test 04/26/19 04:30 White Blood Count 9.8 # Red Blood Count 2.79 #L Hemoglobin 8.5 #L Hematocrit 25.9 #L Mean Corpuscular Volume 92.8 Mean Corpuscular Hemoglobin 30.5 Mean Corpuscular Hemoglobin Concent 32.8 Red Cell Distribution Width 14.6 H Platelet Count 230 # Mean Platelet Volume 9.8 Immature Granulocytes % 0.500 H Neutrophils % 85.1 H Lymphocytes % 3.3 L Monocytes % 10.5 Eosinophils % 0.4 Basophils % 0.2 Nucleated Red Blood Cells % 0.0 Immature Granulocytes # 0.050 H Neutrophils # 8.4 H Lymphocytes # 0.3 L Monocytes # 1.0 H Eosinophils # 0.0 Basophils # 0.0 Nucleated Red Blood Cells # 0.0 Sodium Level 137 Potassium Level 4.6 Chloride Level 98 Carbon Dioxide Level 27 Anion Gap 12 Blood Urea Nitrogen 47 #H Creatinine 7.72 #H Est Glomerular Filtrat Rate mL/min 7 L Glucose Level 94 Calcium Level 8.4 Phosphorus Level 6.9 H Magnesium Level 2.1 Subjective 24 Hr Interval Summary Free Text/Dictation Pain controlled wtih epidural infusion Continue w chest tube No complaints Exam/Review of Systems Exam Vitals Vital Signs Date Temp Pulse Resp B/P (MAP) Pulse Ox O2 O2 Flow FiO2 Time Delivery Rate 04/26/19 22 13:00 6/30/19 105 12:00 04/26/19 150/90 96 Room Air 12:00 (110) 04/26/19 98.6 08:00 04/25/19 2.0 08:00 Intake and Output 04/25/19 04/25/19 04/26/19 1515:00 23:00 07:00 IntakeIntake Total 694 ml 234 ml 0 ml OutputOutput Total 3006 ml 20 ml 20 ml BalanceBalance -2312 ml 214 ml -20 ml Results Results 24hrs Laboratory Tests Test 04/26/19 04:30 White Blood Count 9.8 # Red Blood Count 2.79 #L Hemoglobin 8.5 #L Hematocrit 25.9 #L Mean Corpuscular Volume 92.8 Mean Corpuscular Hemoglobin 30.5 Mean Corpuscular Hemoglobin Concent 32.8 Red Cell Distribution Width 14.6 H Platelet Count 230 # Mean Platelet Volume 9.8 Immature Granulocytes % 0.500 H Neutrophils % 85.1 H Lymphocytes % 3.3 L Monocytes % 10.5 Eosinophils % 0.4 Basophils % 0.2 Nucleated Red Blood Cells % 0.0 Immature Granulocytes # 0.050 H Neutrophils # 8.4 H Lymphocytes # 0.3 L Monocytes # 1.0 H Eosinophils # 0.0 Basophils # 0.0 Nucleated Red Blood Cells # 0.0 Sodium Level 137 Potassium Level 4.6 Chloride Level 98 Carbon Dioxide Level 27 Anion Gap 12 Blood Urea Nitrogen 47 #H Creatinine 7.72 #H Est Glomerular Filtrat Rate mL/min 7 L Glucose Level 94 Calcium Level 8.4 Phosphorus Level 6.9 H Magnesium Level 2.1 Medications Medication Current Medications IV Flush (NS 3 ml) 3 ml PER PROTOCOL IV ; Start 04/06/19 at 21:30 Ondansetron HCl (Zofran Inj) 4 mg Q6H PRN IV NAUSEA/VOMITING; Start 04/06/19 at 21:30 Acetaminophen (Tylenol Tab) 650 mg Q6H PRN PO .PAIN 1-3 OR TEMP; Start 04/06/19 at 21:30 Docusate Sodium (Colace) 100 mg Q12H PRN PO .CONSTIPATION; Start 04/06/19 at 21:30 Bisacodyl (Dulcolax) 5 mg DAILY PRN PO .CONSTIPATION; Start 04/06/19 at 21:30 Albumin Human 100 ml @ 100 mls/hr WITH DIALYSIS PRN IV SBP <90 DURING DIALYSIS; Start 04/06/19 at 22:30 Hydralazine HCl (Apresoline) 10 mg Q4 PRN IV SBP more than 150 mm hg Last administered on 04/26/19 12:24; Admin Dose 10 MG; Start 04/06/19 at 22:30 Albuterol (Ventolin Hfa) 2 puff Q4H RESP THERAPY PRN INH WHEEZING AND SOB; Start 04/06/19 at 22:30 Amlodipine Besylate (Norvasc) 10 mg DAILY PO Last administered on 04/26/19 08:41; Admin Dose 10 MG; Start 04/07/19 at 09:00 Aspirin (Halfprin) 81 mg DAILY PO Last administered on 04/26/19 08:40; Admin Dose 81 MG; Start 04/07/19 at 09:00 Atorvastatin Calcium (Lipitor) 80 mg QHS PO Last administered on 04/25/19 20:10; Admin Dose 80 MG; Start 04/07/19 at 21:00 Mometasone Furoate (Asmanex) 1 puff DAILY RESP THERAPY INH Last administered on 04/26/19 12:32; Admin Dose 1 PUFF; Start 04/07/19 at 12:00 Pantoprazole (Protonix Tab) 40 mg DAILY PO Last administered on 04/26/19 08:40; Admin Dose 40 MG; Start 04/07/19 at 09:00 Epoetin Andrew-epbx (Retacrit (Esrd)) 10,000 unit MONWEDFRI@1700 SC Last administered on 04/22/19 21:10; Admin Dose 10,000 UNIT; Start 04/17/19 at 17:00 Hydromorphone HCl (Dilaudid) 0.2 mg Q2H PRN IV .PAIN 1-5 Last administered on 04/24/19at 15:55; Admin Dose 0.2 MG; Start 04/24/19 at 14:30 Hydromorphone HCl (Dilaudid) 0.4 mg Q2H PRN IV .PAIN 6-10; Start 04/24/19 at 14:30 Morphine Sulfate (morphine) 2 mg Q2H PRN IV .PAIN 1-5; Start 04/24/19 at 14:30 Morphine Sulfate (morphine) 4 mg Q2H PRN IV .PAIN 6-10; Start 04/24/19 at 14:30 Acetaminophen (Tylenol Tab) 500 mg Q4H PRN PO .PAIN 1-3; Start 04/24/19 at 14:30 Diphenhydramine HCl (Benadryl) 25 mg Q4H PRN IV .PRURITUS; Start 04/24/19 at 14:30 Nalbuphine HCl (Nubain) 10 mg Q4H PRN IV .PRURITUS; Start 04/24/19 at 14:30 Ondansetron HCl (Zofran Inj) 4 mg Q6H PRN IV .NAUSEA/VOMITING; Start 04/24/19 at 14:30 Naloxone HCl (Narcan) 0.2 mg Q2M PRN IV .RESP RATE; Start 04/24/19 at 14:30 Miscellaneous Information (* Miscellaneous Pharmacy Order) DURAMORPH: 3 MG EPIDU... GIVEN NEURAXIAL XX ; Start 04/24/19 at 14:30 Fentanyl/ Ropivacaine 100 ml CONT EPIDURAL EPI Last administered on 04/26/19at 02:02; Admin Dose 100 ML; Start 04/24/19 at 14:30 Metoprolol Tartrate (Lopressor) 5 mg Q6H PRN IV ELEVATED BLOOD PRESSURE Last administered on 04/25/19at 02:57; Admin Dose 5 MG; Start 04/24/19 at 20:30 MARIE MCCLAIN MD Apr 26, 2019 14:15
--- NOTE | 2019-04-26 14:24 | CONS ---
Assessment/Plan Assessment/Plan Hospital Course (Demo Recall) Patient is alert and feels good no fevers overnight Microbiology: Fluid cx neg Antimicrobials: PHYSICAL EXAMINATION: GENERAL: The patient is a well-developed, well-nourished male. VITAL SIGNS: Stable. He is afebrile. SKIN: Without generalized rash. HEENT: Within normal limits. NECK: Supple. LYMPH NODES: None palpable. CHEST: Decreased breath sounds at the bases, right greater than left. HEART: Without murmur or gallop. ABDOMEN: Soft, nontender EXTREMITIES: Without cyanosis, clubbing or edema. RECTAL AND GENITAL: Deferred. NEUROLOGIC: No focal neurological abnormalities. Assessment: 1. Large loculated pleural effusion, status post VATS with decortication 2. End-stage renal disease 3. LUE AVF Plan: Remains stable, continue present care Consultation Date/Type/Reason Admit Date/Time Apr 06, 2019 at 21:13 Initial Consult Date 04/10/19 Type of Consult id Requesting Provider: DEVI ALFRED Date/Time of Note DATE: 04/26/19 TIME: 14:23 Exam/Review of Systems Exam Vitals Vital Signs Date Temp Pulse Resp B/P (MAP) Pulse Ox O2 O2 Flow FiO2 Time Delivery Rate 04/26/19 22 13:00 04/26/19 105 12:00 04/26/19 150/90 96 Room Air 12:00 (110) 04/26/19 98.6 08:00 04/25/19 2.0 08:00 Intake and Output 04/25/19 04/25/19 04/26/19 1515:00 23:00 07:00 IntakeIntake Total 694 ml 234 ml 0 ml OutputOutput Total 3006 ml 20 ml 20 ml BalanceBalance -2312 ml 214 ml -20 ml Results Result Diagram: 04/26/19 0430 04/26/19 0430 Results 24hrs Laboratory Tests Test 04/26/19 04:30 White Blood Count 9.8 # Red Blood Count 2.79 #L Hemoglobin 8.5 #L Hematocrit 25.9 #L Mean Corpuscular Volume 92.8 Mean Corpuscular Hemoglobin 30.5 Mean Corpuscular Hemoglobin Concent 32.8 Red Cell Distribution Width 14.6 H Platelet Count 230 # Mean Platelet Volume 9.8 Immature Granulocytes % 0.500 H Neutrophils % 85.1 H Lymphocytes % 3.3 L Monocytes % 10.5 Eosinophils % 0.4 Basophils % 0.2 Nucleated Red Blood Cells % 0.0 Immature Granulocytes # 0.050 H Neutrophils # 8.4 H Lymphocytes # 0.3 L Monocytes # 1.0 H Eosinophils # 0.0 Basophils # 0.0 Nucleated Red Blood Cells # 0.0 Sodium Level 137 Potassium Level 4.6 Chloride Level 98 Carbon Dioxide Level 27 Anion Gap 12 Blood Urea Nitrogen 47 #H Creatinine 7.72 #H Est Glomerular Filtrat Rate mL/min 7 L Glucose Level 94 Calcium Level 8.4 Phosphorus Level 6.9 H Magnesium Level 2.1 Medications Medication Current Medications IV Flush (NS 3 ml) 3 ml PER PROTOCOL IV ; Start 04/06/19 at 21:30 Ondansetron HCl (Zofran Inj) 4 mg Q6H PRN IV NAUSEA/VOMITING; Start 04/06/19 at 21:30 Acetaminophen (Tylenol Tab) 650 mg Q6H PRN PO .PAIN 1-3 OR TEMP; Start 04/06/19 at 21:30 Docusate Sodium (Colace) 100 mg Q12H PRN PO .CONSTIPATION; Start 04/06/19 at 21:30 Bisacodyl (Dulcolax) 5 mg DAILY PRN PO .CONSTIPATION; Start 04/06/19 at 21:30 Albumin Human 100 ml @ 100 mls/hr WITH DIALYSIS PRN IV SBP <90 DURING DIALYSIS; Start 04/06/19 at 22:30 Hydralazine HCl (Apresoline) 10 mg Q4 PRN IV SBP more than 150 mm hg Last administered on 04/26/19at 12:24; Admin Dose 10 MG; Start 04/06/19 at 22:30 Albuterol (Ventolin Hfa) 2 puff Q4H RESP THERAPY PRN INH WHEEZING AND SOB; Start 04/06/19 at 22:30 Amlodipine Besylate (Norvasc) 10 mg DAILY PO Last administered on 04/26/19at 08:41; Admin Dose 10 MG; Start 04/07/19 at 09:00 Aspirin (Halfprin) 81 mg DAILY PO Last administered on 04/26/19at 08:40; Admin Dose 81 MG; Start 04/07/19 at 09:00 Atorvastatin Calcium (Lipitor) 80 mg QHS PO Last administered on 04/25/19at 20:10; Admin Dose 80 MG; Start 04/07/19 at 21:00 Mometasone Furoate (Asmanex) 1 puff DAILY RESP THERAPY INH Last administered on 04/26/19at 12:32; Admin Dose 1 PUFF; Start 04/07/19 at 12:00 Pantoprazole (Protonix Tab) 40 mg DAILY PO Last administered on 04/26/19at 08:40; Admin Dose 40 MG; Start 04/07/19 at 09:00 Epoetin Andrew-epbx (Retacrit (Esrd)) 10,000 unit MONWEDFRI@1700 SC Last administered on 04/22/19at 21:10; Admin Dose 10,000 UNIT; Start 04/17/19 at 17:00 Hydromorphone HCl (Dilaudid) 0.2 mg Q2H PRN IV .PAIN 1-5 Last administered on 04/24/19at 15:55; Admin Dose 0.2 MG; Start 04/24/19 at 14:30 Hydromorphone HCl (Dilaudid) 0.4 mg Q2H PRN IV .PAIN 6-10; Start 04/24/19 at 14:30 Morphine Sulfate (morphine) 2 mg Q2H PRN IV .PAIN 1-5; Start 04/24/19 at 14:30 Morphine Sulfate (morphine) 4 mg Q2H PRN IV .PAIN 6-10; Start 04/24/19 at 14:30 Acetaminophen (Tylenol Tab) 500 mg Q4H PRN PO .PAIN 1-3; Start 04/24/19 at 14:30 Diphenhydramine HCl (Benadryl) 25 mg Q4H PRN IV .PRURITUS; Start 04/24/19 at 14:30 Nalbuphine HCl (Nubain) 10 mg Q4H PRN IV .PRURITUS; Start 04/24/19 at 14:30 Ondansetron HCl (Zofran Inj) 4 mg Q6H PRN IV .NAUSEA/VOMITING; Start 04/24/19 at 14:30 Naloxone HCl (Narcan) 0.2 mg Q2M PRN IV .RESP RATE; Start 04/24/19 at 14:30 Miscellaneous Information (* Miscellaneous Pharmacy Order) DURAMORPH: 3 MG EPIDU... GIVEN NEURAXIAL XX ; Start 04/24/19 at 14:30 Fentanyl/ Ropivacaine 100 ml CONT EPIDURAL EPI Last administered on 04/26/19at 02:02; Admin Dose 100 ML; Start 04/24/19 at 14:30 Metoprolol Tartrate (Lopressor) 5 mg Q6H PRN IV ELEVATED BLOOD PRESSURE Last administered on 04/25/19at 02:57; Admin Dose 5 MG; Start 04/24/19 at 20:30 DAT BENOIT NP Apr 26, 2019 14:24
[2019-04-26] MEDS: ATORVASTATIN 80 MG TAB PO SCH (20:38)
[2019-04-27] VITALS (21 sets, daily range): BP systolic 135–167; BP diastolic 60–99; PULSE 84–117; RESP 16–20
[2019-04-27] MEDS: FENTAnyl 2MCG/ML-ROPIV 0.2% 100 ML BAG EPI SCH ×2 (06:51→18:45)
[2019-04-27] MEDS: AMLODIPINE 10 MG TAB PO SCH ×2 (09:00→14:05)
--- NOTE | 2019-04-27 09:02 | OPPN ---
Date/Time of Note Date/Time of Note DATE: 04/27/19 TIME: 08:59 Anesthesia Follow up Anesthesia Follow up Last documented vital signs Vital Signs Date Temp Pulse Resp B/P (MAP) Pulse Ox O2 O2 Flow FiO2 Time Delivery Rate 04/27/19 98.5 96 20 161/91 100 Nasal 07:31 (114) Cannula 04/26/19 2.0 20:00 Respiratory function: WNL Cardiovascular function: WNL Comments POD#3 S/P Right Thoracotomy and Decortication, under GETA and Thoracic Epidural was placed and continuous Epidural infusion was used to control post op pain. Patient is doing well and being transferred to [facility] on 6th floor. Patient is alert and oriented, afebrile, vital signs are stable, he is comfortably sitting with no pain having breakfast. Pain is very well controlled. Epidural Catheter site is clean and intact, Epidural Infusion of 7 ml/hr is continued and will be followed up. No parest hesia or weakness in extremities. EBONIE ALVARADO MD Apr 27, 2019 09:02
[2019-04-27] MEDS: PANTOPRAZOLE (EC) 40 MG TAB PO SCH (09:21)
[2019-04-27] MEDS: ASPIRIN (EC) 81 MG TAB PO SCH (09:21)
--- NOTE | 2019-04-27 11:51 | CONS ---
Assessment/Plan Assessment/Plan Assessment/Plan (Daily) 1. Acute fluid overload with acute Uremia due to missed HD- Improved, pt stable on 2 L NC 2. acute hyperkalemia due to Missed HD- now resolved 3. Large Loculated Right sided pleural effusion s/p R thoracentesis on 04/09/19- 600 cc drained - s/p Right sided VATS with Decortication by dr. corona on 04/24/19 4. ESRD on HD - has been stayed out of [place] for more than 3 months- lost his HD chair time in [place]. 5. H/o HTN 6. H/o HL 7. H/o Hypothyroidism 8. Anemia of ESRD on Epogen Plan: Large Loculated Right sided pleural effusion s/p R thoracentesis on 04/09/19- 600 cc drained-s/p Right sided VATS with Decortication by dr. corona on 04/24/19 -stable on 2 L NC, continue current BP meds amlodipine 10mg po daily , IV hydralaine prn HIV< hepatitis panel negative- awaiting Outpatient HD placement confirmation will conitnue pt on MWF schedule for his hemodialysis- s/p HD today 1 L removed - next HD will be on saturday Epogen 67772 units SQ MWF for Anemia Will follow up Consultation Date/Type/Reason Admit Date/Time Apr 06, 2019 at 21:13 Initial Consult Date 04/06/19 Type of Consult NEPHROLOGY Requesting Provider: DEVI ALFRED Date/Time of Note DATE: 04/27/19 TIME: 11:51 Exam/Review of Systems Exam Vitals Vital Signs Date Temp Pulse Resp B/P (MAP) Pulse Ox O2 O2 Flow FiO2 Time Delivery Rate 04/27/19 98.8 114 20 142/93 97 Nasal 11:31 (109) Cannula 04/27/19 2.0 10:08 Intake and Output 04/26/19 04/26/19 04/27/19 1515:00 23:00 07:00 IntakeIntake Total 14 ml 500 ml 114 ml OutputOutput Total 160 ml 80 ml BalanceBalance 14 ml 340 ml 34 ml Results Result Diagram: 04/27/19 0526 04/27/19 0526 Results 24hrs Laboratory Tests Test 04/27/19 05:26 White Blood Count 10.3 Red Blood Count 2.60 L Hemoglobin 7.9 L Hematocrit 24.2 L Mean Corpuscular Volume 93.1 Mean Corpuscular Hemoglobin 30.4 Mean Corpuscular Hemoglobin Concent 32.6 Red Cell Distribution Width 14.3 Platelet Count 213 Mean Platelet Volume 9.6 Immature Granulocytes % 0.600 H Neutrophils % 83.5 H Lymphocytes % 3.7 L Monocytes % 10.2 Eosinophils % 1.8 Basophils % 0.2 Nucleated Red Blood Cells % 0.0 Immature Granulocytes # 0.060 H Neutrophils # 8.6 H Lymphocytes # 0.4 L Monocytes # 1.1 H Eosinophils # 0.2 Basophils # 0.0 Nucleated Red Blood Cells # 0.0 Sodium Level 136 Potassium Level 5.1 Chloride Level 97 Carbon Dioxide Level 23 Anion Gap 16 H Blood Urea Nitrogen 65 H Creatinine 9.86 #H Est Glomerular Filtrat Rate mL/min 5 L Glucose Level 92 Calcium Level 8.6 Phosphorus Level 8.9 #H Magnesium Level 2.2 Medications Medication Current Medications IV Flush (NS 3 ml) 3 ml PER PROTOCOL IV ; Start 04/06/19 at 21:30 Ondansetron HCl (Zofran Inj) 4 mg Q6H PRN IV NAUSEA/VOMITING; Start 04/06/19 at 21:30 Acetaminophen (Tylenol Tab) 650 mg Q6H PRN PO .PAIN 1-3 OR TEMP; Start 04/06/19 at 21:30 Docusate Sodium (Colace) 100 mg Q12H PRN PO .CONSTIPATION; Start 04/06/19 at 21:30 Bisacodyl (Dulcolax) 5 mg DAILY PRN PO .CONSTIPATION; Start 04/06/19 at 21:30 Albumin Human 100 ml @ 100 mls/hr WITH DIALYSIS PRN IV SBP <90 DURING DIALYSIS; Start 04/06/19 at 22:30 Hydralazine HCl (Apresoline) 10 mg Q4 PRN IV SBP more than 150 mm hg Last administered on 04/26/19at 12:24; Admin Dose 10 MG; Start 04/06/19 at 22:30 Albuterol (Ventolin Hfa) 2 puff Q4H RESP THERAPY PRN INH WHEEZING AND SOB; Start 04/06/19 at 22:30 Amlodipine Besylate (Norvasc) 10 mg DAILY PO Last administered on 04/26/19at 08:41; Admin Dose 10 MG; Start 04/07/19 at 09:00 Aspirin (Halfprin) 81 mg DAILY PO Last administered on 04/27/19at 09:21; Admin Dose 81 MG; Start 04/07/19 at 09:00 Atorvastatin Calcium (Lipitor) 80 mg QHS PO Last administered on 04/26/19at 20:38; Admin Dose 80 MG; Start 04/07/19 at 21:00 Mometasone Furoate (Asmanex) 1 puff DAILY RESP THERAPY INH Last administered on 04/26/19at 12:32; Admin Dose 1 PUFF; Start 04/07/19 at 12:00 Pantoprazole (Protonix Tab) 40 mg DAILY PO Last administered on 04/27/19 09:21; Admin Dose 40 MG; Start 04/07/19 at 09:00 Epoetin Andrew-epbx (Retacrit (Esrd)) 10,000 unit MONWEDFRI@1700 SC Last administered on 04/22/19at 21:10; Admin Dose 10,000 UNIT; Start 04/17/19 at 17:00 Hydromorphone HCl (Dilaudid) 0.2 mg Q2H PRN IV .PAIN 1-5 Last administered on 04/24/19at 15:55; Admin Dose 0.2 MG; Start 04/24/19 at 14:30 Hydromorphone HCl (Dilaudid) 0.4 mg Q2H PRN IV .PAIN 6-10; Start 04/24/19 at 14:30 Morphine Sulfate (morphine) 2 mg Q2H PRN IV .PAIN 1-5; Start 04/24/19 at 14:30 Morphine Sulfate (morphine) 4 mg Q2H PRN IV .PAIN 6-10; Start 04/24/19 at 14:30 Acetaminophen (Tylenol Tab) 500 mg Q4H PRN PO .PAIN 1-3; Start 04/24/19 at 14:30 Diphenhydramine HCl (Benadryl) 25 mg Q4H PRN IV .PRURITUS; Start 04/24/19 at 14:30 Nalbuphine HCl (Nubain) 10 mg Q4H PRN IV .PRURITUS; Start 04/24/19 at 14:30 Ondansetron HCl (Zofran Inj) 4 mg Q6H PRN IV .NAUSEA/VOMITING; Start 04/24/19 at 14:30 Naloxone HCl (Narcan) 0.2 mg Q2M PRN IV .RESP RATE; Start 04/24/19 at 14:30 Miscellaneous Information (* Miscellaneous Pharmacy Order) DURAMORPH: 3 MG EPIDU... GIVEN NEURAXIAL XX ; Start 04/24/19 at 14:30 Fentanyl/ Ropivacaine 100 ml CONT EPIDURAL EPI Last administered on 04/27/19at 06:51; Admin Dose 100 ML; Start 04/24/19 at 14:30 Metoprolol Tartrate (Lopressor) 5 mg Q6H PRN IV ELEVATED BLOOD PRESSURE Last administered on 04/25/19at 02:57; Admin Dose 5 MG; Start 04/24/19 at 20:30 VAN DHALIWAL MD Apr 27, 2019 11:51
[2019-04-27] MEDS: MOMETASONE 0.24 GM INHALER INH SCH (12:00)
--- NOTE | 2019-04-27 12:19 | CONS ---
Consult Date/Type/Reason Admit Date/Time Apr 06, 2019 at 21:13 Initial Consult Date 04/10/19 Type of Consult Pulmonary Requesting Provider: DEVI ALFRED Date/Time of Note DATE: 04/27/19 TIME: 12:18 Subjective Patient stable no new events. Chest tube in place. Objective Vital Signs Date Temp Pulse Resp B/P (MAP) Pulse Ox O2 O2 Flow FiO2 Time Delivery Rate 04/27/19 116 11:55 04/27/19 98.8 20 142/93 97 Nasal 11:31 (109) Cannula 04/27/19 2.0 10:08 Intake and Output 04/26/19 04/26/19 04/27/19 1515:00 23:00 07:00 IntakeIntake Total 14 ml 500 ml 114 ml OutputOutput Total 160 ml 80 ml BalanceBalance 14 ml 340 ml 34 ml Exam PHYSICAL EXAMINATION: VITAL SIGNS: HEENT: Pupils are equal and reactive to light. NECK: Supple, no JVD noted. LUNGS: Decreased breath sounds at the right. chest tube in place CARDIOVASCULAR: S1, S2 normal. ABDOMEN: Soft, nontender. No organomegaly or masses noted. EXTREMITIES: No clubbing or cyanosis noted. NEUROLOGIC: No changes. Vent Setting Fraction of Inspired Oxygen pe: 21 Results/Medications Result Diagram: 04/27/19 0526 04/27/19 0526 Results 24 hrs Laboratory Tests Test 04/27/19 05:26 White Blood Count 10.3 Red Blood Count 2.60 L Hemoglobin 7.9 L Hematocrit 24.2 L Mean Corpuscular Volume 93.1 Mean Corpuscular Hemoglobin 30.4 Mean Corpuscular Hemoglobin Concent 32.6 Red Cell Distribution Width 14.3 Platelet Count 213 Mean Platelet Volume 9.6 Immature Granulocytes % 0.600 H Neutrophils % 83.5 H Lymphocytes % 3.7 L Monocytes % 10.2 Eosinophils % 1.8 Basophils % 0.2 Nucleated Red Blood Cells % 0.0 Immature Granulocytes # 0.060 H Neutrophils # 8.6 H Lymphocytes # 0.4 L Monocytes # 1.1 H Eosinophils # 0.2 Basophils # 0.0 Nucleated Red Blood Cells # 0.0 Sodium Level 136 Potassium Level 5.1 Chloride Level 97 Carbon Dioxide Level 23 Anion Gap 16 H Blood Urea Nitrogen 65 H Creatinine 9.86 #H Est Glomerular Filtrat Rate mL/min 5 L Glucose Level 92 Calcium Level 8.6 Phosphorus Level 8.9 #H Magnesium Level 2.2 Medications Current Medications IV Flush (NS 3 ml) 3 ml PER PROTOCOL IV ; Start 04/06/19 at 21:30 Ondansetron HCl (Zofran Inj) 4 mg Q6H PRN IV NAUSEA/VOMITING; Start 04/06/19 at 21:30 Acetaminophen (Tylenol Tab) 650 mg Q6H PRN PO .PAIN 1-3 OR TEMP; Start 04/06/19 at 21:30 Docusate Sodium (Colace) 100 mg Q12H PRN PO .CONSTIPATION; Start 04/06/19 at 21:30 Bisacodyl (Dulcolax) 5 mg DAILY PRN PO .CONSTIPATION; Start 04/06/19 at 21:30 Albumin Human 100 ml @ 100 mls/hr WITH DIALYSIS PRN IV SBP <90 DURING DIALYSIS; Start 04/06/19 at 22:30 Hydralazine HCl (Apresoline) 10 mg Q4 PRN IV SBP more than 150 mm hg Last adm inistered on 04/26/19 12:24; Admin Dose 10 MG; Start 04/06/19 at 22:30 Albuterol (Ventolin Hfa) 2 puff Q4H RESP THERAPY PRN INH WHEEZING AND SOB; Start 04/06/19 at 22:30 Amlodipine Besylate (Norvasc) 10 mg DAILY PO Last administered on 04/26/19at 08:41; Admin Dose 10 MG; Start 04/07/19 at 09:00 Aspirin (Halfprin) 81 mg DAILY PO Last administered on 04/27/19 09:21; Admin Dose 81 MG; Start 04/07/19 at 09:00 Atorvastatin Calcium (Lipitor) 80 mg QHS PO Last administered on 04/26/19 20:38; Admin Dose 80 MG; Start 04/07/19 at 21:00 Mometasone Furoate (Asmanex) 1 puff DAILY RESP THERAPY INH Last administered on 04/26/19 12:32; Admin Dose 1 PUFF; Start 04/07/19 at 12:00 Pantoprazole (Protonix Tab) 40 mg DAILY PO Last administered on 04/27/19 09:21; Admin Dose 40 MG; Start 04/07/19 at 09:00 Epoetin Andrew-epbx (Retacrit (Esrd)) 10,000 unit MONWEDFRI@1700 SC Last administered on 04/22/19at 21:10; Admin Dose 10,000 UNIT; Start 04/17/19 at 17:00 Hydromorphone HCl (Dilaudid) 0.2 mg Q2H PRN IV .PAIN 1-5 Last administered on 04/24/19at 15:55; Admin Dose 0.2 MG; Start 04/24/19 at 14:30 Hydromorphone HCl (Dilaudid) 0.4 mg Q2H PRN IV .PAIN 6-10; Start 04/24/19 at 14:30 Morphine Sulfate (morphine) 2 mg Q2H PRN IV .PAIN 1-5; Start 04/24/19 at 14:30 Morphine Sulfate (morphine) 4 mg Q2H PRN IV .PAIN 6-10; Start 04/24/19 at 14:30 Acetaminophen (Tylenol Tab) 500 mg Q4H PRN PO .PAIN 1-3; Start 04/24/19 at 14:30 Diphenhydramine HCl (Benadryl) 25 mg Q4H PRN IV .PRURITUS; Start 04/24/19 at 1 4:30 Nalbuphine HCl (Nubain) 10 mg Q4H PRN IV .PRURITUS; Start 04/24/19 at 14:30 Ondansetron HCl (Zofran Inj) 4 mg Q6H PRN IV .NAUSEA/VOMITING; Start 04/24/19 at 14:30 Naloxone HCl (Narcan) 0.2 mg Q2M PRN IV .RESP RATE; Start 04/24/19 at 14:30 Miscellaneous Information (* Miscellaneous Pharmacy Order) DURAMORPH: 3 MG EPIDU... GIVEN NEURAXIAL XX ; Start 04/24/19 at 14:30 Fentanyl/ Ropivacaine 100 ml CONT EPIDURAL EPI Last administered on 04/27/19at 06:51; Admin Dose 100 ML; Start 04/24/19 at 14:30 Metoprolol Tartrate (Lopressor) 5 mg Q6H PRN IV ELEVATED BLOOD PRESSURE Last administered on 04/25/19at 02:57; Admin Dose 5 MG; Start 04/24/19 at 20:30 Assessment/Plan Hospital Course (Demo Recall) IMPRESSION: 1. Complicated right parapneumonic effusion. Status post VATS decortication trapped lung not fully expanded. Still evidence of pneumothorax today decreased air leak. 2. End-stage renal disease on hemodialysis. 3. History of hypertension. 4. Anemia. PLAN: 1. Continue antibiotics. 2. Continue oxygen as necessary. 3. Continue chest tube drainage, continue to waterseal. 4. Repeat chest x-ray in a.m. 5. Renal recommendations Repeat CT chest to evaluate possible trapped lung. DAHLIA ROMERO MD, [facility] Apr 27, 2019 12:19
--- NOTE | 2019-04-27 15:04 | CONS ---
Assessment/Plan Assessment/Plan Hospital Course (Demo Recall) In HD, looks comfortable, no fevers Microbiology: Fluid cx neg Antimicrobials: PHYSICAL EXAMINATION: GENERAL: The patient is a well-developed, well-nourished male. VITAL SIGNS: Stable. He is afebrile. SKIN: Without generalized rash. HEENT: Within normal limits. NECK: Supple. LYMPH NODES: None palpable. CHEST: Decreased breath sounds at the bases, right greater than left. HEART: Without murmur or gallop. ABDOMEN: Soft, nontender EXTREMITIES: Without cyanosis, clubbing or edema. RECTAL AND GENITAL: Deferred. NEUROLOGIC: No focal neurological abnormalities. Assessment: 1. Large loculated pleural effusion, status post VATS with decortication 2. End-stage renal disease 3. LUE AVF Plan: Remains stable, CT with bloody drainage, continue present care, f/u CTS rec-s, monitor h/h Consultation Date/Type/Reason Admit Date/Time Apr 06, 2019 at 21:13 Initial Consult Date 04/10/19 Type of Consult id Requesting Provider: DEVI ALFRED Date/Time of Note DATE: 04/27/19 TIME: 15:03 Exam/Review of Systems Exam Vitals Vital Signs Date Temp Pulse Resp B/P (MAP) Pulse Ox O2 O2 Flow FiO2 Time Delivery Rate 04/27/19 20 13:00 04/27/19 117 12:40 04/27/19 98.5 135/60 96 Nasal 12:34 (85) Cannula 04/27/19 2.0 10:08 Intake and Output 04/26/19 04/26/19 04/27/19 1515:00 23:00 07:00 IntakeIntake Total 14 ml 500 ml 114 ml OutputOutput Total 160 ml 80 ml BalanceBalance 14 ml 340 ml 34 ml Results Result Diagram: 04/27/19 0526 04/27/19 05 Results 24hrs Laboratory Tests Test 04/27/19 05:26 White Blood Count 10.3 Red Blood Count 2.60 L Hemoglobin 7.9 L Hematocrit 24.2 L Mean Corpuscular Volume 93.1 Mean Corpuscular Hemoglobin 30.4 Mean Corpuscular Hemoglobin Concent 32.6 Red Cell Distribution Width 14.3 Platelet Count 213 Mean Platelet Volume 9.6 Immature Granulocytes % 0.600 H Neutrophils % 83.5 H Lymphocytes % 3.7 L Monocytes % 10.2 Eosinophils % 1.8 Basophils % 0.2 Nucleated Red Blood Cells % 0.0 Immature Granulocytes # 0.060 H Neutrophils # 8.6 H Lymphocytes # 0.4 L Monocytes # 1.1 H Eosinophils # 0.2 Basophils # 0.0 Nucleated Red Blood Cells # 0.0 Sodium Level 136 Potassium Level 5.1 Chloride Level 97 Carbon Dioxide Level 23 Anion Gap 16 H Blood Urea Nitrogen 65 H Creatinine 9.86 #H Est Glomerular Filtrat Rate mL/min 5 L Glucose Level 92 Calcium Level 8.6 Phosphorus Level 8.9 #H Magnesium Level 2.2 Medications Medication Current Medications IV Flush (NS 3 ml) 3 ml PER PROTOCOL IV ; Start 04/06/19 at 21:30 Ondansetron HCl (Zofran Inj) 4 mg Q6H PRN IV NAUSEA/VOMITING; Start 04/06/19 at 21:30 Acetaminophen (Tylenol Tab) 650 mg Q6H PRN PO .PAIN 1-3 OR TEMP; Start 04/06/19 at 21:30 Docusate Sodium (Colace) 100 mg Q12H PRN PO .CONSTIPATION; Start 04/06/19 at 21:30 Bisacodyl (Dulcolax) 5 mg DAILY PRN PO .CONSTIPATION; Start 04/06/19 at 21:30 Albumin Human 100 ml @ 100 mls/hr WITH DIALYSIS PRN IV SBP <90 DURING DIALYSIS; Start 04/06/19 at 22:30 Hydralazine HCl (Apresoline) 10 mg Q4 PRN IV SBP more than 150 mm hg Last administered on 04/26/19at 12:24; Admin Dose 10 MG; Start 04/06/19 at 22:30 Albuterol (Ventolin Hfa) 2 puff Q4H RESP THERAPY PRN INH WHEEZING AND SOB; Start 04/06/19 at 22:30 Amlodipine Besylate (Norvasc) 10 mg DAILY PO Last administered on 04/27/19at 14:05; Admin Dose 10 MG; Start 04/07/19 at 09:00 Aspirin (Halfprin) 81 mg DAILY PO Last administered on 04/27/19at 09:21; Admin Dose 81 MG; Start 04/07/19 at 09:00 Atorvastatin Calcium (Lipitor) 80 mg QHS PO Last administered on 04/26/19at 20:38; Admin Dose 80 MG; Start 04/07/19 at 21:00 Mometasone Furoate (Asmanex) 1 puff DAILY RESP THERAPY INH Last administered on 04/26/19at 12:32; Admin Dose 1 PUFF; Start 04/07/19 at 12:00 Pantoprazole (Protonix Tab) 40 mg DAILY PO Last administered on 04/27/19at 09:21; Admin Dose 40 MG; Start 04/07/19 at 09:00 Epoetin Andrew-epbx (Retacrit (Esrd)) 10,000 unit MONWEDFRI@1700 SC Last administered on 04/22/19at 21:10; Admin Dose 10,000 UNIT; Start 04/17/19 at 17:00 Hydromorphone HCl (Dilaudid) 0.2 mg Q2H PRN IV .PAIN 1-5 Last administered on 04/24/19at 15:55; Admin Dose 0.2 MG; Start 04/24/19 at 14:30 Hydromorphone HCl (Dilaudid) 0.4 mg Q2H PRN IV .PAIN 6-10; Start 04/24/19 at 14:30 Morphine Sulfate (morphine) 2 mg Q2H PRN IV .PAIN 1-5; Start 04/24/19 at 14:30 Morphine Sulfate (morphine) 4 mg Q2H PRN IV .PAIN 6-10; Start 04/24/19 at 14:30 Acetaminophen (Tylenol Tab) 500 mg Q4H PRN PO .PAIN 1-3; Start 04/24/19 at 14:30 Diphenhydramine HCl (Benadryl) 25 mg Q4H PRN IV .PRURITUS; Start 04/24/19 at 14:30 Nalbuphine HCl (Nubain) 10 mg Q4H PRN IV .PRURITUS; Start 04/24/19 at 14:30 Ondansetron HCl (Zofran Inj) 4 mg Q6H PRN IV .NAUSEA/VOMITING; Start 04/24/19 at 14:30 Naloxone HCl (Narcan) 0.2 mg Q2M PRN IV .RESP RATE; Start 04/24/19 at 14:30 Miscellaneous Information (* Miscellaneous Pharmacy Order) DURAMORPH: 3 MG EPIDU... GIVEN NEURAXIAL XX ; Start 04/24/19 at 14:30 Fentanyl/ Ropivacaine 100 ml CONT EPIDURAL EPI Last administered on 04/27/19at 06:51; Admin Dose 100 ML; Start 04/24/19 at 14:30 Metoprolol Tartrate (Lopressor) 5 mg Q6H PRN IV ELEVATED BLOOD PRESSURE Last administered on 04/25/19at 02:57; Admin Dose 5 MG; Start 04/24/19 at 20:30 DAT BENOIT NP Apr 27, 2019 15:04
--- NOTE | 2019-04-27 15:50 | PN ---
Date/Time of Note Date/Time of Note DATE: 04/27/19 TIME: 15:49 Assessment/Plan VTE Prophylaxis Risk score (from Ns)>0 risk: 10 SCD applied (from [facility] [place] Yes Pharmacological prophylaxis: NA/contraindicated Pharm contraindication: surgical contra Lines/Catheters Urinary Cath still in place: No Assessment/Plan Hospital Course 68 yo male with ESRD who presents with COLON, found to have large R pleural effusion. Chronic loculated effusion s/p VATS decortication Pleural effusion: - s/p VATS decortication 04/24. Chest tube management per Dr Cates - Epidural infusion for pain control ESRD: - Continue HD per renal Anemia of CKD - iron and EPO Hypertension: - Continue amlodipine Discharge: to self care vs SNF when chest tube removed and stable Result Diagram: 04/27/1952504/27/19525 Results 24hrs Laboratory Tests Test 04/27/19 05:26 White Blood Count 10.3 Red Blood Count 2.60 L Hemoglobin 7.9 L Hematocrit 24.2 L Mean Corpuscular Volume 93.1 Mean Corpuscular Hemoglobin 30.4 Mean Corpuscular Hemoglobin Concent 32.6 Red Cell Distribution Width 14.3 Platelet Count 213 Mean Platelet Volume 9.6 Immature Granulocytes % 0.600 H Neutrophils % 83.5 H Lymphocytes % 3.7 L Monocytes % 10.2 Eosinophils % 1.8 Basophils % 0.2 Nucleated Red Blood Cells % 0.0 Immature Granulocytes # 0.060 H Neutrophils # 8.6 H Lymphocytes # 0.4 L Monocytes # 1.1 H Eosinophils # 0.2 Basophils # 0.0 Nucleated Red Blood Cells # 0.0 Sodium Level 136 Potassium Level 5.1 Chloride Level 97 Carbon Dioxide Level 23 Anion Gap 16 H Blood Urea Nitrogen 65 H Creatinine 9.86 #H Est Glomerular Filtrat Rate mL/min 5 L Glucose Level 92 Calcium Level 8.6 Phosphorus Level 8.9 #H Magnesium Level 2.2 Subjective 24 Hr Interval Summary Constitutional: no complaints Exam/Review of Systems Exam Vitals Vital Signs Date Temp Pulse Resp B/P (MAP) Pulse Ox O2 O2 Flow FiO2 Time Delivery Rate 04/27/19 98.5 113 20 167/90 100 Nasal 15:46 (115) Cannula 04/27/19 2.0 10:08 Intake and Output 04/26/19 04/26/19 04/27/19 1515:00 23:00 07:00 IntakeIntake Total 14 ml 500 ml 114 ml OutputOutput Total 160 ml 80 ml BalanceBalance 14 ml 340 ml 34 ml Constitutional: alert, oriented Respiratory: clear to auscultation Cardiovascular: regular rate and rhythm Gastrointestinal: soft; No distended Musculoskeletal: nl extremities to inspection Results Results 24hrs Laboratory Tests Test 04/27/19 05:26 White Blood Count 10.3 Red Blood Count 2.60 L Hemoglobin 7.9 L Hematocrit 24.2 L Mean Corpuscular Volume 93.1 Mean Corpuscular Hemoglobin 30.4 Mean Corpuscular Hemoglobin Concent 32.6 Red Cell Distribution Width 14.3 Platelet Count 213 Mean Platelet Volume 9.6 Immature Granulocytes % 0.600 H Neutrophils % 83.5 H Lymphocytes % 3.7 L Monocytes % 10.2 Eosinophils % 1.8 Basophils % 0.2 Nucleated Red Blood Cells % 0.0 Immature Granulocytes # 0.060 H Neutrophils # 8.6 H Lymphocytes # 0.4 L Monocytes # 1.1 H Eosinophils # 0.2 Basophils # 0.0 Nucleated Red Blood Cells # 0.0 Sodium Level 136 Potassium Level 5.1 Chloride Level 97 Carbon Dioxide Level 23 Anion Gap 16 H Blood Urea Nitrogen 65 H Creatinine 9.86 #H Est Glomerular Filtrat Rate mL/min 5 L Glucose Level 92 Calcium Level 8.6 Phosphorus Level 8.9 #H Magnesium Level 2.2 Medications Medication Current Medications IV Flush (NS 3 ml) 3 ml PER PROTOCOL IV ; Start 04/06/19 at 21:30 Ondansetron HCl (Zofran Inj) 4 mg Q6H PRN IV NAUSEA/VOMITING; Start 04/06/19 at 21:30 Acetaminophen (Tylenol Tab) 650 mg Q6H PRN PO .PAIN 1-3 OR TEMP; Start 04/06/19 at 21:30 Docusate Sodium (Colace) 100 mg Q12H PRN PO .CONSTIPATION; Start 04/06/19 at 21:30 Bisacodyl (Dulcolax) 5 mg DAILY PRN PO .CONSTIPATION; Start 04/06/19 at 21:30 Albumin Human 100 ml @ 100 mls/hr WITH DIALYSIS PRN IV SBP <90 DURING DIALYSIS; Start 04/06/19 at 22:30 Hydralazine HCl (Apresoline) 10 mg Q4 PRN IV SBP more than 150 mm hg Last administered on 04/26/19 12:24; Admin Dose 10 MG; Start 04/06/19 at 22:30 Albuterol (Ventolin Hfa) 2 puff Q4H RESP THERAPY PRN INH WHEEZING AND SOB; Start 04/06/19 at 22:30 Amlodipine Besylate (Norvasc) 10 mg DAILY PO Last administered on 04/27/19 14:05; Admin Dose 10 MG; Start 04/07/19 at 09:00 Aspirin (Halfprin) 81 mg DAILY PO Last administered on 04/27/19 09:21; Admin Dose 81 MG; Start 04/07/19 at 09:00 Atorvastatin Calcium (Lipitor) 80 mg QHS PO Last administered on 04/26/19 20:38; Admin Dose 80 MG; Start 04/07/19 at 21:00 Mometasone Furoate (Asmanex) 1 puff DAILY RESP THERAPY INH Last administered on 04/26/19 12:32; Admin Dose 1 PUFF; Start 04/07/19 at 12:00 Pantoprazole (Protonix Tab) 40 mg DAILY PO Last administered on 04/27/19 09:21; Admin Dose 40 MG; Start 04/07/19 at 09:00 Epoetin Andrew-epbx (Retacrit (Esrd)) 10,000 unit MONWEDFRI@1700 SC Last administered on 04/22/19 21:10; Admin Dose 10,000 UNIT; Start 04/17/19 at 17:00 Hydromorphone HCl (Dilaudid) 0.2 mg Q2H PRN IV .PAIN 1-5 Last administered on 04/24/19at 15:55; Admin Dose 0.2 MG; Start 04/24/19 at 14:30 Hydromorphone HCl (Dilaudid) 0.4 mg Q2H PRN IV .PAIN 6-10; Start 04/24/19 at 14:30 Morphine Sulfate (morphine) 2 mg Q2H PRN IV .PAIN 1-5; Start 04/24/19 at 14:30 Morphine Sulfate (morphine) 4 mg Q2H PRN IV .PAIN 6-10; Start 04/24/19 at 14:30 Acetaminophen (Tylenol Tab) 500 mg Q4H PRN PO .PAIN 1-3; Start 04/24/19 at 14:30 Diphenhydramine HCl (Benadryl) 25 mg Q4H PRN IV .PRURITUS; Start 04/24/19 at 14:30 Nalbuphine HCl (Nubain) 10 mg Q4H PRN IV .PRURITUS; Start 04/24/19 at 14:30 Ondansetron HCl (Zofran Inj) 4 mg Q6H PRN IV .NAUSEA/VOMITING; Start 04/24/19 at 14:30 Naloxone HCl (Narcan) 0.2 mg Q2M PRN IV .RESP RATE; Start 04/24/19 at 14:30 Miscellaneous Information (* Miscellaneous Pharmacy Order) DURAMORPH: 3 MG EPIDU... GIVEN NEURAXIAL XX ; Start 04/24/19 at 14:30 Fentanyl/ Ropivacaine 100 ml CONT EPIDURAL EPI Last administered on 04/27/19at 06:51; Admin Dose 100 ML; Start 04/24/19 at 14:30 Metoprolol Tartrate (Lopressor) 5 mg Q6H PRN IV ELEVATED BLOOD PRESSURE Last ad ministered on 04/25/19at 02:57; Admin Dose 5 MG; Start 04/24/19 at 20:30 ELVIA HANLEY Apr 27, 2019 15:50
[2019-04-27] MEDS: EPOETIN ALFA-EPBX (ESRD) 10,000 UNIT/ML VIAL SC SCH (17:36)
--- NOTE | 2019-04-27 17:52 | PN ---
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 Still with minimal air leak We will continue chest tube suction Repeat chest x-ray tomorrow Subjective 24 Hr Interval Summary Constitutional: improved Pain Control: mild Exam/Review of Systems Vital Signs Vitals Vital Signs Date Temp Pulse Resp B/P (MAP) Pulse Ox O2 O2 Flow FiO2 Time Delivery Rate 04/27/19 20 17:00 04/27/19 98.5 113 167/90 100 Nasal 15:46 (115) Cannula 04/27/19 2.0 10:08 Intake and Output 04/26/19 04/26/19 04/27/19 1515:00 23:00 07:00 IntakeIntake Total 14 ml 500 ml 114 ml OutputOutput Total 160 ml 80 ml BalanceBalance 14 ml 340 ml 34 ml Exam Eyes: nl conjunctiva, EOMI, nl lids, nl sclera ENMT: nl external ears & nose, nl lips & teeth, nl nasal mucosa & septum, mucosa pink and moist Neck: supple, non-tender Respiratory: clear to auscultation, normal air movement Cardiovascular: regular rate and rhythm, nl pulses Gastrointestinal: soft, nl liver, spleen, non-tender Results Result Diagram: 04/27/19 0526 04/27/19 0526 MALOU GAN MD Apr 27, 2019 17:52
[2019-04-27] MEDS: ATORVASTATIN 80 MG TAB PO SCH (20:49)
[2019-04-28] VITALS (7 sets, daily range): BP systolic 156–177; BP diastolic 83–94; PULSE 90–93; RESP 20
[2019-04-28] MEDS: FENTAnyl 2MCG/ML-ROPIV 0.2% 100 ML BAG EPI SCH (06:42)
[2019-04-28] MEDS: ASPIRIN (EC) 81 MG TAB PO SCH (09:05)
[2019-04-28] MEDS: AMLODIPINE 10 MG TAB PO SCH (09:06)
[2019-04-28] MEDS: PANTOPRAZOLE (EC) 40 MG TAB PO SCH (09:06)
--- NOTE | 2019-04-28 10:25 | CONS ---
Assessment/Plan Assessment/Plan Assessment/Plan (Daily) 1. Acute fluid overload with acute Uremia due to missed HD- Improved, pt stable on 2 L NC 2. acute hyperkalemia due to Missed HD- now resolved 3. Large Loculated Right sided pleural effusion s/p R thoracentesis on 04/09/19- 600 cc drained - s/p Right sided VATS with Decortication by dr. corona on 04/24/19 4. ESRD on HD - has been stayed out of [place] for more than 3 months- lost his HD chair time in [place]. 5. H/o HTN 6. H/o HL 7. H/o Hypothyroidism 8. Anemia of ESRD on Epogen Plan: Large Loculated Right sided pleural effusion s/p R thoracentesis on 04/09/19- 600 cc drained-s/p Right sided VATS with Decortication by dr. corona on 04/24/19 -stable on 2 L NC, continue current BP meds amlodipine 10mg po daily , IV hydralaine prn HIV< hepatitis panel negative- awaiting Outpatient HD placement confirmation will conitnue pt on MWF schedule for his hemodialysis- HD ordered for saturday Epogen 49477 units SQ MWF for Anemia Will follow up Consultation Date/Type/Reason Admit Date/Time Apr 06, 2019 at 21:13 Initial Consult Date 04/06/19 Type of Consult NEPHROLOGY Requesting Provider: DEVI ALFRED Date/Time of Note DATE: 04/28/19 TIME: 10:25 Exam/Review of Systems Exam Vitals Vital Signs Date Temp Pulse Resp B/P (MAP) Pulse Ox O2 O2 Flow FiO2 Time Delivery Rate 04/28/19 20 09:00 04/28/19 Nasal 2.0 07:50 Cannula 04/28/19 98.4 91 177/94 100 07:35 (121) Intake and Output 04/27/19 04/27/19 04/28/19 1515:00 23:00 07:00 IntakeIntake Total 214 ml 457 ml 164 ml OutputOutput Total 1600 ml 160 ml 70 ml BalanceBalance -1386 ml 297 ml 94 ml Exam Constitutional: alert, awake, no acute distress Respiratory: decreased BS on Left lung, Right chest tube on weater seal Cardiovascular: regular rate and rhythm, nl pulses Gastrointestinal: soft, non-tender Musculoskeletal: LUE AVF in place, no Edema, on cyanosis Neurological: TRAVEL PT II-XII intact, nl mental status, Non focal Results Result Diagram: 04/27/1952504/27/19525 Medications Medication Current Medications IV Flush (NS 3 ml) 3 ml PER PROTOCOL IV ; Start 04/06/19 at 21:30 Ondansetron HCl (Zofran Inj) 4 mg Q6H PRN IV NAUSEA/VOMITING; Start 04/06/19 at 21:30 Acetaminophen (Tylenol Tab) 650 mg Q6H PRN PO .PAIN 1-3 OR TEMP; Start 04/06/19 at 21:30 Docusate Sodium (Colace) 100 mg Q12H PRN PO .CONSTIPATION; Start 04/06/19 at 21:30 Bisacodyl (Dulcolax) 5 mg DAILY PRN PO .CONSTIPATION; Start 04/06/19 at 21:30 Albumin Human 100 ml @ 100 mls/hr WITH DIALYSIS PRN IV SBP <90 DURING DIALYSIS; Start 04/06/19 at 22:30 Hydralazine HCl (Apresoline) 10 mg Q4 PRN IV SBP more than 150 mm hg Last administered on 04/26/19at 12:24; Admin Dose 10 MG; Start 04/06/19 at 22:30 Albuterol (Ventolin Hfa) 2 puff Q4H RESP THERAPY PRN INH WHEEZING AND SOB; Start 04/06/19 at 22:30 Amlodipine Besylate (Norvasc) 10 mg DAILY PO Last administered on 04/28/19 09:06; Admin Dose 10 MG; Start 04/07/19 at 09:00 Aspirin (Halfprin) 81 mg DAILY PO Last administered on 04/28/19 09:05; Admin Do se 81 MG; Start 04/07/19 at 09:00 Atorvastatin Calcium (Lipitor) 80 mg QHS PO Last administered on 04/27/19at 20:49; Admin Dose 80 MG; Start 04/07/19 at 21:00 Mometasone Furoate (Asmanex) 1 puff DAILY RESP THERAPY INH Last administered on 04/26/19at 12:32; Admin Dose 1 PUFF; Start 04/07/19 at 12:00 Pantoprazole (Protonix Tab) 40 mg DAILY PO Last administered on 04/28/19 09:06; Admin Dose 40 MG; Start 04/07/19 at 09:00 Epoetin Andrew-epbx (Retacrit (Esrd)) 10,000 unit BLANCARI@1700 SC Last admin istered on 04/27/19at 17:36; Admin Dose 10,000 UNIT; Start 04/17/19 at 17:00 Hydromorphone HCl (Dilaudid) 0.2 mg Q2H PRN IV .PAIN 1-5 Last administered on 04/24/19at 15:55; Admin Dose 0.2 MG; Start 04/24/19 at 14:30 Hydromorphone HCl (Dilaudid) 0.4 mg Q2H PRN IV .PAIN 6-10; Start 04/24/19 at 14:30 Morphine Sulfate (morphine) 2 mg Q2H PRN IV .PAIN 1-5; Start 04/24/19 at 14:30 Morphine Sulfate (morphine) 4 mg Q2H PRN IV .PAIN 6-10; Start 04/24/19 at 14:30 Acetaminophen (Tylenol Tab) 500 mg Q4H PRN PO .PAIN 1-3; Start 04/24/19 at 14:30 Diphenhydramine HCl (Benadryl) 25 mg Q4H PRN IV .PRURITUS; Start 04/24/19 at 14:30 Nalbuphine HCl (Nubain) 10 mg Q4H PRN IV .PRURITUS; Start 04/24/19 at 14:30 Ondansetron HCl (Zofran Inj) 4 mg Q6H PRN IV .NAUSEA/VOMITING; Start 04/24/19 at 14:30 Naloxone HCl (Narcan) 0.2 mg Q2M PRN IV .RESP RATE; Start 04/24/19 at 14:30 Miscellaneous Information (* Miscellaneous Pharmacy Order) DURAMORPH: 3 MG EPIDU... GIVEN NEURAXIAL XX ; Start 04/24/19 at 14:30 Fentanyl/ Ropivacaine 100 ml CONT EPIDURAL EPI Last administered on 04/28/19at 06:42; Admin Dose 100 ML; Start 04/24/19 at 14:30 Metoprolol Tartrate (Lopressor) 5 mg Q6H PRN IV ELEVATED BLOOD PRESSURE Last administered on 04/25/19at 02:57; Admin Dose 5 MG; Start 04/24/19 at 20:30 VAN DHALIWAL MD Apr 28, 2019 10:25
[2019-04-28] MEDS: MOMETASONE 0.24 GM INHALER INH SCH ×2 (12:00→14:51)
--- NOTE | 2019-04-28 12:19 | CONS ---
Consult Date/Type/Reason Admit Date/Time Apr 06, 2019 at 21:13 Initial Consult Date 04/10/19 Type of Consult Pulmonary Requesting Provider: DEVI ALFRED Date/Time of Note DATE: 04/28/19 TIME: 12:18 Subjective Patient continues chest tube drainage appears comfortable no respiratory distress. CT chest demonstrates moderate to large right hydropneumothorax with significant atelectasis. Objective Vital Signs Date Temp Pulse Resp B/P (MAP) Pulse Ox O2 O2 Flow FiO2 Time Delivery Rate 04/28/19 98.6 90 20 170/93 100 Nasal 11:43 (118) Cannula 04/28/19 2.0 07:50 Intake and Output 04/27/19 04/27/19 04/28/19 1515:00 23:00 07:00 IntakeIntake Total 214 ml 457 ml 164 ml OutputOutput Total 1600 ml 160 ml 70 ml BalanceBalance -1386 ml 297 ml 94 ml Exam PHYSICAL EXAMINATION: VITAL SIGNS: HEENT: Pupils are equal and reactive to light. NECK: Supple, no JVD noted. LUNGS: Decreased breath sounds at the right. chest tube in place CARDIOVASCULAR: S1, S2 normal. ABDOMEN: Soft, nontender. No organomegaly or masses noted. EXTREMITIES: No clubbing or cyanosis noted. NEUROLOGIC: No changes. Vent Setting Fraction of Inspired Oxygen pe: 21 Results/Medications Result Diagram: 04/27/19 0526 04/27/19 0526 Medications Current Medications IV Flush (NS 3 ml) 3 ml PER PROTOCOL IV ; Start 04/06/19 at 21:30 Ondansetron HCl (Zofran Inj) 4 mg Q6H PRN IV NAUSEA/VOMITING; Start 04/06/19 at 21:30 Acetaminophen (Tylenol Tab) 650 mg Q6H PRN PO .PAIN 1-3 OR TEMP; Start 04/06/19 at 21:30 Docusate Sodium (Colace) 100 mg Q12H PRN PO .CONSTIPATION; Start 04/06/19 at 21:30 Bisacodyl (Dulcolax) 5 mg DAILY PRN PO .CONSTIPATION; Start 04/06/19 at 21:30 Albumin Human 100 ml @ 100 mls/hr WITH DIALYSIS PRN IV SBP <90 DURING DIALYSIS; Start 04/06/19 at 22:30 Hydralazine HCl (Apresoline) 10 mg Q4 PRN IV SBP more than 150 mm hg Last administered on 04/26/19 12:24; Admin Dose 10 MG; Start 04/06/19 at 22:30 Albuterol (Ventolin Hfa) 2 puff Q4H RESP THERAPY PRN INH WHEEZING AND SOB; Start 04/06/19 at 22:30 Amlodipine Besylate (Norvasc) 10 mg DAILY PO Last administered on 04/28/19 09:06; Admin Dose 10 MG; Start 04/07/19 at 09:00 Aspirin (Halfprin) 81 mg DAILY PO Last administered on 04/28/19 09:05; Admin Dose 81 MG; Start 04/07/19 at 09:00 Atorvastatin Calcium (Lipitor) 80 mg QHS PO Last administered on 04/27/19 20:49; Admin Dose 80 MG; Start 04/07/19 at 21:00 Mometasone Furoate (Asmanex) 1 puff DAILY RESP THERAPY INH Last administered on 04/26/19 12:32; Admin Dose 1 PUFF; Start 04/07/19 at 12:00 Pantoprazole (Protonix Tab) 40 mg DAILY PO Last administered on 04/28/19 09:06; Admin Dose 40 MG; Start 04/07/19 at 09:00 Epoetin Andrew-epbx (Retacrit (Esrd)) 10,000 unit MONWEDFRI@1700 SC Last administered on 04/27/19 17:36; Admin Dose 10,000 UNIT; Start 04/17/19 at 17:00 Hydromorphone HCl (Dilaudid) 0.2 mg Q2H PRN IV .PAIN 1-5 Last administered on 04/24/19at 15:55; Admin Dose 0.2 MG; Start 04/24/19 at 14:30 Hydromorphone HCl (Dilaudid) 0.4 mg Q2H PRN IV .PAIN 6-10; Start 04/24/19 at 14:30 Morphine Sulfate (morphine) 2 mg Q2H PRN IV .PAIN 1-5; Start 04/24/19 at 14:30 Morphine Sulfate (morphine) 4 mg Q2H PRN IV .PAIN 6-10; Start 04/24/19 at 14:30 Acetaminophen (Tylenol Tab) 500 mg Q4H PRN PO .PAIN 1-3; Start 04/24/19 at 14:30 Diphenhydramine HCl (Benadryl) 25 mg Q4H PRN IV .PRURITUS; Start 04/24/19 at 14:30 Nalbuphine HCl (Nubain) 10 mg Q4H PRN IV .PRURITUS; Start 04/24/19 at 14:30 Ondansetron HCl (Zofran Inj) 4 mg Q6H PRN IV .NAUSEA/VOMITING; Start 04/24/19 at 14:30 Naloxone HCl (Narcan) 0.2 mg Q2M PRN IV .RESP RATE; Start 04/24/19 at 14:30 Miscellaneous Information (* Miscellaneous Pharmacy Order) DURAMORPH: 3 MG EPIDU... GIVEN NEURAXIAL XX ; Start 04/24/19 at 14:30 Fentanyl/ Ropivacaine 100 ml CONT EPIDURAL EPI Last administered on 04/28/19at 06:42; Admin Dose 100 ML; Start 04/24/19 at 14:30 Metoprolol Tartrate (Lopressor) 5 mg Q6H PRN IV ELEVATED BLOOD PRESSURE Last administered on 04/25/19at 02:57; Admin Dose 5 MG; Start 04/24/19 at 20:30 Assessment/Plan Hospital Course (Demo Recall) IMPRESSION: 1. Complicated right parapneumonic effusion. Status post VATS decortication trapped lung not fully expanded. Moderate to large hydropneumothorax noted. 2. End-stage renal disease on hemodialysis. 3. History of hypertension. 4. Anemia. PLAN: 1. Continue antibiotics. 2. Continue oxygen as necessary. 3. Continue chest tube drainage, continue to waterseal. 4. Repeat chest x-ray in a.m. 5. Renal recommendations We will discuss CT findings with thoracic surgery. Patient may require reex ploration. DAHLIA ROMERO MD, [facility] Apr 28, 2019 12:19
[2019-04-28] MEDS: hydrALAzine 20 MG INJ IV PRN (13:09)
--- NOTE | 2019-04-28 14:38 | PN ---
Date/Time of Note Date/Time of Note DATE: 04/28/19 TIME: 14:37 Assessment/Plan VTE Prophylaxis Risk score (from Ns)>0 risk: 5 SCD applied (from Ns): Yes Pharmacological prophylaxis: NA/contraindicated Pharm contraindication: surgical contra Lines/Catheters Urinary Cath still in place: No Assessment/Plan Hospital Course 68 yo male with ESRD who presents with COLON, found to have large R pleural effusion. Chronic loculated effusion s/p VATS decortication Pleural effusion: - s/p VATS decortication 04/24. Chest tube management per Dr Cates - Epidural infusion for pain control ESRD: - Continue HD per renal Anemia of CKD - iron and EPO Hypertension: - Continue amlodipine Discharge: to self care vs SNF when chest tube removed and stable Result Diagram: 04/27/1952504/27/19525 Subjective 24 Hr Interval Summary Constitutional: no complaints Exam/Review of Systems Exam Vitals Vital Signs Date Temp Pulse Resp B/P (MAP) Pulse Ox O2 O2 Flow FiO2 Time Delivery Rate 04/28/19 92 20 162/87 99 Nasal 2.0 13:00 (112) Cannula 04/28/19 98.6 11:43 Intake and Output 04/27/19 04/27/19 04/28/19 1515:00 23:00 07:00 IntakeIntake Total 214 ml 457 ml 164 ml OutputOutput Total 1600 ml 160 ml 70 ml BalanceBalance -1386 ml 297 ml 94 ml Constitutional: alert, oriented Respiratory: clear to auscultation Cardiovascular: regular rate and rhythm Gastrointestinal: soft; No distended Musculoskeletal: nl extremities to inspection Medications Medication Current Medications IV Flush (NS 3 ml) 3 ml PER PROTOCOL IV ; Start 04/06/19 at 21:30 Ondansetron HCl (Zofran Inj) 4 mg Q6H PRN IV NAUSEA/VOMITING; Start 04/06/19 at 21:30 Acetaminophen (Tylenol Tab) 650 mg Q6H PRN PO .PAIN 1-3 OR TEMP; Start 04/06/19 at 21:30 Docusate Sodium (Colace) 100 mg Q12H PRN PO .CONSTIPATION; Start 04/06/19 at 21:30 Bisacodyl (Dulcolax) 5 mg DAILY PRN PO .CONSTIPATION; Start 04/06/19 at 21:30 Albumin Human 100 ml @ 100 mls/hr WITH DIALYSIS PRN IV SBP <90 DURING DIALYSIS; Start 04/06/19 at 22:30 Hydralazine HCl (Apresoline) 10 mg Q4 PRN IV SBP more than 150 mm hg Last administered on 04/28/19at 13:09; Admin Dose 10 MG; Start 04/06/19 at 22:30 Albuterol (Ventolin Hfa) 2 puff Q4H RESP THERAPY PRN INH WHEEZING AND SOB; Start 04/06/19 at 22:30 Amlodipine Besylate (Norvasc) 10 mg DAILY PO Last administered on 04/28/19 09:06; Admin Dose 10 MG; Start 04/07/19 at 09:00 Aspirin (Halfprin) 81 mg DAILY PO Last administered on 04/28/19 09:05; Admin Dose 81 MG; Start 04/07/19 at 09:00 Atorvastatin Calcium (Lipitor) 80 mg QHS PO Last administered on 04/27/19 20:49; Admin Dose 80 MG; Start 04/07/19 at 21:00 Mometasone Furoate (Asmanex) 1 puff DAILY RESP THERAPY INH Last administered on 04/26/19 12:32; Admin Dose 1 PUFF; Start 04/07/19 at 12:00 Pantoprazole (Protonix Tab) 40 mg DAILY PO Last administered on 04/28/19 09:06; Admin Dose 40 MG; Start 04/07/19 at 09:00 Epoetin Andrew-epbx (Retacrit (Esrd)) 10,000 unit MONWEDFRI@1700 SC Last administered on 04/27/19at 17:36; Admin Dose 10,000 UNIT; Start 04/17/19 at 17:00 Hydromorphone HCl (Dilaudid) 0.2 mg Q2H PRN IV .PAIN 1-5 Last administered on 04/24/19at 15:55; Admin Dose 0.2 MG; Start 04/24/19 at 14:30 Hydromorphone HCl (Dilaudid) 0.4 mg Q2H PRN IV .PAIN 6-10; Start 04/24/19 at 14:30 Morphine Sulfate (morphine) 2 mg Q2H PRN IV .PAIN 1-5; Start 04/24/19 at 14:30 Morphine Sulfate (morphine) 4 mg Q2H PRN IV .PAIN 6-10; Start 04/24/19 at 14:30 Acetaminophen (Tylenol Tab) 500 mg Q4H PRN PO .PAIN 1-3; Start 04/24/19 at 14:30 Diphenhydramine HCl (Benadryl) 25 mg Q4H PRN IV .PRURITUS; Start 04/24/19 at 14:30 Nalbuphine HCl (Nubain) 10 mg Q4H PRN IV .PRURITUS; Start 04/24/19 at 14:30 Ondansetron HCl (Zofran Inj) 4 mg Q6H PRN IV .NAUSEA/VOMITING; Start 04/24/19 at 14:30 Naloxone HCl (Narcan) 0.2 mg Q2M PRN IV .RESP RATE; Start 04/24/19 at 14:30 Miscellaneous Information (* Miscellaneous Pharmacy Order) DURAMORPH: 3 MG EPIDU... GIVEN NEURAXIAL XX ; Start 04/24/19 at 14:30 Fentanyl/ Ropivacaine 100 ml CONT EPIDURAL EPI Last administered on 04/28/19at 06:42; Admin Dose 100 ML; Start 04/24/19 at 14:30 Metoprolol Tartrate (Lopressor) 5 mg Q6H PRN IV ELEVATED BLOOD PRESSURE Last administered on 04/25/19at 02:57; Admin Dose 5 MG; Start 04/24/19 at 20:30 ELVIA HANLEY Apr 28, 2019 14:38
--- NOTE | 2019-04-28 16:57 | PN ---
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 Still with minimal air leak CT with hydro PTX Pt hemodynamically stable We will continue chest tube suction Repeat chest x-ray tomorrow Subjective 24 Hr Interval Summary Constitutional: improved Pain Control: mild Exam/Review of Systems Vital Signs Vitals Vital Signs Date Temp Pulse Resp B/P (MAP) Pulse Ox O2 O2 Flow FiO2 Time Delivery Rate 04/28/19 98.0 93 20 156/84 100 Nasal 15:48 (108) Cannula 04/28/19 2.0 13:00 Intake and Output 04/27/19 04/27/19 04/28/19 1515:00 23:00 07:00 IntakeIntake Total 214 ml 457 ml 164 ml OutputOutput Total 1600 ml 160 ml 70 ml BalanceBalance -1386 ml 297 ml 94 ml Exam Eyes: nl conjunctiva, EOMI, nl lids, nl sclera ENMT: nl external ears & nose, nl lips & teeth, nl nasal mucosa & septum, mucosa pink and moist Neck: supple, non-tender Respiratory: clear to auscultation, normal air movement Cardiovascular: regular rate and rhythm, nl pulses Gastrointestinal: soft, nl liver, spleen, non-tender Musculoskeletal: nl extremities to inspection, nl gait and stance Results Result Diagram: 04/27/19 0526 04/27/19 0526 MALOU GAN MD Apr 28, 2019 16:57
--- NOTE | 2019-04-28 18:45 | OPPN ---
Date/Time of Note Date/Time of Note DATE: 04/28/19 TIME: 18:42 Anesthesia Follow up Anesthesia Follow up Last documented vital signs Vital Signs Date Temp Pulse Resp B/P (MAP) Pulse Ox O2 O2 Flow FiO2 Time Delivery Rate 04/28/19 17:00 04/28/19 98.0 93 156/84 100 Nasal 15:48 (108) Cannula 04/28/19 2.0 13:00 Respiratory function: WNL Cardiovascular function: WNL Comments POD#4 S/P Right Thoracotomy and Decortication, under GETA and Thoracic Epidural was placed and continuous Epidural infusion was used to control post op pain. Patient is doing well and being transferred to [facility] Bed on 6th floor. Patient is alert and oriented, afebrile, vital signs are stable, he is comfortably sitting with no pain. Pain is very well controlled. Epidural Catheter site is clean and intact, Epidural catheter removed and the tip is intact and witnessed by RN. Patient will be followed up by primary team. EBONIE ALVARADO MD Apr 28, 2019 18:45
[2019-04-28] MEDS: ATORVASTATIN 80 MG TAB PO SCH (20:42)
[2019-04-29] VITALS (21 sets, daily range): BP systolic 120–162; BP diastolic 79–98; PULSE 76–131; RESP 17–20
[2019-04-29] MEDS: ASPIRIN (EC) 81 MG TAB PO SCH (08:26)
[2019-04-29] MEDS: PANTOPRAZOLE (EC) 40 MG TAB PO SCH (08:26)
[2019-04-29] MEDS: AMLODIPINE 10 MG TAB PO SCH (08:26)
--- NOTE | 2019-04-29 11:29 | CONS ---
Assessment/Plan Assessment/Plan Assessment/Plan (Daily) 1. Acute fluid overload with acute Uremia due to missed HD- Improved, pt stable on 2 L NC 2. acute hyperkalemia due to Missed HD- now resolved 3. Large Loculated Right sided pleural effusion s/p R thoracentesis on 04/09/19- 600 cc drained - s/p Right sided VATS with Decortication by dr. corona on 04/24/19 4. ESRD on HD - has been stayed out of [place] for more than 3 months- lost his HD chair time in [place]. 5. H/o HTN 6. H/o HL 7. H/o Hypothyroidism 8. Anemia of ESRD on Epogen Plan: Large Loculated Right sided pleural effusion s/p R thoracentesis on 04/09/19- 600 cc drained-s/p Right sided VATS with Decortication by dr. corona on 04/24/19 -stable on 2 L NC, continue current BP meds amlodipine 10mg po daily , IV hydralaine prn HIV< hepatitis panel negative- awaiting Outpatient HD placement confirmation will conitnue pt on MWF schedule for his hemodialysis- s/p HD today 2.2 L removed Epogen 88934 units SQ MWF for Anemia Will follow up Consultation Date/Type/Reason Admit Date/Time Apr 06, 2019 at 21:13 Initial Consult Date 04/06/19 Type of Consult NEPHROLOGY Requesting Provider: DEVI ALFRED Date/Time of Note DATE: 04/29/19 TIME: 11:29 Exam/Review of Systems Exam Vitals Vital Signs Date Temp Pulse Resp B/P (MAP) Pulse Ox O2 O2 Flow FiO2 Time Delivery Rate 04/29/19 98.3 78 18 159/88 98 08:05 (111) 04/29/19 Nasal 03:34 Cannula 04/28/19 2.0 23:21 Intake and Output 04/28/19 04/28/19 04/29/19 1515:00 23:00 07:00 IntakeIntake Total 120 ml 100 ml OutputOutput Total 40 ml 110 ml BalanceBalance 120 ml -40 ml -10 ml Results Result Diagram: 04/27/19 0526 04/27/19525 Medications Medication Current Medications IV Flush (NS 3 ml) 3 ml PER PROTOCOL IV ; Start 04/06/19 at 21:30 Ondansetron HCl (Zofran Inj) 4 mg Q6H PRN IV NAUSEA/VOMITING; Start 04/06/19 at 21:30 Acetaminophen (Tylenol Tab) 650 mg Q6H PRN PO .PAIN 1-3 OR TEMP; Start 04/06/19 at 21:30 Docusate Sodium (Colace) 100 mg Q12H PRN PO .CONSTIPATION; Start 04/06/19 at 21:30 Bisacodyl (Dulcolax) 5 mg DAILY PRN PO .CONSTIPATION; Start 04/06/19 at 21:30 Albumin Human 100 ml @ 100 mls/hr WITH DIALYSIS PRN IV SBP <90 DURING DIALYSIS; Start 04/06/19 at 22:30 Hydralazine HCl (Apresoline) 10 mg Q4 PRN IV SBP more than 150 mm hg Last administered on 04/28/19 13:09; Admin Dose 10 MG; Start 04/06/19 at 22:30 Albuterol (Ventolin Hfa) 2 puff Q4H RESP THERAPY PRN INH WHEEZING AND SOB; Start 04/06/19 at 22:30 Amlodipine Besylate (Norvasc) 10 mg DAILY PO Last administered on 04/29/19 08:26; Admin Dose 10 MG; Start 04/07/19 at 09:00 Aspirin (Halfprin) 81 mg DAILY PO Last administered on 04/29/19 08:26; Admin Dose 81 MG; Start 04/07/19 at 09:00 Atorvastatin Calcium (Lipitor) 80 mg QHS PO Last administered on 04/28/19 20:42; Admin Dose 80 MG; Start 04/07/19 at 21:00 Mometasone Furoate (Asmanex) 1 puff DAILY RESP THERAPY INH Last administered on 04/28/19 14:51; Admin Dose 1 PUFF; Start 04/07/19 at 12:00 Pantoprazole (Protonix Tab) 40 mg DAILY PO Last administered on 04/29/19 08:26; Admin Dose 40 MG; Start 04/07/19 at 09:00 Epoetin Andrew-epbx (Retacrit (Esrd)) 10,000 unit MONWEDFRI@1700 SC Last administered on 04/27/19 17:36; Admin Dose 10,000 UNIT; Start 04/17/19 at 17:00 Miscellaneous Information (* Miscellaneous Pharmacy Order) DURAMORPH: 3 MG EPIDU... GIVEN NEURAXIAL XX ; Start 04/24/19 at 14:30 Metoprolol Tartrate (Lopressor) 5 mg Q6H PRN IV ELEVATED BLOOD PRESSURE Last administered on 04/25/19at 02:57; Admin Dose 5 MG; Start 04/24/19 at 20:30 VAN DHALIWAL MD Apr 29, 2019 11:29
--- NOTE | 2019-04-29 13:00 | PN ---
Date/Time of Note Date/Time of Note DATE: 04/29/19 TIME: 12:59 Assessment/Plan VTE Prophylaxis Risk score (from Ns)>0 risk: 6 SCD applied (from Ns): Yes Pharmacological prophylaxis: NA/contraindicated Pharm contraindication: surgical contra Lines/Catheters Urinary Cath still in place: No Assessment/Plan Hospital Course 68 yo male with ESRD who presents with COOLN, found to have large R pleural effusion. Chronic loculated effusion s/p VATS decortication Pleural effusion: - s/p VATS decortication 04/24. Chest tube management per Dr Cates - Epidural infusion for pain control ESRD: - Continue HD per renal Anemia of CKD - iron and EPO Hypertension: - Continue amlodipine Discharge: to self care when chest tube removed and stable Result Diagram: 04/27/1952504/27/19525 Subjective 24 Hr Interval Summary Constitutional: no complaints Exam/Review of Systems Exam Vitals Vital Signs Date Temp Pulse Resp B/P (MAP) Pulse Ox O2 O2 Flow FiO2 Time Delivery Rate 04/29/19 98.6 89 18 146/86 98 12:08 (106) 04/29/19 Room Air 11:53 04/28/19 2.0 23:21 Intake and Output 04/28/19 04/28/19 04/29/19 1515:00 23:00 07:00 IntakeIntake Total 120 ml 100 ml OutputOutput Total 40 ml 110 ml BalanceBalance 120 ml -40 ml -10 ml Constitutional: alert, oriented Respiratory: clear to auscultation Cardiovascular: regular rate and rhythm Gastrointestinal: soft; No distended Musculoskeletal: nl extremities to inspection Medications Medication Current Medications IV Flush (NS 3 ml) 3 ml PER PROTOCOL IV ; Start 04/06/19 at 21:30 Ondansetron HCl (Zofran Inj) 4 mg Q6H PRN IV NAUSEA/VOMITING; Start 04/06/19 at 21:30 Acetaminophen (Tylenol Tab) 650 mg Q6H PRN PO .PAIN 1-3 OR TEMP; Start 04/06/19 at 21:30 Docusate Sodium (Colace) 100 mg Q12H PRN PO .CONSTIPATION; Start 04/06/19 at 21:30 Bisacodyl (Dulcolax) 5 mg DAILY PRN PO .CONSTIPATION; Start 04/06/19 at 21:30 Albumin Human 100 ml @ 100 mls/hr WITH DIALYSIS PRN IV SBP <90 DURING DIALYSIS; Start 04/06/19 at 22:30 Hydralazine HCl (Apresoline) 10 mg Q4 PRN IV SBP more than 150 mm hg Last administered on 04/28/19 13:09; Admin Dose 10 MG; Start 04/06/19 at 22:30 Albuterol (Ventolin Hfa) 2 puff Q4H RESP THERAPY PRN INH WHEEZING AND SOB; Start 04/06/19 at 22:30 Amlodipine Besylate (Norvasc) 10 mg DAILY PO Last administered on 04/29/19 08:26; Admin Dose 10 MG; Start 04/07/19 at 09:00 Aspirin (Halfprin) 81 mg DAILY PO Last administered on 04/29/19 08:26; Admin Dose 81 MG; Start 04/07/19 at 09:00 Atorvastatin Calcium (Lipitor) 80 mg QHS PO Last administered on 04/28/19 20:42; Admin Dose 80 MG; Start 04/07/19 at 21:00 Mometasone Furoate (Asmanex) 1 puff DAILY RESP THERAPY INH Last administered o n 04/28/19 14:51; Admin Dose 1 PUFF; Start 04/07/19 at 12:00 Pantoprazole (Protonix Tab) 40 mg DAILY PO Last administered on 04/29/19 08:26; Admin Dose 40 MG; Start 04/07/19 at 09:00 Epoetin Andrew-epbx (Retacrit (Esrd)) 10,000 unit MONWEDFRI@1700 SC Last administered on 04/27/19 17:36; Admin Dose 10,000 UNIT; Start 04/17/19 at 17:00 Miscellaneous Information (* Miscellaneous Pharmacy Order) DURAMORPH: 3 MG EPIDU... GIVEN NEURAXIAL XX ; Start 04/24/19 at 14:30 Metoprolol Tartrate (Lopressor) 5 mg Q6H PRN IV ELEVATED BLOOD PRESSURE Last administered on 04/25/19 02:57; Admin Dose 5 MG; Start 04/24/19 at 20:30 ELVIA HANELY Apr 29, 2019 13:00
--- NOTE | 2019-04-29 13:14 | PN ---
Date/Time of Note Date/Time of Note DATE: 04/29/19 TIME: 13:13 Assessment/Plan Lines/Catheters Funk in Place (from Nrs): No Assessment/Plan Assessment/Plan Status post pulmonary decortication Patient with chronic trapped lung not completely expanded Still with minimal air leak The drainage has decreased to about [address] with hydro PTX Pt hemodynamically stable We will continue chest tube suction Repeat chest x-ray tomorrow Subjective 24 Hr Interval Summary Constitutional: improved Pain Control: mild Exam/Review of Systems Vital Signs Vitals Vital Signs Date Temp Pulse Resp B/P (MAP) Pulse Ox O2 O2 Flow FiO2 Time Delivery Rate 04/29/19 98.6 89 18 146/86 98 12:08 (106) 04/29/19 Room Air 11:53 04/28/19 2.0 23:21 Intake and Output 04/28/19 04/28/19 04/29/19 1515:00 23:00 07:00 IntakeIntake Total 120 ml 100 ml OutputOutput Total 40 ml 110 ml BalanceBalance 120 ml -40 ml -10 ml Exam Eyes: nl conjunctiva, EOMI, nl lids, nl sclera ENMT: nl external ears & nose, nl lips & teeth, nl nasal mucosa & septum, mucosa pink and moist Neck: supple, non-tender Respiratory: clear to auscultation, normal air movement Cardiovascular: regular rate and rhythm, nl pulses Musculoskeletal: nl extremities to inspection, nl gait and stance Results Result Diagram: 04/27/19 0526 04/27/19 0526 MALOU GAN MD Apr 29, 2019 13:14
[2019-04-29] MEDS: MOMETASONE 0.24 GM INHALER INH SCH (14:34)
--- NOTE | 2019-04-29 16:24 | CONS ---
Consult Date/Type/Reason Admit Date/Time Apr 06, 2019 at 21:13 Initial Consult Date 04/10/19 Type of Consult Pulmonary Requesting Provider: DEVI ALFRED Date/Time of Note DATE: 04/29/19 TIME: 16:22 Subjective Patient continues chest tube drainage no air leak noted. Right lung appears to be trapped on repeat chest imaging. Case was discussed with thoracic surgery. Objective Vital Signs Date Temp Pulse Resp B/P (MAP) Pulse Ox O2 O2 Flow FiO2 Time Delivery Rate 04/29/19 109 14:35 04/29/19 98.6 18 146/86 98 12:08 (106) 04/29/19 Room Air 11:53 04/28/19 2.0 23:21 Intake and Output 04/28/19 04/28/19 04/29/19 1515:00 23:00 07:00 IntakeIntake Total 120 ml 100 ml OutputOutput Total 40 ml 110 ml BalanceBalance 120 ml -40 ml -10 ml Exam PHYSICAL EXAMINATION: VITAL SIGNS: HEENT: Pupils are equal and reactive to light. NECK: Supple, no JVD noted. LUNGS: Decreased breath sounds at the right. chest tube in place CARDIOVASCULAR: S1, S2 normal. ABDOMEN: Soft, nontender. No organomegaly or masses noted. EXTREMITIES: No clubbing or cyanosis noted. NEUROLOGIC: No changes Vent Setting Fraction of Inspired Oxygen pe: 21 Results/Medications Result Diagram: 04/27/19 0526 04/27/19 0526 Medications Current Medications IV Flush (NS 3 ml) 3 ml PER PROTOCOL IV ; Start 04/06/19 at 21:30 Ondansetron HCl (Zofran Inj) 4 mg Q6H PRN IV NAUSEA/VOMITING; Start 04/06/19 at 21:30 Acetaminophen (Tylenol Tab) 650 mg Q6H PRN PO .PAIN 1-3 OR TEMP Last adminis tered on 04/29/19at 14:34; Admin Dose 650 MG; Start 04/06/19 at 21:30 Docusate Sodium (Colace) 100 mg Q12H PRN PO .CONSTIPATION; Start 04/06/19 at 21:30 Bisacodyl (Dulcolax) 5 mg DAILY PRN PO .CONSTIPATION; Start 04/06/19 at 21:30 Albumin Human 100 ml @ 100 mls/hr WITH DIALYSIS PRN IV SBP <90 DURING DIALYSIS; Start 04/06/19 at 22:30 Hydralazine HCl (Apresoline) 10 mg Q4 PRN IV SBP more than 150 mm hg Last administered on 04/28/19 13:09; Admin Dose 10 MG; Start 04/06/19 at 22:30 Albuterol (Ventolin Hfa) 2 puff Q4H RESP THERAPY PRN INH WHEEZING AND SOB; Start 04/06/19 at 22:30 Amlodipine Besylate (Norvasc) 10 mg DAILY PO Last administered on 04/29/19 08:26; Admin Dose 10 MG; Start 04/07/19 at 09:00 Aspirin (Halfprin) 81 mg DAILY PO Last administered on 04/29/19 08:26; Admin Dose 81 MG; Start 04/07/19 at 09:00 Atorvastatin Calcium (Lipitor) 80 mg QHS PO Last administered on 04/28/19 20:42; Admin Dose 80 MG; Start 04/07/19 at 21:00 Mometasone Furoate (Asmanex) 1 puff DAILY RESP THERAPY INH Last administered on 04/29/19 14:34; Admin Dose 1 PUFF; Start 04/07/19 at 12:00 Pantoprazole (Protonix Tab) 40 mg DAILY PO Last administered on 04/29/19 08:26; Admin Dose 40 MG; Start 04/07/19 at 09:00 Epoetin Andrew-epbx (Retacrit (Esrd)) 10,000 unit MONWEDFRI@1700 SC Last administered on 04/27/19 17:36; Admin Dose 10,000 UNIT; Start 04/17/19 at 17:00 Miscellaneous Information (* Miscellaneous Pharmacy Order) DURAMORPH: 3 MG EPIDU... GIVEN NEURAXIAL XX ; Start 04/24/19 at 14:30 Metoprolol Tartrate (Lopressor) 5 mg Q6H PRN IV ELEVATED BLOOD PRESSURE Last administered on 04/25/19 02:57; Admin Dose 5 MG; Start 04/24/19 at 20:30 Assessment/Plan Hospital Course (Demo Recall) IMPRESSION: 1. Complicated right parapneumonic effusion. Status post VATS decortication trapped lung not fully expanded. Moderate to large hydropneumothorax noted. 2. End-stage renal disease on hemodialysis. 3. History of hypertension. 4. Anemia. PLAN: 1. Continue antibiotics. 2. Continue oxygen as necessary. 3. Continue chest tube drainage, continue to waterseal. 4. Repeat chest x-ray in a.m. 5. Renal recommendations Discussed with thoracic surgery will switch to small bore drain and plan discharge. DAHLIA ROMERO MD, [facility] Apr 29, 2019 16:24
[2019-04-29] MEDS: EPOETIN ALFA-EPBX (ESRD) 10,000 UNIT/ML VIAL SC SCH (17:21)
[2019-04-29] MEDS: ATORVASTATIN 80 MG TAB PO SCH (21:47)
[2019-04-30] VITALS: BP 174/97; PULSE 97; RESP 18
[2019-04-30 04:18] VITALS: BP 144/79; PULSE 90; RESP 18
[2019-04-30 07:45] VITALS: BP 170/93; PULSE 94; RESP 18
[2019-04-30] MEDS: PANTOPRAZOLE (EC) 40 MG TAB PO SCH (08:31)
[2019-04-30] MEDS: ASPIRIN (EC) 81 MG TAB PO SCH (08:32)
[2019-04-30] MEDS: AMLODIPINE 10 MG TAB PO SCH (08:32)
--- NOTE | 2019-04-30 10:52 | CONS ---
Assessment/Plan Assessment/Plan Assessment/Plan (Daily) 1. Acute fluid overload with acute Uremia due to missed HD- Improved, pt stable on 2 L NC 2. acute hyperkalemia due to Missed HD- now resolved 3. Large Loculated Right sided pleural effusion s/p R thoracentesis on 04/09/19- 600 cc drained - s/p Right sided VATS with Decortication by dr. corona on 04/24/19 4. ESRD on HD - [place] been stayed out of [place] more than 3 months- lost [place] chair time [place]. 5. H/o HTN 6. H/o HL 7. H/o Hypothyroidism 8. Anemia of ESRD on Epogen Plan: Large Loculated Right sided pleural effusion s/p R thoracentesis on 04/09/19- 600 cc drained-s/p Right sided VATS with Decortication by dr. corona on 04/24/19 -stable on 2 L NC, -s/p HD yesterday 2.2 L removed, HD ordered for Saturday - will continue HD MWF continue current BP meds amlodipine 10mg po daily , IV hydralaine prn HIV< hepatitis panel negative- awaiting Outpatient HD placement confirmation Epogen 13289 units SQ MWF for Anemia Will follow up Consultation Date/Type/Reason Admit Date/Time Apr 06, 2019 at 21:13 Initial Consult Date 04/06/19 Type of Consult NEPHROLOGY Requesting Provider: DEVI ALFRED Date/Time of Note DATE: 04/30/19 TIME: 10:52 24 HR Interval Summary Free Text/Dictation s/p HD yesterday 2.2 L removed, HD ordered for Saturday Exam/Review of Systems Exam Vitals Vital Signs Date Temp Pulse Resp B/P (MAP) Pulse Ox O2 O2 Flow FiO2 Time Delivery Rate 04/30/19 98.0 94 18 170/93 96 07:45 (118) 04/30/19 Nasal 2.0 07:21 Cannula Intake and Output 04/29/19 04/29/19 04/30/19 1515:00 23:00 07:00 IntakeIntake Total 200 ml 100 ml OutputOutput Total 2800 ml 190 ml 65 ml BalanceBalance -2800 ml 10 ml 35 ml Exam Constitutional: alert, awake, no acute distress Respiratory: decreased BS on Left lung, Right chest tube on weater seal Cardiovascular: regular rate and rhythm, nl pulses Gastrointestinal: soft, non-tender Musculoskeletal: LUE AVF in place, no Edema, on cyanosis Neurological: CONSERVATION COORDINATOR II-XII intact, nl mental status, Non focal Results Result Diagram: 04/30/19 0506 04/30/19 0506 Results 24hrs Laboratory Tests Test 04/30/19 05:06 White Blood Count 7.8 # Red Blood Count 2.28 L Hemoglobin 6.8 *L Hematocrit 20.9 L Mean Corpuscular Volume 91.7 Mean Corpuscular Hemoglobin 29.8 Mean Corpuscular Hemoglobin Concent 32.5 Red Cell Distribution Width 13.6 Platelet Count 227 Mean Platelet Volume 10.1 Immature Granulocytes % 1.000 H Neutrophils % 71.6 Segmented Neutrophils % (Manual) 76 Lymphocytes % 5.9 L Lymphocytes % (Manual) 7 L Monocytes % 14.8 H Monocytes % (Manual) 11 Eosinophils % 6.3 Eosinophils % (Manual) 6 Basophils % 0.4 Nucleated Red Blood Cells % 0.0 Immature Granulocytes # 0.080 H Neutrophils # 5.6 Lymphocytes (Manual) 0.5 L Lymphocytes # 0.5 L Monocytes # 1.2 H Monocytes # (Manual) 0.8 Eosinophils # 0.5 Basophils # 0.0 Nucleated Red Blood Cells # 0.0 Platelet Estimate NORMAL Polychromasia 3+ Poikilocytosis 3+ Anisocytosis 1+ Macrocytosis 1+ Prothrombin Time 13.4 Prothrombin Time Ratio 1.0 INR International Normalized Ratio 1.01 Activated Partial Thromboplast Time 45.0 H Sodium Level 135 Potassium Level 5.1 Chloride Level 97 Carbon Dioxide Level 27 Anion Gap 11 Blood Urea Nitrogen 43 H Creatinine 6.54 H Est Glomerular Filtrat Rate mL/min 9 L Glucose Level 87 Calcium Level 8.4 Magnesium Level 2.1 Total Bilirubin 0.4 Direct Bilirubin 0.00 Indirect Bilirubin 0.4 Aspartate Amino Transf (AST/SGOT) 36 Alanine Aminotransferase (ALT/SGPT) 26 Alkaline Phosphatase 77 Total Protein 6.0 L Albumin 3.0 L Globulin 3.00 Albumin/Globulin Ratio 1.00 Medications Medication Current Medications IV Flush (NS 3 ml) 3 ml PER PROTOCOL IV ; Start 04/06/19 at 21:30 Ondansetron HCl (Zofran Inj) 4 mg Q6H PRN IV NAUSEA/VOMITING; Start 04/06/19 at 21:30 Acetaminophen (Tylenol Tab) 650 mg Q6H PRN PO .PAIN 1-3 OR TEMP Last administered on 04/29/19 14:34; Admin Dose 650 MG; Start 04/06/19 at 21:30 Docusate Sodium (Colace) 100 mg Q12H PRN PO .CONSTIPATION; Start 04/06/19 at 21:30 Bisacodyl (Dulcolax) 5 mg DAILY PRN PO .CONSTIPATION; Start 04/06/19 at 21:30 Albumin Human 100 ml @ 100 mls/hr WITH DIALYSIS PRN IV SBP <90 DURING DIALYSIS; Start 04/06/19 at 22:30 Hydralazine HCl (Apresoline) 10 mg Q4 PRN IV SBP more than 150 mm hg Last administered on 04/28/19 13:09; Admin Dose 10 MG; Start 04/06/19 at 22:30 Albuterol (Ventolin Hfa) 2 puff Q4H RESP THERAPY PRN INH WHEEZING AND SOB; Start 04/06/19 at 22:30 Amlodipine Besylate (Norvasc) 10 mg DAILY PO Last administered on 04/30/19 08:32; Admin Dose 10 MG; Start 04/07/19 at 09:00 Aspirin (Halfprin) 81 mg DAILY PO Last administered on 04/30/19 08:32; Admin Dose 81 MG; Start 04/07/19 at 09:00 Atorvastatin Calcium (Lipitor) 80 mg QHS PO Last administered on 04/29/19 21:47; Admin Dose 80 MG; Start 04/07/19 at 21:00 Mometasone Furoate (Asmanex) 1 puff DAILY RESP THERAPY INH Last administered on 04/29/19 14:34; Admin Dose 1 PUFF; Start 04/07/19 at 12:00 Pantoprazole (Protonix Tab) 40 mg DAILY PO Last administered on 04/30/19 08:31; Admin Dose 40 MG; Start 04/07/19 at 09:00 Epoetin Andrew-epbx (Retacrit (Esrd)) 10,000 unit MONWEDFRI@1700 SC Last administered on 04/29/19 17:21; Admin Dose 10,000 UNIT; Start 04/17/19 at 17:00 Miscellaneous Information (* Miscellaneous Pharmacy Order) DURAMORPH: 3 MG EPIDU... GIVEN NEURAXIAL XX ; Start 04/24/19 at 14:30 Metoprolol Tartrate (Lopressor) 5 mg Q6H PRN IV ELEVATED BLOOD PRESSURE Last administered on 04/25/19at 02:57; Admin Dose 5 MG; Start 04/24/19 at 20:30 VAN DHALIWAL MD Apr 30, 2019 10:52
[2019-04-30 11:00] VITALS: BP 176/99; PULSE 93; RESP 18
[2019-04-30] MEDS: MOMETASONE 0.24 GM INHALER INH SCH (11:16)
--- NOTE | 2019-04-30 12:16 | PN ---
Date/Time of Note Date/Time of Note DATE: 04/30/19 TIME: 12:15 Assessment/Plan VTE Prophylaxis Risk score (from Nsg)>0 risk: 7 Pharmacological prophylaxis: NA/contraindicated Pharm contraindication: other Lines/Catheters Urinary Cath still in place: No Assessment/Plan Hospital Course 68 yo male with ESRD who presents with COLON, found to have large R pleural effusion. Chronic loculated effusion s/p VATS decortication Pleural effusion: - s/p VATS decortication 04/24. Chest tube management per Dr Cates - Epidural infusion for pain control ESRD: - Continue HD per renal Anemia of CKD - iron and EPO Hypertension: - Continue amlodipine Discharge: to self care when chest tube removed and stable Result Diagram: 04/30/19 0506 04/30/19 0506 Results 24hrs Laboratory Tests Test 04/30/19 05:06 White Blood Count 7.8 # Red Blood Count 2.28 L Hemoglobin 6.8 *L Hematocrit 20.9 L Mean Corpuscular Volume 91.7 Mean Corpuscular Hemoglobin 29.8 Mean Corpuscular Hemoglobin Concent 32.5 Red Cell Distribution Width 13.6 Platelet Count 227 Mean Platelet Volume 10.1 Immature Granulocytes % 1.000 H Neutrophils % 71.6 Segmented Neutrophils % (Manual) 76 Lymphocytes % 5.9 L Lymphocytes % (Manual) 7 L Monocytes % 14.8 H Monocytes % (Manual) 11 Eosinophils % 6.3 Eosinophils % (Manual) 6 Basophils % 0.4 Nucleated Red Blood Cells % 0.0 Immature Granulocytes # 0.080 H Neutrophils # 5.6 Lymphocytes (Manual) 0.5 L Lymphocytes # 0.5 L Monocytes # 1.2 H Monocytes # (Manual) 0.8 Eosinophils # 0.5 Basophils # 0.0 Nucleated Red Blood Cells # 0.0 Platelet Estimate NORMAL Polychromasia 3+ Poikilocytosis 3+ Anisocytosis 1+ Macrocytosis 1+ Prothrombin Time 13.4 Prothrombin Time Ratio 1.0 INR International Normalized Ratio 1.01 Activated Partial Thromboplast Time 45.0 H Sodium Level 135 Potassium Level 5.1 Chloride Level 97 Carbon Dioxide Level 27 Anion Gap 11 Blood Urea Nitrogen 43 H Creatinine 6.54 H Est Glomerular Filtrat Rate mL/min 9 L Glucose Level 87 Calcium Level 8.4 Magnesium Level 2.1 Total Bilirubin 0.4 Direct Bilirubin 0.00 Indirect Bilirubin 0.4 Aspartate Amino Transf (AST/SGOT) 36 Alanine Aminotransferase (ALT/SGPT) 26 Alkaline Phosphatase 77 Total Protein 6.0 L Albumin 3.0 L Globulin 3.00 Albumin/Globulin Ratio 1.00 Subjective 24 Hr Interval Summary Constitutional: no complaints Exam/Review of Systems Exam Vitals Vital Signs Date Temp Pulse Resp B/P (MAP) Pulse Ox O2 O2 Flow FiO2 Time Delivery Rate 04/30/19 97.8 93 18 176/99 97 11:00 (124) 04/30/19 Nasal 2.0 07:21 Cannula Intake and Output 04/29/19 04/29/19 04/30/19 1515:00 23:00 07:00 IntakeIntake Total 200 ml 100 ml OutputOutput Total 2800 ml 190 ml 65 ml BalanceBalance -2800 ml 10 ml 35 ml Constitutional: alert, oriented Respiratory: clear to auscultation Cardiovascular: regular rate and rhythm Gastrointestinal: soft; No distended Musculoskeletal: nl extremities to inspection Results Results 24hrs Laboratory Tests Test 04/30/19 05:06 White Blood Count 7.8 # Red Blood Count 2.28 L Hemoglobin 6.8 *L Hematocrit 20.9 L Mean Corpuscular Volume 91.7 Mean Corpuscular Hemoglobin 29.8 Mean Corpuscular Hemoglobin Concent 32.5 Red Cell Distribution Width 13.6 Platelet Count 227 Mean Platelet Volume 10.1 Immature Granulocytes % 1.000 H Neutrophils % 71.6 Segmented Neutrophils % (Manual) 76 Lymphocytes % 5.9 L Lymphocytes % (Manual) 7 L Monocytes % 14.8 H Monocytes % (Manual) 11 Eosinophils % 6.3 Eosinophils % (Manual) 6 Basophils % 0.4 Nucleated Red Blood Cells % 0.0 Immature Granulocytes # 0.080 H Neutrophils # 5.6 Lymphocytes (Manual) 0.5 L Lymphocytes # 0.5 L Monocytes # 1.2 H Monocytes # (Manual) 0.8 Eosinophils # 0.5 Basophils # 0.0 Nucleated Red Blood Cells # 0.0 Platelet Estimate NORMAL Polychromasia 3+ Poikilocytosis 3+ Anisocytosis 1+ Macrocytosis 1+ Prothrombin Time 13.4 Prothrombin Time Ratio 1.0 INR International Normalized Ratio 1.01 Activated Partial Thromboplast Time 45.0 H Sodium Level 135 Potassium Level 5.1 Chloride Level 97 Carbon Dioxide Level 27 Anion Gap 11 Blood Urea Nitrogen 43 H Creatinine 6.54 H Est Glomerular Filtrat Rate mL/min 9 L Glucose Level 87 Calcium Level 8.4 Magnesium Level 2.1 Total Bilirubin 0.4 Direct Bilirubin 0.00 Indirect Bilirubin 0.4 Aspartate Amino Transf (AST/SGOT) 36 Alanine Aminotransferase (ALT/SGPT) 26 Alkaline Phosphatase 77 Total Protein 6.0 L Albumin 3.0 L Globulin 3.00 Albumin/Globulin Ratio 1.00 Medications Medication Current Medications IV Flush (NS 3 ml) 3 ml PER PROTOCOL IV ; Start 04/06/19 at 21:30 Ondansetron HCl (Zofran Inj) 4 mg Q6H PRN IV NAUSEA/VOMITING; Start 04/06/19 at 21:30 Acetaminophen (Tylenol Tab) 650 mg Q6H PRN PO .PAIN 1-3 OR TEMP Last administered on 04/29/19at 14:34; Admin Dose 650 MG; Start 04/06/19 at 21:30 Docusate Sodium (Colace) 100 mg Q12H PRN PO .CONSTIPATION; Start 04/06/19 at 21:30 Bisacodyl (Dulcolax) 5 mg DAILY PRN PO .CONSTIPATION; Start 04/06/19 at 21:30 Albumin Human 100 ml @ 100 mls/hr WITH DIALYSIS PRN IV SBP <90 DURING DIALYSI S; Start 04/06/19 at 22:30 Hydralazine HCl (Apresoline) 10 mg Q4 PRN IV SBP more than 150 mm hg Last administered on 04/28/19at 13:09; Admin Dose 10 MG; Start 04/06/19 at 22:30 Albuterol (Ventolin Hfa) 2 puff Q4H RESP THERAPY PRN INH WHEEZING AND SOB; Start 04/06/19 at 22:30 Amlodipine Besylate (Norvasc) 10 mg DAILY PO Last administered on 04/30/19 08:32; Admin Dose 10 MG; Start 04/07/19 at 09:00 Aspirin (Halfprin) 81 mg DAILY PO Last administered on 04/30/19 08:32; Admin Dose 81 MG; Start 04/07/19 at 09:00 Atorvastatin Calcium (Lipitor) 80 mg QHS PO Last administered on 04/29/19 21:47; Admin Dose 80 MG; Start 04/07/19 at 21:00 Mometasone Furoate (Asmanex) 1 puff DAILY RESP THERAPY INH Last administered on 04/30/19 11:16; Admin Dose 1 PUFF; Start 04/07/19 at 12:00 Pantoprazole (Protonix Tab) 40 mg DAILY PO Last administered on 04/30/19at 08:31; Admin Dose 40 MG; Start 04/07/19 at 09:00 Epoetin Andrew-epbx (Retacrit (Esrd)) 10,000 unit MONWEDFRI@1700 SC Last administered on 04/29/19at 17:21; Admin Dose 10,000 UNIT; Start 04/17/19 at 17:00 Miscellaneous Information (* Miscellaneous Pharmacy Order) DURAMORPH: 3 MG EPIDU... GIVEN NEURAXIAL XX ; Start 04/24/19 at 14:30 Metoprolol Tartrate (Lopressor) 5 mg Q6H PRN IV ELEVATED BLOOD PRESSURE Last administered on 04/25/19at 02:57; Admin Dose 5 MG; Start 04/24/19 at 20:30 ELVIA HANLEY Apr 30, 2019 12:16
--- NOTE | 2019-04-30 13:59 | CONS ---
Consult Date/Type/Reason Admit Date/Time Apr 06, 2019 at 21:13 Initial Consult Date 04/10/19 Type of Consultation: Pulm Requesting Provider: DEVI ALFRED Date/Time of Note DATE: 04/30/19 TIME: 13:57 Subjective No events. CXR reviewed. Small airleak noted. Objective Vitals Vital Signs Date Temp Pulse Resp B/P (MAP) Pulse Ox O2 O2 Flow FiO2 Time Delivery Rate 04/30/19 97.8 93 18 176/99 97 11:00 (124) 04/30/19 Nasal 2.0 07:21 Cannula Intake and Output 04/29/19 04/29/19 04/30/19 1515:00 23:00 07:00 IntakeIntake Total 200 ml 100 ml OutputOutput Total 2800 ml 190 ml 65 ml BalanceBalance -2800 ml 10 ml 35 ml Exam HEENT: Neck supple; no JVD; no LAD CVS: RRR, S1 and S2 CHEST: Diminished right BS. ABD: Soft, NT, + BS EXT: No c/c/e Results/Medications Result Diagram: 04/30/19 0506 04/30/19 0506 Results 24 hrs Laboratory Tests Test 04/30/19 05:06 White Blood Count 7.8 # Red Blood Count 2.28 L Hemoglobin 6.8 *L Hematocrit 20.9 L Mean Corpuscular Volume 91.7 Mean Corpuscular Hemoglobin 29.8 Mean Corpuscular Hemoglobin Concent 32.5 Red Cell Distribution Width 13.6 Platelet Count 227 Mean Platelet Volume 10.1 Immature Granulocytes % 1.000 H Neutrophils % 71.6 Segmented Neutrophils % (Manual) 76 Lymphocytes % 5.9 L Lymphocytes % (Manual) 7 L Monocytes % 14.8 H Monocytes % (Manual) 11 Eosinophils % 6.3 Eosinophils % (Manual) 6 Basophils % 0.4 Nucleated Red Blood Cells % 0.0 Immature Granulocytes # 0.080 H Neutrophils # 5.6 Lymphocytes (Manual) 0.5 L Lymphocytes # 0.5 L Monocytes # 1.2 H Monocytes # (Manual) 0.8 Eosinophils # 0.5 Basophils # 0.0 Nucleated Red Blood Cells # 0.0 Platelet Estimate NORMAL Polychromasia 3+ Poikilocytosis 3+ Anisocytosis 1+ Macrocytosis 1+ Prothrombin Time 13.4 Prothrombin Time Ratio 1.0 INR International Normalized Ratio 1.01 Activated Partial Thromboplast Time 45.0 H Sodium Level 135 Potassium Level 5.1 Chloride Level 97 Carbon Dioxide Level 27 Anion Gap 11 Blood Urea Nitrogen 43 H Creatinine 6.54 H Est Glomerular Filtrat Rate mL/min 9 L Glucose Level 87 Calcium Level 8.4 Magnesium Level 2.1 Total Bilirubin 0.4 Direct Bilirubin 0.00 Indirect Bilirubin 0.4 Aspartate Amino Transf (AST/SGOT) 36 Alanine Aminotransferase (ALT/SGPT) 26 Alkaline Phosphatase 77 Total Protein 6.0 L Albumin 3.0 L Globulin 3.00 Albumin/Globulin Ratio 1.00 Home Meds Reported Medications Beclomethasone Dipropionate (Qvar Redihaler (80 MCG)) 10.6 Gm Hfa.aeroba, 10.6 GM IH BID, INH 08/08/18 Albuterol Sulfate* (Proair HFA*) 8.5 Gm Hfa.aer.ad, 2 PUFF INH Q4H PRN for WHEEZING AND SOB, #1 INHALER 08/08/18 Amlodipine Besylate* (Amlodipine Besylate*) 10 Mg Tablet, 10 MG PO DAILY, #30 TAB 08/08/18 Aspirin* (Aspirin* EC) 81 Mg Tablet.dr, 81 MG PO DAILY, TAB 08/08/18 Atorvastatin* (Atorvastatin*) 80 Mg Tablet, 80 MG PO QHS, #30 TAB 08/08/18 Omeprazole* (Omeprazole*) 20 Mg Capsule.dr, 20 MG PO DAILY, #30 CAP 08/08/18 Medications Current Medications IV Flush (NS 3 ml) 3 ml PER PROTOCOL IV ; Start 04/06/19 at 21:30 Ondansetron HCl (Zofran Inj) 4 mg Q6H PRN IV NAUSEA/VOMITING; Start 04/06/19 at 21:30 Acetaminophen (Tylenol Tab) 650 mg Q6H PRN PO .PAIN 1-3 OR TEMP Last administered on 04/29/19at 14:34; Admin Dose 650 MG; Start 04/06/19 at 21:30 Docusate Sodium (Colace) 100 mg Q12H PRN PO .CONSTIPATION; Start 04/06/19 at 21:30 Bisacodyl (Dulcolax) 5 mg DAILY PRN PO .CONSTIPATION; Start 04/06/19 at 21:30 Albumin Human 100 ml @ 100 mls/hr WITH DIALYSIS PRN IV SBP <90 DURING DIALYSIS; Start 04/06/19 at 22:30 Hydralazine HCl (Apresoline) 10 mg Q4 PRN IV SBP more than 150 mm hg Last administered on 04/28/19 13:09; Admin Dose 10 MG; Start 04/06/19 at 22:30 Albuterol (Ventolin Hfa) 2 puff Q4H RESP THERAPY PRN INH WHEEZING AND SOB; Start 04/06/19 at 22:30 Amlodipine Besylate (Norvasc) 10 mg DAILY PO Last administered on 04/30/19 08:32; Admin Dose 10 MG; Start 04/07/19 at 09:00 Aspirin (Halfprin) 81 mg DAILY PO Last administered on 04/30/19 08:32; Admin Dose 81 MG; Start 04/07/19 at 09:00 Atorvastatin Calcium (Lipitor) 80 mg QHS PO Last administered on 04/29/19 21:47; Admin Dose 80 MG; Start 04/07/19 at 21:00 Mometasone Furoate (Asmanex) 1 puff DAILY RESP THERAPY INH Last administered on 04/30/19 11:16; Admin Dose 1 PUFF; Start 04/07/19 at 12:00 Pantoprazole (Protonix Tab) 40 mg DAILY PO Last administered on 04/30/19 08:31; Admin Dose 40 MG; Start 04/07/19 at 09:00 Epoetin Andrew-epbx (Retacrit (Esrd)) 10,000 unit MONWEDFRI@1700 SC Last administered on 04/29/19 17:21; Admin Dose 10,000 UNIT; Start 04/17/19 at 17:00 Miscellaneous Information (* Miscellaneous Pharmacy Order) DURAMORPH: 3 MG EPIDU... GIVEN NEURAXIAL XX ; Start 04/24/19 at 14:30 Metoprolol Tartrate (Lopressor) 5 mg Q6H PRN IV ELEVATED BLOOD PRESSURE Last administered on 04/25/19 02:57; Admin Dose 5 MG; Start 04/24/19 at 20:30 Assessment/Plan Assessment/Plan (Daily) IMP: 1. 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 Moderate to large hydropneumothorax noted. 2. Trapped Lung 3. ESRD on HD 4. Anemia. RECS: 1. Chest tube management as CTS 2. Abx 3. Chest PT/BD's OBED NICHOLSON MD Apr 30, 2019 13:59
[2019-04-30 15:11] VITALS: BP 159/90; PULSE 96; RESP 18
[2019-04-30 19:13] VITALS: BP 179/86; PULSE 95; RESP 18
[2019-04-30] MEDS: ATORVASTATIN 80 MG TAB PO SCH (20:56)
[2019-05-01] VITALS (20 sets, daily range): BP systolic 122–181; BP diastolic 84–114; PULSE 90–122; RESP 16–20
[2019-05-01] MEDS: hydrALAzine 20 MG INJ IV PRN (04:10)
[2019-05-01] MEDS: PANTOPRAZOLE (EC) 40 MG TAB PO SCH (08:36)
[2019-05-01] MEDS: AMLODIPINE 10 MG TAB PO SCH (08:37)
[2019-05-01] MEDS: ASPIRIN (EC) 81 MG TAB PO SCH (08:37)
--- NOTE | 2019-05-01 10:25 | CONS ---
Assessment/Plan Assessment/Plan Assessment/Plan (Daily) 1. Acute fluid overload with acute Uremia due to missed HD- Improved, pt stable on 2 L NC 2. acute hyperkalemia due to Missed HD- now resolved 3. Large Loculated Right sided pleural effusion s/p R thoracentesis on 04/09/19- 600 cc drained - s/p Right sided VATS with Decortication by dr. corona on 04/24/19 4. [place]D on HD - [place] more than 3 [place]- lost [place]. 5. H/o HTN 6. H/o HL 7. H/o Hypothyroidism 8. Anemia of ESRD on Epogen Plan: Large Loculated Right sided pleural effusion s/p R thoracentesis on 04/09/19- 600 cc drained-s/p Right sided VATS with Decortication by dr. corona on 04/24/19 -stable on 2 L NC, -s/p HD today 2.5 L removed, , - will continue HD MWF - Next HD will be on Saturday continue current BP meds amlodipine 10mg po daily , IV hydralaine prn HIV< hepatitis panel negative- awaiting Outpatient HD placement confirmation Epogen 98885 units SQ MWF for Anemia Will follow up Consultation Date/Type/Reason Admit Date/Time Apr 06, 2019 at 21:13 Initial Consult Date 04/06/19 Type of Consult NEPHROLOGY Requesting Provider: DEVI ALFRED Date/Time of Note DATE: 05/01/19 TIME: 10:25 Exam/Review of Systems Exam Vitals Vital Signs Date Temp Pulse Resp B/P (MAP) Pulse Ox O2 O2 Flow FiO2 Time Delivery Rate 05/01/19 98.7 92 18 181/95 95 Room Air 07:28 (123) 04/30/19 2.0 20:00 Intake and Output 04/30/19 04/30/19 05/01/19 1414:59 22:59 06:59 IntakeIntake Total 400 ml 300 ml OutputOutput Total 200 ml 30 ml 20 ml BalanceBalance 200 ml -30 ml 280 ml Exam Constitutional: alert, awake, no acute distress Respiratory: decreased BS on Left lung, no wheezing, no crackles, Cardiovascular: regular rate and rhythm, nl pulses Gastrointestinal: soft, non-tender Musculoskeletal: LUE AVF in place, no Edema, on cyanosis Neurological: SENIOR RESEARCH CONSULTANT II-XII intact, nl mental status, Non focal Results Result Diagram: 04/30/19 0506 04/30/19 0506 Medications Medication Current Medications IV Flush (NS 3 ml) 3 ml PER PROTOCOL IV ; Start 04/06/19 at 21:30 Ondansetron HCl (Zofran Inj) 4 mg Q6H PRN IV NAUSEA/VOMITING; Start 04/06/19 at 21:30 Acetaminophen (Tylenol Tab) 650 mg Q6H PRN PO .PAIN 1-3 OR TEMP Last administered on 04/29/19at 14:34; Admin Dose 650 MG; Start 04/06/19 at 21:30 Docusate Sodium (Colace) 100 mg Q12H PRN PO .CONSTIPATION; Start 04/06/19 at 21:30 Bisacodyl (Dulcolax) 5 mg DAILY PRN PO .CONSTIPATION; Start 04/06/19 at 21:30 Albumin Human 100 ml @ 100 mls/hr WITH DIALYSIS PRN IV SBP <90 DURING DIALYSIS; Start 04/06/19 at 22:30 Hydralazine HCl (Apresoline) 10 mg Q4 PRN IV SBP more than 150 mm hg Last administered on 05/01/19at 04:10; Admin Dose 10 MG; Start 04/06/19 at 22:30 Albuterol (Ventolin Hfa) 2 puff Q4H RESP THERAPY PRN INH WHEEZING AND SOB; Start 04/06/19 at 22:30 Amlodipine Besylate (Norvasc) 10 mg DAILY PO Last administered on 05/01/19at 08:37; Admin Dose 10 MG; Start 04/07/19 at 09:00 Aspirin (Halfprin) 81 mg DAILY PO Last administered on 05/01/19 08:37; Admin Dose 81 MG; Start 04/07/19 at 09:00 Atorvastatin Calcium (Lipitor) 80 mg QHS PO Last administered on 04/30/19at 20:56; Admin Dose 80 MG; Start 04/07/19 at 21:00 Mometasone Furoate (Asmanex) 1 puff DAILY RESP THERAPY INH Last administered on 04/30/19at 11:16; Admin Dose 1 PUFF; Start 04/07/19 at 12:00 Pantoprazole (Protonix Tab) 40 mg DAILY PO Last administered on 05/01/19at 08:36; Admin Dose 40 MG; Start 04/07/19 at 09:00 Epoetin Andrew-epbx (Retacrit (Esrd)) 10,000 unit MONWEDFRI@1700 SC Last administered on 04/29/19at 17:21; Admin Dose 10,000 UNIT; Start 04/17/19 at 17:00 Miscellaneous Information (* Miscellaneous Pharmacy Order) DURAMORPH: 3 MG EPIDU... GIVEN NEURAXIAL XX ; Start 04/24/19 at 14:30 Metoprolol Tartrate (Lopressor) 5 mg Q6H PRN IV ELEVATED BLOOD PRESSURE Last administered on 04/25/19at 02:57; Admin Dose 5 MG; Start 04/24/19 at 20:30 VAN DHALIWAL MD May 01, 2019 10:25
--- NOTE | 2019-05-01 11:48 | PN ---
Date/Time of Note Date/Time of Note DATE: 05/01/19 TIME: 11:47 Assessment/Plan VTE Prophylaxis Risk score (from Ns)>0 risk: 2 SCD applied (from Ns): Yes Pharmacological prophylaxis: NA/contraindicated Pharm contraindication: other Lines/Catheters Urinary Cath still in place: No Assessment/Plan Hospital Course 68 yo male with ESRD who presents with COLON, found to have large R pleural effusion. Chronic loculated effusion s/p VATS decortication Pleural effusion: - s/p VATS decortication 04/24. Chest tube management per Dr Cates - Epidural infusion for pain control ESRD: - Continue HD per renal Anemia of CKD - iron and EPO Hypertension: - Continue amlodipine Discharge: to self care when chest tube removed and stable Result Diagram: 04/30/19 0506 04/30/19 0506 Subjective 24 Hr Interval Summary Constitutional: no complaints Exam/Review of Systems Exam Vitals Vital Signs Date Temp Pulse Resp B/P (MAP) Pulse Ox O2 O2 Flow FiO2 Time Delivery Rate 05/01/19 98.6 120 16 134/91 98 Room Air 11:38 (105) 04/30/19 2.0 20:00 Intake and Output 04/30/19 04/30/19 05/01/19 1414:59 22:59 06:59 IntakeIntake Total 400 ml 300 ml OutputOutput Total 200 ml 30 ml 20 ml BalanceBalance 200 ml -30 ml 280 ml Constitutional: alert, oriented Respiratory: clear to auscultation Cardiovascular: regular rate and rhythm Gastrointestinal: soft; No distended Musculoskeletal: nl extremities to inspection Medications Medication Current Medications IV Flush (NS 3 ml) 3 ml PER PROTOCOL IV ; Start 04/06/19 at 21:30 Ondansetron HCl (Zofran Inj) 4 mg Q6H PRN IV NAUSEA/VOMITING; Start 04/06/19 at 21:30 Acetaminophen (Tylenol Tab) 650 mg Q6H PRN PO .PAIN 1-3 OR TEMP Last administe red on 04/29/19at 14:34; Admin Dose 650 MG; Start 04/06/19 at 21:30 Docusate Sodium (Colace) 100 mg Q12H PRN PO .CONSTIPATION; Start 04/06/19 at 21:30 Bisacodyl (Dulcolax) 5 mg DAILY PRN PO .CONSTIPATION; Start 04/06/19 at 21:30 Albumin Human 100 ml @ 100 mls/hr WITH DIALYSIS PRN IV SBP <90 DURING DIALYSIS; Start 04/06/19 at 22:30 Hydralazine HCl (Apresoline) 10 mg Q4 PRN IV SBP more than 150 mm hg Last administered on 05/01/19 04:10; Admin Dose 10 MG; Start 04/06/19 at 22:30 Albuterol (Ventolin Hfa) 2 puff Q4H RESP THERAPY PRN INH WHEEZING AND SOB; Start 04/06/19 at 22:30 Amlodipine Besylate (Norvasc) 10 mg DAILY PO Last administered on 05/01/19 08:37; Admin Dose 10 MG; Start 04/07/19 at 09:00 Aspirin (Halfprin) 81 mg DAILY PO Last administered on 05/01/19 08:37; Admin Dose 81 MG; Start 04/07/19 at 09:00 Atorvastatin Calcium (Lipitor) 80 mg QHS PO Last administered on 04/30/19 2 0:56; Admin Dose 80 MG; Start 04/07/19 at 21:00 Mometasone Furoate (Asmanex) 1 puff DAILY RESP THERAPY INH Last administered on 04/30/19 11:16; Admin Dose 1 PUFF; Start 04/07/19 at 12:00 Pantoprazole (Protonix Tab) 40 mg DAILY PO Last administered on 05/01/19 08:36; Admin Dose 40 MG; Start 04/07/19 at 09:00 Epoetin Andrew-epbx (Retacrit (Esrd)) 10,000 unit MONWEDFRI@1700 SC Last administered on 04/29/19 17:21; Admin Dose 10,000 UNIT; Start 04/17/19 at 17:00 Miscellaneous Information (* Miscellaneous Pharmacy Order) DURAMORPH: 3 MG EPIDU... GIVEN NEURAXIAL XX ; Start 04/24/19 at 14:30 Metoprolol Tartrate (Lopressor) 5 mg Q6H PRN IV ELEVATED BLOOD PRESSURE Last administered on 04/25/19 02:57; Admin Dose 5 MG; Start 04/24/19 at 20:30 ELVIA HANLEY May 01, 2019 11:48
--- NOTE | 2019-05-01 13:25 | CONS ---
Consult Date/Type/Reason Admit Date/Time Apr 06, 2019 at 21:13 Initial Consult Date 04/10/19 Type of Consult Pulmonary Requesting Provider: DEVI ALFRED Date/Time of Note DATE: 05/01/19 TIME: 13:24 Subjective No significant changes continues to remain stable low hemoglobin noted. Objective Vital Signs Date Temp Pulse Resp B/P (MAP) Pulse Ox O2 O2 Flow FiO2 Time Delivery Rate 05/01/19 98.6 120 16 134/91 98 Room Air 11:38 (105) 04/30/19 2.0 20:00 Intake and Output 04/30/19 04/30/19 05/01/19 1414:59 22:59 06:59 IntakeIntake Total 400 ml 300 ml OutputOutput Total 200 ml 30 ml 20 ml BalanceBalance 200 ml -30 ml 280 ml Exam GENERAL: VITAL SIGNS: well-nourished well-developed gentleman NECK: Supple. No JVD or lymphadenopathy. CARDIAC EXAM: S1, S2. No added sounds or murmurs. CHEST: Diminished air entry right base. ABDOMEN: Soft, nontender. No guarding or rebound. EXTREMITIES: No cyanosis, clubbing or edema. NEUROLOGIC: Generalized weakness. No focal deficits. Vent Setting Fraction of Inspired Oxygen pe: 21 Results/Medications Result Diagram: 04/30/19 0506 04/30/19 0506 Medications Current Medications IV Flush (NS 3 ml) 3 ml PER PROTOCOL IV ; Start 04/06/19 at 21:30 Ondansetron HCl (Zofran Inj) 4 mg Q6H PRN IV NAUSEA/VOMITING; Start 04/06/19 at 21:30 Acetaminophen (Tylenol Tab) 650 mg Q6H PRN PO .PAIN 1-3 OR TEMP Last administered on 04/29/19at 14:34; Admin Dose 650 MG; Start 04/06/19 at 21:30 Docusate Sodium (Colace) 100 mg Q12H PRN PO .CONSTIPATION; Start 04/06/19 at 21:30 Bisacodyl (Dulcolax) 5 mg DAILY PRN PO .CONSTIPATION; Start 04/06/19 at 21:30 Albumin Human 100 ml @ 100 mls/hr WITH DIALYSIS PRN IV SBP <90 DURING DIALYSIS; Start 04/06/19 at 22:30 Hydralazine HCl (Apresoline) 10 mg Q4 PRN IV SBP more than 150 mm hg Last administered on 05/01/19 04:10; Admin Dose 10 MG; Start 04/06/19 at 22:30 Albuterol (Ventolin Hfa) 2 puff Q4H RESP THERAPY PRN INH WHEEZING AND SOB; Start 04/06/19 at 22:30 Amlodipine Besylate (Norvasc) 10 mg DAILY PO Last administered on 05/01/19 08:37; Admin Dose 10 MG; Start 04/07/19 at 09:00 Aspirin (Halfprin) 81 mg DAILY PO Last administered on 05/01/19 08:37; Admin Dose 81 MG; Start 04/07/19 at 09:00 Atorvastatin Calcium (Lipitor) 80 mg QHS PO Last administered on 04/30/19 20:56; Admin Dose 80 MG; Start 04/07/19 at 21:00 Mometasone Furoate (Asmanex) 1 puff DAILY RESP THERAPY INH Last administered on 04/30/19 11:16; Admin Dose 1 PUFF; Start 04/07/19 at 12:00 Pantoprazole (Protonix Tab) 40 mg DAILY PO Last administered on 05/01/19 08:36; Admin Dose 40 MG; Start 04/07/19 at 09:00 Epoetin Andrew-epbx (Retacrit (Esrd)) 10,000 unit MONWEDFRI@1700 SC Last administered on 04/29/19 17:21; Admin Dose 10,000 UNIT; Start 04/17/19 at 17:00 Miscellaneous Information (* Miscellaneous Pharmacy Order) DURAMORPH: 3 MG EPIDU... GIVEN NEURAXIAL XX ; Start 04/24/19 at 14:30 Metoprolol Tartrate (Lopressor) 5 mg Q6H PRN IV ELEVATED BLOOD PRESSURE Last administered on 04/25/19 02:57; Admin Dose 5 MG; Start 04/24/19 at 20:30 Assessment/Plan Hospital Course (Demo Recall) IMP: 1. 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 Moderate to large hydropneumothorax noted. 2. Trapped Lung 3. ESRD on HD 4. Anemia. RECS: 1. Chest tube management as CTS 2. Abx 3. Chest PT/BD's VADGAMA,DAHLIA V. MD, [facility] May 01, 2019 13:25
--- NOTE | 2019-05-01 16:51 | PN ---
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 Still with very minimal air leak The drainage has decreased to about [address] with hydro PTX Pt hemodynamically stable We will continue chest tube suction one more day will place CT on water seal if CXR stable Repeat chest x-ray tomorrow Subjective 24 Hr Interval Summary Constitutional: improved Pain Control: mild Exam/Review of Systems Vital Signs Vitals Vital Signs Date Temp Pulse Resp B/P (MAP) Pulse Ox O2 O2 Flow FiO2 Time Delivery Rate 05/01/19 98.0 122 17 122/84 98 Room Air 15:21 (97) 04/30/19 2.0 20:00 Intake and Output 04/30/19 04/30/19 05/01/19 1515:00 23:00 07:00 IntakeIntake Total 400 ml 300 ml OutputOutput Total 200 ml 30 ml 20 ml BalanceBalance 200 ml -30 ml 280 ml Exam ENMT: nl external ears & nose, nl lips & teeth, nl nasal mucosa & septum, m ucosa pink and moist Neck: supple, non-tender Respiratory: clear to auscultation, normal air movement Cardiovascular: regular rate and rhythm, nl pulses Gastrointestinal: soft, nl liver, spleen, non-tender Results Result Diagram: 04/30/19 0506 04/30/19 0506 MALOU GAN MD May 01, 2019 16:51
[2019-05-01] MEDS: MOMETASONE 0.24 GM INHALER INH SCH (17:05)
[2019-05-01] MEDS: EPOETIN ALFA-EPBX (ESRD) 10,000 UNIT/ML VIAL SC SCH (17:45)
[2019-05-01] MEDS: ATORVASTATIN 80 MG TAB PO SCH (20:22)
[2019-05-02] VITALS (12 sets, daily range): BP systolic 146–169; BP diastolic 86–98; PULSE 87–99; RESP 18–20
[2019-05-02] MEDS: hydrALAzine 20 MG INJ IV PRN ×2 (01:58→20:44)
[2019-05-02] MEDS: PANTOPRAZOLE (EC) 40 MG TAB PO SCH (08:04)
[2019-05-02] MEDS: ASPIRIN (EC) 81 MG TAB PO SCH (08:04)
[2019-05-02] MEDS: AMLODIPINE 10 MG TAB PO SCH (08:05)
--- NOTE | 2019-05-02 10:33 | CONS ---
Consult Date/Type/Reason Admit Date/Time Apr 06, 2019 at 21:13 Initial Consult Date 04/10/19 Type of Consult Pulmonary Requesting Provider: DEVI ALFRED Date/Time of Note DATE: 05/02/19 TIME: 10:32 Subjective No significant changes. Minimal air leak noted. Objective Vital Signs Date Temp Pulse Resp B/P (MAP) Pulse Ox O2 O2 Flow FiO2 Time Delivery Rate 05/02/19 Nasal 2.0 07:44 Cannula 05/02/19 98.4 91 20 169/97 96 07:28 (121) Intake and Output 05/01/19 05/01/19 05/02/19 1414:59 22:59 06:59 IntakeIntake Total 600 ml 1090 ml 100 ml OutputOutput Total 4500 ml 2630 ml 40 ml BalanceBalance -3900 ml -1540 ml 60 ml Exam GENERAL: VITAL SIGNS: well-nourished well-developed gentleman NECK: Supple. No JVD or lymphadenopathy. CARDIAC EXAM: S1, S2. No added sounds or murmurs. CHEST: Diminished air entry right base. ABDOMEN: Soft, nontender. No guarding or rebound. EXTREMITIES: No cyanosis, clubbing or edema. NEUROLOGIC: Generalized weakness. No focal deficits. Vent Setting Fraction of Inspired Oxygen pe: 21 Results/Medications Result Diagram: 04/30/19 0506 04/30/19 0506 Medications Current Medications IV Flush (NS 3 ml) 3 ml PER PROTOCOL IV ; Start 04/06/19 at 21:30 Ondansetron HCl (Zofran Inj) 4 mg Q6H PRN IV NAUSEA/VOMITING; Start 04/06/19 at 21:30 Acetaminophen (Tylenol Tab) 650 mg Q6H PRN PO .PAIN 1-3 OR TEMP Last administered on 04/29/19at 14:34; Admin Dose 650 MG; Start 04/06/19 at 21:30 Docusate Sodium (Colace) 100 mg Q12H PRN PO .CONSTIPATION; Start 04/06/19 at 21:30 Bisacodyl (Dulcolax) 5 mg DAILY PRN PO .CONSTIPATION; Start 04/06/19 at 21:30 Albumin Human 100 ml @ 100 mls/hr WITH DIALYSIS PRN IV SBP <90 DURING DIALYSIS; Start 04/06/19 at 22:30 Hydralazine HCl (Apresoline) 10 mg Q4 PRN IV SBP more than 150 mm hg Last administered on 05/02/19 01:58; Admin Dose 10 MG; Start 04/06/19 at 22:30 Albuterol (Ventolin Hfa) 2 puff Q4H RESP THERAPY PRN INH WHEEZING AND SOB; Start 04/06/19 at 22:30 Amlodipine Besylate (Norvasc) 10 mg DAILY PO Last administered on 05/02/19 08:05; Admin Dose 10 MG; Start 04/07/19 at 09:00 Aspirin (Halfprin) 81 mg DAILY PO Last administered on 05/02/19 08:04; Admin Dose 81 MG; Start 04/07/19 at 09:00 Atorvastatin Calcium (Lipitor) 80 mg QHS PO Last administered on 05/01/19 20:22; Admin Dose 80 MG; Start 04/07/19 at 21:00 Mometasone Furoate (Asmanex) 1 puff DAILY RESP THERAPY INH Last administered on 05/01/19 17:05; Admin Dose 1 PUFF; Start 04/07/19 at 12:00 Pantoprazole (Protonix Tab) 40 mg DAILY PO Last administered on 05/02/19 08:04; Admin Dose 40 MG; Start 04/07/19 at 09:00 Epoetin Andrew-epbx (Retacrit (Esrd)) 10,000 unit MONWEDFRI@1700 SC Last administered on 05/01/19 17:45; Admin Dose 10,000 UNIT; Start 04/17/19 at 17:00 Miscellaneous Information (* Miscellaneous Pharmacy Order) DURAMORPH: 3 MG EPIDU... GIVEN NEURAXIAL XX ; Start 04/24/19 at 14:30 Metoprolol Tartrate (Lopressor) 5 mg Q6H PRN IV ELEVATED BLOOD PRESSURE Last administered on 04/25/19 02:57; Admin Dose 5 MG; Start 04/24/19 at 20:30 Assessment/Plan Hospital Course (Demo Recall) IMP: 1. 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 Moderate to large hydropneumothorax noted. Thoracic surgery recommendations noted agree with transition to waterseal and removal of chest tube if possible. 2. Trapped Lung 3. ESRD on HD 4. Anemia. RECS: 1. Chest tube management as CTS 2. Abx 3. Chest PT/BD's Consider transfer to [facility] DAHLIA ROMERO MD, [facility] May 02, 2019 10:33
--- NOTE | 2019-05-02 10:47 | PN ---
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 Still with very minimal air leak The drainage has decreased to about [address] with hydro PTX Pt hemodynamically stable We will continue chest tube suction one more day CT clamped yesterday, CXR stable Will DC CT Repeat chest x-ray tomorrow Subjective 24 Hr Interval Summary Constitutional: no complaints, improved, ambulates, BM, flatus, urine output Pain Control: mild Exam/Review of Systems Vital Signs Vitals Vital Signs Date Temp Pulse Resp B/P (MAP) Pulse Ox O2 O2 Flow FiO2 Time Delivery Rate 05/02/19 Nasal 2.0 07:44 Cannula 05/02/19 98.4 91 20 169/97 96 07:28 (121) Intake and Output 05/01/19 05/01/19 05/02/19 1515:00 23:00 07:00 IntakeIntake Total 600 ml 1090 ml 100 ml OutputOutput Total 4500 ml 2630 ml 40 ml BalanceBalance -3900 ml -1540 ml 60 ml Exam Eyes: nl conjunctiva, EOMI, nl lids, nl sclera ENMT: nl external ears & nose, nl lips & teeth, nl nasal mucosa & septum, mucosa pink and moist Neck: supple, non-tender Respiratory: clear to auscultation, normal air movement Cardiovascular: regular rate and rhythm, nl pulses Musculoskeletal: nl extremities to inspection, nl gait and stance Results Result Diagram: 04/30/19 0506 04/30/19 0506 MALOU GAN MD May 02, 2019 10:47
--- NOTE | 2019-05-02 11:24 | CONS ---
Assessment/Plan Assessment/Plan Assessment/Plan (Daily) 1. Acute fluid overload with acute Uremia due to missed HD- Improved, pt stable on 2 L NC 2. acute hyperkalemia due to Missed HD- now resolved 3. Large Loculated Right sided pleural effusion s/p R thoracentesis on 04/09/19- 600 cc drained - s/p Right sided VATS with Decortication by dr. corona on 04/24/19 4. ESRD on HD - has been stayed out of [place] for more than 3 months- lost his HD chair time in [place]. 5. H/o HTN 6. H/o HL 7. H/o Hypothyroidism 8. Anemia of ESRD on Epogen Plan: Large Loculated Right sided pleural effusion s/p R thoracentesis on 04/09/19- 600 cc drained-s/p Right sided VATS with Decortication by dr. corona on 04/24/19 -stable on 2 L NC, -s/p HD yesterday 2.5 L removed, , - will continue HD MWF - Next HD will be on Saturday continue current BP meds amlodipine 10mg po daily , IV hydralaine prn HIV< hepatitis panel negative- awaiting Outpatient HD placement confirmation Epogen 97539 units SQ MWF for Anemia Will follow up Consultation Date/Type/Reason Admit Date/Time Apr 06, 2019 at 21:13 Initial Consult Date 04/06/19 Type of Consult NEPHROLOGY Requesting Provider: DEVI ALFRED Date/Time of Note DATE: 05/02/19 TIME: 11:24 Exam/Review of Systems Exam Vitals Vital Signs Date Temp Pulse Resp B/P (MAP) Pulse Ox O2 O2 Flow FiO2 Time Delivery Rate 05/02/19 98.3 90 20 161/93 98 Room Air 11:18 (115) 05/02/19 2.0 07:44 Intake and Output 05/01/19 05/01/19 05/02/19 1515:00 23:00 07:00 IntakeIntake Total 600 ml 1090 ml 100 ml OutputOutput Total 4500 ml 2630 ml 40 ml BalanceBalance -3900 ml -1540 ml 60 ml Exam Constitutional: alert, awake, no acute distress Respiratory: decreased BS on Left lung, no wheezing, no crackles, Cardiovascular: regular rate and rhythm, nl pulses Gastrointestinal: soft, non-tender Musculoskeletal: LUE AVF in place, no Edema, on cyanosis Neurological: REFERRAL NURSE II-XII intact, nl mental status, Non focal Results Result Diagram: 04/30/19 0506 04/30/19 0506 Medications Medication Current Medications IV Flush (NS 3 ml) 3 ml PER PROTOCOL IV ; Start 04/06/19 at 21:30 Ondansetron HCl (Zofran Inj) 4 mg Q6H PRN IV NAUSEA/VOMITING; Start 04/06/19 at 21:30 Acetaminophen (Tylenol Tab) 650 mg Q6H PRN PO .PAIN 1-3 OR TEMP Last administered on 04/29/19at 14:34; Admin Dose 650 MG; Start 04/06/19 at 21:30 Docusate Sodium (Colace) 100 mg Q12H PRN PO .CONSTIPATION; Start 04/06/19 at 21:30 Bisacodyl (Dulcolax) 5 mg DAILY PRN PO .CONSTIPATION; Start 04/06/19 at 21:30 Albumin Human 100 ml @ 100 mls/hr WITH DIALYSIS PRN IV SBP <90 DURING DIALYSIS; Start 04/06/19 at 22:30 Hydralazine HCl (Apresoline) 10 mg Q4 PRN IV SBP more than 150 mm hg Last administered on 05/02/19at 01:58; Admin Dose 10 MG; Start 04/06/19 at 22:30 Albuterol (Ventolin Hfa) 2 puff Q4H RESP THERAPY PRN INH WHEEZING AND SOB; Start 04/06/19 at 22:30 Amlodipine Besylate (Norvasc) 10 mg DAILY PO Last administered on 05/02/19at 08:05; Admin Dose 10 MG; Start 04/07/19 at 09:00 Aspirin (Halfprin) 81 mg DAILY PO Last administered on 05/02/19 08:04; Admin Dose 81 MG; Start 04/07/19 at 09:00 Atorvastatin Calcium (Lipitor) 80 mg QHS PO Last administered on 05/01/19 20:22; Admin Dose 80 MG; Start 04/07/19 at 21:00 Mometasone Furoate (Asmanex) 1 puff DAILY RESP THERAPY INH Last administered on 05/01/19at 17:05; Admin Dose 1 PUFF; Start 04/07/19 at 12:00 Pantoprazole (Protonix Tab) 40 mg DAILY PO Last administered on 05/02/19at 08:04; Admin Dose 40 MG; Start 04/07/19 at 09:00 Epoetin Andrew-epbx (Retacrit (Esrd)) 10,000 unit MONWEDFRI@1700 SC Last administered on 05/01/19at 17:45; Admin Dose 10,000 UNIT; Start 04/17/19 at 17:00 Miscellaneous Information (* Miscellaneous Pharmacy Order) DURAMORPH: 3 MG EPIDU... GIVEN NEURAXIAL XX ; Start 04/24/19 at 14:30 Metoprolol Tartrate (Lopressor) 5 mg Q6H PRN IV ELEVATED BLOOD PRESSURE Last administered on 04/25/19at 02:57; Admin Dose 5 MG; Start 04/24/19 at 20:30 VAN DHALIWAL MD May 02, 2019 11:24
[2019-05-02] MEDS: MOMETASONE 0.24 GM INHALER INH SCH (14:34)
--- NOTE | 2019-05-02 17:58 | PN ---
Date/Time of Note Date/Time of Note DATE: 05/02/19 TIME: 17:57 Assessment/Plan VTE Prophylaxis Risk score (from Ns)>0 risk: 4 SCD applied (from Ns): Yes Pharmacological prophylaxis: NA/contraindicated Pharm contraindication: other Assessment/Plan Hospital Course 68 yo male with ESRD who presents with COLON, found to have large R pleural effusion. Chronic loculated effusion s/p VATS decortication Pleural effusion: - s/p VATS decortication 04/24. Chest tube now removed -Follow-up on a.m. chest x-ray ESRD: - Continue HD per renal Anemia of CKD - iron and EPO Hypertension: - Continue amlodipine Discharge: Anticipate DC home tomorrow Result Diagram: 04/30/19 0506 04/30/19 0506 Subjective 24 Hr Interval Summary Constitutional: no complaints Exam/Review of Systems Exam Vitals Vital Signs Date Temp Pulse Resp B/P (MAP) Pulse Ox O2 O2 Flow FiO2 Time Delivery Rate 05/02/19 98.3 89 19 162/95 99 15:35 (117) 05/02/19 Room Air 11:18 05/02/19 2.0 07:44 Intake and Output 05/01/19 05/01/19 05/02/19 1515:00 23:00 07:00 IntakeIntake Total 600 ml 1090 ml 100 ml OutputOutput Total 4500 ml 2630 ml 40 ml BalanceBalance -3900 ml -1540 ml 60 ml Constitutional: alert, oriented Respiratory: clear to auscultation Cardiovascular: regular rate and rhythm Gastrointestinal: soft; No distended Musculoskeletal: nl extremities to inspection Medications Medication Current Medications IV Flush (NS 3 ml) 3 ml PER PROTOCOL IV ; Start 04/06/19 at 21:30 Ondansetron HCl (Zofran Inj) 4 mg Q6H PRN IV NAUSEA/VOMITING; Start 04/06/19 at 21:30 Acetaminophen (Tylenol Tab) 650 mg Q6H PRN PO .PAIN 1-3 OR TEMP Last administered on 04/29/19at 14:34; Admin Dose 650 MG; Start 04/06/19 at 21:30 Docusate Sodium (Colace) 100 mg Q12H PRN PO .CONSTIPATION; Start 04/06/19 at 21:30 Bisacodyl (Dulcolax) 5 mg DAILY PRN PO .CONSTIPATION; Start 04/06/19 at 21:30 Albumin Human 100 ml @ 100 mls/hr WITH DIALYSIS PRN IV SBP <90 DURING DIALYSIS; Start 04/06/19 at 22:30 Hydralazine HCl (Apresoline) 10 mg Q4 PRN IV SBP more than 150 mm hg Last administered on 05/02/19 01:58; Admin Dose 10 MG; Start 04/06/19 at 22:30 Albuterol (Ventolin Hfa) 2 puff Q4H RESP THERAPY PRN INH WHEEZING AND SOB; Start 04/06/19 at 22:30 Amlodipine Besylate (Norvasc) 10 mg DAILY PO Last administered on 05/02/19 08:05; Admin Dose 10 MG; Start 04/07/19 at 09:00 Aspirin (Halfprin) 81 mg DAILY PO Last administered on 05/02/19 08:04; Admin D ose 81 MG; Start 04/07/19 at 09:00 Atorvastatin Calcium (Lipitor) 80 mg QHS PO Last administered on 05/01/19 20:22; Admin Dose 80 MG; Start 04/07/19 at 21:00 Mometasone Furoate (Asmanex) 1 puff DAILY RESP THERAPY INH Last administered on 05/02/19 14:34; Admin Dose 1 PUFF; Start 04/07/19 at 12:00 Pantoprazole (Protonix Tab) 40 mg DAILY PO Last administered on 05/02/19 08:04; Admin Dose 40 MG; Start 04/07/19 at 09:00 Epoetin Andrew-epbx (Retacrit (Esrd)) 10,000 unit MONWEDFRI@1700 SC Last admin istered on 05/01/19 17:45; Admin Dose 10,000 UNIT; Start 04/17/19 at 17:00 Miscellaneous Information (* Miscellaneous Pharmacy Order) DURAMORPH: 3 MG EPIDU... GIVEN NEURAXIAL XX ; Start 04/24/19 at 14:30 Metoprolol Tartrate (Lopressor) 5 mg Q6H PRN IV ELEVATED BLOOD PRESSURE Last administered on 04/25/19 02:57; Admin Dose 5 MG; Start 04/24/19 at 20:30 ELVIA HANLEY May 02, 2019 17:58
[2019-05-02] MEDS: ATORVASTATIN 80 MG TAB PO SCH (20:42)
[2019-05-03] VITALS (10 sets, daily range): BP systolic 140–173; BP diastolic 82–102; PULSE 86–102; RESP 16–20
[2019-05-03] MEDS: ASPIRIN (EC) 81 MG TAB PO SCH (08:33)
[2019-05-03] MEDS: PANTOPRAZOLE (EC) 40 MG TAB PO SCH (08:33)
[2019-05-03] MEDS: AMLODIPINE 10 MG TAB PO SCH (08:33)
[2019-05-03] MEDS: hydrALAzine 20 MG INJ IV PRN ×3 (10:21→20:46)
--- NOTE | 2019-05-03 10:47 | CONS ---
Consult Date/Type/Reason Admit Date/Time Apr 06, 2019 at 21:13 Initial Consult Date 04/10/19 Type of Consult Pulmonary Requesting Provider: DEVI ALFRED Date/Time of Note DATE: 05/03/19 TIME: 10:46 Subjective Patient stable this morning chest tube was removed yesterday no respiratory distress. Objective Vital Signs Date Temp Pulse Resp B/P (MAP) Pulse Ox O2 O2 Flow FiO2 Time Delivery Rate 05/03/19 98.2 87 20 172/102 99 07:21 (125) 05/03/19 Room Air 01:59 05/02/19 2.0 07:44 Intake and Output 05/02/19 05/02/19 05/03/19 1515:00 23:00 07:00 IntakeIntake Total 410 ml 240 ml BalanceBalance 410 ml 240 ml Exam GENERAL: VITAL SIGNS: per chart NECK: Supple. No JVD or lymphadenopathy. CARDIAC EXAM: S1, S2. No added sounds or murmurs. CHEST: clear bilaterally, No added sounds, rales or wheezes ABDOMEN: Soft, nontender. No guarding or rebound. EXTREMITIES: No cyanosis, clubbing or edema. NEUROLOGIC: Generalized weakness. No focal deficits. Vent Setting Fraction of Inspired Oxygen pe: 21 Results/Medications Result Diagram: 05/03/19 0516 05/03/19 0516 Results 24 hrs Laboratory Tests Test 05/03/19 05:16 05/03/19 06:50 White Blood Count 9.8 # Red Blood Count 3.01 #L Hemoglobin 9.3 #L Hematocrit 27.2 #L Mean Corpuscular Volume 90.4 Mean Corpuscular Hemoglobin 30.9 Mean Corpuscular Hemoglobin Concent 34.2 Red Cell Distribution Width 14.4 Platelet Count 273 # Mean Platelet Volume 10.1 Immature Granulocytes % 1.800 H Neutrophils % 75.0 Lymphocytes % 4.8 L Monocytes % 12.3 H Eosinophils % 5.5 Basophils % 0.6 Nucleated Red Blood Cells % 0.0 Immature Granulocytes # 0.180 H Neutrophils # 7.3 Lymphocytes # 0.5 L Monocytes # 1.2 H Eosinophils # 0.5 Basophils # 0.1 Nucleated Red Blood Cells # 0.0 Sodium Level 130 L Potassium Level 4.3 Chloride Level 91 L Carbon Dioxide Level 25 Anion Gap 14 H Blood Urea Nitrogen 62 H Creatinine 8.38 H Est Glomerular Filtrat Rate mL/min 6 L Glucose Level 84 Calcium Level 8.8 Lab Scanned Report BLOOD TRANSFUSION Medications Current Medications IV Flush (NS 3 ml) 3 ml PER PROTOCOL IV ; Start 04/06/19 at 21:30 Ondansetron HCl (Zofran Inj) 4 mg Q6H PRN IV NAUSEA/VOMITING; Start 04/06/19 at 21:30 Acetaminophen (Tylenol Tab) 650 mg Q6H PRN PO .PAIN 1-3 OR TEMP Last administered on 04/29/19 14:34; Admin Dose 650 MG; Start 04/06/19 at 21:30 Docusate Sodium (Colace) 100 mg Q12H PRN PO .CONSTIPATION; Start 04/06/19 at 21:30 Bisacodyl (Dulcolax) 5 mg DAILY PRN PO .CONSTIPATION; Start 04/06/19 at 21:30 Albumin Human 100 ml @ 100 mls/hr WITH DIALYSIS PRN IV SBP <90 DURING DIALYSIS; Start 04/06/19 at 22:30 Hydralazine HCl (Apresoline) 10 mg Q4 PRN IV SBP more than 150 mm hg Last administered on 05/03/19 10:21; Admin Dose 10 MG; Start 04/06/19 at 22:30 Albuterol (Ventolin Hfa) 2 puff Q4H RESP THERAPY PRN INH WHEEZING AND SOB; Start 04/06/19 at 22:30 Amlodipine Besylate (Norvasc) 10 mg DAILY PO Last administered on 05/03/19 08:33; Admin Dose 10 MG; Start 04/07/19 at 09:00 Aspirin (Halfprin) 81 mg DAILY PO Last administered on 05/03/19 08:33; Admin Dose 81 MG; Start 04/07/19 at 09:00 Atorvastatin Calcium (Lipitor) 80 mg QHS PO Last administered on 05/02/19 20:42; Admin Dose 80 MG; Start 04/07/19 at 21:00 Mometasone Furoate (Asmanex) 1 puff DAILY RESP THERAPY INH Last administered on 05/02/19 14:34; Admin Dose 1 PUFF; Start 04/07/19 at 12:00 Pantoprazole (Protonix Tab) 40 mg DAILY PO Last administered on 05/03/19 08:33; Admin Dose 40 MG; Start 04/07/19 at 09:00 Epoetin Andrew-epbx (Retacrit (Esrd)) 10,000 unit MONWEDFRI@1700 SC Last administered on 05/01/19at 17:45; Admin Dose 10,000 UNIT; Start 04/17/19 at 17:00 Miscellaneous Information (* Miscellaneous Pharmacy Order) DURAMORPH: 3 MG EPIDU... GIVEN NEURAXIAL XX ; Start 04/24/19 at 14:30 Metoprolol Tartrate (Lopressor) 5 mg Q6H PRN IV ELEVATED BLOOD PRESSURE Last administered on 04/25/19at 02:57; Admin Dose 5 MG; Start 04/24/19 at 20:30 Assessment/Plan Hospital Course (Demo Recall) IMP: 1. 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 Stable hydropneumothorax following chest tube removal. 3. ESRD on HD 4. Anemia. RECS: 1. Repeat chest x-ray and to 3 weeks. 2. Abx 3. Chest PT/BD's Discharge planning. DAHLIA ROMERO MD, [facility] May 03, 2019 10:47
--- NOTE | 2019-05-03 11:18 | CONS ---
Assessment/Plan Assessment/Plan Assessment/Plan (Daily) 1. Acute fluid overload with acute Uremia due to missed HD- Improved, pt stable on 2 L NC 2. acute hyperkalemia due to Missed HD- now resolved 3. Large Loculated Right sided pleural effusion s/p R thoracentesis on 04/09/19- 600 cc drained - s/p Right sided VATS with Decortication by dr. corona on 04/24/19 4. ESRD on HD - [place] been stayed out of [place] for more than 3 months- lost [place] chair time [place]. 5. H/o HTN 6. H/o HL 7. H/o Hypothyroidism 8. Anemia of ESRD on Epogen Plan: Large Loculated Right sided pleural effusion s/p R thoracentesis on 04/09/19- 600 cc drained-s/p Right sided VATS with Decortication by dr. corona on 04/24/19 -stable on 2 L NC, - HD ordered for Saturday , , - will continue HD MWF continue current BP meds amlodipine 10mg po daily , IV hydralaine prn HIV< hepatitis panel negative- awaiting Outpatient HD placement confirmation Epogen 98080 units SQ MWF for Anemia Will follow up Consultation Date/Type/Reason Admit Date/Time Apr 06, 2019 at 21:13 Initial Consult Date 04/06/19 Type of Consult NEPHROLOGY Requesting Provider: DEVI ALFRED Date/Time of Note DATE: 05/03/19 TIME: 11:18 Exam/Review of Systems Exam Vitals Vital Signs Date Temp Pulse Resp B/P (MAP) Pulse Ox O2 O2 Flow FiO2 Time Delivery Rate 05/03/19 98.2 87 20 172/102 99 07:21 (125) 05/03/19 Room Air 01:59 05/02/19 2.0 07:44 Intake and Output 05/02/19 05/02/19 05/03/19 1515:00 23:00 07:00 IntakeIntake Total 410 ml 240 ml BalanceBalance 410 ml 240 ml Exam Constitutional: alert, awake, no acute distress Respiratory: decreased BS on Left lung, no wheezing, no crackles, Cardiovascular: regular rate and rhythm, nl pulses Gastrointestinal: soft, non-tender Musculoskeletal: LUE AVF in place, no Edema, on cyanosis Neurological: AUTOMOTIVE ENGINEER II-XII intact, nl mental status, Non focal Results Result Diagram: 05/03/19 0516 05/03/19 0516 Results 24hrs Laboratory Tests Test 05/03/19 05:16 05/03/19 06:50 White Blood Count 9.8 # Red Blood Count 3.01 #L Hemoglobin 9.3 #L Hematocrit 27.2 #L Mean Corpuscular Volume 90.4 Mean Corpuscular Hemoglobin 30.9 Mean Corpuscular Hemoglobin Concent 34.2 Red Cell Distribution Width 14.4 Platelet Count 273 # Mean Platelet Volume 10.1 Immature Granulocytes % 1.800 H Neutrophils % 75.0 Lymphocytes % 4.8 L Monocytes % 12.3 H Eosinophils % 5.5 Basophils % 0.6 Nucleated Red Blood Cells % 0.0 Immature Granulocytes # 0.180 H Neutrophils # 7.3 Lymphocytes # 0.5 L Monocytes # 1.2 H Eosinophils # 0.5 Basophils # 0.1 Nucleated Red Blood Cells # 0.0 Sodium Level 130 L Potassium Level 4.3 Chloride Level 91 L Carbon Dioxide Level 25 Anion Gap 14 H Blood Urea Nitrogen 62 H Creatinine 8.38 H Est Glomerular Filtrat Rate mL/min 6 L Glucose Level 84 Calcium Level 8.8 Lab Scanned Report BLOOD TRANSFUSION Medications Medication Current Medications IV Flush (NS 3 ml) 3 ml PER PROTOCOL IV ; Start 04/06/19 at 21:30 Ondansetron HCl (Zofran Inj) 4 mg Q6H PRN IV NAUSEA/VOMITING; Start 04/06/19 at 21:30 Acetaminophen (Tylenol Tab) 650 mg Q6H PRN PO .PAIN 1-3 OR TEMP Last administered on 04/29/19at 14:34; Admin Dose 650 MG; Start 04/06/19 at 21:30 Docusate Sodium (Colace) 100 mg Q12H PRN PO .CONSTIPATION; Start 04/06/19 at 21:30 Bisacodyl (Dulcolax) 5 mg DAILY PRN PO .CONSTIPATION; Start 04/06/19 at 21:30 Albumin Human 100 ml @ 100 mls/hr WITH DIALYSIS PRN IV SBP <90 DURING DIALYSIS; Start 04/06/19 at 22:30 Hydralazine HCl (Apresoline) 10 mg Q4 PRN IV SBP more than 150 mm hg Last administered on 05/03/19at 10:21; Admin Dose 10 MG; Start 04/06/19 at 22:30 Albuterol (Ventolin Hfa) 2 puff Q4H RESP THERAPY PRN INH WHEEZING AND SOB; Start 04/06/19 at 22:30 Amlodipine Besylate (Norvasc) 10 mg DAILY PO Last administered on 05/03/19 08:33; Admin Dose 10 MG; Start 04/07/19 at 09:00 Aspirin (Halfprin) 81 mg DAILY PO Last administered on 05/03/19 08:33; Admin Dose 81 MG; Start 04/07/19 at 09:00 Atorvastatin Calcium (Lipitor) 80 mg QHS PO Last administered on 05/02/19 20:42; Admin Dose 80 MG; Start 04/07/19 at 21:00 Mometasone Furoate (Asmanex) 1 puff DAILY RESP THERAPY INH Last administered on 05/02/19 14:34; Admin Dose 1 PUFF; Start 04/07/19 at 12:00 Pantoprazole (Protonix Tab) 40 mg DAILY PO Last administered on 05/03/19 08:33; Admin Dose 40 MG; Start 04/07/19 at 09:00 Epoetin Andrew-epbx (Retacrit (Esrd)) 10,000 unit MONWEDFRI@1700 SC Last administered on 05/01/19 17:45; Admin Dose 10,000 UNIT; Start 04/17/19 at 17:00 Miscellaneous Information (* Miscellaneous Pharmacy Order) DURAMORPH: 3 MG EPIDU... GIVEN NEURAXIAL XX ; Start 04/24/19 at 14:30 Metoprolol Tartrate (Lopressor) 5 mg Q6H PRN IV ELEVATED BLOOD PRESSURE Last administered on 04/25/19 02:57; Admin Dose 5 MG; Start 04/24/19 at 20:30 VAN DHALIWAL MD May 03, 2019 11:18
--- NOTE | 2019-05-03 11:23 | PN ---
Date/Time of Note Date/Time of Note DATE: 05/03/19 TIME: 11:22 Assessment/Plan VTE Prophylaxis Risk score (from Nsg)>0 risk: 4 Pharmacological prophylaxis: NA/contraindicated Pharm contraindication: low risk/ambulating Assessment/Plan Hospital Course 68 yo male with ESRD who presents with COLON, found to have large R pleural effusion. Chronic loculated effusion s/p VATS decortication Pleural effusion: - s/p VATS decortication 04/24. Chest tube now removed -Follow-up on a.m. chest x-ray -Awaiting clearance for DC by CT surgery, cleared per pulmonology ESRD: - Continue HD per renal Anemia of CKD - iron and EPO Hypertension: - Continue amlodipine Discharge: Anticipate DC home tomorrow, employment evaluator/case manager to arrange home health Result Diagram: 05/03/19 0516 05/03/19 0516 Results 24hrs Laboratory Tests Test 05/03/19 05:16 05/03/19 06:50 White Blood Count 9.8 # Red Blood Count 3.01 #L Hemoglobin 9.3 #L Hematocrit 27.2 #L Mean Corpuscular Volume 90.4 Mean Corpuscular Hemoglobin 30.9 Mean Corpuscular Hemoglobin Concent 34.2 Red Cell Distribution Width 14.4 Platelet Count 273 # Mean Platelet Volume 10.1 Immature Granulocytes % 1.800 H Neutrophils % 75.0 Lymphocytes % 4.8 L Monocytes % 12.3 H Eosinophils % 5.5 Basophils % 0.6 Nucleated Red Blood Cells % 0.0 Immature Granulocytes # 0.180 H Neutrophils # 7.3 Lymphocytes # 0.5 L Monocytes # 1.2 H Eosinophils # 0.5 Basophils # 0.1 Nucleated Red Blood Cells # 0.0 Sodium Level 130 L Potassium Level 4.3 Chloride Level 91 L Carbon Dioxide Level 25 Anion Gap 14 H Blood Urea Nitrogen 62 H Creatinine 8.38 H Est Glomerular Filtrat Rate mL/min 6 L Glucose Level 84 Calcium Level 8.8 Lab Scanned Report BLOOD TRANSFUSION Subjective 24 Hr Interval Summary Constitutional: no complaints Exam/Review of Systems Exam Vitals Vital Signs Date Temp Pulse Resp B/P (MAP) Pulse Ox O2 O2 Flow FiO2 Time Delivery Rate 05/03/19 98.2 87 20 172/102 99 07:21 (125) 05/03/19 Room Air 01:59 05/02/19 2.0 07:44 Intake and Output 05/02/19 05/02/19 05/03/19 1515:00 23:00 07:00 IntakeIntake Total 410 ml 240 ml BalanceBalance 410 ml 240 ml Constitutional: alert, oriented Respiratory: clear to auscultation Cardiovascular: regular rate and rhythm Gastrointestinal: soft; No distended Musculoskeletal: nl extremities to inspection Results Results 24hrs Laboratory Tests Test 05/03/19 05:16 05/03/19 06:50 White Blood Count 9.8 # Red Blood Count 3.01 #L Hemoglobin 9.3 #L Hematocrit 27.2 #L Mean Corpuscular Volume 90.4 Mean Corpuscular Hemoglobin 30.9 Mean Corpuscular Hemoglobin Concent 34.2 Red Cell Distribution Width 14.4 Platelet Count 273 # Mean Platelet Volume 10.1 Immature Granulocytes % 1.800 H Neutrophils % 75.0 Lymphocytes % 4.8 L Monocytes % 12.3 H Eosinophils % 5.5 Basophils % 0.6 Nucleated Red Blood Cells % 0.0 Immature Granulocytes # 0.180 H Neutrophils # 7.3 Lymphocytes # 0.5 L Monocytes # 1.2 H Eosinophils # 0.5 Basophils # 0.1 Nucleated Red Blood Cells # 0.0 Sodium Level 130 L Potassium Level 4.3 Chloride Level 91 L Carbon Dioxide Level 25 Anion Gap 14 H Blood Urea Nitrogen 62 H Creatinine 8.38 H Est Glomerular Filtrat Rate mL/min 6 L Glucose Level 84 Calcium Level 8.8 Lab Scanned Report BLOOD TRANSFUSION Medications Medication Current Medications IV Flush (NS 3 ml) 3 ml PER PROTOCOL IV ; Start 04/06/19 at 21:30 Ondansetron HCl (Zofran Inj) 4 mg Q6H PRN IV NAUSEA/VOMITING; Start 04/06/19 at 21:30 Acetaminophen (Tylenol Tab) 650 mg Q6H PRN PO .PAIN 1-3 OR TEMP Last administered on 04/29/19at 14:34; Admin Dose 650 MG; Start 04/06/19 at 21:30 Docusate Sodium (Colace) 100 mg Q12H PRN PO .CONSTIPATION; Start 04/06/19 at 21:30 Bisacodyl (Dulcolax) 5 mg DAILY PRN PO .CONSTIPATION; Start 04/06/19 at 21:30 Albumin Human 100 ml @ 100 mls/hr WITH DIALYSIS PRN IV SBP <90 DURING DIALYSIS; Start 04/06/19 at 22:30 Hydralazine HCl (Apresoline) 10 mg Q4 PRN IV SBP more than 150 mm hg Last administered on 05/03/19 10:21; Admin Dose 10 MG; Start 04/06/19 at 22:30 Albuterol (Ventolin Hfa) 2 puff Q4H RESP THERAPY PRN INH WHEEZING AND SOB; Start 04/06/19 at 22:30 Amlodipine Besylate (Norvasc) 10 mg DAILY PO Last administered on 05/03/19 08:33; Admin Dose 10 MG; Start 04/07/19 at 09:00 Aspirin (Halfprin) 81 mg DAILY PO Last administered on 05/03/19 08:33; Admin Dose 81 MG; Start 04/07/19 at 09:00 Atorvastatin Calcium (Lipitor) 80 mg QHS PO Last administered on 05/02/19 20:42; Admin Dose 80 MG; Start 04/07/19 at 21:00 Mometasone Furoate (Asmanex) 1 puff DAILY RESP THERAPY INH Last administered on 05/02/19 14:34; Admin Dose 1 PUFF; Start 04/07/19 at 12:00 Pantoprazole (Protonix Tab) 40 mg DAILY PO Last administered on 05/03/19 08:33; Admin Dose 40 MG; Start 04/07/19 at 09:00 Epoetin Andrew-epbx (Retacrit (Esrd)) 10,000 unit MONWEDFRI@1700 SC Last administered on 05/01/19 17:45; Admin Dose 10,000 UNIT; Start 04/17/19 at 17:00 Miscellaneous Information (* Miscellaneous Pharmacy Order) DURAMORPH: 3 MG EPIDU... GIVEN NEURAXIAL XX ; Start 04/24/19 at 14:30 Metoprolol Tartrate (Lopressor) 5 mg Q6H PRN IV ELEVATED BLOOD PRESSURE Last administered on 04/25/19 02:57; Admin Dose 5 MG; Start 04/24/19 at 20:30 ELVIA HANLEY May 03, 2019 11:23
[2019-05-03] MEDS: MOMETASONE 0.24 GM INHALER INH SCH (12:08)
[2019-05-03] MEDS: ATORVASTATIN 80 MG TAB PO SCH (20:38)
[2019-05-04] VITALS (17 sets, daily range): BP systolic 125–182; BP diastolic 91–113; PULSE 61–125; RESP 16–20
[2019-05-04] MEDS: AMLODIPINE 10 MG TAB PO SCH (08:28)
[2019-05-04] MEDS: ASPIRIN (EC) 81 MG TAB PO SCH (08:28)
[2019-05-04] MEDS: PANTOPRAZOLE (EC) 40 MG TAB PO SCH (08:28)
--- NOTE | 2019-05-04 12:07 | CONS ---
Assessment/Plan Assessment/Plan Assessment/Plan (Daily) 1. Acute fluid overload with acute Uremia due to missed HD- Improved, pt stable on 2 L NC 2. acute hyperkalemia due to Missed HD- now resolved 3. Large Loculated Right sided pleural effusion s/p R thoracentesis on 04/09/19- 600 cc drained - s/p Right sided VATS with Decortication by dr. corona on 04/24/19 4. ESRD on HD - [place] of [place] for more than 3 months- lost [place]. 5. H/o HTN 6. H/o HL 7. H/o Hypothyroidism 8. Anemia of ESRD on Epogen Plan: Large Loculated Right sided pleural effusion s/p R thoracentesis on 04/09/19- 600 cc drained-s/p Right sided VATS with Decortication by dr. corona on 04/24/19 -stable on 2 L NC, - s/p HD today 3 L removed, possible d/c plan today continue current BP meds amlodipine 10mg po daily , IV hydralaine prn Outpatient HD placement at [facility] Epogen 10434 units SQ MWF for Anemia Will follow up Consultation Date/Type/Reason Admit Date/Time Apr 06, 2019 at 21:13 Initial Consult Date 04/06/19 Type of Consult NEPHROLOGY Requesting Provider: DEVI ALFRED Date/Time of Note DATE: 05/04/19 TIME: 12:07 Exam/Review of Systems Exam Vitals Vital Signs Date Temp Pulse Resp B/P (MAP) Pulse Ox O2 O2 Flow FiO2 Time Delivery Rate 05/04/19 98.0 61 20 158/97 97 Room Air 07:52 (117) 05/02/19 2.0 07:44 Intake and Output 05/03/19 05/03/19 05/04/19 1515:00 23:00 07:00 IntakeIntake Total 360 ml 240 ml 120 ml OutputOutput Total 0 ml BalanceBalance 360 ml 240 ml 120 ml Results Result Diagram: 05/03/19 0516 05/03/19 0516 Medications Medication Current Medications IV Flush (NS 3 ml) 3 ml PER PROTOCOL IV ; Start 04/06/19 at 21:30 Ondansetron HCl (Zofran Inj) 4 mg Q6H PRN IV NAUSEA/VOMITING; Start 04/06/19 at 21:30 Acetaminophen (Tylenol Tab) 650 mg Q6H PRN PO .PAIN 1-3 OR TEMP Last administ ered on 04/29/19 14:34; Admin Dose 650 MG; Start 04/06/19 at 21:30 Docusate Sodium (Colace) 100 mg Q12H PRN PO .CONSTIPATION; Start 04/06/19 at 21:30 Bisacodyl (Dulcolax) 5 mg DAILY PRN PO .CONSTIPATION; Start 04/06/19 at 21:30 Albumin Human 100 ml @ 100 mls/hr WITH DIALYSIS PRN IV SBP <90 DURING DIALYSIS; Start 04/06/19 at 22:30 Hydralazine HCl (Apresoline) 10 mg Q4 PRN IV SBP more than 150 mm hg Last administered on 05/03/19 20:46; Admin Dose 10 MG; Start 04/06/19 at 22:30 Albuterol (Ventolin Hfa) 2 puff Q4H RESP THERAPY PRN INH WHEEZING AND SOB; Start 04/06/19 at 22:30 Amlodipine Besylate (Norvasc) 10 mg DAILY PO Last administered on 05/03/19 08:33; Admin Dose 10 MG; Start 04/07/19 at 09:00 Aspirin (Halfprin) 81 mg DAILY PO Last administered on 05/04/19 08:28; Admin Dose 81 MG; Start 04/07/19 at 09:00 Atorvastatin Calcium (Lipitor) 80 mg QHS PO Last administered on 05/03/19 20:38; Admin Dose 80 MG; Start 04/07/19 at 21:00 Mometasone Furoate (Asmanex) 1 puff DAILY RESP THERAPY INH Last administered on 05/03/19 12:08; Admin Dose 1 PUFF; Start 04/07/19 at 12:00 Pantoprazole (Protonix Tab) 40 mg DAILY PO Last administered on 05/04/19 08:28; Admin Dose 40 MG; Start 04/07/19 at 09:00 Epoetin Andrew-epbx (Retacrit (Esrd)) 10,000 unit MONWEDFRI@1700 SC Last administered on 05/01/19 17:45; Admin Dose 10,000 UNIT; Start 04/17/19 at 17:00 Miscellaneous Information (* Miscellaneous Pharmacy Order) DURAMORPH: 3 MG EPIDU... GIVEN NEURAXIAL XX ; Start 04/24/19 at 14:30 Metoprolol Tartrate (Lopressor) 5 mg Q6H PRN IV ELEVATED BLOOD PRESSURE Last administered on 04/25/19at 02:57; Admin Dose 5 MG; Start 04/24/19 at 20:30; Status Hold VAN DHALIWAL MD May 04, 2019 12:07
--- NOTE | 2019-05-04 12:10 | CONS ---
Consult Date/Type/Reason Admit Date/Time Apr 06, 2019 at 21:13 Initial Consult Date 04/10/19 Type of Consult Pulmonary Requesting Provider: DEVI ALFRED Date/Time of Note DATE: 05/04/19 TIME: 12:10 Subjective Patient stable this morning no respiratory distress. Objective Vital Signs Date Temp Pulse Resp B/P (MAP) Pulse Ox O2 O2 Flow FiO2 Time Delivery Rate 05/04/19 98.0 61 20 158/97 97 Room Air 07:52 (117) 05/02/19 2.0 07:44 Intake and Output 05/03/19 05/03/19 05/04/19 1515:00 23:00 07:00 IntakeIntake Total 360 ml 240 ml 120 ml OutputOutput Total 0 ml BalanceBalance 360 ml 240 ml 120 ml Exam GENERAL: VITAL SIGNS: per chart NECK: Supple. No JVD or lymphadenopathy. CARDIAC EXAM: S1, S2. No added sounds or murmurs. CHEST: clear bilaterally, No added sounds, rales or wheezes ABDOMEN: Soft, nontender. No guarding or rebound. EXTREMITIES: No cyanosis, clubbing or edema. NEUROLOGIC: Generalized weakness. No focal deficits. Vent Setting Fraction of Inspired Oxygen pe: 21 Results/Medications Result Diagram: 05/03/19 0516 05/03/19 0516 Medications Current Medications IV Flush (NS 3 ml) 3 ml PER PROTOCOL IV ; Start 04/06/19 at 21:30 Ondansetron HCl (Zofran Inj) 4 mg Q6H PRN IV NAUSEA/VOMITING; Start 04/06/19 at 21:30 Acetaminophen (Tylenol Tab) 650 mg Q6H PRN PO .PAIN 1-3 OR TEMP Last administered on 04/29/19at 14:34; Admin Dose 650 MG; Start 04/06/19 at 21:30 Docusate Sodium (Colace) 100 mg Q12H PRN PO .CONSTIPATION; Start 04/06/19 at 21:30 Bisacodyl (Dulcolax) 5 mg DAILY PRN PO .CONSTIPATION; Start 04/06/19 at 21:30 Albumin Human 100 ml @ 100 mls/hr WITH DIALYSIS PRN IV SBP <90 DURING DIALYSIS; Start 04/06/19 at 22:30 Hydralazine HCl (Apresoline) 10 mg Q4 PRN IV SBP more than 150 mm hg Last administered on 05/03/19 20:46; Admin Dose 10 MG; Start 04/06/19 at 22:30 Albuterol (Ventolin Hfa) 2 puff Q4H RESP THERAPY PRN INH WHEEZING AND SOB; Start 04/06/19 at 22:30 Amlodipine Besylate (Norvasc) 10 mg DAILY PO Last administered on 05/03/19 08:33; Admin Dose 10 MG; Start 04/07/19 at 09:00 Aspirin (Halfprin) 81 mg DAILY PO Last administered on 05/04/19 08:28; Admin Dose 81 MG; Start 04/07/19 at 09:00 Atorvastatin Calcium (Lipitor) 80 mg QHS PO Last administered on 05/03/19 20:38; Admin Dose 80 MG; Start 04/07/19 at 21:00 Mometasone Furoate (Asmanex) 1 puff DAILY RESP THERAPY INH Last administered on 05/03/19 12:08; Admin Dose 1 PUFF; Start 04/07/19 at 12:00 Pantoprazole (Protonix Tab) 40 mg DAILY PO Last administered on 05/04/19 08:28; Admin Dose 40 MG; Start 04/07/19 at 09:00 Epoetin Andrew-epbx (Retacrit (Esrd)) 10,000 unit MONWEDFRI@1700 SC Last administered on 05/01/19 17:45; Admin Dose 10,000 UNIT; Start 04/17/19 at 17:00 Miscellaneous Information (* Miscellaneous Pharmacy Order) DURAMORPH: 3 MG EPIDU... GIVEN NEURAXIAL XX ; Start 04/24/19 at 14:30 Metoprolol Tartrate (Lopressor) 5 mg Q6H PRN IV ELEVATED BLOOD PRESSURE Last administered on 04/25/19 02:57; Admin Dose 5 MG; Start 04/24/19 at 20:30; Sta tus Hold Assessment/Plan Hospital Course (Demo Recall) IMP: 1. 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 Stable hydropneumothorax following chest tube removal. 3. ESRD on HD 4. Anemia. RECS: 1. Repeat chest x-ray and to 3 weeks. 2. Abx 3. Chest PT/BD's Discharge planning. DAHLIA ROMERO MD, [facility] May 04, 2019 12:10
[2019-05-04] MEDS: MOMETASONE 0.24 GM INHALER INH SCH (12:50)
[2019-05-04] MEDS: hydrALAzine 20 MG INJ IV PRN (16:18)
--- NOTE | 2019-05-04 16:33 | PDOCDIS ---
Discharge Instructions DIAGNOSIS Discharge Diagnosis Pleural effusion CONDITION [id number] Patient Condition: [id number] Stable FOLLOW UP/APPOINTMENTS Follow-up Plan Make an appointment to see your surgeon Dr Lafleur in clinic. His office number is You should also make an appointment to see your pulmonary doctor in clinic Dr Milligan to have an Xray in the next few weeks. his office number is [phone] Return to the hospital if you have any concerning symptoms Continue dialysis as prescribed MARIE MCCLAIN MD May 04, 2019 16:33
--- NOTE | 2019-05-04 16:35 | DS ---
Date/Time of Note Date/Time of Note DATE: 05/04/19 TIME: 16:33 Discharge Summary Admission/Discharge Info Admit Date/Time Apr 06, 2019 at 21:13 Discharge Date/Time Discharge Diagnosis Pleural effusion Patient Condition: Stable Hospital Course 68 yo male with ESRD who presents with COLON, found to have large R pleural effusion. On imaging the effusion appeared loculated and chronic. He underwent thoracentesis of 600 cc showing an exudative process. Empiric antibiotics were given. The effusion persisted and no improvement with fluid removed. He then underwent VATS decortication by Dr Cates (see his notes for details). A chest tube remained in placed following this. It was eventually removed and the patient was arranged for home heatlh at discharge for wound care. He was continued on HD treatments while hospitalized. Home Meds Reported Medications Beclomethasone Dipropionate (Qvar Redihaler (80 MCG)) 10.6 Gm Hfa.aeroba, 10.6 GM IH BID, INH 08/08/18 Albuterol Sulfate* (Proair HFA*) 8.5 Gm Hfa.aer.ad, 2 PUFF INH Q4H PRN for WHEEZING AND SOB, #1 INHALER 08/08/18 Amlodipine Besylate* (Amlodipine Besylate*) 10 Mg Tablet, 10 MG PO DAILY, #30 TAB 08/08/18 Aspirin* (Aspirin* EC) 81 Mg Tablet., 81 MG PO DAILY, TAB 08/08/18 Atorvastatin* (Atorvastatin*) 80 Mg Tablet, 80 MG PO QHS, #30 TAB 08/08/18 Omeprazole* (Omeprazole*) 20 Mg Capsule., 20 MG PO DAILY, #30 CAP 08/08/18 Follow-up Plan Make an appointment to see your surgeon Dr Lafleur in clinic. His office number is You should also make an appointment to see your pulmonary doctor in clinic Dr Milligan to have an Xray in the next few weeks. his office number is Return to the hospital if you have any concerning symptoms Continue dialysis as prescribed Primary Care Provider Philly Person ([facility]) MARIE MCCLAIN MD May 04, 2019 16:35
[2019-05-04] MEDS: EPOETIN ALFA-EPBX (ESRD) 10,000 UNIT/ML VIAL SC SCH (17:41)
== END 2019-05-04 18:40 | disposition home health service (06) | DRG 163 ==
LOC: E/R 14:27 → TEL 21:13 → 5EC 04-10 16:07 → 2NE 04-16 16:35 → ICU 04-24 17:55 → 6WM 04-26 16:03 → 2NE 05-02 15:19
PROVIDERS: ADMIT Family Medicine; ATTEND Internal Medicine
PROC: 5A1D70Z Performance of Urinary Filtration, Intermittent, Less than 6 Hours Per Day (ICD-10-PCS; 2019-04-06)
PROC: 5A1D70Z Performance of Urinary Filtration, Intermittent, Less than 6 Hours Per Day (ICD-10-PCS; 2019-04-08)
PROC: 0W993ZZ Drainage of Right Pleural Cavity, Percutaneous Approach (ICD-10-PCS; 2019-04-09)
PROC: 5A1D70Z Performance of Urinary Filtration, Intermittent, Less than 6 Hours Per Day (ICD-10-PCS; 2019-04-10)
PROC: 5A1D70Z Performance of Urinary Filtration, Intermittent, Less than 6 Hours Per Day (ICD-10-PCS; 2019-04-13)
PROC: 5A1D70Z Performance of Urinary Filtration, Intermittent, Less than 6 Hours Per Day (ICD-10-PCS; 2019-04-15)
PROC: 5A1D70Z Performance of Urinary Filtration, Intermittent, Less than 6 Hours Per Day (ICD-10-PCS; 2019-04-17)
PROC: 5A1D70Z Performance of Urinary Filtration, Intermittent, Less than 6 Hours Per Day (ICD-10-PCS; 2019-04-20)
PROC: 5A1D70Z Performance of Urinary Filtration, Intermittent, Less than 6 Hours Per Day (ICD-10-PCS; 2019-04-22)
PROC: 5A1D70Z Performance of Urinary Filtration, Intermittent, Less than 6 Hours Per Day (ICD-10-PCS; 2019-04-24)
PROC: 0BNM0ZZ Release Bilateral Lungs, Open Approach (ICD-10-PCS; principal; 2019-04-24 10:00)
PROC: 5A1D70Z Performance of Urinary Filtration, Intermittent, Less than 6 Hours Per Day (ICD-10-PCS; 2019-04-25)
PROC: 5A1D70Z Performance of Urinary Filtration, Intermittent, Less than 6 Hours Per Day (ICD-10-PCS; 2019-04-27)
PROC: 5A1D70Z Performance of Urinary Filtration, Intermittent, Less than 6 Hours Per Day (ICD-10-PCS; 2019-04-29)
PROC: 5A1D70Z Performance of Urinary Filtration, Intermittent, Less than 6 Hours Per Day (ICD-10-PCS; 2019-05-01)
PROC: 5A1D70Z Performance of Urinary Filtration, Intermittent, Less than 6 Hours Per Day (ICD-10-PCS; 2019-05-04)
DX: J90 Pleural effusion, not elsewhere classified (principal); N18.6 End stage renal disease; I12.0 Hypertensive chronic kidney disease with stage 5 chronic kidney disease or end stage renal disease; E87.70 Fluid overload, unspecified; E87.5 Hyperkalemia; Z99.2 Dependence on renal dialysis; D63.1 Anemia in chronic kidney disease; E03.9 Hypothyroidism, unspecified; E78.5 Hyperlipidemia, unspecified; Z79.82 Long term (current) use of aspirin; J45.909 Unspecified asthma, uncomplicated
CPT/HCPCS: 32555; 36415; 36430; 36600; 71045; 71250; 76775; 80048; 80053; 80061; 82728; 82803; 82962; 83036; 83540; 83615; 83690; 83735; 84100; 84132; 84145; 84157; 84436; 84443; 84479; 84484; 84560; 85025; 85045; 85610; 85730; 86644; 86703; 86704; 86709; 86803; 86850; 86900; 86901; 86920; 87070; 87081; 87102; 87116; 87340; 88305; 88307; 88331; 89051; 90935; 93005; 94664; 96374; 96375; 97161; J0360; J0690; J1100; J1170; J1580; J1644; J1815; J2250; J2274; J2405; J2543; J2765; J2795; J3010; J7030; J7050; P9016; Q5105

== ENCOUNTER 2019-05-11 15:56 | Inpatient (IN) | payer OTHER ==
[~2019-05-11] VITALS: Ht 154.9 cm; Wt 52.5 kg
--- NOTE | 2019-05-11 16:43 | ERD ---
ER Documentation Chief Complaint Chief Complaint RT CHEST WALL PAIN, S/P VATS HPI The patient is a 68-year-old male, presenting to the ER because of right chest wall pain after having had VATS due to loculated rt pleural effusion. He complains of subjective fever, chills, denies neck pain, complains of right- sided chest pain and dyspnea, complains of diffuse abdominal pain, denies nausea, vomiting, dizzy, diarrhea. He does not smoke nor drink Past medical history: Hypertension, dyslipidemia, chronic kidney disease on hemodialysis Saturday and Saturday, asthma Past surgical history: Left upper extremity AV fistula, VATS ROS All systems reviewed and are negative except as per history of present illness. Medications Home Meds Discontinued Reported Medications Beclomethasone Dipropionate (Qvar Redihaler (80 MCG)) 10.6 Gm Hfa.aeroba, 10.6 GM IH BID, INH 08/08/18 Albuterol Sulfate* (Proair HFA*) 8.5 Gm Hfa.aer.ad, 2 PUFF INH Q4H PRN for WHEEZING AND SOB, #1 INHALER 08/08/18 Amlodipine Besylate* (Amlodipine Besylate*) 10 Mg Tablet, 10 MG PO DAILY, #30 TAB 08/08/18 Aspirin* (Aspirin* EC) 81 Mg Tablet.dr, 81 MG PO DAILY, TAB 08/08/18 Atorvastatin* (Atorvastatin*) 80 Mg Tablet, 80 MG PO QHS, #30 TAB 08/08/18 Omeprazole* (Omeprazole*) 20 Mg Capsule.dr, 20 MG PO DAILY, #30 CAP 08/08/18 Allergies Allergies: Coded Allergies: No Known Allergy (Unverified , 05/11/19) PMhx/Soc History of Surgery: No Anesthesia Reaction: No Hx Neurological Disorder: No Hx Respiratory Disorders: No Hx Cardiac Disorders: Yes (HTN, 2016) Hx Psychiatric Problems: No Hx Miscellaneous Medical Probl: Yes (pls see EMR) Hx Alcohol Use: No Hx Substance Use: No Hx Tobacco Use: No Physical Exam Vitals Vital Signs Date Temp Pulse Resp B/P (MAP) Pulse Ox O2 O2 Flow FiO2 Time Delivery Rate 05/11/19 73 18 141/78 99 Room Air 18:35 (99) 05/11/19 100.5 81 18 139/77 97 16:09 (97) Physical Exam Const: No acute distress. Head: Atraumatic. Eyes: Normal Conjunctiva. ENT: Normal External Ears, Nose and Mouth. Neck: Full range of motion. No meningismus. Resp: Decreased breath sounds at the right lung base Cardio: Regular rate and rhythm. Abd: Soft, non distended, normal bowel sounds, there is abdominal tenderness, more tenderness in the upper abdomen Skin: No petechiae or rashes. Back: No midline or flank tenderness. Ext: No cyanosis, or edema. Neur: Awake and alert. No focal deficit Psych: Normal Mood and Affect. Result Diagram: 05/11/19 1734 05/11/19 1734 Results 24 hrs Laboratory Tests Test 05/11/19 17:34 05/11/19 17:45 White Blood Count 6.8 10^3/ul Red Blood Count 2.95 10^6/ul Hemoglobin 8.8 g/dl Hematocrit 27.8 % Mean Corpuscular Volume 94.2 fl Mean Corpuscular Hemoglobin 29.8 pg Mean Corpuscular Hemoglobin Concent 31.7 g/dl Red Cell Distribution Width 14.2 % Platelet Count 214 10^3/UL Mean Platelet Volume 9.3 fl Immature Granulocytes % 0.400 % Neutrophils % 73.0 % Lymphocytes % 5.5 % Monocytes % 13.1 % Eosinophils % 7.4 % Basophils % 0.6 % Nucleated Red Blood Cells % 0.0 /100WBC Immature Granulocytes # 0.030 10^3/ul Neutrophils # 5.0 10^3/ul Lymphocytes # 0.4 10^3/ul Monocytes # 0.9 10^3/ul Eosinophils # 0.5 10^3/ul Basophils # 0.0 10^3/ul Nucleated Red Blood Cells # 0.0 10^3/ul Sodium Level 134 mmol/L Potassium Level 4.9 mmol/L Chloride Level 95 mmol/L Carbon Dioxide Level 27 mmol/L Anion Gap 12 Blood Urea Nitrogen 58 mg/dl Creatinine 10.29 mg/dl Est Glomerular Filtrat Rate mL/min 5 mL/min Glucose Level 99 mg/dl Calcium Level 8.0 mg/dl Total Bilirubin 0.2 mg/dl Direct Bilirubin 0.00 mg/dl Indirect Bilirubin 0.2 mg/dl Aspartate Amino Transf (AST/SGOT) 31 IU/L Alanine Aminotransferase (ALT/SGPT) 20 IU/L Alkaline Phosphatase 82 IU/L Total Protein 6.7 g/dl Albumin 3.5 g/dl Globulin 3.20 g/dl Albumin/Globulin Ratio 1.09 Lipase 2015 U/L Bedside Urine pH (LAB) 8.5 Bedside Urine Protein (LAB) 2+ Bedside Urine Glucose (UA) 0.1% Bedside Urine Ketones (LAB) Negative Bedside Urine Blood Trace-lysed Bedside Urine Nitrite (LAB) Negative Bedside Urine Leukocyte Esterase (L Negative Current Medications Medications Dose Sig/Robin Start Time Status Last (Trade) Ordered Route PRN Stop Time Admin Dose Reason Admin Morphine 2 mg ONCE STAT 05/11/19 DC 05/11/19 Sulfate IV 17:22 17:39 (morphine) 05/11/19 17:24 Ondansetron 4 mg ONCE STAT 05/11/19 DC 05/11/19 HCl (Zofran IV 17:22 17:38 Inj) 05/11/19 17:24 Vancomycin 250 ml @ ONCE ONCE 05/11/19 05/11/19 HCl 125 mls/hr IVPB 20:00 20:11 05/11/19 21:59 Piperacillin 50 ml @ ONCE ONCE 05/11/19 DC 05/11/19 Sod/ 100 mls/hr IVPB 20:00 19:52 Tazobactam 05/11/19 20:29 Sod Morphine 2 mg ONCE STAT 05/11/19 DC 05/11/19 Sulfate IV 19:38 19:52 (morphine) 05/11/19 19:40 Procedures/[place] [id number] Radiology Main Line: [phone] DIAGNOSTIC IMAGING REPORT Patient: LIZA HERNANDEZ : 1950 Age: 68 Sex: M MR #: [id number] DOS: 05/11/19 1722 Ordering MD: BRIDGETTE MALAVE MD Location: E/R Room/Bed: PROCEDURE: CT Chest, Abdomen and Pelvis without contrast. CLINICAL INDICATION: Abdominal pain, wound check. TECHNIQUE: A CT scan of the chest, abdomen and pelvis was performed without intravenous contrast. Coronal and sagittal reformatted images were obtained from the axial source images. DICOM images are available. Images were reviewed on a high-resolution PACS workstation. CTDIvol: 7.10 mGy. DLP: 504.32 mGy-cm. One or more of the following dose reduction techniques were used: - Automated exposure control. - Adjustment of the mA and/or kV according to patient size. - Use of iterative reconstruction technique. COMPARISON: Chest CT dated 04/27/2019. FINDINGS: Chest: The previously noted right chest tubes have been removed. A small amount of air is noted in the right chest wall. Skin annie are noted along the lateral right chest. There is no significant change in a vstqwvmc-xh-zcvbf right hydropneumothorax, which contains numerous loculations of air. The right pleural fluid remains relatively high attenuation. There is diffuse right pleural thickening. Moderate right lung atelectasis is not significantly changed. The left lung is clear. The thoracic aorta is normal in caliber. There are mild to moderate arterial calcifications. No suspicious thyroid lesion is seen. Anterior and middle medi astinal lymphadenopathy is slightly increased. The heart is mild enlarged. No pericardial effusion is noted. There is a small amount of pneumomediastinum., slightly improved since the prior examination. There is no suspicious osseous lesion. Abdomen and pelvis: Evaluation of the abdominal and pelvic viscera is limited by the lack of oral and intravenous contrast. The liver is unremarkable. The gallbladder is contracted. The common bile duct is not dilated. The spleen is not enlarged. No pancreatic lesion is identified and there is no pancreatic ductal dilatation. The adrenal glands are unremarkable. The kidneys are atrophic. There is no perinephric fat stranding. No hydronephrosis is seen. There are vascular calcifications in both kidneys. No definite urinary stone is identified. There are cysts in both kidneys measuring up to 10 mm on the right. The small and large bowel are normal in caliber. There is no bowel wall thickening. The appendix is normal. The urinary bladder is unremarkable. The pelvic organs are within normal limits. No lymphadenopathy is identified. There is no ascites. No pneumoperitoneum is seen. There are moderate arterial calcifications. No suspicious osseous lesion is idenitified. IMPRESSION: Status post removal of two right-sided chest tubes. There is a small amount of air in the right chest wall and skin annie along the lateral right chest. No significant change in a dbrtzwpq-dh-inxlw right hydropneumothorax, which contains numerous loculations of air. The pleural fluid remains relatively high attenuation and there is diffuse right pleural thickening. Given the persistence of this finding and its essentially unchanged appearance, this is thought to represent an empyema, although a neoplastic process cannot be completely excluded. Please correlate with clinical history. Moderate right lung atelectasis, unchanged. Increased anterior and middle mediastinal adenopathy, probably reactive. Mild cardiomegaly. No intra-abdominal inflammation, mass, or lymphadenopathy. Atrophic kidneys. Moderate atherosclerotic calcifications. RPTAT: HTAR .Alvaro Godfrey MD, MD Date Time Electronically viewed and signed by .Alvaro Godfrey MD, MD on 05/11/2019 19:15 .R/ CC: BRIDGETTE MALAVE MD [id number] [place] [address] Radiology Main Line: [phone] DIAGNOSTIC IMAGING REPORT Patient: LIZA HERNANDEZ : 1950 Age: 68 Sex: M MR #: [id number] DOS: 05/11/19 1722 Ordering MD: BRIDGETTE MALAVE MD Location: E/R Room/Bed: PROCEDURE: Portable chest x-ray. CLINICAL INDICATION: Abdominal pain. TECHNIQUE: Portable AP view of the chest. COMPARISON: Chest x-ray dated 05/02/2019, chest CT dated 04/27/2019. FINDINGS: A peoklpkz-kk-pooaq right hydropneumothorax is not significantly changed. There are skin annie along the inferolateral right chest. There is moderate right lung atelectasis and patchy opacification of the aerated right lung, unchanged. The left lung is clear. The cardiac silhouette is magnified. There are aortic calcifications. IMPRESSION: Gdvvxtiq-cu-fxrvl right hydropneumothorax, significantly changed. Moderate right lung atelectasis and patchy opacification of the aerated right lung, unchanged. Aortic atherosclerosis. RPTAT: HTAR .Alvaro Godfrey MD, MD Date Time Electronically viewed and signed by .Alvaro Godfrey MD, MD on 05/11/2019 19:20 .R/ CC: BRIDGETTE MALAVE MD [id number] MEDICAL MAKING DECISION: The patient is a 68-year-old male, presenting with acute pancreatitis, suspected acute right empyema, loculated right pleural effusion. He was treated with morphine 2 mg IV x2 for pain, Zofran IV for nausea, vancomycin IV and Zosyn IV for suspected acute right lung empyema The differential diagnoses for acute chest pain considered include but are not limited to acute coronary syndrome, acute myocardial infarction, pericarditis, p ulmonary embolism, aortic dissection, pneumonia, pleural effusion, pneumothorax, GERD, chest wall pain. The differential diagnoses for acute abdominal pain considered include but are not limited to cholelithiasis, cholecystitis, choledocholithiasis, cholangitis, pancreatitis, hepatitis, gastritis, peptic ulcer disease, gastric ulcer, appendicitis, cystitis, diverticulitis, partial small bowel obstruction. Departure Diagnosis: Primary Impression: Pancreatitis Additional Impressions: Hydropneumothorax Empyema Anemia Condition: Stable Comments I discussed the findings with the patient. I notified the patient with Dr. Uribe at 9pm via [employer] , who was made aware of the lab, the treatment, the patient condition. The patient is admitted to [facility] Disclaimer: Inadvertent spelling and grammatical errors are likely due to EHR/dictation software use and do not reflect on the overall quality of patient care. Also, please note that the electronic time recorded on this note does not necessarily reflect the actual time of the patient encounter. BRIDGETTE MALAVE MD May 11, 2019 16:43
[2019-05-11] MEDS ORDERED: ONDANSETRON 4 MG INJ IV STA (17:22)
[2019-05-11] MEDS ORDERED: morphine 2 MG INJ IV STA ×2 (17:22→19:38)
[2019-05-11] MEDS ORDERED: PIPER-TAZO 2.25 GM (PMX) 50 ML IVPB ONE (20:00)
[2019-05-11] MEDS ORDERED: VANCOMYCIN 1 GM (PMX) 250 ML IVPB ONE (20:00)
[2019-05-11 21:05] VITALS: BP 176/92; PULSE 70; RESP 16
[2019-05-11] MEDS ORDERED: DEXTROSE 5%-0.45% NACL 1,000 ML IV SCH (22:14)
--- NOTE | 2019-05-11 22:28 | HP ---
Date/Time of Note Date/Time of Note DATE: 05/11/19 TIME: 22:28 Assessment/Plan VTE Prophylaxis Pharmacological prophylaxis: heparin Lines/Catheters IV Catheter Type (from Nrsg): Saline Lock Assessment/Plan Assessment/Plan 1. Right-sided abdominal/right rib cage pain -Likely related to recent chest tube insertion site/VATS vs persistent moderate to large hydropneumothorax -Lipase is also elevated, so pancreatitis is also possibility -Pain management for now 2. Persistent moderate to large hydropneumothorax -Patient status post thoracentesis, VATS recently -Chest tube has been removed prior to discharge -Pulmonary and CT surgery consult -Empiric antibiotic 3. Possible right-sided empyema: See #2 4. Fever: Most likely secondary to #3 -Follow-up culture results. Continue antibiotic 5. ESRD on HD: Nephrology for dialysis 6. Hypertension: Adjust antihypertensive as needed Result Diagram: 05/11/19 1734 05/11/19 1734 Results 24hrs Laboratory Tests Test 05/11/19 17:34 05/11/19 17:45 White Blood Count 6.8 # Red Blood Count 2.95 L Hemoglobin 8.8 L Hematocrit 27.8 L Mean Corpuscular Volume 94.2 Mean Corpuscular Hemoglobin 29.8 Mean Corpuscular Hemoglobin Concent 31.7 L Red Cell Distribution Width 14.2 Platelet Count 214 # Mean Platelet Volume 9.3 Immature Granulocytes % 0.400 Neutrophils % 73.0 Lymphocytes % 5.5 L Monocytes % 13.1 H Eosinophils % 7.4 H Basophils % 0.6 Nucleated Red Blood Cells % 0.0 Immature Granulocytes # 0.030 Neutrophils # 5.0 Lymphocytes # 0.4 L Monocytes # 0.9 Eosinophils # 0.5 Basophils # 0.0 Nucleated Red Blood Cells # 0.0 Sodium Level 134 L Potassium Level 4.9 Chloride Level 95 L Carbon Dioxide Level 27 Anion Gap 12 Blood Urea Nitrogen 58 H Creatinine 10.29 H Est Glomerular Filtrat Rate mL/min 5 L Glucose Level 99 Calcium Level 8.0 L Total Bilirubin 0.2 Direct Bilirubin 0.00 Indirect Bilirubin 0.2 Aspartate Amino Transf (AST/SGOT) 31 Alanine Aminotransferase (ALT/SGPT) 20 Alkaline Phosphatase 82 Total Protein 6.7 Albumin 3.5 Globulin 3.20 Albumin/Globulin Ratio 1.09 Lipase 2015 H Bedside Urine pH (LAB) 8.5 Bedside Urine Protein (LAB) 2+ H Bedside Urine Glucose (UA) 0.1% H Bedside Urine Ketones (LAB) Negative Bedside Urine Blood Trace-lysed H Bedside Urine Nitrite (LAB) Negative Bedside Urine Leukocyte Esterase (L Negative HPI/ROS Admit Date/Time Admit Date/Time Hx of Present Illness Patient is a 68-year-old male with a history of hypertension, dyslipidemia, ESRD on HD, right pleural effusion status post recent VATS. Patient presented to ER complaining of pain on the right rib cage and right sided abdominal pain. Patient was just discharged from here after he was initially admitted for shortness of breath. He is found to have a right-sided pleural effusion and underwent thoracentesis with removal of 600 cc of fluid. Due to the persistent nature of the fluid, patient underwent VATS. Chest tube was removed prior to discharge. He attributed to the pain to the chest tube insertion site. He only complains of minimal shortness of breath, however CT abdomen/pelvis in the ER shows no significant change in a [id number]-wi-bleln right hydropneumothorax, which contains numerous loculations of air. The pleural fluid remains relatively high attenuation and there is diffuse right pleural thickening. Given the p ersistence of this finding and its essentially unchanged appearance, this is thought to represent an empyema, although a neoplastic process cannot be completely excluded. See below for more CT finding. When he came to the ER today, he was febrile with a temp of 100.5. Lipase around 2000. Status post removal of two right-sided chest tubes. There is a small amount of air in the right chest wall and skin annie along the lateral right chest. Moderate right lung atelectasis, unchanged. Increased anterior and middle mediastinal adenopathy, probably reactive. Mild cardiomegaly. No intra-abdominal inflammation, mass, or lymphadenopathy. Atrophic kidneys. Moderate atherosclerotic calcifications. PMH/Family/Social Past Medical History Medical History: other (see HPI) Medications Current Medications Dextrose/Sodium Chloride 1,000 ml @ 75 mls/hr [id number] IV ; Start 05/11/19 at 22:14; Stop 05/12/19 at 10:00 IV Flush (NS 3 ml) 3 ml PER PROTOCOL IV ; Start 05/11/19 at 22:30 Ondansetron HCl (Zofran Inj) 4 mg Q6H PRN IV NAUSEA/VOMITING; Start 05/11/19 at 22:30 Acetaminophen (Tylenol Tab) 650 mg Q6H PRN PO .PAIN 1-3 OR TEMP; Start 05/11/19 at 22:30 Albuterol/ Ipratropium (Duoneb) 3 ml Q2H RESP THERAPY PRN HHN SHORTNESS OF BREATH; Start 05/11/19 at 22:30 Piperacillin Sod/ Tazobactam Sod 100 ml @ 200 mls/hr Q6H IVPB ; Start 05/11/19 at 22:30; Status UNV Vancomycin HCl (Vanco Iv Per Pharmacy) VANCOMYCIN PER PHARMACY PER PROTOCOL XX ; Start 05/12/19 at 09:00; Status UNV Coded Allergies: No Known Allergy (Unverified , 05/11/19) Past Surgical History Past Surgical Hx: other (see HPI) Family History Significant Family History: no pertinent family hx Social History Alcohol Use: none Smoking Status: Never smoker Drug Use: none Exam/Review of Systems Vital Signs Vitals Vital Signs Date Temp Pulse Resp B/P (MAP) Pulse Ox O2 O2 Flow FiO2 Time Delivery Rate 05/11/19 84 20 161/87 96 Room Air 22:20 (111) 05/11/19 100.5 16:09 Exam Constitutional: alert, oriented, well developed Head: normocephalic, atraumatic Eyes: EOMI, PERRL Respiratory: diminished breath sounds, other (previous CT site covered) Cardiovascular: regular rate and rhythm Gastrointestinal: soft Extremities: normal pulses LEW JEAN MD May 11, 2019 22:28
[2019-05-11] MEDS ORDERED: ONDANSETRON 4 MG INJ IV PRN (22:30)
[2019-05-11] MEDS ORDERED: ACETAMINOPHEN 325 MG TAB PO PRN (22:30)
[2019-05-11] MEDS ORDERED: PIPER-TAZO 3.375 GM IV (PMX) 100 ML IVPB SCH (22:30)
[2019-05-11] MEDS ORDERED: NACL 0.9% 3 ML SYG IV SCH (22:30)
[2019-05-11] MEDS ORDERED: ALBUTEROL/IPRATROPIUM (NEB) 3 ML AMP HHN PRN (22:30)
[2019-05-11 23:13] VITALS: Ht 154.9 cm; Wt 52.5 kg
[2019-05-12] VITALS (21 sets, daily range): BP systolic 139–180; BP diastolic 79–97; PULSE 63–74; RESP 16–17
[2019-05-12] MEDS: PIPER-TAZO 2.25 GM/NS 50 ML IVPB SCH ×3 (05:52→21:40)
[2019-05-12] MEDS ORDERED: VANCOMYCIN IV PER PHARMACY XX SCH (09:00)
[2019-05-12] MEDS: AMLODIPINE 5 MG TAB PO SCH (09:07)
--- NOTE | 2019-05-12 12:25 | CONS ---
Assessment/Plan Assessment/Plan Assessment/Plan (Daily) 1.ESRD on HD TTS Schedule 2.Acute fluid overload due to missed HD 3. Persistent Moderate to large Hydropneumothorax 4. S/p VATS procedure on last admissoin 5. H/O HTN 6. H/o HL Plan: seen in [facility] floor emergent HD done today [address] surgery consulted on the case will keep pt on TTS scheduel, next HD will be on thanks for consultation, I will continue to follow up Consultation Date/Type/Reason Admit Date/Time 05/11/19 Date of Consultation: May 12, 2019 Type of Consult NEPHROLOGY Reason for Consultation ESRD on HD with Right pneumothorax Requesting Provider: LEW JEAN MD Date/Time of Note DATE: 05/12/19 TIME: 12:25 Hx of Present Illness 68-year-old male with a history of hypertension, dyslipidemia, ESRD on HD, right pleural effusion status post recent VATS. Patient presented to ER complaining of pain on the right rib cage and right sided abdominal pain. pt gets admitted for acute pancreatitis, CT chest showed moderate to large Right hydropneumothorax- pt gets HD on TTS at [facility] Renal has been consulted for HD need Constitutional: poor po Eyes: no complaints ENT: no complaints Respiratory: cough, pleuritic pain, shortness of breath Cardiovascular: no complaints Gastrointestinal: no complaints Genitourinary: no complaints Musculoskeletal: no complaints Skin: no complaints Neurologic: no complaints Endocrine: no complaints Lymphatic: no complaints Psychological: no complaints Immunologic: no complaints Past Medical History Medical History: high cholesterol, hypertension, other (ESRD on HD ) Home Meds Discontinued Reported Medications Beclomethasone Dipropionate (Qvar Redihaler (80 MCG)) 10.6 Gm Hfa.aeroba, 10.6 GM IH BID, INH 08/08/18 Albuterol Sulfate* (Proair HFA*) 8.5 Gm Hfa.aer.ad, 2 PUFF INH Q4H PRN for WHEEZING AND SOB, #1 INHALER 08/08/18 Amlodipine Besylate* (Amlodipine Besylate*) 10 Mg Tablet, 10 MG PO DAILY, #30 TAB 08/08/18 Aspirin* (Aspirin* EC) 81 Mg Tablet.dr, 81 MG PO DAILY, TAB 08/08/18 Atorvastatin* (Atorvastatin*) 80 Mg Tablet, 80 MG PO QHS, #30 TAB 08/08/18 Omeprazole* (Omeprazole*) 20 Mg Capsule.dr, 20 MG PO DAILY, #30 CAP 08/08/18 Medications Current Medications IV Flush (NS 3 ml) 3 ml PER PROTOCOL IV ; Start 05/11/19 at 22:30 Ondansetron HCl (Zofran Inj) 4 mg Q6H PRN IV NAUSEA/VOMITING; Start 05/11/19 at 22:30 Acetaminophen (Tylenol Tab) 650 mg Q6H PRN PO .PAIN 1-3 OR TEMP; Start 05/11/19 at 22:30 Albuterol/ Ipratropium (Duoneb) 3 ml Q2H RESP THERAPY PRN HHN SHORTNESS OF BREATH; Start 05/11/19 at 22:30 Vancomycin HCl (Vanco Iv Per Pharmacy) VANCOMYCIN PER PHARMACY PER PROTOCOL XX ; Start 05/12/19 at 09:00 Amlodipine Besylate (Norvasc) 10 mg DAILY PO Last administered on 05/12/19at 09:07; Admin Dose 10 MG; Start 05/12/19 at 09:00 Piperacillin Sod/ Tazobactam Sod 50 ml @ 100 mls/hr Q8 IVPB Last administered on 05/12/19at 05:52; Admin Dose 100 MLS/HR; Start 05/12/19 at 06:00 Miscellaneous Information (*Rx Drug Level Order Reminder*) RANDOM VANCO ONCE ONCE XX ; Start 05/13/19 at 05:00; Stop 05/13/19 at 05:01 Allergies: Coded Allergies: No Known Allergy (Unverified , 05/11/19) Past Surgical History Past Surgical Hx: no surgical history, other (AVF surgery , VATS surgery for Right pneumothorax on last admission) Family History Significant Family History: no pertinent family hx Social History Alcohol Use: none Smoking Status: Former smoker Drug Use: none Exam/Review of Systems Exam Vitals Vital Signs Date Temp Pulse Resp B/P (MAP) Pulse Ox O2 O2 Flow FiO2 Time Delivery Rate 05/12/19 98.1 63 16 144/82 96 Room Air 07:20 (102) Intake and Output 05/11/19 05/11/19 05/12/19 1414:59 22:59 06:59 IntakeIntake Total 375 ml BalanceBalance 375 ml Exam Constitutional: alert, oriented Respiratory: Right sided crackles, decreased BS on Right middle and RIght lower lobe Cardiovascular: S1 S2 RRR no murmur Gastrointestinal: soft, non-tender Neurological: [employer] II-XII intact, nl mental status, nl speech Skin: nl turgor left upper extremity AVF in place Results Result Diagram: 05/12/19 0720 05/12/19 0720 Results 24hrs Laboratory Tests Test 05/11/19 17:34 05/11/19 17:45 05/12/19 07:20 White Blood Count 6.8 # 6.3 Red Blood Count 2.95 L 2.89 L Hemoglobin 8.8 L 8.7 L Hematocrit 27.8 L 27.1 L Mean Corpuscular Volume 94.2 93.8 Mean Corpuscular Hemoglobin 29.8 30.1 Mean Corpuscular 31.7 L 32.1 Hemoglobin Concent Red Cell Distribution Width 14.2 14.0 Platelet Count 214 # 211 Mean Platelet Volume 9.3 10.4 Immature Granulocytes % 0.400 0.600 H Neutrophils % 73.0 75.7 Lymphocytes % 5.5 L 4.0 L Monocytes % 13.1 H 10.4 Eosinophils % 7.4 H 8.5 H Basophils % 0.6 0.8 Nucleated Red Blood Cells % 0.0 0.0 Immature Granulocytes # 0.030 0.040 H Neutrophils # 5.0 4.7 Lymphocytes # 0.4 L 0.3 L Monocytes # 0.9 0.7 Eosinophils # 0.5 0.5 Basophils # 0.0 0.1 Nucleated Red Blood Cells # 0.0 0.0 Sodium Level 134 L 133 L Potassium Level 4.9 4.9 Chloride Level 95 L 95 L Carbon Dioxide Level 27 26 Anion Gap 12 12 Blood Urea Nitrogen 58 H 62 H Creatinine 10.29 H 10.58 H Est Glomerular Filtrat Rate mL/min 5 L 5 L Glucose Level 99 83 Calcium Level 8.0 L 8.0 L Total Bilirubin 0.2 0.2 Direct Bilirubin 0.00 0.00 Indirect Bilirubin 0.2 0.2 Aspartate Amino Transf (AST/SGOT) 31 26 Alanine 20 18 Aminotransferase (ALT/SGPT) Alkaline Phosphatase 82 76 Total Protein 6.7 6.2 Albumin 3.5 3.0 L Globulin 3.20 3.20 Albumin/Globulin Ratio 1.09 0.93 Lipase 2015 H Bedside Urine pH (LAB) 8.5 Bedside Urine Protein (LAB) 2+ H Bedside Urine Glucose (UA) 0.1% H Bedside Urine Ketones (LAB) Negative Bedside Urine Blood Trace-lysed H Bedside Urine Nitrite (LAB) Negative Bedside Urine Leukocyte Esterase Negative (L Phosphorus Level 7.5 H Magnesium Level 2.1 Medications Medication Current Medications IV Flush (NS 3 ml) 3 ml PER PROTOCOL IV ; Start 05/11/19 at 22:30 Ondansetron HCl (Zofran Inj) 4 mg Q6H PRN IV NAUSEA/VOMITING; Start 05/11/19 at 22:30 Acetaminophen (Tylenol Tab) 650 mg Q6H PRN PO .PAIN 1-3 OR TEMP; Start 05/11/19 at 22:30 Albuterol/ Ipratropium (Duoneb) 3 ml Q2H RESP THERAPY PRN HHN SHORTNESS OF BREATH; Start 05/11/19 at 22:30 Vancomycin HCl (Vanco Iv Per Pharmacy) VANCOMYCIN PER PHARMACY PER PROTOCOL XX ; Start 05/12/19 at 09:00 Amlodipine Besylate (Norvasc) 10 mg DAILY PO Last administered on 05/12/19at 09:07; Admin Dose 10 MG; Start 05/12/19 at 09:00 Piperacillin Sod/ Tazobactam Sod 50 ml @ 100 mls/hr Q8 IVPB Last administered on 05/12/19at 05:52; Admin Dose 100 MLS/HR; Start 05/12/19 at 06:00 Miscellaneous Information (*Rx Drug Level Order Reminder*) RANDOM VANCO ONCE ONCE XX ; Start 05/13/19 at 05:00; Stop 05/13/19 at 05:01 VAN DHLAIWAL MD May 12, 2019 12:25
[2019-05-12] MEDS ORDERED: ALBUMIN HUMAN 25% 100 ML IV PRN (12:30)
[2019-05-12] MEDS ORDERED: SODIUM CHLORIDE 0.9% 1L BAG IV PRN (12:30)
[2019-05-12] MEDS ORDERED: HEPARIN 1000 UNITS/ML 10 ML INJ CATHETER SCH (12:30)
--- NOTE | 2019-05-12 14:41 | PN ---
Date/Time of Note Date/Time of Note DATE: 05/12/19 TIME: 14:34 Assessment/Plan VTE Prophylaxis Risk score (from Ns)>0 risk: 2 SCD applied (from Ns): Yes Pharmacological prophylaxis: heparin Lines/Catheters IV Catheter Type (from [facility]): Peripheral IV Urinary Cath still in place: No Assessment/Plan Hospital Course 1. Right-sided abdominal/right rib cage pain -suspect related to recent chest tube insertion site/VATS vs persistent moderate to large hydropneumothorax -Lipase elevated - possible early pancreatitis? -continue pain management 2. Persistent moderate to large hydropneumothorax -Patient status post thoracentesis, VATS last admission -Chest tube has been removed prior to discharge -continue abx - pulmonary and thoracic surgeon consulted - eval pending 3. Possible right-sided empyema: See #2 4. Fever. continue antipyretics 5. ESRD on HD. Service Mechanic consulted monitor electrolytes and correct as needed 6. Hypertension: continue antihypertensives and adjust as needed Discussed POC with Dr. Hutson Result Diagram: 05/12/19 0720 05/12/19 0720 Results 24hrs Laboratory Tests Test 05/11/19 17:34 05/11/19 17:45 05/12/19 07:06 05/12/19 07:20 White Blood Count 6.8 # 6.3 Red Blood Count 2.95 L 2.89 L Hemoglobin 8.8 L 8.7 L Hematocrit 27.8 L 27.1 L Mean Corpuscular 94.2 93.8 Volume Mean Corpuscular 29.8 30.1 Hemoglobin Mean Corpuscular 31.7 L 32.1 Hemoglobin Concent Red Cell 14.2 14.0 Distribution Width Platelet Count 214 # 211 Mean Platelet 9.3 10.4 Volume Immature 0.400 0.600 H Granulocytes % Neutrophils % 73.0 75.7 Lymphocytes % 5.5 L 4.0 L Monocytes % 13.1 H 10.4 Eosinophils % 7.4 H 8.5 H Basophils % 0.6 0.8 Nucleated Red Blood 0.0 0.0 Cells % Immature 0.030 0.040 H Granulocytes # Neutrophils # 5.0 4.7 Lymphocytes # 0.4 L 0.3 L Monocytes # 0.9 0.7 Eosinophils # 0.5 0.5 Basophils # 0.0 0.1 Nucleated Red Blood 0.0 0.0 Cells # Sodium Level 134 L 133 L Potassium Level 4.9 4.9 Chloride Level 95 L 95 L Carbon Dioxide 27 26 Level Anion Gap 12 12 Blood Urea Nitrogen 58 H 62 H Creatinine 10.29 H 10.58 H Est Glomerular 5 L 5 L Filtrat Rate mL/min Glucose Level 99 83 Calcium Level 8.0 L 8.0 L Total Bilirubin 0.2 0.2 Direct Bilirubin 0.00 0.00 Indirect Bilirubin 0.2 0.2 Aspartate Amino 31 26 Transf (AST/SGOT) Alanine 20 18 Aminotransferase (A LT/SGPT) Alkaline 82 76 Phosphatase Total Protein 6.7 6.2 Albumin 3.5 3.0 L Globulin 3.20 3.20 Albumin/Globulin 1.09 0.93 Ratio Lipase 2015 H Bedside Urine pH 8.5 (LAB) Bedside Urine 2+ H Protein (LAB) Bedside Urine 0.1% H Glucose (UA) Bedside Urine Negative Ketones (LAB) Bedside Urine Blood Trace-lysed H Bedside Urine Negative Nitrite (LAB) Bedside Urine Negative Leukocyte Esterase (L Hepatitis B Surface NEGATIVE Antigen Phosphorus Level 7.5 H Magnesium Level 2.1 Subjective 24 Hr Interval Summary Free Text/Dictation no s/s of respiratory distress. 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 II-XII intact, nl mental status, nl speech Skin: nl turgor Results Results 24hrs Laboratory Tests Test 05/11/19 17:34 05/11/19 17:45 05/12/19 07:06 05/12/19 07:20 White Blood Count 6.8 # 6.3 Red Blood Count 2.95 L 2.89 L Hemoglobin 8.8 L 8.7 L Hematocrit 27.8 L 27.1 L Mean Corpuscular 94.2 93.8 Volume Mean Corpuscular 29.8 30.1 Hemoglobin Mean Corpuscular 31.7 L 32.1 Hemoglobin Concent Red Cell 14.2 14.0 Distribution Width Platelet Count 214 # 211 Mean Platelet 9.3 10.4 Volume Immature 0.400 0.600 H Granulocytes % Neutrophils % 73.0 75.7 Lymphocytes % 5.5 L 4.0 L Monocytes % 13.1 H 10.4 Eosinophils % 7.4 H 8.5 H Basophils % 0.6 0.8 Nucleated Red Blood 0.0 0.0 Cells % Immature 0.030 0.040 H Granulocytes # Neutrophils # 5.0 4.7 Lymphocytes # 0.4 L 0.3 L Monocytes # 0.9 0.7 Eosinophils # 0.5 0.5 Basophils # 0.0 0.1 Nucleated Red Blood 0.0 0.0 Cells # Sodium Level 134 L 133 L Potassium Level 4.9 4.9 Chloride Level 95 L 95 L Carbon Dioxide 27 26 Level Anion Gap 12 12 Blood Urea Nitrogen 58 H 62 H Creatinine 10.29 H 10.58 H Est Glomerular 5 L 5 L Filtrat Rate mL/min Glucose Level 99 83 Calcium Level 8.0 L 8.0 L Total Bilirubin 0.2 0.2 Direct Bilirubin 0.00 0.00 Indirect Bilirubin 0.2 0.2 Aspartate Amino 31 26 Transf (AST/SGOT) Alanine 20 18 Aminotransferase (A LT/SGPT) Alkaline 82 76 Phosphatase Total Protein 6.7 6.2 Albumin 3.5 3.0 L Globulin 3.20 3.20 Albumin/Globulin 1.09 0.93 Ratio Lipase 2014 H Bedside Urine pH 8.5 (LAB) Bedside Urine 2+ H Protein (LAB) Bedside Urine 0.1% H Glucose (UA) Bedside Urine Negative Ketones (LAB) Bedside Urine Blood Trace-lysed H Bedside Urine Negative Nitrite (LAB) Bedside Urine Negative Leukocyte Esterase (L Hepatitis B Surface NEGATIVE Antigen Phosphorus Level 7.5 H Magnesium Level 2.1 Medications Medication Current Medications IV Flush (NS 3 ml) 3 ml PER PROTOCOL IV ; Start 05/11/19 at 22:30 Ondansetron HCl (Zofran Inj) 4 mg Q6H PRN IV NAUSEA/VOMITING; Start 05/11/19 at 22:30 Acetaminophen (Tylenol Tab) 650 mg Q6H PRN PO .PAIN 1-3 OR TEMP; Start 05/11/19 at 22:30 Albuterol/ Ipratropium (Duoneb) 3 ml Q2H RESP THERAPY PRN HHN SHORTNESS OF BREATH; Start 05/11/19 at 22:30 Vancomycin HCl (Vanco Iv Per Pharmacy) VANCOMYCIN PER PHARMACY PER PROTOCOL XX ; Start 05/12/19 at 09:00 Amlodipine Besylate (Norvasc) 10 mg DAILY PO Last administered on 05/12/19at 09:07; Admin Dose 10 MG; Start 05/12/19 at 09:00 Piperacillin Sod/ Tazobactam Sod 50 ml @ 100 mls/hr Q8 IVPB Last administered on 05/12/19at 05:52; Admin Dose 100 MLS/HR; Start 05/12/19 at 06:00 Miscellaneous Information (*Rx Drug Level Order Reminder*) RANDOM VANCO ONCE ONCE XX ; Start 05/13/19 at 05:00; Stop 05/13/19 at 05:01 Heparin Sodium (Porcine) (Heparin (1000 Units/ml)) 4,000 unit AFTER DIALYSIS CATHETER ; Start 05/12/19 at 12:30 Albumin Human 100 ml @ 100 mls/hr WITH DIALYSIS PRN IV SBP <90 DURING DIALYSIS; Start 05/12/19 at 12:30 Sodium Chloride (NS) -To prime the dialy... DIRECTED FOR HD PRN IV HD; Start 05/12/19 at 12:30 ANICETO FIELD NP May 12, 2019 14:41
[2019-05-12] MEDS ORDERED: HALOPERIDOL 5 MG INJ IM ONE (20:30)
[2019-05-12] MEDS ORDERED: LORAZEPAM 2 MG INJ IV ONE (20:30)
[2019-05-12] MEDS ORDERED: hydrALAzine 20 MG INJ IV ONE (23:30)
[2019-05-13 02:00] VITALS: BP 151/77; PULSE 76; RESP 18
[2019-05-13] MEDS: PIPER-TAZO 2.25 GM/NS 50 ML IVPB SCH ×3 (06:10→22:01)
[2019-05-13 08:00] VITALS: BP 153/54; PULSE 96; RESP 20
[2019-05-13] MEDS ORDERED: VANCOMYCIN 1 GM 250 ML IVPB ONE (09:00)
[2019-05-13] MEDS: AMLODIPINE 5 MG TAB PO SCH (09:20)
--- NOTE | 2019-05-13 11:16 | CONS ---
Assessment/Plan Assessment/Plan Assessment/Plan (Daily) CT abdomen pelvis was reviewed which is showing lung images as well. There is significant right pleural thickening without a clear demarcation plane between Lung parenchyma with multiple areas of loculated hydropneumothorax is. Assessment and recommendations; 1. Patient admitted with chest pain possibly due to acute pneumothorax with areas of hydropneumothorax with multiple loculations. 2. History of recent VATS procedure of the right side. 3. Chronic renal failure, on dialysis. 4. History of anemia. Continue current supportive care. Further recommendations per cardiothoracic surgeon. Consultation Date/Type/Reason Admit Date/Time 05/11/19 Date of Consultation: May 13, 2019 Type of Consult Pulmonary Patient is a 68-year-old gentleman who came into the emergency room with complaints of right sided chest pain. Patient has history of recent right empyema status post VATS procedure. Upon further evaluation CT scan of abdomen pelvis were done which is showing significant right pleural thickening as well as loculated hydropneumothorax. Patient feeling better and denies any further shortness of breath any chest pain. Any coughing, wheezing sputum production or fever. Past medical history; 1. History of end-stage renal disease, on hemodialysis. 2. History of right VATS procedure. 3. Chronic anemia. Medications; reviewed. Allergies; none. Social history; noncontributory. Family history; noncontributory. 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 Review of systems; denies any headache, visual changes. Any sore throat. Denies any further chest pain. Any shortness of breath, coughing, wheezing or any sputum production. Denies any nausea vomiting. Any melena hematochezia. Any edema or orthopnea. Any weight loss. General exam; elderly male, awake alert, currently in no distress. Date/Time of Note DATE: 05/13/19 TIME: 11:12 Past Medical History Medical History: high cholesterol, hypertension, other (ESRD on HD ) Home Meds Discontinued Reported Medications Beclomethasone Dipropionate (Qvar Redihaler (80 MCG)) 10.6 Gm Hfa.aeroba, 10.6 GM IH BID, INH 08/08/18 Albuterol Sulfate* (Proair HFA*) 8.5 Gm Hfa.aer.ad, 2 PUFF INH Q4H PRN for WHEEZING AND SOB, #1 INHALER 08/08/18 Amlodipine Besylate* (Amlodipine Besylate*) 10 Mg Tablet, 10 MG PO DAILY, #30 TAB 08/08/18 Aspirin* (Aspirin* EC) 81 Mg Tablet.dr, 81 MG PO DAILY, TAB 08/08/18 Atorvastatin* (Atorvastatin*) 80 Mg Tablet, 80 MG PO QHS, #30 TAB 08/08/18 Omeprazole* (Omeprazole*) 20 Mg Capsule.dr, 20 MG PO DAILY, #30 CAP 08/08/18 Medications Current Medications IV Flush (NS 3 ml) 3 ml PER PROTOCOL IV ; Start 05/11/19 at 22:30 Ondansetron HCl (Zofran Inj) 4 mg Q6H PRN IV NAUSEA/VOMITING; Start 05/11/19 at 22:30 Acetaminophen (Tylenol Tab) 650 mg Q6H PRN PO .PAIN 1-3 OR TEMP; Start 05/11/19 at 22:30 Albuterol/ Ipratropium (Duoneb) 3 ml Q2H RESP THERAPY PRN HHN SHORTNESS OF BREATH; Start 05/11/19 at 22:30 Vancomycin HCl (Vanco Iv Per Pharmacy) VANCOMYCIN PER PHARMACY PER PROTOCOL XX ; Start 05/12/19 at 09:00 Amlodipine Besylate (Norvasc) 10 mg DAILY PO Last administered on 05/13/19at 09:20; Admin Dose 10 MG; Start 05/12/19 at 09:00 Piperacillin Sod/ Tazobactam Sod 50 ml @ 100 mls/hr Q8 IVPB Last administered on 05/13/19at 06:10; Admin Dose 100 MLS/HR; Start 05/12/19 at 06:00 Heparin Sodium (Porcine) (Heparin (1000 Units/ml)) 4,000 unit AFTER DIALYSIS CATHETER ; Start 05/12/19 at 12:30 Albumin Human 100 ml @ 100 mls/hr WITH DIALYSIS PRN IV SBP <90 DURING DIALYSIS; Start 05/12/19 at 12:30 Sodium Chloride (NS) -To prime the dialy... DIRECTED FOR HD PRN IV HD; Start 05/12/19 at 12:30 Allergies: Coded Allergies: No Known Allergy (Unverified , 05/11/19) Past Surgical History Past Surgical Hx: no surgical history, other (AVF surgery , VATS surgery for Right pneumothorax on last admission) Social History Alcohol Use: none Smoking Status: Former smoker Drug Use: none Exam/Review of Systems Exam Vitals Vital Signs Date Temp Pulse Resp B/P (MAP) Pulse Ox O2 O2 Flow FiO2 Time Delivery Rate 05/13/19 98.6 96 20 153/54 96 08:00 (87) 05/12/19 Room Air 19:39 Intake and Output 05/12/19 05/12/19 05/13/19 1515:00 23:00 07:00 IntakeIntake Total 625 ml 100 ml 50 ml OutputOutput Total 3400 ml BalanceBalance 625 ml -3300 ml 50 ml Exam H EENT exam; supple neck, no JVD. No lymphadenopathy. Midline trachea. No thyromegaly. Patient has multiple carious teeth. No neck masses. Chest exam; diminished breath sounds right lung. Multiple right-sided scars are well-healed. Left lung is clear. S1-S2 audible, no murmurs. Regular rhythm. Abdomen exam; soft, protuberant. No organomegaly. Bowel sounds are audible. Extremity exam; no peripheral edema clubbing. MEDICAL STAFF SERVICES MANAGER exam; no focal deficit. Results Result Diagram: 05/13/19 0503 05/13/19 0503 Results 24hrs Laboratory Tests Test 05/13/19 05:03 White Blood Count 6.9 Red Blood Count 3.22 L Hemoglobin 9.6 L Hematocrit 30.1 L Mean Corpuscular Volume 93.5 Mean Corpuscular Hemoglobin 29.8 Mean Corpuscular Hemoglobin Concent 31.9 L Red Cell Distribution Width 13.9 Platelet Count 215 Mean Platelet Volume 10.1 Immature Granulocytes % 0.300 Neutrophils % 76.1 Lymphocytes % 4.4 L Monocytes % 11.5 H Eosinophils % 6.8 Basophils % 0.9 Nucleated Red Blood Cells % 0.0 Immature Granulocytes # 0.020 Neutrophils # 5.2 Lymphocytes # 0.3 L Monocytes # 0.8 Eosinophils # 0.5 Basophils # 0.1 Nucleated Red Blood Cells # 0.0 Sodium Level 138 Potassium Level 4.6 Chloride Level 101 Carbon Dioxide Level 26 Anion Gap 11 Blood Urea Nitrogen 30 #H Creatinine 7.29 #H Est Glomerular Filtrat Rate mL/min 8 L Glucose Level 71 Calcium Level 8.9 Lipase 321 H Random Vancomycin Level 11.7 Medications Medication Current Medications IV Flush (NS 3 ml) 3 ml PER PROTOCOL IV ; Start 05/11/19 at 22:30 Ondansetron HCl (Zofran Inj) 4 mg Q6H PRN IV NAUSEA/VOMITING; Start 05/11/19 at 22:30 Acetaminophen (Tylenol Tab) 650 mg Q6H PRN PO .PAIN 1-3 OR TEMP; Start 05/11/19 at 22:30 Albuterol/ Ipratropium (Duoneb) 3 ml Q2H RESP THERAPY PRN HHN SHORTNESS OF BREATH; Start 05/11/19 at 22:30 Vancomycin HCl (Vanco Iv Per Pharmacy) VANCOMYCIN PER PHARMACY PER PROTOCOL XX ; Start 05/12/19 at 09:00 Amlodipine Besylate (Norvasc) 10 mg DAILY PO Last administered on 05/13/19at 09:20; Admin Dose 10 MG; Start 05/12/19 at 09:00 Piperacillin Sod/ Tazobactam Sod 50 ml @ 100 mls/hr Q8 IVPB Last administered on 05/13/19at 06:10; Admin Dose 100 MLS/HR; Start 05/12/19 at 06:00 Heparin Sodium (Porcine) (Heparin (1000 Units/ml)) 4,000 unit AFTER DIALYSIS CATHETER ; Start 05/12/19 at 12:30 Albumin Human 100 ml @ 100 mls/hr WITH DIALYSIS PRN IV SBP <90 DURING DIALYSIS; Start 05/12/19 at 12:30 Sodium Chloride (NS) -To prime the dialy... DIRECTED FOR HD PRN IV HD; Start 05/12/19 at 12:30 SHAHANA LOPEZ May 13, 2019 11:16
--- NOTE | 2019-05-13 12:32 | PN ---
Date/Time of Note Date/Time of Note DATE: 05/13/19 TIME: 12:29 Assessment/Plan VTE Prophylaxis Risk score (from Ns)>0 risk: 3 SCD applied (from Ns): Yes Pharmacological prophylaxis: heparin Lines/Catheters IV Catheter Type (from Nrsg): Peripheral IV Urinary Cath still in place: No Assessment/Plan Hospital Course 1. Right-sided abdominal/right rib cage pain -suspect related to recent chest tube insertion site/VATS vs persistent moderate to large hydropneumothorax -pancreatitis - improving. start on clear liquid diet. advance as tolerated -continue pain management 2. Persistent moderate to large hydropneumothorax -Patient status post thoracentesis, VATS last admission -Chest tube has been removed prior to discharge -continue abx - pulmonary and thoracic surgeon consulted f/u recommendations 3. Possible right-sided empyema: See #2 4. Fever continue antipyretics prn 5. ESRD on HD. Document Reviewer consulted monitor electrolytes and correct as needed 6. Hypertension: continue antihypertensives and adjust as needed Disposition and plan. Start on diet. Advance as tolerated. Follow-up with thoracic surgeon recommendations. Discussed POC with Dr. Hutson Result Diagram: 05/13/19 0503 05/13/19 0503 Results 24hrs Laboratory Tests Test 05/13/19 05:03 White Blood Count 6.9 Red Blood Count 3.22 L Hemoglobin 9.6 L Hematocrit 30.1 L Mean Corpuscular Volume 93.5 Mean Corpuscular Hemoglobin 29.8 Mean Corpuscular Hemoglobin Concent 31.9 L Red Cell Distribution Width 13.9 Platelet Count 215 Mean Platelet Volume 10.1 Immature Granulocytes % 0.300 Neutrophils % 76.1 Lymphocytes % 4.4 L Monocytes % 11.5 H Eosinophils % 6.8 Basophils % 0.9 Nucleated Red Blood Cells % 0.0 Immature Granulocytes # 0.020 Neutrophils # 5.2 Lymphocytes # 0.3 L Monocytes # 0.8 Eosinophils # 0.5 Basophils # 0.1 Nucleated Red Blood Cells # 0.0 Sodium Level 138 Potassium Level 4.6 Chloride Level 101 Carbon Dioxide Level 26 Anion Gap 11 Blood Urea Nitrogen 30 #H Creatinine 7.29 #H Est Glomerular Filtrat Rate mL/min 8 L Glucose Level 71 Calcium Level 8.9 Lipase 321 H Random Vancomycin Level 11.7 Subjective 24 Hr Interval Summary Free Text/Dictation reports no abdominal pain today. no s/s of respiratory distress Exam/Review of Systems Exam Vitals Vital Signs Date Temp Pulse Resp B/P (MAP) Pulse Ox O2 O2 Flow FiO2 Time Delivery Rate 05/13/19 98.6 96 20 153/54 96 08:00 (87) 05/12/19 Room Air 19:39 Intake and Output 05/12/19 05/12/19 05/13/19 1414:59 22:59 06:59 IntakeIntake Total 625 ml 100 ml 50 ml OutputOutput Total 3400 ml BalanceBalance 625 ml -3300 ml 50 ml Exam Constitutional: alert, oriented Psych: nl mood/affect Head: normocephalic Eyes: nl conjunctiva Respiratory: clear to auscultation, normal air movement Cardiovascular: other (regular rate Gastrointestinal: soft, non-tender Neurological: FITNESS ATTENDANT II-XII intact, nl mental status, nl speech Skin: nl turgor Results Results 24hrs Laboratory Tests Test 05/13/19 05:03 White Blood Count 6.9 Red Blood Count 3.22 L Hemoglobin 9.6 L Hematocrit 30.1 L Mean Corpuscular Volume 93.5 Mean Corpuscular Hemoglobin 29.8 Mean Corpuscular Hemoglobin Concent 31.9 L Red Cell Distribution Width 13.9 Platelet Count 215 Mean Platelet Volume 10.1 Immature Granulocytes % 0.300 Neutrophils % 76.1 Lymphocytes % 4.4 L Monocytes % 11.5 H Eosinophils % 6.8 Basophils % 0.9 Nucleated Red Blood Cells % 0.0 Immature Granulocytes # 0.020 Neutrophils # 5.2 Lymphocytes # 0.3 L Monocytes # 0.8 Eosinophils # 0.5 Basophils # 0.1 Nucleated Red Blood Cells # 0.0 Sodium Level 138 Potassium Level 4.6 Chloride Level 101 Carbon Dioxide Level 26 Anion Gap 11 Blood Urea Nitrogen 30 #H Creatinine 7.29 #H Est Glomerular Filtrat Rate mL/min 8 L Glucose Level 71 Calcium Level 8.9 Lipase 321 H Random Vancomycin Level 11.7 Medications Medication Current Medications IV Flush (NS 3 ml) 3 ml PER PROTOCOL IV ; Start 05/11/19 at 22:30 Ondansetron HCl (Zofran Inj) 4 mg Q6H PRN IV NAUSEA/VOMITING; Start 05/11/19 at 22:30 Acetaminophen (Tylenol Tab) 650 mg Q6H PRN PO .PAIN 1-3 OR TEMP; Start 05/11/19 at 22:30 Albuterol/ Ipratropium (Duoneb) 3 ml Q2H RESP THERAPY PRN HHN SHORTNESS OF BREATH; Start 05/11/19 at 22:30 Vancomycin HCl (Vanco Iv Per Pharmacy) VANCOMYCIN PER PHARMACY PER PROTOCOL XX ; Start 05/12/19 at 09:00 Amlodipine Besylate (Norvasc) 10 mg DAILY PO Last administered on 05/13/19at 09:20; Admin Dose 10 MG; Start 05/12/19 at 09:00 Piperacillin Sod/ Tazobactam Sod 50 ml @ 100 mls/hr Q8 IVPB Last administered on 05/13/19at 06:10; Admin Dose 100 MLS/HR; Start 05/12/19 at 06:00 Heparin Sodium (Porcine) (Heparin (1000 Units/ml)) 4,000 unit AFTER DIALYSIS CATHETER ; Start 05/12/19 at 12:30 Albumin Human 100 ml @ 100 mls/hr WITH DIALYSIS PRN IV SBP <90 DURING DIALYSIS; Start 05/12/19 at 12:30 Sodium Chloride (NS) -To prime the dialy... DIRECTED FOR HD PRN IV HD; Start 05/12/19 at 12:30 ANICETO FIELD NP May 13, 2019 12:32
--- NOTE | 2019-05-13 13:28 | CONS ---
Assessment/Plan Assessment/Plan Assessment/Plan (Daily) 1.ESRD on HD TTS Schedule 2.Acute fluid overload due to missed HD 3. Persistent Moderate to large Hydropneumothorax 4. S/p VATS procedure on last admissoin 5. H/O HTN 6. H/o HL Plan: HD ordered for , will conitnue pt on HD on TTS scheduel, next HD will be on CT surgery has been consulted on the case will follow up Consultation Date/Type/Reason Admit Date/Time May 11, 2019 at 21:03 Initial Consult Date 05/13/19 Type of Consult NEPHROLOGY Requesting Provider: LEW JEAN MD Date/Time of Note DATE: 05/13/19 TIME: 13:28 Exam/Review of Systems Exam Vitals Vital Signs Date Temp Pulse Resp B/P (MAP) Pulse Ox O2 O2 Flow FiO2 Time Delivery Rate 05/13/19 98.6 96 20 153/54 96 08:00 (87) 05/12/19 Room Air 19:39 Intake and Output 05/12/19 05/12/19 05/13/19 1515:00 23:00 07:00 IntakeIntake Total 625 ml 100 ml 50 ml OutputOutput Total 3400 ml BalanceBalance 625 ml -3300 ml 50 ml Exam Constitutional: alert, oriented Respiratory: Right sided crackles, decreased BS on Right middle and RIght lower lobe Cardiovascular: S1 S2 RRR no murmur Gastrointestinal: soft, non-tender Neurological: SECURITY DISPATCHER II-XII intact, nl mental status, nl speech Skin: nl turgor left upper extremity AVF in place Results Result Diagram: 05/13/19 0503 05/13/19 0503 Results 24hrs Laboratory Tests Test 05/13/19 05:03 White Blood Count 6.9 Red Blood Count 3.22 L Hemoglobin 9.6 L Hematocrit 30.1 L Mean Corpuscular Volume 93.5 Mean Corpuscular Hemoglobin 29.8 Mean Corpuscular Hemoglobin Concent 31.9 L Red Cell Distribution Width 13.9 Platelet Count 215 Mean Platelet Volume 10.1 Immature Granulocytes % 0.300 Neutrophils % 76.1 Lymphocytes % 4.4 L Monocytes % 11.5 H Eosinophils % 6.8 Basophils % 0.9 Nucleated Red Blood Cells % 0.0 Immature Granulocytes # 0.020 Neutrophils # 5.2 Lymphocytes # 0.3 L Monocytes # 0.8 Eosinophils # 0.5 Basophils # 0.1 Nucleated Red Blood Cells # 0.0 Sodium Level 138 Potassium Level 4.6 Chloride Level 101 Carbon Dioxide Level 26 Anion Gap 11 Blood Urea Nitrogen 30 #H Creatinine 7.29 #H Est Glomerular Filtrat Rate mL/min 8 L Glucose Level 71 Calcium Level 8.9 Lipase 321 H Random Vancomycin Level 11.7 Medications Medication Current Medications IV Flush (NS 3 ml) 3 ml PER PROTOCOL IV ; Start 05/11/19 at 22:30 Ondansetron HCl (Zofran Inj) 4 mg Q6H PRN IV NAUSEA/VOMITING; Start 05/11/19 at 22:30 Acetaminophen (Tylenol Tab) 650 mg Q6H PRN PO .PAIN 1-3 OR TEMP; Start 05/11/19 at 22:30 Albuterol/ Ipratropium (Duoneb) 3 ml Q2H RESP THERAPY PRN HHN SHORTNESS OF BREATH; Start 05/11/19 at 22:30 Vancomycin HCl (Vanco Iv Per Pharmacy) VANCOMYCIN PER PHARMACY PER PROTOCOL XX ; Start 05/12/19 at 09:00 Amlodipine Besylate (Norvasc) 10 mg DAILY PO Last administered on 05/13/19at 09:20; Admin Dose 10 MG; Start 05/12/19 at 09:00 Piperacillin Sod/ Tazobactam Sod 50 ml @ 100 mls/hr Q8 IVPB Last administered on 05/13/19at 13:10; Admin Dose 100 MLS/HR; Start 05/12/19 at 06:00 Heparin Sodium (Porcine) (Heparin (1000 Units/ml)) 4,000 unit AFTER DIALYSIS CATHETER ; Start 05/12/19 at 12:30 Albumin Human 100 ml @ 100 mls/hr WITH DIALYSIS PRN IV SBP <90 DURING DIALYSIS; Start 05/12/19 at 12:30 Sodium Chloride (NS) -To prime the dialy... DIRECTED FOR HD PRN IV HD; Start 05/12/19 at 12:30 VAN DHALIWAL MD May 13, 2019 13:28
[2019-05-13 14:00] VITALS: BP 130/70; PULSE 84; RESP 18
[2019-05-13 20:00] VITALS: BP 140/71; PULSE 70; RESP 18
[2019-05-14] VITALS (19 sets, daily range): BP systolic 100–173; BP diastolic 59–101; PULSE 65–88; RESP 18–20
[2019-05-14] MEDS: PIPER-TAZO 2.25 GM/NS 50 ML IVPB SCH ×3 (05:48→22:40)
[2019-05-14] MEDS: AMLODIPINE 5 MG TAB PO SCH (10:57)
--- NOTE | 2019-05-14 11:25 | CONS ---
Consult Date/Type/Reason Admit Date/Time May 11, 2019 at 21:03 Initial Consult Date 05/13/19 Type of Consult Pulmonary Requesting Provider: LEW JEAN MD Date/Time of Note DATE: 05/14/19 TIME: 11:17 Subjective Patient comfortable this morning no respiratory distress Objective Vital Signs Date Temp Pulse Resp B/P (MAP) Pulse Ox O2 O2 Flow FiO2 Time Delivery Rate 05/14/19 88 163/94 11:00 (117) 05/14/19 98.0 18 94 08:00 05/14/19 Room Air 07:27 Intake and Output 05/13/19 05/13/19 05/14/19 1515:00 23:00 07:00 IntakeIntake Total 300 ml 290 ml 350 ml BalanceBalance 300 ml 290 ml 350 ml Exam GENERAL: Well-nourished well-developed gentleman comfortable at rest VITAL SIGNS: per chart NECK: Supple. No JVD or lymphadenopathy. CARDIAC EXAM: S1, S2. No added sounds or murmurs. CHEST: Diminished air entry both lung patrick ABDOMEN: Soft, nontender. No guarding or rebound. EXTREMITIES: No cyanosis, clubbing or edema. NEUROLOGIC: Generalized weakness. No focal deficits. Results/Medications Result Diagram: 05/14/19 0557 05/14/19 0557 Results 24 hrs Laboratory Tests Test 05/14/19 05:57 White Blood Count 6.1 Red Blood Count 3.14 L Hemoglobin 9.2 L Hematocrit 28.7 L Mean Corpuscular Volume 91.4 Mean Corpuscular Hemoglobin 29.3 Mean Corpuscular Hemoglobin Concent 32.1 Red Cell Distribution Width 13.7 Platelet Count 216 Mean Platelet Volume 10.1 Immature Granulocytes % 0.500 H Neutrophils % 73.4 Lymphocytes % 5.6 L Monocytes % 11.8 H Eosinophils % 8.2 H Basophils % 0.5 Nucleated Red Blood Cells % 0.0 Immature Granulocytes # 0.030 Neutrophils # 4.5 Lymphocytes # 0.3 L Monocytes # 0.7 Eosinophils # 0.5 Basophils # 0.0 Nucleated Red Blood Cells # 0.0 Sodium Level 137 Potassium Level 4.8 Chloride Level 100 Carbon Dioxide Level 24 Anion Gap 13 Blood Urea Nitrogen 45 #H Creatinine 8.91 H Est Glomerular Filtrat Rate mL/min 6 L Glucose Level 80 Calcium Level 8.1 L Medications Current Medications IV Flush (NS 3 ml) 3 ml PER PROTOCOL IV ; Start 05/11/19 at 22:30 Ondansetron HCl (Zofran Inj) 4 mg Q6H PRN IV NAUSEA/VOMITING; Start 05/11/19 at 22:30 Acetaminophen (Tylenol Tab) 650 mg Q6H PRN PO .PAIN 1-3 OR TEMP; Start 05/11/19 at 22:30 Albuterol/ Ipratropium (Duoneb) 3 ml Q2H RESP THERAPY PRN HHN SHORTNESS OF BREATH; Start 05/11/19 at 22:30 Vancomycin HCl (Vanco Iv Per Pharmacy) VANCOMYCIN PER PHARMACY PER PROTOCOL XX ; Start 05/12/19 at 09:00 Amlodipine Besylate (Norvasc) 10 mg DAILY PO Last administered on 05/14/19at 10:57; Admin Dose 10 MG; Start 05/12/19 at 09:00 Piperacillin Sod/ Tazobactam Sod 50 ml @ 100 mls/hr Q8 IVPB Last administered on 05/14/19at 05:48; Admin Dose 100 MLS/HR; Start 05/12/19 at 06:00 Heparin Sodium (Porcine) (Heparin (1000 Units/ml)) 4,000 unit AFTER DIALYSIS CATHETER ; Start 05/12/19 at 12:30 Albumin Human 100 ml @ 100 mls/hr WITH DIALYSIS PRN IV SBP <90 DURING DIALYSIS; Start 05/12/19 at 12:30 Sodium Chloride (NS) -To prime the dialy... DIRECTED FOR HD PRN IV HD; Start 05/12/19 at 12:30 Assessment/Plan Hospital Course (Demo Recall) Assessment and recommendations; 1. Patient admitted with chest pain possibly stable hydropneumothorax 2. History of recent VATS procedure of the right lung for empyema 3. Chronic renal failure, on dialysis. 4. History of anemia. Consider discharge planning if no evidence of coronary ischemia DAHLIA ROMERO MD, [facility] May 14, 2019 11:25
--- NOTE | 2019-05-14 14:32 | CONS ---
Assessment/Plan Assessment/Plan Assessment/Plan (Daily) 1.ESRD on HD TTS Schedule 2.Acute fluid overload due to missed HD 3. Persistent Moderate to large Hydropneumothorax 4. S/p VATS procedure on last admissoin 5. H/O HTN 6. H/o HL Plan: s/p HD today 2.6 L removed, will conitnue pt on HD on TTS scheduel pulmonary following, pt will need CT surgery evaluation will follow up Consultation Date/Type/Reason Admit Date/Time May 11, 2019 at 21:03 Initial Consult Date 05/13/19 Type of Consult NEPHROLOGY Requesting Provider: LEW JEAN MD Date/Time of Note DATE: 05/14/19 TIME: 14:32 Exam/Review of Systems Exam Vitals Vital Signs Date Temp Pulse Resp B/P (MAP) Pulse Ox O2 O2 Flow FiO2 Time Delivery Rate 05/14/19 88 163/94 11:00 (117) 05/14/19 98.0 18 94 08:00 05/14/19 Room Air 07:27 Intake and Output 05/13/19 05/13/19 05/14/19 1515:00 23:00 07:00 IntakeIntake Total 300 ml 290 ml 350 ml BalanceBalance 300 ml 290 ml 350 ml Exam Constitutional: alert, oriented Respiratory: Right sided crackles, decreased BS on Right middle and RIght lower lobe Cardiovascular: S1 S2 RRR no murmur Gastrointestinal: soft, non-tender Neurological: ALUM MIXER II-XII intact, nl mental status, nl speech Skin: nl turgor left upper extremity AVF in place Results Result Diagram: 05/14/19 0557 05/14/19 0557 Results 24hrs Laboratory Tests Test 05/14/19 05:57 White Blood Count 6.1 Red Blood Count 3.14 L Hemoglobin 9.2 L Hematocrit 28.7 L Mean Corpuscular Volume 91.4 Mean Corpuscular Hemoglobin 29.3 Mean Corpuscular Hemoglobin Concent 32.1 Red Cell Distribution Width 13.7 Platelet Count 216 Mean Platelet Volume 10.1 Immature Granulocytes % 0.500 H Neutrophils % 73.4 Lymphocytes % 5.6 L Monocytes % 11.8 H Eosinophils % 8.2 H Basophils % 0.5 Nucleated Red Blood Cells % 0.0 Immature Granulocytes # 0.030 Neutrophils # 4.5 Lymphocytes # 0.3 L Monocytes # 0.7 Eosinophils # 0.5 Basophils # 0.0 Nucleated Red Blood Cells # 0.0 Sodium Level 137 Potassium Level 4.8 Chloride Level 100 Carbon Dioxide Level 24 Anion Gap 13 Blood Urea Nitrogen 45 #H Creatinine 8.91 H Est Glomerular Filtrat Rate mL/min 6 L Glucose Level 80 Calcium Level 8.1 L Medications Medication Current Medications IV Flush (NS 3 ml) 3 ml PER PROTOCOL IV ; Start 05/11/19 at 22:30 Ondansetron HCl (Zofran Inj) 4 mg Q6H PRN IV NAUSEA/VOMITING; Start 05/11/19 at 22:30 Acetaminophen (Tylenol Tab) 650 mg Q6H PRN PO .PAIN 1-3 OR TEMP; Start 05/11/19 at 22:30 Albuterol/ Ipratropium (Duoneb) 3 ml Q2H RESP THERAPY PRN HHN SHORTNESS OF BREATH; Start 05/11/19 at 22:30 Vancomycin HCl (Vanco Iv Per Pharmacy) VANCOMYCIN PER PHARMACY PER PROTOCOL XX ; Start 05/12/19 at 09:00 Amlodipine Besylate (Norvasc) 10 mg DAILY PO Last administered on 05/14/19at 10:57; Admin Dose 10 MG; Start 05/12/19 at 09:00 Piperacillin Sod/ Tazobactam Sod 50 ml @ 100 mls/hr Q8 IVPB Last administered on 05/14/19at 13:24; Admin Dose 100 MLS/HR; Start 05/12/19 at 06:00 Heparin Sodium (Porcine) (Heparin (1000 Units/ml)) 4,000 unit AFTER DIALYSIS CATHETER ; Start 05/12/19 at 12:30 Albumin Human 100 ml @ 100 mls/hr WITH DIALYSIS PRN IV SBP <90 DURING DIALYSIS; Start 05/12/19 at 12:30 Sodium Chloride (NS) -To prime the dialy... DIRECTED FOR HD PRN IV HD; Start 05/12/19 at 12:30 VAN DHALIWAL MD May 14, 2019 14:32
--- NOTE | 2019-05-14 14:51 | PN ---
Date/Time of Note Date/Time of Note DATE: 05/14/19 TIME: 14:48 Assessment/Plan VTE Prophylaxis Risk score (from Ns)>0 risk: 3 SCD applied (from Ns): Yes Pharmacological prophylaxis: heparin Lines/Catheters IV Catheter Type (from Nrsg): Peripheral IV Urinary Cath still in place: No Assessment/Plan Hospital Course 1. Right-sided abdominal/right rib cage pain -suspect related to recent chest tube insertion site/VATS vs persistent moderate to large hydropneumothorax -pancreatitis - improving. start on regular diet -continue pain management 2. Persistent moderate to large hydropneumothorax -Patient status post thoracentesis, VATS last admission -Chest tube has been removed prior to discharge -continue abx - pulmonary and thoracic surgeon consulted f/u recommendations 3. Possible right-sided empyema: See #2 4. Fever continue antipyretics prn 5. ESRD on HD. Physicist [employer] consulted monitor electrolytes and correct as needed 6. Hypertension: continue antihypertensives and adjust as needed Disposition and plan. f/u surgeon/pulmonary recommendations for hydropneumo thorax, if need for chest tube vs. monitoring. d/c planning Discussed POC with Dr. Hutson Result Diagram: 05/14/19 0557 05/14/19 0557 Results 24hrs Laboratory Tests Test 05/14/19 05:57 White Blood Count 6.1 Red Blood Count 3.14 L Hemoglobin 9.2 L Hematocrit 28.7 L Mean Corpuscular Volume 91.4 Mean Corpuscular Hemoglobin 29.3 Mean Corpuscular Hemoglobin Concent 32.1 Red Cell Distribution Width 13.7 Platelet Count 216 Mean Platelet Volume 10.1 Immature Granulocytes % 0.500 H Neutrophils % 73.4 Lymphocytes % 5.6 L Monocytes % 11.8 H Eosinophils % 8.2 H Basophils % 0.5 Nucleated Red Blood Cells % 0.0 Immature Granulocytes # 0.030 Neutrophils # 4.5 Lymphocytes # 0.3 L Monocytes # 0.7 Eosinophils # 0.5 Basophils # 0.0 Nucleated Red Blood Cells # 0.0 Sodium Level 137 Potassium Level 4.8 Chloride Level 100 Carbon Dioxide Level 24 Anion Gap 13 Blood Urea Nitrogen 45 #H Creatinine 8.91 H Est Glomerular Filtrat Rate mL/min 6 L Glucose Level 80 Calcium Level 8.1 L Subjective 24 Hr Interval Summary Free Text/Dictation Patient with no respiratory distress seen. comfortable during visit Exam/Review of Systems Exam Vitals Vital Signs Date Temp Pulse Resp B/P (MAP) Pulse Ox O2 O2 Flow FiO2 Time Delivery Rate 05/14/19 88 163/94 11:00 (117) 05/14/19 98.0 18 94 08:00 05/14/19 Room Air 07:27 Intake and Output 05/13/19 05/13/19 05/14/19 1414:59 22:59 06:59 IntakeIntake Total 300 ml 290 ml 350 ml BalanceBalance 300 ml 290 ml 350 ml Exam Constitutional: alert, oriented Psych: nl mood/affect Head: normocephalic Eyes: nl conjunctiva Respiratory: clear to auscultation, normal air movement Cardiovascular: other (regular rate Gastrointestinal: soft, non-tender Neurological: INTERNATIONAL LOGISTICS MANAGER II-XII intact, nl mental status, nl speech Skin: nl turgor Results Results 24hrs Laboratory Tests Test 05/14/19 05:57 White Blood Count 6.1 Red Blood Count 3.14 L Hemoglobin 9.2 L Hematocrit 28.7 L Mean Corpuscular Volume 91.4 Mean Corpuscular Hemoglobin 29.3 Mean Corpuscular Hemoglobin Concent 32.1 Red Cell Distribution Width 13.7 Platelet Count 216 Mean Platelet Volume 10.1 Immature Granulocytes % 0.500 H Neutrophils % 73.4 Lymphocytes % 5.6 L Monocytes % 11.8 H Eosinophils % 8.2 H Basophils % 0.5 Nucleated Red Blood Cells % 0.0 Immature Granulocytes # 0.030 Neutrophils # 4.5 Lymphocytes # 0.3 L Monocytes # 0.7 Eosinophils # 0.5 Basophils # 0.0 Nucleated Red Blood Cells # 0.0 Sodium Level 137 Potassium Level 4.8 Chloride Level 100 Carbon Dioxide Level 24 Anion Gap 13 Blood Urea Nitrogen 45 #H Creatinine 8.91 H Est Glomerular Filtrat Rate mL/min 6 L Glucose Level 80 Calcium Level 8.1 L Medications Medication Current Medications IV Flush (NS 3 ml) 3 ml PER PROTOCOL IV ; Start 05/11/19 at 22:30 Ondansetron HCl (Zofran Inj) 4 mg Q6H PRN IV NAUSEA/VOMITING; Start 05/11/19 at 22:30 Acetaminophen (Tylenol Tab) 650 mg Q6H PRN PO .PAIN 1-3 OR TEMP; Start 7/15/19 at 22:30 Albuterol/ Ipratropium (Duoneb) 3 ml Q2H RESP THERAPY PRN HHN SHORTNESS OF BREATH; Start 05/11/19 at 22:30 Vancomycin HCl (Vanco Iv Per Pharmacy) VANCOMYCIN PER PHARMACY PER PROTOCOL XX ; Start 05/12/19 at 09:00 Amlodipine Besylate (Norvasc) 10 mg DAILY PO Last administered on 05/14/19at 10:57; Admin Dose 10 MG; Start 05/12/19 at 09:00 Piperacillin Sod/ Tazobactam Sod 50 ml @ 100 mls/hr Q8 IVPB Last administered on 05/14/19at 13:24; Admin Dose 100 MLS/HR; Start 05/12/19 at 06:00 Heparin Sodium (Porcine) (Heparin (1000 Units/ml)) 4,000 unit AFTER DIALYSIS CATHETER ; Start 05/12/19 at 12:30 Albumin Human 100 ml @ 100 mls/hr WITH DIALYSIS PRN IV SBP <90 DURING DIALYSIS; Start 05/12/19 at 12:30 Sodium Chloride (NS) -To prime the dialy... DIRECTED FOR HD PRN IV HD; Start 05/12/19 at 12:30 ANICETO FIELD NP May 14, 2019 14:51
[2019-05-15 03:03] VITALS: BP 133/71; PULSE 78; RESP 16
[2019-05-15] MEDS: PIPER-TAZO 2.25 GM/NS 50 ML IVPB SCH ×4 (05:54→21:39)
[2019-05-15 08:00] VITALS: BP 158/64; PULSE 76; RESP 20
--- NOTE | 2019-05-15 08:21 | CONS ---
Assessment/Plan Assessment/Plan Assessment/Plan (Daily) 1.ESRD on HD TTS Schedule 2.Acute fluid overload due to missed HD 3. Persistent Moderate to large Hydropneumothorax 4. S/p VATS procedure on last admissoin 5. H/O HTN 6. H/o HL Plan: s/p HD yesterday 2.6 L removed, will conitnue pt on HD on TTS scheduel- HD ordered for saturday pulmonary following will follow up Consultation Date/Type/Reason Admit Date/Time May 11, 2019 at 21:03 Initial Consult Date 05/13/19 Type of Consult NEPHROLOGY Requesting Provider: LEW JEAN MD Date/Time of Note DATE: 05/15/19 TIME: 08:21 Exam/Review of Systems Exam Vitals Vital Signs Date Temp Pulse Resp B/P (MAP) Pulse Ox O2 O2 Flow FiO2 Time Delivery Rate 05/15/19 98.6 78 16 133/71 96 03:03 (91) 05/14/19 Room Air 07:27 Intake and Output 05/14/19 05/14/19 05/15/19 1515:00 23:00 07:00 IntakeIntake Total 850 ml 50 ml OutputOutput Total 3200 ml BalanceBalance -2350 ml 50 ml Exam Constitutional: alert, oriented Respiratory: Right sided crackles, decreased BS on Right middle and RIght lower lobe Cardiovascular: S1 S2 RRR no murmur Gastrointestinal: soft, non-tender Neurological: NEAR EAST ARCHEOLOGY PROFESSOR II-XII intact, nl mental status, nl speech Skin: nl turgor left upper extremity AVF in place Results Result Diagram: 05/15/19 0525 05/15/19 0525 Results 24hrs Laboratory Tests Test 05/15/19 05:25 White Blood Count 6.3 Red Blood Count 3.21 L Hemoglobin 9.2 L Hematocrit 29.5 L Mean Corpuscular Volume 91.9 Mean Corpuscular Hemoglobin 28.7 L Mean Corpuscular Hemoglobin Concent 31.2 L Red Cell Distribution Width 13.6 Platelet Count 193 Mean Platelet Volume 9.6 Immature Granulocytes % 0.300 Neutrophils % 71.6 Lymphocytes % 6.4 L Monocytes % 12.4 H Eosinophils % 8.5 H Basophils % 0.8 Nucleated Red Blood Cells % 0.0 Immature Granulocytes # 0.020 Neutrophils # 4.5 Lymphocytes # 0.4 L Monocytes # 0.8 Eosinophils # 0.5 Basophils # 0.1 Nucleated Red Blood Cells # 0.0 Sodium Level 138 Potassium Level 3.9 Chloride Level 100 Carbon Dioxide Level 29 Anion Gap 9 Blood Urea Nitrogen 27 #H Creatinine 6.41 #H Est Glomerular Filtrat Rate mL/min 9 L Glucose Level 89 Calcium Level 8.1 L Medications Medication Current Medications IV Flush (NS 3 ml) 3 ml PER PROTOCOL IV ; Start 05/11/19 at 22:30 Ondansetron HCl (Zofran Inj) 4 mg Q6H PRN IV NAUSEA/VOMITING; Start 05/11/19 at 22:30 Acetaminophen (Tylenol Tab) 650 mg Q6H PRN PO .PAIN 1-3 OR TEMP; Start 05/11/19 at 22:30 Albuterol/ Ipratropium (Duoneb) 3 ml Q2H RESP THERAPY PRN HHN SHORTNESS OF BREATH; Start 05/11/19 at 22:30 Vancomycin HCl (Vanco Iv Per Pharmacy) VANCOMYCIN PER PHARMACY PER PROTOCOL XX ; Start 05/12/19 at 09:00 Amlodipine Besylate (Norvasc) 10 mg DAILY PO Last administered on 05/14/19at 10:57; Admin Dose 10 MG; Start 05/12/19 at 09:00 Piperacillin Sod/ Tazobactam Sod 50 ml @ 100 mls/hr Q8 IVPB Last administered on 05/14/19at 22:40; Admin Dose 100 MLS/HR; Start 05/12/19 at 06:00 Heparin Sodium (Porcine) (Heparin (1000 Units/ml)) 4,000 unit AFTER DIALYSIS CATHETER ; Start 05/12/19 at 12:30 Albumin Human 100 ml @ 100 mls/hr WITH DIALYSIS PRN IV SBP <90 DURING DIALYSIS; Start 05/12/19 at 12:30 Sodium Chloride (NS) -To prime the dialy... DIRECTED FOR HD PRN IV HD; Start 05/12/19 at 12:30 VAN DHALIWAL MD May 15, 2019 08:21
[2019-05-15] MEDS: AMLODIPINE 5 MG TAB PO SCH (09:43)
--- NOTE | 2019-05-15 13:39 | PN ---
Date/Time of Note Date/Time of Note DATE: 05/15/19 TIME: 13:32 Assessment/Plan VTE Prophylaxis Risk score (from Ns)>0 risk: 3 SCD applied (from Ns): Yes Pharmacological prophylaxis: heparin Lines/Catheters IV Catheter Type (from Nrsg): Peripheral IV Urinary Cath still in place: No Assessment/Plan Hospital Course 1. Right-sided abdominal/right rib cage pain -suspect related to recent chest tube insertion site/VATS vs persistent moderate to large hydropneumothorax -pancreatitis - improved - pain management prn 2. Persistent moderate to large hydropneumothorax -Patient status post thoracentesis, VATS last admission -Chest tube has been removed prior to discharge -continue abx - pulmonary and thoracic surgeon consulted f/u recommendations 3. Possible right-sided empyema: See #2 4. Fever continue antipyretics prn 5. ESRD on HD. Primary Education Professor consulted monitor electrolytes and correct as needed 6. Hypertension: continue antihypertensives and adjust as needed Disposition and plan. f/u chest tube vs. monitoring. f/u surgeon recommendations. Discussed POC with Dr. Hutson Result Diagram: 05/15/19 0525 05/15/19 0525 Results 24hrs Laboratory Tests Test 05/15/19 05:25 White Blood Count 6.3 Red Blood Count 3.21 L Hemoglobin 9.2 L Hematocrit 29.5 L Mean Corpuscular Volume 91.9 Mean Corpuscular Hemoglobin 28.7 L Mean Corpuscular Hemoglobin Concent 31.2 L Red Cell Distribution Width 13.6 Platelet Count 193 Mean Platelet Volume 9.6 Immature Granulocytes % 0.300 Neutrophils % 71.6 Lymphocytes % 6.4 L Monocytes % 12.4 H Eosinophils % 8.5 H Basophils % 0.8 Nucleated Red Blood Cells % 0.0 Immature Granulocytes # 0.020 Neutrophils # 4.5 Lymphocytes # 0.4 L Monocytes # 0.8 Eosinophils # 0.5 Basophils # 0.1 Nucleated Red Blood Cells # 0.0 Sodium Level 138 Potassium Level 3.9 Chloride Level 100 Carbon Dioxide Level 29 Anion Gap 9 Blood Urea Nitrogen 27 #H Creatinine 6.41 #H Est Glomerular Filtrat Rate mL/min 9 L Glucose Level 89 Calcium Level 8.1 L Subjective 24 Hr Interval Summary Free Text/Dictation no respiratory distress seen. denies any abdominal pain Exam/Review of Systems Exam Vitals Vital Signs Date Temp Pulse Resp B/P (MAP) Pulse Ox O2 O2 Flow FiO2 Time Delivery Rate 05/15/19 98.6 76 20 158/64 96 08:00 (95) 05/14/19 Room Air 07:27 Intake and Output 05/14/19 05/14/19 05/15/19 1515:00 23:00 07:00 IntakeIntake Total 850 ml 50 ml OutputOutput Total 3200 ml BalanceBalance -2350 ml 50 ml Exam Constitutional: alert, oriented Psych: nl mood/affect Head: normocephalic Eyes: nl conjunctiva Respiratory: clear to auscultation, normal air movement Cardiovascular: other (regular rate Gastrointestinal: soft, non-tender Neurological: GUEST SERVICE AIDE II-XII intact, nl mental status, nl speech Skin: nl turgor Results Results 24hrs Laboratory Tests Test 05/15/19 05:25 White Blood Count 6.3 Red Blood Count 3.21 L Hemoglobin 9.2 L Hematocrit 29.5 L Mean Corpuscular Volume 91.9 Mean Corpuscular Hemoglobin 28.7 L Mean Corpuscular Hemoglobin Concent 31.2 L Red Cell Distribution Width 13.6 Platelet Count 193 Mean Platelet Volume 9.6 Immature Granulocytes % 0.300 Neutrophils % 71.6 Lymphocytes % 6.4 L Monocytes % 12.4 H Eosinophils % 8.5 H Basophils % 0.8 Nucleated Red Blood Cells % 0.0 Immature Granulocytes # 0.020 Neutrophils # 4.5 Lymphocytes # 0.4 L Monocytes # 0.8 Eosinophils # 0.5 Basophils # 0.1 Nucleated Red Blood Cells # 0.0 Sodium Level 138 Potassium Level 3.9 Chloride Level 100 Carbon Dioxide Level 29 Anion Gap 9 Blood Urea Nitrogen 27 #H Creatinine 6.41 #H Est Glomerular Filtrat Rate mL/min 9 L Glucose Level 89 Calcium Level 8.1 L Medications Medication Current Medications IV Flush (NS 3 ml) 3 ml PER PROTOCOL IV ; Start 05/11/19 at 22:30 Ondansetron HCl (Zofran Inj) 4 mg Q6H PRN IV NAUSEA/VOMITING; Start 05/11/19 at 22:30 Acetaminophen (Tylenol Tab) 650 mg Q6H PRN PO .PAIN 1-3 OR TEMP; Start 05/11/19 at 22:30 Albuterol/ Ipratropium (Duoneb) 3 ml Q2H RESP THERAPY PRN HHN SHORTNESS OF BREATH; Start 05/11/19 at 22:30 Vancomycin HCl (Vanco Iv Per Pharmacy) VANCOMYCIN PER PHARMACY PER PROTOCOL XX ; Start 05/12/19 at 09:00 Amlodipine Besylate (Norvasc) 10 mg DAILY PO Last administered on 05/15/19at 09:43; Admin Dose 10 MG; Start 05/12/19 at 09:00 Piperacillin Sod/ Tazobactam Sod 50 ml @ 100 mls/hr Q8 IVPB Last administered on 05/15/19at 13:05; Admin Dose 100 MLS/HR; Start 05/12/19 at 06:00 Heparin Sodium (Porcine) (Heparin (1000 Units/ml)) 4,000 unit AFTER DIALYSIS CATHETER ; Start 05/12/19 at 12:30 Albumin Human 100 ml @ 100 mls/hr WITH DIALYSIS PRN IV SBP <90 DURING DIALYSIS; Start 05/12/19 at 12:30 Miscellaneous Information (*Rx Drug Level Order Reminder*) RANDOM VANCOMYCIN LEVEL 7... 0500 ONCE XX ; Start 05/16/19 at 05:00; Stop 05/16/19 at 05:01 ANICETO FIELD NP May 15, 2019 13:39
[2019-05-15 14:00] VITALS: BP 146/72; PULSE 64; RESP 20
[2019-05-15 20:00] VITALS: BP 154/76; PULSE 83; RESP 18
[2019-05-16] VITALS (19 sets, daily range): BP systolic 140–177; BP diastolic 75–109; PULSE 72–109; RESP 16–18
[2019-05-16] MEDS: PIPER-TAZO 2.25 GM/NS 50 ML IVPB SCH (05:35)
--- NOTE | 2019-05-16 08:49 | CONS ---
Assessment/Plan Assessment/Plan Assessment/Plan (Daily) 1.ESRD on HD TTS Schedule 2.Acute fluid overload due to missed HD 3. Persistent Moderate to large Hydropneumothorax 4. S/p VATS procedure on last admissoin 5. H/O HTN 6. H/o HL Plan: s/p HD today 3 L removed , will conitnue pt on HD on TTS scheduel- HD ordered for saturday pulmonary following ok to d/c home today will follow up Consultation Date/Type/Reason Admit Date/Time May 11, 2019 at 21:03 Initial Consult Date 05/13/19 Type of Consult NEPHROLOGY Requesting Provider: LEW JEAN MD Date/Time of Note DATE: 05/16/19 TIME: 08:49 Exam/Review of Systems Exam Vitals Vital Signs Date Temp Pulse Resp B/P (MAP) Pulse Ox O2 O2 Flow FiO2 Time Delivery Rate 05/16/19 98.2 78 16 165/83 99 08:22 (110) 05/16/19 Room Air 02:00 Intake and Output 05/15/19 05/15/19 05/16/19 1515:00 23:00 07:00 IntakeIntake Total 640 ml 500 ml 50 ml BalanceBalance 640 ml 500 ml 50 ml Results Result Diagram: 05/16/19 0453 05/16/19 0453 Results 24hrs Laboratory Tests Test 05/16/19 04:53 White Blood Count 6.7 Red Blood Count 3.11 L Hemoglobin 9.1 L Hematocrit 28.7 L Mean Corpuscular Volume 92.3 Mean Corpuscular Hemoglobin 29.3 Mean Corpuscular Hemoglobin Concent 31.7 L Red Cell Distribution Width 14.0 Platelet Count 198 Mean Platelet Volume 10.0 Immature Granulocytes % 0.700 H Neutrophils % 71.6 Lymphocytes % 6.7 L Monocytes % 10.8 Eosinophils % 9.6 H Basophils % 0.6 Nucleated Red Blood Cells % 0.0 Immature Granulocytes # 0.050 H Neutrophils # 4.8 Lymphocytes # 0.5 L Monocytes # 0.7 Eosinophils # 0.6 H Basophils # 0.0 Nucleated Red Blood Cells # 0.0 Sodium Level 140 Potassium Level 4.8 Chloride Level 102 Carbon Dioxide Level 28 Anion Gap 10 Blood Urea Nitrogen 34 H Creatinine 8.48 #H Est Glomerular Filtrat Rate mL/min 6 L Glucose Level 84 Calcium Level 7.8 L Random Vancomycin Level 18.7 Medications Medication Current Medications IV Flush (NS 3 ml) 3 ml PER PROTOCOL IV ; Start 05/11/19 at 22:30 Ondansetron HCl (Zofran Inj) 4 mg Q6H PRN IV NAUSEA/VOMITING; Start 05/11/19 at 22:30 Acetaminophen (Tylenol Tab) 650 mg Q6H PRN PO .PAIN 1-3 OR TEMP; Start 05/11/19 at 22:30 Albuterol/ Ipratropium (Duoneb) 3 ml Q2H RESP THERAPY PRN HHN SHORTNESS OF BREATH; Start 05/11/19 at 22:30 Vancomycin HCl (Vanco Iv Per Pharmacy) VANCOMYCIN PER PHARMACY PER PROTOCOL XX ; Start 05/12/19 at 09:00 Amlodipine Besylate (Norvasc) 10 mg DAILY PO Last administered on 05/15/19at 09:43; Admin Dose 10 MG; Start 05/12/19 at 09:00 Piperacillin Sod/ Tazobactam Sod 50 ml @ 100 mls/hr Q8 IVPB Last administered on 05/16/19at 05:35; Admin Dose 100 MLS/HR; Start 05/12/19 at 06:00 Heparin Sodium (Porcine) (Heparin (1000 Units/ml)) 4,000 unit AFTER DIALYSIS CATHETER ; Start 05/12/19 at 12:30 Albumin Human 100 ml @ 100 mls/hr WITH DIALYSIS PRN IV SBP <90 DURING DIALYSIS; Start 05/12/19 at 12:30 VAN DHALIWAL MD May 16, 2019 08:49
[2019-05-16] MEDS: AMLODIPINE 5 MG TAB PO SCH (08:59)
[2019-05-16] MEDS ORDERED: AMLO-145 PO (09:39)
--- NOTE | 2019-05-16 09:41 | PDOCDIS ---
Discharge Instructions DIAGNOSIS Discharge Diagnosis 1. Right-sided abdominal/right rib cage pain 2. Persistent moderate to large hydropneumothorax 3. Possible right-sided empyema 4. Fever 5. ESRD on HD. 6. Hypertension CONDITION [id number] Patient Condition: [id number] Stable HOME CARE INSTRUCTIONS: [id number] Special Diet: [id number] renal FOLLOW UP/APPOINTMENTS Follow-up Plan 1. Follow up with your regular scheduled dialysis on Saturday, , Saturday 2. Follow up with Dr. Sridhar Milligan in one week Office Address [address] [place] [id number] Office ANICETO FIELD NP May 16, 2019 09:41
--- NOTE | 2019-05-16 11:46 | CONS ---
Consult Date/Type/Reason Admit Date/Time May 11, 2019 at 21:03 Initial Consult Date 05/13/19 Type of Consult Pulmonary Requesting Provider: LEW JEAN MD Date/Time of Note DATE: 05/16/19 TIME: 11:45 Subjective No significant changes stable this morning. Objective Vital Signs Date Temp Pulse Resp B/P (MAP) Pulse Ox O2 O2 Flow FiO2 Time Delivery Rate 05/16/19 98.2 78 16 165/83 99 08:22 (110) 05/16/19 Room Air 02:00 Intake and Output 05/15/19 05/15/19 05/16/19 1515:00 23:00 07:00 IntakeIntake Total 640 ml 500 ml 50 ml BalanceBalance 640 ml 500 ml 50 ml Exam GENERAL: Well-nourished well-developed gentleman comfortable at rest VITAL SIGNS: per chart NECK: Supple. No JVD or lymphadenopathy. CARDIAC EXAM: S1, S2. No added sounds or murmurs. CHEST: Diminished air entry both lung patrick ABDOMEN: Soft, nontender. No guarding or rebound. EXTREMITIES: No cyanosis, clubbing or edema. NEUROLOGIC: Generalized weakness. No focal deficits Results/Medications Result Diagram: 05/16/19 0453 05/16/19 0453 Results 24 hrs Laboratory Tests Test 05/16/19 04:53 White Blood Count 6.7 Red Blood Count 3.11 L Hemoglobin 9.1 L Hematocrit 28.7 L Mean Corpuscular Volume 92.3 Mean Corpuscular Hemoglobin 29.3 Mean Corpuscular Hemoglobin Concent 31.7 L Red Cell Distribution Width 14.0 Platelet Count 198 Mean Platelet Volume 10.0 Immature Granulocytes % 0.700 H Neutrophils % 71.6 Lymphocytes % 6.7 L Monocytes % 10.8 Eosinophils % 9.6 H Basophils % 0.6 Nucleated Red Blood Cells % 0.0 Immature Granulocytes # 0.050 H Neutrophils # 4.8 Lymphocytes # 0.5 L Monocytes # 0.7 Eosinophils # 0.6 H Basophils # 0.0 Nucleated Red Blood Cells # 0.0 Sodium Level 140 Potassium Level 4.8 Chloride Level 102 Carbon Dioxide Level 28 Anion Gap 10 Blood Urea Nitrogen 34 H Creatinine 8.48 #H Est Glomerular Filtrat Rate mL/min 6 L Glucose Level 84 Calcium Level 7.8 L Random Vancomycin Level 18.7 Medications Current Medications IV Flush (NS 3 ml) 3 ml PER PROTOCOL IV ; Start 05/11/19 at 22:30 Ondansetron HCl (Zofran Inj) 4 mg Q6H PRN IV NAUSEA/VOMITING; Start 05/11/19 at 22:30 Acetaminophen (Tylenol Tab) 650 mg Q6H PRN PO .PAIN 1-3 OR TEMP; Start 05/11/19 at 22:30 Albuterol/ Ipratropium (Duoneb) 3 ml Q2H RESP THERAPY PRN HHN SHORTNESS OF BREATH; Start 05/11/19 at 22:30 Amlodipine Besylate (Norvasc) 10 mg DAILY PO Last administered on 05/16/19at 08:59; Admin Dose 10 MG; Start 05/12/19 at 09:00 Heparin Sodium (Porcine) (Heparin (1000 Units/ml)) 4,000 unit AFTER DIALYSIS CATHETER ; Start 05/12/19 at 12:30 Albumin Human 100 ml @ 100 mls/hr WITH DIALYSIS PRN IV SBP <90 DURING DIALYSIS; Start 05/12/19 at 12:30 Assessment/Plan Hospital Course (Demo Recall) Assessment and recommendations; 1. Patient admitted with chest pain possibly stable hydropneumothorax 2. History of recent VATS procedure of the right lung for empyema 3. Chronic renal failure, on dialysis. 4. History of anemia. DC planning okay from pulmonary standpoint DAHLIA ROMERO MD, [facility] May 16, 2019 11:46
--- NOTE | 2019-05-16 12:39 | DS ---
Date/Time of Note Date/Time of Note DATE: 05/16/19 TIME: 12:34 Discharge Summary Admission/Discharge Info Admit Date/Time May 11, 2019 at 21:03 Discharge Date/Time Discharge Diagnosis 1. Right-sided abdominal/right rib cage pain 2. Persistent moderate to large hydropneumothorax 3. Possible right-sided empyema 4. Fever 5. ESRD on HD. 6. Hypertension Patient Condition: Stable Hospital Course This is a 68-year-old male with history of hypertension, hyperlipidemia, ESRD on HD on Saturday, , Saturday, right pleural effusion status post recent VATS, who came to the hospital due to increased shortness breath. He did have chest imaging that did show large right hydropneumothorax which contains numerous loculations of air. Patient was seen by credit control clerk. Patient did have improved breathing with dialysis. His breathing improved during his stay and there was plan for conservative monitoring for now. He was advised to continue with dialysis and follow-up with credit control clerk upon discharge. The plan of care was discussed with the patient and he verbalized understanding. On the day of discharge patient was in stable condition Discussed POC with Dr. Hut[facility] Active Scripts Amlodipine Besylate* (Amlodipine Besylate*) 5 Mg Tablet, 10 MG PO DAILY, #30 TAB Prov:ANICETO FIELD TRY OUT PERSON 05/16/19 Discontinued Reported Medications Beclomethasone Dipropionate (Qvar Redihaler (80 MCG)) 10.6 Gm Hfa.aeroba, 10.6 GM IH BID, INH 08/08/18 Albuterol Sulfate* (Proair HFA*) 8.5 Gm Hfa.aer.ad, 2 PUFF INH Q4H PRN for WHEEZING AND SOB, #1 INHALER 08/08/18 Amlodipine Besylate* (Amlodipine Besylate*) 10 Mg Tablet, 10 MG PO DAILY, #30 TAB 08/08/18 Aspirin* (Aspirin* EC) 81 Mg Tablet., 81 MG PO DAILY, TAB 08/08/18 Atorvastatin* (Atorvastatin*) 80 Mg Tablet, 80 MG PO QHS, #30 TAB 08/08/18 Omeprazole* (Omeprazole*) 20 Mg Capsule., 20 MG PO DAILY, #30 CAP 08/08/18 Follow-up Plan 1. Follow up with your regular scheduled dialysis on Saturday, , Saturday 2. Follow up with Dr. Sridhar Milligan in one week Office Address [address] [place] [address] [address] [address] Office Primary Care Provider Care Physician No Primary Time spent on discharge: > 30 minutes Pending Labs Laboratory Tests Test 05/16/19 04:53 White Blood Count 6.7 10^3/ul (4.8-10.8) Red Blood Count 3.11 10^6/ul (4.70-6.10) Hemoglobin 9.1 g/dl (14.0-18.0) Hematocrit 28.7 % (42.0-52.0) Mean Corpuscular Volume 92.3 fl (82.0-101.0) Mean Corpuscular Hemoglobin 29.3 pg (29.0-33.0) Mean Corpuscular Hemoglobin Concent 31.7 g/dl (32.0-37.0) Red Cell Distribution Width 14.0 % (11.5-14.5) Platelet Count 198 10^3/UL (140-415) Mean Platelet Volume 10.0 fl (7.4-10.4) Immature Granulocytes % 0.700 % (0.001-0.429) Neutrophils % 71.6 % (39.0-77.0) Lymphocytes % 6.7 % (15.0-51.0) Monocytes % 10.8 % (0.0-11.0) Eosinophils % 9.6 % (0.0-7.0) Basophils % 0.6 % (0.0-2.0) Nucleated Red Blood Cells % 0.0 /100WBC (0.0-0.0) Immature Granulocytes # 0.050 10^3/ul (0.0-0.031) Neutrophils # 4.8 10^3/ul (1.6-7.5) Lymphocytes # 0.5 10^3/ul (0.8-2.9) Monocytes # 0.7 10^3/ul (0.3-0.9) Eosinophils # 0.6 10^3/ul (0.0-0.5) Basophils # 0.0 10^3/ul (0.0-0.1) Nucleated Red Blood Cells # 0.0 10^3/ul (0.0-0.0) Sodium Level 140 mmol/L (135-144) Potassium Level 4.8 mmol/L (3.5-5.1) Chloride Level 102 mmol/L (97-110) Carbon Dioxide Level 28 mmol/L (21-31) Anion Gap 10 (5-13) Blood Urea Nitrogen 34 mg/dl (7-20) Creatinine 8.48 mg/dl (0.61-1.24) Est Glomerular Filtrat Rate mL/min 6 mL/min (>60) Glucose Level 84 mg/dl (70-220) Calcium Level 7.8 mg/dl (8.4-10.2) Random Vancomycin Level 18.7 ug/ml ANICETO FIELD NP May 16, 2019 12:39
--- NOTE | 2019-05-18 09:10 | PN ---
DATE: 05/15/2019 SUBJECTIVE: Mr. Barber remains stable this morning. No new events. The patient currently hemodynam ically stable with decreased pleuritic pain. PHYSICAL EXAMINATION: VITAL SIGNS: Temperature 98, pulse 76, blood pressure 158/68. NECK: Supple. No JVD or lymphadenopathy. CARDIAC: S1, S2, no added sounds or murmurs. CHEST: Diminished air entry right lung. ABDOMEN: Soft, nontender. No guarding or rebound. EXTREMITIES: No cyanosis, clubbing, 1+ edema. NEUROLOGIC: Generalized weakness. LABORATORY DATA: White count 6.3, hemoglobin 9.2, platelets 193. Chemistry: BUN 27, creatinine 6.4 1. IMPRESSION AND PLAN: Loculated right pleural effusion and hydropneumothorax. At this point, I do no t see the patient will need further intervention. I would consider discharge with outpatient thoraci c surgery evaluation now that patient's pancreatitis has improved. Dictated By: DAHLIA ROMERO MD SV/KEKE Conf#: [id number] DID#: [id number] CC: LEW JEAN MD;*EndCC*
== END 2019-05-16 20:14 | disposition home or self-care (01) | DRG 177 ==
LOC: E/R 15:56 → PP2 21:03
PROVIDERS: ADMIT Internal Medicine; ATTEND Internal Medicine
PROC: 5A1D70Z Performance of Urinary Filtration, Intermittent, Less than 6 Hours Per Day (ICD-10-PCS; principal; 2019-05-12)
DX: J86.9 Pyothorax without fistula (principal); N18.6 End stage renal disease; J94.2 Hemothorax; J94.8 Other specified pleural conditions; I12.0 Hypertensive chronic kidney disease with stage 5 chronic kidney disease or end stage renal disease; E87.70 Fluid overload, unspecified; Z99.2 Dependence on renal dialysis; E78.5 Hyperlipidemia, unspecified
CPT/HCPCS: 36415; 71045; 71250; 74176; 80048; 80053; 80202; 81003; 83690; 83735; 84100; 85025; 87340; 90935; 96374; 96375; 96376; J0360; J2270; J2405; J2543; J3370; J7042

== ENCOUNTER 2019-06-01 13:46 | Emergency (ER) | payer OTHER ==
[~2019-06-01] VITALS: Ht 162.6 cm; Wt 50.5 kg
[~2019-06-01 13:46] MED LIST changes: -ALBU8.5H8 INH; +AMLO-145 PO; -AMLO-147 PO; -ASPI-817 PO; -ATOR-2 PO; -BECL10.62 IH; -OMEP20CA16 PO
[2019-06-01 13:57] VITALS: BP 121/67; PULSE 73; RESP 20; Ht 162.6 cm; Wt 50.5 kg
--- NOTE | 2019-06-01 14:18 | ERD ---
ER Documentation Chief Complaint Chief Complaint LIDYA REMOVAL @ RIGHT MID FLANK AREA HPI Patient is here for staple removal. He states that in late March he had a operation in which they "cleaned out his lungs". He had lidya placed and he never followed up with a surgeon or anyone else for removal. He denies any fevers or chills. He denies any discharge, erythema or other signs of infection. He denies any pain. He reports he is just here for removal of his lidya In demand application was used for translation for Singaporean to Sinhala ROS All systems reviewed and are negative except as per history of present illness. Medications Home Meds Active Scripts Amlodipine Besylate* (Amlodipine Besylate*) 5 Mg Tablet, 10 MG PO DAILY, #30 TAB Prov:ANICETO FIELD NP 05/16/19 Allergies Allergies: Coded Allergies: No Known Allergy (Unverified , 05/11/19) PMhx/Soc History of Surgery: Yes ("Lung Surgery") Anesthesia Reaction: No Hx Neurological Disorder: No Hx Respiratory Disorders: Yes ("fluid in lungs") Hx Cardiac Disorders: No Hx Psychiatric Problems: No Hx Miscellaneous Medical Probl: No Hx Alcohol Use: No Hx Substance Use: No Hx Tobacco Use: Yes (When pt was "young". Not for a long period. ) FmHx Family History: No diabetes Physical Exam Vitals Vital Signs Date Temp Pulse Resp B/P (MAP) Pulse Ox O2 O2 Flow FiO2 Time Delivery Rate 06/01/19 98.9 73 20 121/67 97 13:57 (85) Physical Exam Const: No acute distress Head: Atraumatic Resp: Clear to auscultation bilaterally Cardio: Regular rate and rhythm, Abd: Soft, non tender, non distended. Skin: 25 sutures placed on the right anterior flank of the patient. No signs of erythema, discharge, not warm to touch. Incision healed well Neur: Awake and alert Psych: Normal Mood and Affect Procedures/MDM ED COURSE: The patient was stable throughout ED course. I kept the patient informed of laboratory and diagnostic imaging results throughout the ED course. PROCEDURES: Staple Removal by me: Lidya removed with staple remover without incident. Wound shows no evidence of infection, foreign body, neurologic injury, vascular injury, open joint or tendon laceration. Patient to follow up PRN. MEDICAL DECISION MAKING: Patient is a 68-year-old male presenting for suture removal. At this time I have low suspicion for cellulitis, any abscess, systemic infection. I have removed 25 lidya from the patient on his anterior right flank. No complic ations. Patient was told to follow-up with his surgeon and his primary care provider. All questions were answered. Vital signs were reviewed. Patient is afebrile. Patient was not hypoxic. Patient was hemodynamically stable. Patient was told to follow up with primary care for further care and management. DISCHARGE: At this time, patient is stable for discharge and outpatient management. I have instructed the patient to follow-up with their primary care physician in 1-2 days. I have discussed with the patient the possibility of needing to see a specialist for further workup and imaging studies if symptoms persist. I have instructed the patient to promptly return to the ER for any new or worsening symptoms including increased pain, fever, nausea, vomiting, weakness or LOC. The patient expressed understanding of and agreement with this plan. All questions were answered. Home care instructions were provided. Disclaimer: Inadvertent spelling and grammatical errors are likely due to EHR/dictation software use and do not reflect on the overall quality of patient care. Also, please note that the electronic time recorded on this note does not necessarily reflect the actual time of the patient encounter. Departure Diagnosis: Primary Impression: Encounter for removal of lidya Condition: Stable Patient Instructions: Suture Removal, No Complication Referrals: [facility] CL[facility]ICS YOU HAVE RECEIVED A MEDICAL SCREENING EXAM AND THE RESULTS INDICATE THAT YOU DO NOT HAVE A CONDITION THAT REQUIRES URGENT TREATMENT IN THE EMERGENCY DEPARTMENT. FURTHER EVALUATION AND TREATMENT OF YOUR CONDITION CAN WAIT UNTIL YOU ARE SEEN IN YOUR DOCTORS OFFICE WITHIN THE NEXT 1-2 DAYS. IT IS YOUR RESPONSIBILITY TO MAKE AN APPOINTMENT FOR FOLOW-UP CARE. IF YOU HAVE A PRIMARY DOCTOR --you should call your primary doctor and schedule an appointment IF YOU DO NOT HAVE A PRIMARY DOCTOR YOU CAN CALL OUR PHYSICIAN REFERRAL HOTLINE AT IF YOU CAN NOT AFFORD TO SEE A PHYSICIAN YOU CAN CHOSE FROM THE FOLLOWING [facility] [address]. [facility] [address] [facility] [place] [address] [facility] [address] [facility]. [facility] [address] [facility]. [facility]. [address] [facility]. [facility] YOU HAVE RECEIVED A MEDICAL SCREENING EXAM AND THE RESULTS INDICATE THAT YOU DO NOT HAVE A CONDITION THAT REQUIRES URGENT TREATMENT IN THE EMERGENCY DEPARTMENT. FURTHER EVALUATION AND TREATMENT OF YOUR CONDITION CAN WAIT UNTIL YOU ARE SEEN IN YOUR DOCTORS OFFICE WITHIN THE NEXT 1-2 DAYS. IT IS YOUR RESPONSIBILITY TO MAKE AN APPOINTMENT FOR FOLOW-UP CARE. IF YOU HAVE A PRIMARY DOCTOR --you should call your primary doctor and schedule and appointment IF YOU DO NOT HAVE A PRIMARY DOCTOR YOU CAN CALL OUR PHYSICIAN REFERRAL HOTLINE AT . IF YOU CAN NOT AFFORD TO SEE A PHYSICIAN YOU CAN CHOSE FROM THE FOLLOWING [facility] INSTITUTIONS: [facility] [address] [place], [place] [id number] [place] [address] [address] [place], [place] [id number] [place] [address] [address] [place] [address] Additional Instructions: Follow-up with your surgeon next 1 to 2 days Llame al doctor CAMPBELL y miri oralia XAVI PARA DENTRO DE 1-2 FREEMAN.Dgale a la secretaria que nosotros le instruimos hacer esta xavi.Avise o llame si agustin condicin se empeora antes de la xavi. Regresa aqui si peor o no mejor. HERNESTO FARMER PA-C Jun 01, 2019 14:18
== END 2019-06-01 14:18 | disposition home or self-care (01) ==
LOC: E/R 13:46
DX: Z48.02 Encounter for removal of sutures (principal); Z87.891 Personal history of nicotine dependence
CPT/HCPCS: 99281

== ENCOUNTER 2019-08-24 16:39 | Emergency (ER) | payer OTHER ==
[~2019-08-24] VITALS: Ht 162.6 cm; Wt 52.5 kg
[~2019-08-24 16:39] MED LIST changes: +ACET325T33 PO; -AMLO-145 PO; +AMLO-147 PO; +APIX2.5T PO; +ASPI81TA52 PO; +ATOR-2 PO; +BENA40TA56 PO; +BUME1TAB3 PO; +CARV25TA79 PO; +CLOT30CR24 TOP; +FAMO20TA18 PO; +HYDR-3672 PO
[2019-08-24 16:48] VITALS: BP 137/62; PULSE 64; RESP 17; Ht 162.6 cm; Wt 52.5 kg
== END 2019-08-25 17:42 | disposition home or self-care (01) ==
LOC: FTE 16:39 → E/R 08-25 17:42
DX: Z48.02 Encounter for removal of sutures (principal)
CPT/HCPCS: Z7502; Z7610; 99281